=== PATIENT | male | born 1960 | race Caucasian/White ===

== ENCOUNTER 2024-01-30 00:01 | Emergency (ER) | payer OTHER, SELFPAY ==
[2024-01-30 00:10] VITALS: BP 140/72
[2024-01-30 00:24] VITALS: BP 136/65
[2024-01-30 00:53] LABS: % Basophils 0.5 % (0-2); % Immature Granulocytes 0.6 % (0-0.5); % Lymphocytes 4.9 % (20.5-51.1); % Monocytes 8.3 % (1.7-9.3); % Neutrophils 85.7 % (42.2-75.2); Absolute Basophils 0.1 10^3/uL (0-0.2); Absolute Immature Granulocytes 0.1 10^3/uL (0-0.05); Absolute Lymphocytes 0.5 10^3/uL (1.2-3.4); Absolute Monocytes 0.8 10^3/uL (0.1-0.6); Absolute Neutrophils 8.7 10^3/uL (1.4-6.5); Hematocrit 37.6 % (39.0-52.0); Hemoglobin 13.2 g/dL (13.0-18.0); Mean Corp Hgb Conc. 35.1 g/dL (33.0-37.0); Mean Corpuscular Hgb 31.4 pg (27.0-31.0); Mean Corpuscular Volume 89.3 fL (80.0-94.0); Mean Platelet Volume 10.7 fL (7.4-10.4); Nucleated Red Blood Cells % 0 % (-); Platelet Count 171 10^3/uL (130-400); Red Blood Cell Count 4.21 10^6/uL (4.70-6.10); Red Cell Dist. Width 12.2 % (11.5-14.5); White Blood Cell Count 10.1 10^3/uL (4.8-10.8)
[2024-01-30 00:56] VITALS: BMI 28.4
--- NOTE | 2024-01-30 00:58 | ED.GENMED ---
History of Present Illness
<HARRIET Gentile (Lenka) - Last Filed: 01/30/24 01:27>
General
Chief Complaint: Chest Pain
Source: patient and spouse
Exam Limitations: none
Time Seen by Provider: 01/30/24 00:22
Nursing documentation reviewed up to this point in time: agreed with except (patient denies chest pain, denies arm tingling, states it is intermittent sharp shooting sensation)
History of Present Illness
History of Present Illness:
Pt is a 63yo male with PMHx PVCs who presents to the ED for L arm pain and general malaise x 1 day. 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
external rotation as well as abduction. He describes it as a 'pinched nerve or pulled muscle sensation', stating it is sharp and shooting, originates at his shoulder, and radiates down his posterior arm to his elbow. He took a muscle relaxer and
motrin before bed last night and at 0430 today. He awoke this morning with general malaise, remained in bed all day, and in the afternoon developed a 1 hour episode of diaphoresis, chills, MOSES, and nausea. He denies chest pain, dyspnea, emesis,
abdominal pain, numbness or tingling in his fingers or down his arm.
Recent travel to and from the [facility] 2 days ago.
No prior hx of L arm pain.
No FHx of cardiac conditions.
He is R arm dominant.
Past History
<HARRIET Gentile (Lenka) - Last Filed: 01/30/24 01:27>
Past History
ED Past Medical History: None and Other (PVCs)
ED Past Surgical History: Orthopedic (Lt ankle and knee surgery, Rt knee replacement)
Social History
Tobacco: Non-smoker
Personal:
Living: with family
Employment: Employed
Family History
Family History: Other (no known cardiac FHx)
Phy Exam
<HARRIET Gentile (Lenka) - Last Filed: 01/30/24 01:27>
General Physical Exam
General Presentation: well appearing and no apparent distress
General age: appears stated age
General Skin: warm and dry
General Habitus: normal
General Mental: alert
General Hydration: appears well hydrated
Cardiovascular Exam
Cardiovascular Exam: no edema, systolic murmur and tachycardia
Pulmonary Exam
Pulmonary Exam: lungs clear, no respiratory distress, no rales, no crackles, no rhonchi, no stridor, no wheezing and no cough
Gastrointestinal Exam
Gastrointestinal Exam: non tender and soft
Neurological Exam
Neurological Exam: alert and oriented x3
Musculoskeletal Exam
Musculoskeletal Exam: neuro vasc intact and other (ROM limited d/t pain, Positive bermudez test)
Skin Exam
Skin Exam: normal color, warm/dry and no rash
Psychiatric Exam
Psychiatric Exam: normal mood/affect
Scores
<ST Gentile (Lenka)[place] - Last Filed: 01/30/24 01:27>
Heart Score for Chest Pain Patients
STEMI patient?: No
History: Slightly or Non-Suspicious
ECG: Normal
Age: >/= 65 years
Risk Factors: No Risk Factors
Troponin: </= Normal Limit
Heart Score for Chest Pain Patients: 2
Heart Score Risk: 2.5% MACE over next 6 weeks
<Ana Evans DO - Last Filed: 01/30/24 05:07>
Heart Score for Chest Pain Patients
Heart Score for Chest Pain Patients: 2
Heart Score Risk: 2.5% MACE over next 6 weeks
Course
<ST Gentile (Lenka)[place] - Last Filed: 01/30/24 01:27>
Orders/Labs/Results
Orders:
Orders
01/30/24 00:02
Electrocardiogram (*1) Urgent
Reason for Study: Chest Pain
EKG- Treatment ONCE
01/30/24 00:31
CMP [Comprehensive Metabolic Panel] Urgent
Complete Blood Count/With Diff Urgent
Troponin I Urgent
01/30/24 01:25
0.9% Sodium Chloride 1000 ml [Nss] 1,000 ml IV BOLUS
Acetaminophen [Tylenol] 1,000 mg PO NOW STA
01/30/24 01:40
CR Chest - 2 Views Urgent
Comment:
Reason For Exam: acute fever
01/30/24 01:43
COVID-19 Antigen Urgent
Source: Nasal Swab
01/30/24 02:28
0.9% Sodium Chloride 1000 ml [Nss] 1,000 ml IV BOLUS
01/30/24 02:35
Ibuprofen [Motrin] 800 mg .ROUTE .STK-MED ONE
01/30/24 02:36
Ibuprofen [Motrin] 800 mg PO NOW STA
01/30/24 02:41
Lactic Acid Urgent
Blood Culture Urgent
MONICA Source: Blood/Venous
Specimen Description:
01/30/24 03:36
Urinalysis Reflex To Culture Urgent
Date Specimen was Collected: 01/30/24
Time Specimen was Collected: 03:32
Urine Microscopic Reflex Cult Urgent
Urine Culture Urgent
MONICA Source: U
Specimen Description:
Date Specimen was Collected: 01/30/24
Time Specimen was Collected: 03:32
01/30/24 04:50
Add On- LAB Urgent
Tests Added?: Lyme progressive
01/30/24 04:59
Doxycycline [Vibramycin] 100 mg PO NOW STA
Abnormal Lab Results
01/30/24 01/30/24
00:31 03:36
RBC 4.21 L 10^6/uL
(4.70-6.10)
Hct 37.6 L %
(39.0-52.0)
MCH 31.4 H pg
(27.0-31.0)
MPV 10.7 H fL
(7.4-10.4)
Abs Immat Gran (auto) 0.1 H 10^3/uL
(0-0.05)
Absolute Neuts (auto) 8.7 H 10^3/uL
(1.4-6.5)
Absolute Lymphs (auto) 0.5 L 10^3/uL
(1.2-3.4)
Absolute Monos (auto) 0.8 H 10^3/uL
(0.1-0.6)
Immature Gran % 0.6 H %
(0-0.5)
Neutrophils % 85.7 H %
(42.2-75.2)
Lymphocytes % 4.9 L %
(20.5-51.1)
Carbon Dioxide 21 L mmol/L
(22-30)
BUN 22 H mg/dl
(9-20)
Glucose 155 H mg/dl
(70-99)
AST 117 H U/L
(17-59)
ALT 98 H U/L
(0-50)
Total Protein 6.1 L g/dl
(6.3-8.2)
Urine Ketones 2+ A
(Negative)
Ur Occult Blood Reflex 3+ A
(Negative)
Urine Urobilinogen 2+ A
(Neg - 1+)
Urine RBC 7-10 A /HPF
(0-2)
Urine Bacteria (Reflex) Moderate A
(Negative)
01/30/24 00:31
01/30/24 00:31
Vital Signs
Initial and Last Documented VS:
Initial Vital Signs
Temp Pulse Resp BP Pulse Ox
97.4 F 108 20 140/72 98
01/30/24 00:10 01/30/24 00:10 01/30/24 00:10 01/30/24 00:10 01/30/24 00:10
Last Documented Vital Signs
Temp Pulse Resp BP Pulse Ox
100.2 F 117 25 148/74 96
01/30/24 03:27 01/30/24 03:00 01/30/24 03:00 01/30/24 02:32 01/30/24 03:00
<Ana Evans DO - Last Filed: 01/30/24 05:07>
Orders/Labs/Results
Orders:
Orders
01/30/24 00:02
Electrocardiogram (*1) Urgent
Reason for Study: Chest Pain
EKG- Treatment ONCE
01/30/24 00:31
CMP [Comprehensive Metabolic Panel] Urgent
Complete Blood Count/With Diff Urgent
Troponin I Urgent
01/30/24 01:25
0.9% Sodium Chloride 1000 ml [Nss] 1,000 ml IV BOLUS
Acetaminophen [Tylenol] 1,000 mg PO NOW STA
01/30/24 01:40
CR Chest - 2 Views Urgent
Comment:
Reason For Exam: acute fever
01/30/24 01:43
COVID-19 Antigen Urgent
Source: Nasal Swab
01/30/24 02:28
0.9% Sodium Chloride 1000 ml [Nss] 1,000 ml IV BOLUS
01/30/24 02:35
Ibuprofen [Motrin] 800 mg .ROUTE .STK-MED ONE
01/30/24 02:36
Ibuprofen [Motrin] 800 mg PO NOW STA
01/30/24 02:41
Lactic Acid Urgent
Blood Culture Urgent
MONICA Source: Blood/Venous
Specimen Description:
01/30/24 03:36
Urinalysis Reflex To Culture Urgent
Date Specimen was Collected: 01/30/24
Time Specimen was Collected: 03:32
Urine Microscopic Reflex Cult Urgent
Urine Culture Urgent
MONICA Source: U
Specimen Description:
Date Specimen was Collected: 01/30/24
Time Specimen was Collected: 03:32
01/30/24 04:50
Add On- LAB Urgent
Tests Added?: Lyme progressive
01/30/24 04:59
Doxycycline [Vibramycin] 100 mg PO NOW STA
Abnormal Lab Results
01/30/24 01/30/24
00:31 03:36
RBC 4.21 L 10^6/uL
(4.70-6.10)
Hct 37.6 L %
(39.0-52.0)
MCH 31.4 H pg
(27.0-31.0)
MPV 10.7 H fL
(7.4-10.4)
Abs Immat Gran (auto) 0.1 H 10^3/uL
(0-0.05)
Absolute Neuts (auto) 8.7 H 10^3/uL
(1.4-6.5)
Absolute Lymphs (auto) 0.5 L 10^3/uL
(1.2-3.4)
Absolute Monos (auto) 0.8 H 10^3/uL
(0.1-0.6)
Immature Gran % 0.6 H %
(0-0.5)
Neutrophils % 85.7 H %
(42.2-75.2)
Lymphocytes % 4.9 L %
(20.5-51.1)
Carbon Dioxide 21 L mmol/L
(22-30)
BUN 22 H mg/dl
(9-20)
Glucose 155 H mg/dl
(70-99)
AST 117 H U/L
(17-59)
ALT 98 H U/L
(0-50)
Total Protein 6.1 L g/dl
(6.3-8.2)
Urine Ketones 2+ A
(Negative)
Ur Occult Blood Reflex 3+ A
(Negative)
Urine Urobilinogen 2+ A
(Neg - 1+)
Urine RBC 7-10 A /HPF
(0-2)
Urine Bacteria (Reflex) Moderate A
(Negative)
01/30/24 00:31
01/30/24 00:31
Vital Signs
Initial and Last Documented VS:
Initial Vital Signs
Temp Pulse Resp BP Pulse Ox
97.4 F 108 20 140/72 98
01/30/24 00:10 01/30/24 00:10 01/30/24 00:10 01/30/24 00:10 01/30/24 00:10
Last Documented Vital Signs
Temp Pulse Resp BP Pulse Ox
100.2 F 117 25 148/74 96
01/30/24 03:27 01/30/24 03:00 01/30/24 03:00 01/30/24 02:32 01/30/24 03:00
<HARRIET Gentile (Lenka) - Last Filed: 01/30/24 01:27>
MDM/Problems Addressed
Differential Diagnosis Includes:
Pt is a 63 yo male with PMHx of PVCs who presents to the ED for left shoulder to left elbow pain x 1 day. Pt was working in the [employer] yesterday when the pain began. He self-treated with motrin and muscle relaxers last night and early this AM
without relief. Today he developed general malaise, and a 1 hour episode of nausea, chills, and MOSES. The MOSES still persists.
Initial troponins: negative
Vitals: tachycardic (105 bpm), afebrile in triage, febrile 101.3F upon exam.
EKG: sinus tachycardia, one PVC
DDx: shoulder impingement, biceps tendoniitis, FL
Given the onset of symptoms x 1 day during muscular exertion and the reproducibility of pain with special shoulder tests such as Bermudez Alvin, a shoulder impingement is most likely. With absence of chest pain and negative initial troponins, an FL
is less likely.
Pt with likely concomitant URI as well. Plan to administer IVF, manage fever with antiinflammatories, obtain a UA, and a COVID swab.
<HARRIET Gentile (Lenka) - Last Filed: 01/30/24 01:27>
*Critical Care Note
Total Time (30-74mins, 75-104mins- exclusive of procedures): Not Applicable
<Ana Evans DO - Last Filed: 01/30/24 05:07>
*Radiology
Radiology exam reviewed: preliminary read by ED provider (Chest x-ray is unremarkable.)
*Pulse Oximetry
Patient hypoxic: no
*EKG
Interpreted by ED Provider?: Yes
Comparison EKG: no changes (Unchanged from previous March 2007 save her heart rate has increased from 88 to now 106. Unifocal PVCs similarly present in 2006.)
Rate: tachycardiac
Rhythm: sinus and PVC's
[place]: normal axis
Interval: normal interval
QRS Pattern: normal QRS
Ischemia: no ischemia
*Executive [employer]ent Ac[employer] Consultant Interpretation
Rate: tachycardiac
Rhythm: sinus
ED Attending Note
<HARRIET Gentile (Lenka) - Last Filed: 01/30/24 01:27>
-
Portions of this chart may have been created with voice recognition software.� Occasional wrong word or��sound alike� substitutions may have occurred due to the inherent limitations of voice recognition software.
<Ana Evans DO - Last Filed: 01/30/24 05:07>
ED Attending Note
Patient seen and examined by attending physician: Yes
I performed the substantive portion of visit, reviewed & personally made and approve the management plan that is documented in note by myself or SHILOH.: Yes
ED Attending Note:
This is a 63-year-old, [id number] gentleman who has no significant past medical history, takes no medications on a daily basis.
Yesterday while working in his garage he admits to 'tweaking his left shoulder' with abrupt onset of mild pain to his left shoulder. Pain worsened throughout the night, temporized with ibuprofen which she took yesterday evening and then again at
4:30 in the morning along with a muscle relaxer. He awoke this morning with mild nausea that dissipated but throughout the day today he has had a mild frontal headache, generalized fatigue with onset of chills tonight around 6 PM and generalized
myalgias. He took Tylenol at noon, a dose of ibuprofen 800 mg at 4 PM and then again at 8 PM. After taking Tylenol at 8 PM chills resolved but he then developed diaphoresis and has had continued intermittent left shoulder pain that is worse with
range of motion of his shoulder and intermittently radiates down to his left elbow. He denies weakness or numbness, denies chest pain nor palpitations, no cough no shortness of breath, no dizziness or lightheadedness. He denies abdominal pain, no
back pain or flank pain, no dysuria nor urgency nor hematuria. No diarrhea or constipation.
No close contacts with similar symptoms. He denies rash. No leg pain or swelling.
He thought that he may have been running a fever tonight but checked his temperature it was 98.9.
He does not smoke.
Daily alcohol consumption, a few drinks daily, wine versus hard liquor.
GENERAL: Alert , in no apparent distress. Very mild nasal, stuffy voice is noted but no cough, no respiratory distress. Oral temperature 101.3 �F. Mild resting sinus tachycardia is noted. Hemodynamically stable, systolic blood pressure 136-140.
EYE: pupils equal and reactive. anicteric
NECK: Supple, nontender, no meningismus, no significant adenopathy. Full range of motion without difficulty nor pain.
ENT: posterior pharynx is clear, oral mucosa is moist. TM clear b/l, nares have minimally boggy pale blue turbinates without mucopus.
CARDIAC: Regular rhythm, mildly tachycardic. no murmur.
LUNGS: Clear breath sounds bilaterally, no acute respiratory distress, no wheezes/rales/rhonchi
ABDOMEN: Soft, nondistended, without focal tenderness, no r/g, no cvat. normoactive BS.
NEUROLOGICAL: Alert and oriented x3, no focal neuro deficits. Gait is wolfe and steady.
SKIN: Hot to touch and dry, normal color, skin intact. No rash.
MUSCULOSKELETAL: No C/C/E. peripheral pulses are full and equal b/l. Mild tenderness to palpation about the left shoulder with increased pain with abduction and internal rotation of the shoulder. No soft tissue swelling. No crepitus. No
tenderness about the elbow nor pain with elbow range of motion.
PSYCH: Normal and appropriate interaction.
Patient presents with left shoulder pain that began yesterday while working in his garage.
Left shoulder pain clearly appears musculoskeletal in nature, reproducible with palpation and with range of motion of shoulder.
He presents tonight with onset of chills, diaphoresis, myalgias, headache and is noted to be febrile 101.3 �F.
No evidence of focal bacterial infectious process on initial exam.
Concern for acute viral syndrome, COVID-19, occult pneumonia, UTI.
ACS is unlikely.
EKG shows mild sinus tachycardia with unifocal PVC otherwise unremarkable. Similar to previous EKG March 2007 save her heart rate has increased from 88 to now 106.
Labs thus far reveal normal white blood cell count, normal H&H mild left shift, chemistries show minimally elevated BUN of 22, normal creatinine. Random glucose mildly elevated 155. Mildly elevated AST and ALT, normal troponin.
Will check COVID-19 antigen. Will check urinalysis with reflex to culture.
Will check chest x-ray.
Will initiate IV fluids and give a dose of Tylenol for fever.
01/30/2024 0357 AM
No significant improvement in fever after Tylenol but fever now dissipating after an oral dose of ibuprofen.
Overall patient feeling improved.
COVID-19 antigen is negative. Chest x-ray is unremarkable.
Lactic acid is normal.
Awaiting urinalysis results.
01/30/2024 0500 AM
Patient continues to feel improved. Fever dissipating.
Urinalysis shows moderate bacteria, 7-10 RBCs, 3-5 WBCs. Not exactly consistent with UTI however with moderate bacteria, significant febrile response there is some concern for UTI thus we will initiate a course of doxycycline. Urine culture is
pending.
Blood culture is pending.
No rash noted on exam but patient does [place] thus concern for potential Lyme's disease. Lyme titer has been added to blood in the lab.
Discussed importance of remaining well-hydrated on a daily basis.
Continue ibuprofen every 6 hours as needed for fever, aches.
Prompt follow-up with PCP for recheck.
Return precautions discussed.
Discharge Plan
Departure
Patient Disposition: Home (Routine Discharge)
Date of Disposition: 01/30/24
Time of Disposition: 05:02
Patient with high blood pressure during this ER visit?: No
Condition: Good
Discharge Problem:
Acute febrile illness, Bacteriuria, Acute left shoulder strain
Instructions: Fever, Adult (DC), Shoulder Sprain ED
Prescriptions:
New
doxycycline monohydrate 100 mg capsule
100 mg PO BID Qty: 14 0RF
Referrals:
Brandan Balderrama MD [Family Provider] - Call in 1-3 days for appt
Interventions
Interventions:
*Risk Screen - Suicide Last Done: 01/30/24 00:10
*General Assessment Last Done: 01/30/24 02:09
*Neglect/Abuse Screening Last Done: 01/30/24 00:10
*ED COVID-19 Vaccine History Last Done: 01/30/24 02:09
ED- Cardiac Assessment Last Done: 01/30/24 02:09
Discharge Date and Time
Print Language: STATELESS
[2024-01-30 01:08] LABS: ALT (SGPT) 98 U/L (0-50); AST (SGOT) 117 U/L (17-59); Albumin 3.9 g/dl (3.5-5.0); Alkaline Phosphatase 73 U/L (38-126); Blood Urea Nitrogen 22 mg/dl (9-20); Calcium 8.7 mg/dl (8.4-10.2); Carbon Dioxide 21 mmol/L (22-30); Chloride 106 mmol/L (98-107); Estimated Creatinine Clearance 81 ml/min; Glucose 155 mg/dl (70-99); Potassium 3.9 mmol/L (3.5-5.1); Sodium 136 mmol/L (135-145); Total Protein 6.1 g/dl (6.3-8.2); eGFR > 60.00
[2024-01-30 01:18] LABS: Troponin I < 0.012 ng/ml
[2024-01-30] MEDS: NSS 1000 IV ×2 (01:39→02:41)
[2024-01-30] MEDS: TYLENOL 1000 MG PO (01:39)
[2024-01-30 01:44] VITALS: BP 150/73
[2024-01-30 02:00] VITALS: BP 158/74
[2024-01-30 02:15] LABS: COVID-19 Antigen Negative (Negative)
[2024-01-30 02:32] VITALS: BP 148/74
[2024-01-30] MEDS: MOTRIN 800 MG PO (02:41)
[2024-01-30 03:46] LABS: Urine Albumin Trace (Neg - Trace); Urine Bilirubin Negative (Negative); Urine Character Clear (Clear); Urine Color Yellow; Urine Glucose Negative (Negative); Urine Ketone 2+ (Negative); Urine Leukocyte Negative (Negative); Urine Nitrite Negative (Negative); Urine Occult Blood 3+ (Negative); Urine Urobilinogen 2+ (Neg - 1+)
[2024-01-30 04:33] LABS: Urine Mucus Few
[2024-01-30 04:34] LABS: Urine Amorphous Seen; Urine Bacteria Moderate (Negative)
[2024-01-30 04:35] LABS: Urine Urothelial Cell 0-2 /LPF (FEW)
[2024-01-30] MEDS: VIBRAMYCIN 100 MG PO (05:09)
[2024-02-01 15:22] LABS: Lyme Antibody Screen, EIA Negative (Negative)
== END 2024-01-30 05:17 | disposition home or self-care (01) ==
LOC: EMR 00:01
PROVIDERS: Emergency Medicine; EMERGENCY PHYSICIAN Emergency Medicine; FAMILY PHYSICIAN Internal Medicine
DX: R50.9 Fever, unspecified (principal); R82.71 Bacteriuria; S46.912A Strain of unspecified muscle, fascia and tendon at shoulder and upper arm level, left arm, initial encounter; X50.1XXA Overexertion from prolonged static or awkward postures, initial encounter
CPT/HCPCS: 88305; 93308; 70355; 71045; 71046; 71250; 75574; 76700; 76705; 80048; 80053; 80076; 81003; 81015; 82330; 82565; 82805; 82947; 82962; 83036; 83605; 83690; 83735; 84132; 84302; 84484; 84520; 85014; 85018; 85025; 85027; 85049; 85610; 85652; 85730; 86140; 86618; 86803; 86850; 86900; 86901; 86920; 87015; 87040; 87045; 87046; 87070; 87075; 87086; 87102; 87147; 87176; 87186; 87205; 87207; 87324; 87427; 87449; 87811; 93005; 93306; 93312; 93320; 93321; 93325; 93880; 94002; 94640; 96360; 96361; 96374; 99285; J2916; P9045; P9047; P9059; Q9967

== ENCOUNTER 2024-01-30 21:21 | Inpatient (IN) | payer OTHER, SELFPAY ==
[2024-01-30] VITALS (7 sets, daily range): BP systolic 110–153; BP diastolic 49–84; BMI 30.5; BMI 28.7
--- NOTE | 2024-01-30 16:57 | ED.GENMED ---
History of Present Illness
General
Chief Complaint: Abnormal Lab Value
Time Seen by Provider: 01/30/24 16:57
History of Present Illness
History of Present Illness:
HPI: The patient comes back to the ED today after being called of abnormal blood cultures (gram-positive cocci in clusters). He was placed on doxycycline as morning for the possibly of a urinary tract infection. He does report some ongoing vague
discomfort between the left shoulder and left elbow. He did have some chills earlier.
EXAM:
GENERAL: Well appearing in no distress, temperature 100.4 �F
HEENT: Moist oral mucosa
CARDIOVASCULAR: No murmurs, normal heart rate, regular rhythm, No chest wall tenderness
PULMONARY: No respiratory distress, breath sounds are clear and equal
ABDOMEN: Soft with no peritoneal signs, no tenderness
NEUROLOGIC: Excellent strength all extremities, no coordination deficits
PSYCHIATRIC: Appropriate mental status, normal insight and judgement
EXTREMITIES: Some decreased active range of motion at the left shoulder and left elbow however there is no overlying erythema or warmth or suggestion of septic joint
SKIN: No rash, no lesions
TIME OF INITIAL ENCOUNTER: 5 PM
NUMBER AND COMPLEXITY OF PROBLEMS ADDRESSED AT THE ENCOUNTER
� Chronic conditions affecting care: Has had COVID in the past
� Acute Exacerbation and/or Progression of Chronic Illness: This is an acute problem
� Differential Diagnosis includes: Bacteremia, sepsis, septic joint less likely given the lack of exam findings
AMOUNT AND/OR COMPLEXITY OF DATA TO BE REVIEWED AND ANALYZED
� I performed an independent evaluation of and my interpretation is:
EKG:
CT:
X-rays:
Laboratory Studies: Lactic is 2.6, white count normal, CRP is 200, transaminases are elevated
Other: Upper abdominal ultrasound unremarkable
� Review of other/old records: I reviewed records. The patient was seen here this morning for generalized malaise and left upper extremity discomfort and diagnosed with urinary tract infection. Earlier this morning, his
urinalysis showed 3-5 white cells per high-powered field with negative nitrite and negative leukocyte esterase. Blood culture this morning showed gram-positive cocci in clusters.
� Clinical information was obtained by an independent historian: None needed
� Prescriptions/Medications Considered but not given:
� Further testing considered but not performed:
RISK OF COMPLICATIONS AND/OR MORBIDITY OR MORTALITY OF PATIENT MANAGEMENT
� Social determinants of health affecting care: Lives at home
� Discussion with other providers: Hospitalist for admission
� Escalation of care including admission/observation vs risk of discharge considered: I reviewed the blood culture report from earlier this morning which indicates gram-positive cocci in clusters. He is febrile here and
borderline tachycardic. I ordered vancomycin and fluids. Although he reports pain in the left upper extremity and has a CRP that is markedly elevated, there is no significant concerning physical exam findings to the left upper extremity.
Past History
Past History
ED Past Medical History: None and Other (PVCs)
ED Past Surgical History: Orthopedic (Lt ankle and knee surgery, Rt knee replacement)
Social History
Tobacco: Non-smoker
Personal:
Living: with family
Employment: Employed
Family History
Family History: Other (no known cardiac FHx)
Phy Exam
Physical Exam
Physical Exam:
See HPI
Course
Orders/Labs/Results
Orders:
Orders
01/30/24 17:05
0.9% Sodium Chloride 1000 ml [Nss] 1,000 ml IV BOLUS
Acetaminophen [Tylenol] 1,000 mg PO NOW STA
01/30/24 17:21
Complete Blood Count/With Diff Urgent
Lactic Acid Urgent
Blood Culture Urgent
MONICA Source: Blood/Venous
Specimen Description:
01/30/24 17:29
Vancomycin [Vancocin] 2,000 mg 0.9% Sodium Chloride 500 ml [Nss] 500 ml IV NOW
01/30/24 18:00
VANCOMYCIN Pharmacy to Dose [VANCOCIN Pharmacy to Dose] 1 each Pharmacy To Prepare [Call Pharmacy To Prepare] 0 ml IV PER PROTOCOL
01/30/24 18:25
0.9% Sodium Chloride 1000 ml [Nss] 1,000 ml IV BOLUS
01/30/24 18:36
CRP [C-Reactive Protein] Urgent
Comprehensive Metabolic Panel Urgent
Lipase Urgent
01/30/24 19:12
US Abdomen Complete/Upper Urgent
Comment:
Reason For Exam: bacteremia; rising LFTs
01/30/24 19:48
Admit/Transfer Patient As Directed
Co-Sign Provider:
Level of Care: Inpatient admission
Assign to:: Medical/Surgical
Physician / Group: elyse
Diagnosis: gram positive bacteremia
Reason for Hospitalization: gram positive bacteremia
Expected length of stay greater than two midnights?: Yes
ELOS- Estimated Length of Stay in days: 2
I certify the patient meets the requirements for IP care: Yes
Code Status As Directed
Resuscitation Status: Full Code
PRN Pain Medication Management As Directed
May give lesser potent ordered pain med per pt: Yes
preference::
Protocol:: Medication orders for pain may be administered in a
manner that supports deferring to patient preference
when the pt is:
- Requesting an ordered lesser potent pain medication.
Least to most potent pain medications are defined
as: acetaminophen < NSAID < tramadol < opioids
(morphine, oxycodone, hydromorphone).
- Requesting a lesser dose of the same medication IF
ORDERED.
- Requesting a less intrusive route of administration
if both routes are prescribed by the provider (PO <
IV).
01/30/24 19:50
Blood Culture Urgent
MONICA Source: Blood/Venous
Specimen Description:
01/30/24 19:58
C difficile Antigen & Toxins Urgent
MONICA Source: Feces/Stool
Specimen Description:
Stool Culture Urgent
MONICA Source: Feces/Stool
Specimen Description:
Abnormal Lab Results
01/30/24 01/30/24
17:21 18:36
RBC 4.10 L 10^6/uL
(4.70-6.10)
Hgb 12.8 L g/dL
(13.0-18.0)
Hct 35.8 L %
(39.0-52.0)
MCH 31.2 H pg
(27.0-31.0)
Plt Count 121 L D 10^3/uL
(130-400)
MPV 11.3 H fL
(7.4-10.4)
Absolute Neuts (auto) 7.7 H 10^3/uL
(1.4-6.5)
Absolute Lymphs (auto) 0.7 L 10^3/uL
(1.2-3.4)
Neutrophils % 86.7 H %
(42.2-75.2)
Lymphocytes % 7.6 L %
(20.5-51.1)
Sodium 134 L mmol/L
(135-145)
Glucose 109 H mg/dl
(70-99)
Lactic Acid 2.6 H mmol/L
(0.7-2.0)
Calcium 8.0 L mg/dl
(8.4-10.2)
AST 228 H U/L
(17-59)
ALT 268 H U/L
(0-50)
C-Reactive Protein 199.50 H mg/L
(0.0-10.00)
Total Protein 5.1 L g/dl
(6.3-8.2)
Albumin 3.0 L g/dl
(3.5-5.0)
01/30/24 17:21
01/30/24 18:36
Vital Signs
Initial and Last Documented VS:
Initial Vital Signs
Temp Pulse Resp BP Pulse Ox
100.4 F H 105 16 141/68 98
01/30/24 16:15 01/30/24 16:15 01/30/24 16:15 01/30/24 16:15 01/30/24 16:15
Last Documented Vital Signs
Temp Pulse Resp BP Pulse Ox
99.4 F 109 19 110/55 93
01/30/24 19:26 01/30/24 19:15 01/30/24 19:15 01/30/24 19:00 01/30/24 19:15
*Critical Care Note
Total Time (30-74mins, 75-104mins- exclusive of procedures): Not Applicable
ED Attending Note
-
Portions of this chart may have been created with voice recognition software.� Occasional wrong word or��sound alike� substitutions may have occurred due to the inherent limitations of voice recognition software.
Discharge Plan
Departure
Patient Disposition: Admit
Date of Disposition: 01/30/24
Time of Disposition: 19:35
Presentation/result/management discussed w/ accepting MD/DO: Hospitalist
Discharge Problem:
Bacteremia
Prescriptions:
No Action
doxycycline monohydrate 100 mg capsule
100 mg PO BID Qty: 14 0RF
Patient Comments:
01/30/24: to take 1 capsule twice a day for 7 days
ibuprofen 800 mg Tablet
800 mg PO Q8HPRN PRN (Reason: mild pain)
Patient Comments:
01/30/24: Patient states he takes 800mg prescribed strength, but no pharmacy records indicate so.
Theragen Tablet
1 tab PO DAILY
acetaminophen [Tylenol Extra Strength] 500 mg Tablet
1,000 mg PO Q6HPRN PRN (Reason: mild pain)
Referrals:
Brandan Balderrama MD [Family Provider] -
Interventions
Interventions:
*Risk Screen - Suicide Last Done: 01/30/24 17:07
*General Assessment Last Done: 01/30/24 17:07
*Neglect/Abuse Screening Last Done: 01/30/24 17:07
ED- Fall Risk Assessment Last Done: 01/30/24 17:07
*ED COVID-19 Vaccine History Last Done: 01/30/24 17:07
Discharge Date and Time
Print Language: IRANIAN
--- NOTE | 2024-01-30 17:03 | EDRN ---
Dr. Zhao in room w/ pt. IV VAT RN also in room w/ pt.
--- NOTE | 2024-01-30 17:28 | EDRN ---
Pharmacy called to dose and send vancomycin at this time.
[2024-01-30] MEDS: NSS 1000 IV ×3 (17:34→22:35)
[2024-01-30] MEDS: TYLENOL 1000 MG PO (17:35)
[2024-01-30 17:38] LABS: Hematocrit 35.8 % (39.0-52.0); Hemoglobin 12.8 g/dL (13.0-18.0); Mean Corp Hgb Conc. 35.8 g/dL (33.0-37.0); Mean Corpuscular Hgb 31.2 pg (27.0-31.0); Mean Corpuscular Volume 87.3 fL (80.0-94.0); Mean Platelet Volume 11.3 fL (7.4-10.4); Platelet Count 121 10^3/uL (130-400); Red Cell Dist. Width 12.3 % (11.5-14.5); White Blood Cell Count 8.8 10^3/uL (4.8-10.8)
[2024-01-30] MEDS: VANCOCIN 540 MG IV (17:46)
[2024-01-30 17:48] LABS: % Basophils 0.6 % (0-2); % Immature Granulocytes 0.4 % (0-0.5); % Lymphocytes 7.6 % (20.5-51.1); % Monocytes 4.7 % (1.7-9.3); % Neutrophils 86.7 % (42.2-75.2); Absolute Basophils 0.1 10^3/uL (0-0.2); Absolute Lymphocytes 0.7 10^3/uL (1.2-3.4); Absolute Monocytes 0.4 10^3/uL (0.1-0.6); Absolute Neutrophils 7.7 10^3/uL (1.4-6.5); Nucleated Red Blood Cells % 0 % (-)
[2024-01-30 18:05] LABS: Lactic Acid 2.6 mmol/L (0.7-2.0)
[2024-01-30 18:59] LABS: ALT (SGPT) 268 U/L (0-50); AST (SGOT) 228 U/L (17-59); Alkaline Phosphatase 115 U/L (38-126); Blood Urea Nitrogen 16 mg/dl (9-20); Carbon Dioxide 22 mmol/L (22-30); Chloride 107 mmol/L (98-107); Estimated Creatinine Clearance > 125 ml/min; Glucose 109 mg/dl (70-99); Lipase 63 U/L (23-300); Potassium 3.6 mmol/L (3.5-5.1); Sodium 134 mmol/L (135-145); Total Bilirubin 1.2 mg/dl (0.2-1.3); Total Protein 5.1 g/dl (6.3-8.2); eGFR > 60.00
--- NOTE | 2024-01-30 19:51 | HPS.HSE ---
Family Physician
-
Family Physician: Brandan Balderrama
Chief Complaint
-
bacteremia
History of Present Illness
63-year-old male past medical history of arthritis, bilateral knee replacements presenting for gram-positive cocci in clusters on blood cultures.
He came to the emergency room yesterday for left arm pain and generalized malaise for a day. The day prior he was working in the garage he noticed his left shoulder down to the elbow was painful with internal/external rotation as well as abduction.
He took muscle relaxer and Motrin and later developed diaphoresis, chills, headache and nausea. He denies any chest pain or shortness of breath. He had recently traveled from the [facility] 2 days prior. He was started on doxycycline for possible
UTI and discharged.
He has been having profuse watery diarrhea for the past 2 days. He has some generalized abdominal pains. He denies any nausea or vomiting. He denies any cough or urinary symptoms.
He was called back in due to 1 blood culture growing gram-positive cocci in clusters.
He had tooth extraction in May but denies any pain in the tooth or discharge. He has had bilateral knee replacements in the past but denies any pain or swelling. He denies any rashes but has had ticks on him recently because he lives in the
[facility]
He drinks 1-2 drinks of vodka per night. He denies smoking or any drugs.
Medical History
Past Medical History
Past Medical History: Reports Other ( arthritis, bilateral knee replacements)
Past Surgical History: Reports Orthopedic (bilateral knee replacements/ankle replacements )
Social History
Tobacco: Non-smoker
Alcohol: Daily
Drug: None
Family History
Family History: Not pertinent
Allergies / Home Medications
Allergies reflects when Allergies were last updated in [facility].
Home Medications with original date entered in [facility]
Allergy/Medication List:
Allergies
Allergy/AdvReac Type Severity Reaction Status Date / Time
No Known Allergies Allergy Verified 01/30/24 16:18
Home Medications
acetaminophen 500 mg tablet (Tylenol Extra Strength) 1,000 mg PO Q6HPRN PRN mild pain 01/30/24
doxycycline monohydrate 100 mg capsule 100 mg PO BID #14 caps 01/30/24
ibuprofen 800 mg tablet 800 mg PO Q8HPRN PRN mild pain 01/30/24
therapeutic multivitamin 1 tab PO DAILY 01/30/24
Review of Systems
-
History Source: Patient
A 12 point ROS was completed and negative except as noted: Yes
Constitutional: Reports No Symptoms
EENT: Reports No Symptoms
Respiratory: Reports No Symptoms
Cardiac: Reports No Symptoms
Abdomen/GI: Reports No Symptoms
: Reports No Symptoms
Musculoskeletal: Reports No Symptoms
Skin: Reports No Symptoms
Neurological: Reports No Symptoms
Endocrine: Reports No Symptoms
Hematologic/Lymphatic: Reports No Symptoms
Psych: Reports No Symptoms
Physical Exam
Vital Signs
Vital Signs
Temp Pulse Resp BP Pulse Ox
99.4 F 109 19 110/55 93
01/30/24 19:26 01/30/24 19:15 01/30/24 19:15 01/30/24 19:00 01/30/24 19:15
Physical Exam
General: Well Developed, Well Nourished and No Apparent Distress
HEENT: NormoCephalic, Moist mucous membranes and Atraumatic
Respiratory: Clear
Cardiac: S1/S2 and Regular Rhythm; No Murmur or Rub
GI: Soft, Non Tender, Non Distended and Normal Bowel Sounds; No Organomegaly
Rectal: Deferred by Provider
Musculoskeletal: No Clubbing, No Cyanosis and No Edema
Skin: No Rash
Neuro: Nonfocal/grossly intact
Laboratory Results
-
01/30/24 17:21
01/30/24 18:36
Laboratory Results
Lactic Acid 2.6 mmol/L (0.7-2.0) H 01/30/24 17:21
Total Bilirubin 1.2 mg/dl (0.2-1.3) 01/30/24 18:36
AST 228 U/L (17-59) H 01/30/24 18:36
ALT 268 U/L (0-50) H 01/30/24 18:36
Alkaline Phosphatase 115 U/L (38-126) 01/30/24 18:36
Lipase 63 U/L (23-300) 01/30/24 18:36
Data Reviewed
-
Lab Data: Labs Reviewed by me
Old Records: Reviewed
Impression/Plan
-
IMPRESSION:
PLAN:
# Sepsis (fever, tachycardia) secondary to Staphylococcus bacteremia, unclear source, possibilities include infection of knee replacements, bacteremia related to tooth extraction vs endocarditis
-IV fluids
-Check repeat blood cultures
-Urine culture pending
-COVID-negative
-Vancomycin
-ID consulted
# Left shoulder pain likely biceps tendinitis
-No evidence of joint infection
# Acute diarrhea
-Improving
-Check stool cultures, C. difficile if recurrent
# Transaminitis likely secondary to alcohol
-Abdominal ultrasound pending
# Mild thrombocytopenia secondary to infection
-Continue to monitor
Daily alcohol use
-Monitor for withdrawal
Full code
DVT prophylaxis�heparin
Regular diet
[2024-01-30] MEDS: TYLENOL 650 MG PO (22:36)
[2024-01-30] MEDS: HEPARIN 5000 UNITS SC (22:36)
--- NOTE | 2024-01-30 23:16 | PHA.VAN.IN ---
Assessment
- Assessment
Renal Function: Other (01/30/24 BASELINE SCR: 1.0)
Concomitant Antimicrobials: NONE
- Previous Dosing Experience
Previous Regimen: NONE
AUC Dosing Plan
- Dosing Variables
Dosing Weight (kg): 95.9
Dosing CrCl (ml/min): 100
Vd coefficient (L/kg): 0.7
- Empiric Dosing
Initial / Loading Dose: 2GM
Maintenance Regimen: 1500MG IV Q12H
Estimated AUC (mcg*h/mL): 545
Estimated Peak (mcg*h/mL): 34.4
Estimated Trough (mcg/ml): 13.7
Estimated Half Life (H): 7.9
Pharmacokinetics Vancomycin I
- -
Patient Age: 63
Patient Sex: Male
Vancomycin Day #: 1
Indication: Skin And Soft Tissue (SEPSIS)
Requesting Provider: MONICO
Height / Weight:
Height 6 ft
Actual Weight 95.935 kg
Pertinent Past Medical History: JOINT REPLACEMENTS/TOOTH EXTRACTION
- Vital Signs / Lab Results
Temp Pulse Resp BP Pulse Ox
99.9 F 113 18 153/84 97
01/30/24 22:30 01/30/24 22:30 01/30/24 22:30 01/30/24 22:30 01/30/24 22:30
Lab Results - Hematology
01/30/24
17:21
WBC 8.8
Lab Results - Chemistry
01/30/24 01/30/24
17:21 18:36
BUN Cancelled 16
Creatinine Cancelled 0.7
Estimated Creat Clear Cancelled > 125
Albumin Cancelled 3.0 L
01/30/24
17:21
Lactic Acid 2.6 H
[2024-01-31] MEDS: ROBITUSSIN 100 MG PO (01:47)
[2024-01-31 02:24] VITALS: BP 100/60
[2024-01-31 03:17] VITALS: BP 148/80
[2024-01-31 05:51] LABS: Hematocrit 34.7 % (39.0-52.0); Hemoglobin 12.4 g/dL (13.0-18.0); Mean Corp Hgb Conc. 35.7 g/dL (33.0-37.0); Mean Corpuscular Hgb 32.5 pg (27.0-31.0); Mean Corpuscular Volume 90.8 fL (80.0-94.0); Red Blood Cell Count 3.82 10^6/uL (4.70-6.10); Red Cell Dist. Width 12.1 % (11.5-14.5); White Blood Cell Count 8.5 10^3/uL (4.8-10.8)
[2024-01-31] MEDS: VANCOCIN 300 MG IV ×2 (05:59→17:10)
[2024-01-31] MEDS: VANCOCIN 300 ML IV ×2 (05:59→17:10)
[2024-01-31 06:07] LABS: ALT (SGPT) 247 U/L (0-50); AST (SGOT) 154 U/L (17-59); Albumin 2.9 g/dl (3.5-5.0); Alkaline Phosphatase 141 U/L (38-126); Blood Urea Nitrogen 12 mg/dl (9-20); Carbon Dioxide 22 mmol/L (22-30); Chloride 107 mmol/L (98-107); Estimated Creatinine Clearance 101 ml/min; Glucose 125 mg/dl (70-99); Potassium 3.8 mmol/L (3.5-5.1); Sodium 133 mmol/L (135-145); eGFR > 60.00
[2024-01-31] MEDS: TYLENOL 650 MG PO ×3 (06:11→20:15)
[2024-01-31 06:13] LABS: % Basophils 0.6 % (0-2); % Immature Granulocytes 0.4 % (0-0.5); % Lymphocytes 10.6 % (20.5-51.1); % Monocytes 9.3 % (1.7-9.3); % Neutrophils 79.1 % (42.2-75.2); Absolute Basophils 0.1 10^3/uL (0-0.2); Absolute Lymphocytes 0.9 10^3/uL (1.2-3.4); Absolute Monocytes 0.8 10^3/uL (0.1-0.6); Absolute Neutrophils 6.8 10^3/uL (1.4-6.5); Mean Platelet Volume 11.4 fL (7.4-10.4); Nucleated Red Blood Cells % 0 % (-); Platelet Count 87 10^3/uL (130-400)
[2024-01-31 07:45] VITALS: BP 151/74
--- NOTE | 2024-01-31 07:54 | PHA.VAN.FU ---
Vancomycin Assessment / Plan
- Assessment
Renal Function: Stable
WBC's are: WNL
In the past 24 hrs, patient has been: Febrile
- Dosing Plan
Continue: Vanc 1500mg Q12H
- Monitoring Plan
No level(s) ordered at this time: consider levels in next few days
- Follow Up
Pharmacy will continue to follow.
Vancomycin Follow UP
- -
Patient Age: 63
Patient Sex: Male
Vancomycin Day #: 2
Indication: Skin And Soft Tissue
Requesting Provider: Dr. Velarde
Pertinent Antimicrobial Allergies:
NKDA
Height / Weight:
Height 6 ft
Actual Weight 95.935 kg
Pertinent Past Medical History: BMI ~29
- Vital Signs / Lab Results
Temp Pulse Resp BP Pulse Ox
102.6 F H 87 18 148/80 95
01/31/24 06:00 01/31/24 03:17 01/31/24 03:17 01/31/24 03:17 01/31/24 03:17
Lab Results - Hematology
01/30/24 01/31/24
17:21 05:28
WBC 8.8 8.5
Lab Results - Chemistry
01/30/24 01/30/24 01/31/24
17:21 18:36 05:28
BUN Cancelled 16 12
Creatinine Cancelled 0.7 0.8
Estimated Creat Clear Cancelled > 125 101
Albumin Cancelled 3.0 L 2.9 L
01/30/24
17:21
Lactic Acid 2.6 H
[2024-01-31] MEDS: HEPARIN 5000 UNITS SC ×2 (08:16→21:12)
[2024-01-31] MEDS: NSS 1000 IV ×2 (08:16→20:19)
--- NOTE | 2024-01-31 10:39 | CON.ID ---
Consultation
-
Date/Time Consultation Requested: 01/30/2024 2203
Date/Time Consultation Performed: 01/31/2024 1022
Requesting Provider: Dr. Velarde
Performing Provider: Dr. Verdugo
Reason for Consultation: Bacteremia
Chief Complaint / Past History
History of Present Illness
Fidencio Diaz is a 63-year-old man being evaluated at the request of Dr. Velarde in regards to bacteremia. History is obtained from chart review, along with patient interview.
Patient reports that he returned from the [facility] on 01/28/2024. The next day, he reports working in his garage and he noted left shoulder discomfort along with left elbow discomfort. He reports that it 'felt like a pinched nerve'. He reportedly
took a muscle relaxer. The next day he woke with generalized malaise and stayed in bed all day. He reported that he had some fevers and chills, along with headache. Ultimately he came to the emergency room late that night. While there blood work
was obtained. His white count was noted to be normal, and it was felt that he may have a pulled muscle. Blood cultures were obtained, and the patient was discharged to home. Approximately 12 hours later, these blood cultures were found to be
positive for gram-positive cocci, which has now been identified as Staph aureus. The patient was called back to the hospital and was started on empiric antibiotic therapy.
At this time he reports he is feeling somewhat better, although he did have fevers overnight. He reports some cough. He reports that his left shoulder is feeling somewhat improved.
Past History
Additional Past Medical History:
Hx PVC's
Additional Past Surgical History:
Left ankle surgery
Left knee surgery
Right knee replacement
Allergy History:
No Known Allergies Allergy (Verified 01/30/24 16:18)
Medications Reviewed: Yes
Current Antibiotics:
Vancomycin
Social History
Tobacco: Non-Smoker
Alcohol: Occasional
Drug: None
Personal:
Living: With Family
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
Family History
Family History: Not Pertinent
Review of Systems
Vital Signs
Temp Pulse Resp BP Pulse Ox
98.8 F 94 16 151/74 94
01/31/24 07:45 01/31/24 07:45 01/31/24 07:45 01/31/24 07:45 01/31/24 07:45
Physical Exam
Physical Exam
Constitutional: No Acute Distress, Well Developed, Comfortable and Non-toxic
Head: Normocephalic
Eyes: Pupils Equal, Pupils Round, No Conjunctival Hemorrhage and Sclera Anicteric
Oral: No Thrush and No Ulcers
Cardiovascular: Regular Rate and S1/S2; Negative S3/S4
Pulmonary: Clear; Negative Wheezes, Rales or Rhonchi
Gastrointestinal: Soft, Non Tender, Non Distended, Normal Bowel Sounds, No Rebound and No Guarding
Genito-Urinary: Negative Nolasco or CVA Tenderness
Extremities: Negative Edema, Cyanosis, Erythema, Splinter Hemorrhage, Venous Insufficiency or Janeway Lesions
Musculoskeletal: Negative Joint Swelling, Joint Effusion or Spinal Tenderness
Skin: Warm and Dry; Negative Rash or Jaundice
Wound: None
Neurological: Awake, Alert and Oriented; Negative Meningeal Signs
Psychological: Calm
.
Lab / Diagnostic Study Results
01/31/24 05:28
01/31/24 05:28
Abs Immat Gran (auto) 0.0 10^3/uL (0-0.05) 01/31/24 05:28
Absolute Neuts (auto) 6.8 10^3/uL (1.4-6.5) H 01/31/24 05:28
Absolute Lymphs (auto) 0.9 10^3/uL (1.2-3.4) L 01/31/24 05:28
Absolute Monos (auto) 0.8 10^3/uL (0.1-0.6) H 01/31/24 05:28
Absolute Basos (auto) 0.1 10^3/uL (0-0.2) 01/31/24 05:28
Immature Gran % 0.4 % (0-0.5) 01/31/24 05:28
Neutrophils % 79.1 % (42.2-75.2) H 01/31/24 05:28
Lymphocytes % 10.6 % (20.5-51.1) L 01/31/24 05:28
Monocytes % 9.3 % (1.7-9.3) 01/31/24 05:28
Eosinophils % 0.0 % (0-6) 01/31/24 05:28
Basophils % 0.6 % (0-2) 01/31/24 05:28
Lactic Acid 2.6 mmol/L (0.7-2.0) H 01/30/24 17:21
C-Reactive Protein 199.50 mg/L (0.0-10.00) H 01/30/24 18:36
Microbiology Results
Micro:
01/31/24 08:26 C. difficile GDH Antigen & Toxins - Final
Feces/Stool Negative for toxigenic C.difficile
01/31/24 08:26 Salmonella/Shigella Culture - Pending
Feces/Stool Campylobacter Culture - Pending
Shiga Toxin Test - Pending
01/30/24 22:45 Blood Culture - Pending
Blood/Venous
01/30/24 17:21 Blood Culture - Pending
Blood/Venous
Blood Culture Preliminary 01/30/24-0241
Presumptive Staphylococcus aureus
Gram Stain-blood Final 01/31/24-832
Gram stain of aerobic and anaerobic blood culture bottles
reveal Gram Positive Cocci in clusters.
Imaging:
01/30/2024 CXR (2 view): Heart size is normal. Pulmonary vasculature is top normal. Increased interstitial markings in the chanda bilaterally. No focal consolidation or pleural effusion.
Assessment / Plan
Staph aureus bacteremia
Fevers
Elevated CRP
Left shoulder discomfort
Anemia
Thrombocytopenia
Transaminitis
Recommendations:
Continue with vancomycin for the present. Further antibiotic recommendations as additional data is reviewed.
Repeat blood cultures have been obtained.
Given transaminitis and ongoing fever, check blood parasite smear. (Patient reports travel to the [facility])
ECHO is pending.
Check ESR.
--- NOTE | 2024-01-31 11:26 | PTCARENOTE ---
Dr. Jack Kilgore notified via [employer] text 1126 about final positive blood culture. Paperwork placed in chart.
--- NOTE | 2024-01-31 11:28 | PTCARENOTE ---
pt ok to come off enhanced precautions per infection prevention
[2024-01-31 12:20] LABS: Hepatitis C Antibody Negative (Negative)
--- NOTE | 2024-01-31 13:14 | PTCARENOTE ---
pt temp 103.2. Doctor Jame made aware. Tylenol given.
--- NOTE | 2024-01-31 13:14 | W.PN.HOSP.TC ---
Today's Communication/Plan
-
Continue with IV vancomycin
Follow-up cultures and sensitivities
Plan for MAURICE tomorrow
Assessment / Plan
Assessment / Plan
#Staphylococcal septicemia -- MSSA versus MRSA
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
#Valvular heart disease -- MR, /AR
-Presented with fevers, chills over last 2 days, temperature 103 �F in the ED; initial concern for pneumonia
-Associated left shoulder pain from around that time as well, no tenderness or signs of infections
-No tenderness to either knee, knees appear with well-healed surgical scar, no erythema or signs of effusion
-On exam does have a blowing systolic murmur suspicious for MR, high suspicion for endocarditis though source is still unknown
-Transthoracic echocardiogram today showed Likely mitral valve vegetation, potential vegetation on the aortic valve
-Has been receiving IV vancomycin since admission; repeat blood culture x 2 sent today
Plan
-Continue with IV vancomycin, follow-up culture results and sensitivities
-Plan for MAURICE tomorrow with cardiology for better visualization of valves
-Monitor hemodynamics, maintenance IV fluids
-May need to involve cardiothoracic surgery for valve replacements
#Transaminitis -- hepatocellular pattern; DDx include alcohol related versus parasitic disease
-Patient does drink consistent alcohol, downtrending LFTs since here, ultrasound with mild hepatosplenomegaly
-Did mention to the ID physician that traveled to [facility], pending peripheral smear to rule out parasitic disease
-Suspect that this may be predominantly alcoholic related, possibly early portal hypertension
-Not currently on hepatotoxic agents
Plan
-Trend LFTs daily
-Follow-up peripheral smear
-Avoid unnecessary hepatotoxins
#Thrombocytopenia -- Likely reactive from systemic infection/endocarditis
-Platelet count on arrival was 170, has down trended to 87 this morning
-No obvious signs of thrombosis or bleeding; low suspicion for sequestration
-Initial smear without signs of MAHA, bilirubin normal; timing not consistent with HIT
-Other cell lines appear adequate, low suspicion for bone marrow/productive etiology
Plan
-Trend daily CBC
-Follow-up peripheral smear
-Consider supportive transfusions if worsening
#Left shoulder pain -- suspect biceps tendinitis
-No pain or tenderness to palpation, no signs of erythema or edema
-Very low suspicion for source of infection though will continue to monitor, consider imaging
#Daily alcohol use
-Monitor for withdrawal
-See above
#Acute diarrhea
-Resolved, no indication for stool studies
Full code
DVT prophylaxis�heparin
Regular diet
Anticipated Discharge: > 48 hours
Subjective/Interval History
-
Date of Service: January 31, 2024
Seen and examined at bedside. No acute events, continues to have fevers. States his fever broke just prior to my interview. He denies any joint pains or tenderness, joints inquired about include knees, cervical and thoracolumbar spine. He denies
any known skin lesions or rashes. Denies urinary issues. Denies blurry vision.
He does mention left shoulder pain that began near the time that his fevers and chills started. Pain has not worsened, he has not noticed any worsening swelling/redness/fluctuance to the shoulder.
Objective Data
-
Labs:
Laboratory Results
01/31/24
05:28
WBC 8.5
Hgb 12.4 L
Hct 34.7 L
Plt Count 87 L D
Sodium 133 L
Potassium 3.8
Chloride 107
Carbon Dioxide 22
BUN 12
Creatinine 0.8
Glucose 125 H
Calcium 8.0 L
Total Bilirubin 1.0
AST 154 H
ALT 247 H
Alkaline Phosphatase 141 H
Vital Signs:
Vital Signs
Temp Pulse Resp BP Pulse Ox
98.8 F 94 16 151/74 94
01/31/24 07:45 01/31/24 07:45 01/31/24 07:45 01/31/24 07:45 01/31/24 07:45
I&O
01/30/24 01/31/24 02/01/24
06:59 06:59 06:59
Intake Total 2059
Balance 2059
Review of Systems
-
History Source: Patient
Constitutional: Reports Fever, Sleep Disturbance and Chills
Respiratory: Reports No Symptoms
Cardiac: Reports No Symptoms
Abdomen/GI: Reports No Symptoms
Genitourinary: Reports No Symptoms
Musculoskeletal: Reports Joint Pain (Left shoulder)
Skin: Reports No Symptoms
Neuro: Reports No Symptoms
Hematologic / Lymphatic: Reports No Symptoms
Physical Exam
-
General: Well Nourished, No Apparent Distress, Comfortable and Other (Toxic appearance)
HEENT: Normocephalic, Atraumatic, Moist Mucous Membranes and Anicteric; Negative Neck Masses or Nodules
Respiratory: Clear to Auscultation and Non Labored Respirations; Negative Wheezes, Rales or Rhonchi
Cardiac: Regular Rhythm, S1/S2 and Murmur (3/6 blowing COBY at apex, radiates to axilla); Negative Rub or Gallop
GI: Soft, Nontender, Nondistended and Normal Bowel Sounds
Musculoskeletal: No Clubbing, No Cyanosis, No Edema and Other (No tenderness to palpation along C/T/L-spine, no tenderness to left shoulder)
Skin: Warm, Dry and Other (No Janeway lesions or Osler nodes, no splinter hemorrhage); Negative Rash or Jaundice
Neuro: AO x 3, Nonfocal/Grossly Intact and Central Nerve's Intact
Hematologic / Lymphatic: No Lymphadenopathy
Data Reviewed
-
CT Scan: Report Reviewed by me
Medical Tests (Nuc Med, Echo etc): Report Reviewed by me
Labs: Labs Reviewed by me
Sepsis
Vital Signs
HD stable, febrile at 102.6 �F
Physical Exam
Physical Exam:
RRR, no cyanosis or mottling, capillary refill <2 seconds
Capillary Refill
Upper Extremity:
Jeffery Time: Less than 3 sec
Pulse Evaluation
Right Radial:
Pulse Evaluation: Present
--- NOTE | 2024-01-31 13:36 | CON.CAR ---
Addendum entered and electronically signed by Kolton Serna MD 01/31/24 17:17:
I saw and examined the patient.
The URBAN ANTHROPOLOGIST's note was reviewed and I agree with the note.
Comment: 63-year-old male with past medical history of bilateral total knee replacements presented for fever, chills and fatigue. Echo was ordered in response to staph bacteremia. There is concern for possible mitral valve vegetation.
Additionally aortic valve was thickened with mild and regurgitation. He has no problem swallowing. Platelets have been dropping but no signs of active bleeding. He is alert and oriented x 3, lungs sound clear to auscultation he has a 2 out of 6
crescendo decrescendo murmur in the right upper sternal border. No swelling in the legs, EKG from 01/30/2024 shows a sinus tachycardia with a PVC. RSR prime is seen. Will make n.p.o. after midnight he is agreeable to MAURICE which will help further
evaluate possible endocarditis of the mitral valve. Additionally aortic valve can be better evaluated. Ongoing care per ID and medicine. Platelets are dropping but no signs of bleeding, will check CBC before MAURICE in the morning. Will follow.
Original Note:
Consultation
Consultation Request
Date/Time Consultation Requested: 01/31/24 1201
Date/Time Consultation Performed: 01/31/24 1345
Requesting Provider: Dr. Kilgore
Performing Provider: Yina BAHENA for Dr. Serna
Reason for Consultation: concern for endocarditis
Medical History
-
Chief Complaint: bacteremia
History of Present Illness:
63 y/o male with no significant PMH who is here for evaluation after he developed left arm pain on Monday after working in the garage. Then, Monday he wasn't feeling well overall and had fever, chills, fatigue, and nausea. He came to the ER and was
told he had a UTI and was started on ABX. However, he was called to come back due to positive blood cultures. He has developed a cough and SOB in the past day or so. He has had fevers up to 103.2. Hx includes knee replacements, ankle surgery, and
most recent a tooth infection with extraction in April. He denies any CP and left arm pain resolved. He is in no distress at the time of my assessment and is present with his . We are consulted due to echodensity on mitral valve concerning
for vegetation, endocarditis.
Past Medical History
Past Surgical History: Orthopedic
Social History
Tobacco: Non-Smoker
Alcohol: Daily (1-2 vodka drinks per day)
Drug: Other (denies any IV drug use)
Personal:
Living: With Family
Family History
Family History: Reviewed & Not Pertinent
Allergies / Home Medications
Allergy/AdvReac Type Severity Reaction Status Date / Time
No Known Allergies Allergy Verified 01/30/24 16:18
�Medication �Instructions �Recorded �Confirmed �Type
acetaminophen 500 mg tablet 1,000 mg PO Q6HPRN PRN mild pain 01/30/24 01/30/24 History
(Tylenol Extra Strength)
ibuprofen 800 mg tablet 800 mg PO Q8HPRN PRN mild pain 01/30/24 History
therapeutic multivitamin 1 tab PO DAILY Supplement 01/30/24 01/30/24 History
doxycycline monohydrate 100 mg 100 mg PO BID Infection 01/31/24 01/30/24 History
capsule
Review of Systems
-
History Source: Patient
All other systems: Negative unless noted
Constitutional: Fever, Fatigue and Chills
Abdomen/GI: Nausea
Musculoskeletal: Other (left arm pain)
Neurological: Headache
Physical Exam
Vital Signs
Temp Pulse Resp BP Pulse Ox
103.2 F H 94 16 151/74 94
01/31/24 13:12 01/31/24 07:45 01/31/24 07:45 01/31/24 07:45 01/31/24 07:45
Lab Results
01/31/24 05:28
01/31/24 05:28
Physical Exam
General: Well Developed, Well Nourished and No Apparent Distress
HEENT: Normocephalic and Anicteric
Respiratory: Other (coarse lung sounds to bases)
Cardiac: Regular Rhythm and Murmur (III/ systolic)
Musculoskeletal: No Edema
Skin: Warm and Dry
Neuro: AO x 3
Psych: Calm
Impression / Plan
-
Bacteremia:
-gram positive cocci in clusters, final results pending, presumptive staph aureus
-on IV vancomycin
-ID following and testing pending (final blood cultures, parasites)
-Echo 01/31/24: Normal biventricular size and systolic function without regional wall motion abnormality. Suspicious density on the mitral valve leaflet(?s) worrisome for vegetation, Thickened aortic valve leaflets with mild aortic stenosis and
regurgitation. Cannot fully rule out any vegetation. Will arrange MAURICE procedure for tomorrow with suspicion for endocarditis, which is high-risk diagnosis.
Thrombocytopenia:
-repeat in AM
Elevated liver tests:
-management per primary
-parasite testing pending (patient spends time in [place])
Data Reviewed
-
EKG: Tracing Personally Visualized and interpreted (ST with PVC 106 BPM)
Radiology: Report Reviewed by me (CXR: There are increased interstitial markings centrally. )
Medical Tests (Nuc Med, Echo etc): Report Reviewed by me (Echo 01/31/24: Normal biventricular size and systolic function without regional wall motion abnormality. Suspicious density on the mitral valve leaflet(?s) worrisome for vegetation, Thickened
aortic valve leaflets with mild aortic stenosis and regurgitation. Cannot fully rule out any vegetation.)
Labs: Labs Reviewed by me
--- NOTE | 2024-01-31 13:37 | CM ---
Reviewed the chart notes and spoke with the patient and his spouse and son at the bedside. The patient resides with his spouse in a two story home with two steps to enter. The patient reports no DME at this time. Patient has had [facility] in the
past and been to to a facility where he had bilateral knee replacements, [facility] in [place]. The patient confirmed his pharmacy of choice is the [facility]. CM continues to be available to patient/family and is monitoring
medical plan for needs at discharge.
Plan: Discharge plans will depend on the patient's progress.
--- NOTE | 2024-01-31 14:21 | PTCARENOTE ---
Patients temp 99.4 after tylenol
[2024-01-31 15:17] LABS: Erythrocyte Sed Rate 12 mm/hour (0-20)
[2024-01-31 15:44] VITALS: BP 145/79
[2024-01-31] MEDS: ROBITUSSIN AC 10 ML PO ×2 (18:28→23:08)
[2024-01-31] MEDS: SUDAFED 30 MG PO (21:12)
[2024-01-31 23:15] VITALS: BP 136/72
[2024-02-01] MEDS: TYLENOL 650 MG PO ×4 (03:57→22:11)
[2024-02-01] MEDS: ROBITUSSIN AC 10 ML PO ×2 (03:57→20:41)
[2024-02-01] MEDS: VANCOCIN 300 MG IV (06:00)
[2024-02-01] MEDS: VANCOCIN 300 ML IV (06:00)
[2024-02-01] MEDS: NSS 1000 IV (06:04)
--- NOTE | 2024-02-01 06:33 | PTCARENOTE ---
Pt with temp 102.1 Tylenol given with re check temp 99.6. Pt NPO for MAURICE.
[2024-02-01 06:37] LABS: Hematocrit 33.5 % (39.0-52.0); Mean Corp Hgb Conc. 35.8 g/dL (33.0-37.0); Mean Corpuscular Hgb 32.3 pg (27.0-31.0); Mean Corpuscular Volume 90.3 fL (80.0-94.0); Mean Platelet Volume 11.5 fL (7.4-10.4); Platelet Count 105 10^3/uL (130-400); Red Blood Cell Count 3.71 10^6/uL (4.70-6.10)
[2024-02-01 06:55] LABS: % Basophils 0.3 % (0-2); % Immature Granulocytes 0.3 % (0-0.5); % Monocytes 15.7 % (1.7-9.3); % Neutrophils 73.7 % (42.2-75.2); Absolute Lymphocytes 1.1 10^3/uL (1.2-3.4); Absolute Monocytes 1.7 10^3/uL (0.1-0.6); Absolute Neutrophils 8.1 10^3/uL (1.4-6.5); Nucleated Red Blood Cells % 0 % (-)
[2024-02-01 07:07] LABS: Blood Urea Nitrogen 10 mg/dl (9-20); Calcium 8.1 mg/dl (8.4-10.2); Carbon Dioxide 23 mmol/L (22-30); Chloride 106 mmol/L (98-107); Estimated Creatinine Clearance 115 ml/min; Glucose 127 mg/dl (70-99); Magnesium 1.7 mg/dl (1.6-2.3); Potassium 3.3 mmol/L (3.5-5.1); Sodium 135 mmol/L (135-145); eGFR > 60.00
[2024-02-01] MEDS: HEPARIN 5000 UNITS SC ×2 (07:32→19:58)
--- NOTE | 2024-02-01 07:38 | PTCARENOTE ---
Gave report to hari in [employer]. will come for patient with wheel chair
--- NOTE | 2024-02-01 11:43 | CONSULT.CT ---
Addendum entered and electronically signed by JOSEF Healy 02/01/24 17:02:
Edit: patient does not have extensive stenting history but LHC continues to be recommended.
Addendum entered and electronically signed by Vikram Dow MD 02/01/24 16:53:
I saw and examined the patient.
The INSTALLATION AND SERVICE TECHNICIAN's note was reviewed and I agree with the note.
Comment:
I met with Mr. Diaz at the bedside and also virtually with Eduarda on facetime. I reviewed his pathology. He has pulmonary edema on his CT, likely some acute on chronic component of his MR. AV has some moderate AI from my review a well. MR jet is
severe and eccentric. Would give him some time to clear cultures, needs LHC given the extensive stenting history. He would benefit from diuresis with reassessment for response. Will plan to optimize him as best we can for tentative OR date of 02/08
with me. If he decompensates then we will move forward sooner. 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 Plan for TONI Clip as well due to high risk for afib developing in the perioperative period. Needs LHC.
Vikram Dow MD, MS
Cardiac Surgeon
Original Note:
Documented by User: JOSEF Healy 02/01/24 13:45
Consultation
-
Date/Time Consultation Requested: 02/01/24 1141
Date/Time Consultation Performed: 02/01/24 1143
Requesting Provider: Daphne SALAZAR
Performing Provider: Nicholas Gallardo MD
Reason for Consultation: MVR
Patient History
Physicians
Family Physician: Brandan Balderrama
Inpatient Iron Carrier: Nivia Serna
History of Present Illness
63-year-old male with past medical history of arthritis and bilateral knee replacement 2 years ago presented to [facility] emergency room on 01/29 after having gram-positive positive cocci on blood cultures. The day prior patient was in the
emergency room with left arm pain, cough, and generalized malaise. He noticed that he was working in the garage and had pain in his shoulder down to the elbow after rotation. He took a muscle relaxer and Motrin and later developed diaphoresis,
chills, headache and nausea. He was started on doxycycline for a possible UTI and was discharged. Prior to that he was having profuse watery diarrhea for 2 days with some generalized abdominal pain. Today patient received a transesophageal
echocardiogram which showed mitral valve vegetation with possible severe MR and moderate aortic insufficiency. CT surgery was consulted for surgical evaluation.
Blood cultures are positive for MSSA.
Of note he had a tooth extraction in May but denies any pain in the gums or discharge.
Past Medical History
Past Medical History: Other
Arthritis
Past Surgical History
Past Surgical History: Other
Bilateral knee replacements
Dental History
Tooth extraction in May
Social History
Alcohol: Daily (1-2 glasses of vodka)
Drug: None
Tobacco: Non-Smoker
Personal:
Living: With Spouse
Employment: Employed
Allergies
Allergy/AdvReac Type Severity Reaction Status Date / Time
No Known Allergies Allergy Verified 01/30/24 16:18
Home Medications
�Medication �Instructions �Recorded �Confirmed �Type
acetaminophen 500 mg tablet 1,000 mg PO Q6HPRN PRN mild pain 01/30/24 01/30/24 History
(Tylenol Extra Strength)
ibuprofen 800 mg tablet 800 mg PO Q8HPRN PRN mild pain 01/30/24 History
therapeutic multivitamin 1 tab PO DAILY Supplement 01/30/24 01/30/24 History
doxycycline monohydrate 100 mg 100 mg PO BID Infection 01/31/24 01/30/24 History
capsule
Review of Systems
-
History Source: Patient
General: Reports Fever, Fatigue and Chills
HEENT: Reports No Symptoms
Respiratory: Reports SOB, CAIN and Cough
Abdomen/GI: Reports Other (distention)
: Reports No Symptoms
Musculoskeletal: Reports Joint Pain (b/l knees)
Skin: Reports No Symptoms
Neurological: Reports No Symptoms
Vascular: Reports No Symptoms
Physical Exam
Vital Signs
Temp 100.4 F H 01/31/24 23:15
Temp route: Oral 01/31/24 23:15
Pulse 101 01/31/24 23:15
Resp Rate 16 01/31/24 23:15
Blood pressure 136/72 01/31/24 23:15
Blood pressure extremity used: Right upper arm 01/31/24 23:15
Position: Lying 01/31/24 23:15
MAP (cuff-Sammie Monitor) 95 01/30/24 21:37
SaO2 96 01/31/24 23:15
Oxygen Mode of Delivery Room air 02/01/24 07:36
Can the patient verbally communicate their pain? Yes 02/01/24 07:36
Pain scale ratin 02/01/24 04:57
Actual Weight 95.935 kg 01/30/24 22:30
Body Mass Index (BMI) 28.7 01/30/24 22:30
Labs
02/01/24 05:58
02/01/24 05:58
Exam
General: Well Developed, Well Nourished and No Apparent Distress
HEENT: Normocephalic
Respiratory: Rhonchi and Other (cough)
Cardiac: S1/S2
GI: Non Tender and Distended
Rectal: Deferred by Provider
Skin: Warm and Dry
Neuro: AO x 3 and No Motor Deficits
Extremities: Pulses (+2)
Lymph: No Lymphadenopathy
Psych: Calm
Assessment / Plan
-
63-year-old male with past medical history listed above presented with positive blood cultures. MAURICE today revealed mitral valve vegetation and severe MR. CT surgery consulted for surgical evaluation.
#Mitral valve endocarditis
#Severe MR
#Moderate AI
-Patient's case will be discussed with attending physician. Further details regarding surgical timing intervention will be determined after attending physicians full evaluation
-Routine preoperative cardiothoracic surgery orders will be initiated.
-STS risk stratification score will be calculated after preoperative testing is complete
-Continue antibiotics per primary team and infectious disease.
- agree with diureses.
- Strict I&O
- Monitor resp status closely
- follow blood cultures

Documented by User: Vikram Dow MD 02/01/24 14:02
Consultation
-
Performing Provider: Nicholas BAHENA for Paloma SALAZAR
--- NOTE | 2024-02-01 12:27 | W.PN.CD ---
Addendum entered and electronically signed by Fransisco Higuera MD 02/01/24 14:06:
I saw and examined the patient.
The LEAD TELLER's note was reviewed and I agree with the note.
Comment:
Concern for possible MV and aortic involvement
CT surgery consulted
IV lasix for hypoxia and crackles on exam
Original Note:
Today's Communication / Plan
-
IV Lasix x 1 now (after potassium replacement)
CT surgery consultation
Transfer to IVU
Impression / Plan
-
Bacteremia (staph aureus), endocarditis:
-ID is following and patient on IV ABX
-Echo 01/31/24: Normal biventricular size and systolic function without regional wall motion abnormality. Suspicious density on the mitral valve leaflet(?s) worrisome for vegetation, Thickened aortic valve leaflets with mild aortic stenosis and
regurgitation. Cannot fully rule out any vegetation.
-official MAURICE read from today is pending, but per verbal report patient with mitral valve vegetation and possible severe MR and no clear vegetation on aortic valve, but moderate aortic insufficiency. This is high risk diagnosis and CT surgery has
been consulted. Will transfer to IVU. I updated Dr. Kilgore.
SOB/cough:
-Rales to b/l bases. On O2 by NC. This is likely secondary to valve disease as above and getting IVF this admit.
-will give IV Lasix x 1 now and monitor response- IV lasix requires intensive monitoring
-hypokalemia is noted and I asked nursing to give replacement first
-check daily weights, I/O's, BMP in AM
Thrombocytopenia:
-follow
Elevated liver tests:
-management per primary
Physical Exam
Vital Signs/Labs
Vital Signs
Temp Pulse Resp BP Pulse Ox
100.4 F H 101 16 136/72 96
01/31/24 23:15 01/31/24 23:15 01/31/24 23:15 01/31/24 23:15 01/31/24 23:15
01/31/24 02/01/24 02/02/24
06:59 06:59 06:59
Actual Weight 95.935 kg
02/01/24 05:58
02/01/24 05:58
Magnesium 1.7 mg/dl (1.6-2.3) 02/01/24 05:58
Physical Exam
Constitutional: No acute distress
EENT: Anicteric
Cardiovascular: Rhythm & rate is regular and Systolic murmur present
Respiratory: Crackles Present (to b/l bases) and Other (on O2 by NC)
Neuro/Psych: AO x 3
Data Reviewed
-
Date of Service: February 01, 2024
Echo: Other (MAURICE and TTE as noted )
Labs: Labs Reviewed by me
[2024-02-01 12:56] VITALS: BP 168/91
[2024-02-01] MEDS: KCL 40 MEQ PO ×2 (13:10→22:10)
--- NOTE | 2024-02-01 13:29 | CM ---
Reviewed the chart notes. Patient had MAURICE today and is transferred to IVU. CM continues to be available to patient/family and is monitoring medical plan for needs at discharge.
Plan: Discharge plans will depend on the patient's progress.
--- NOTE | 2024-02-01 13:35 | PTCARENOTE ---
Assumed care of pt upon tsf from CCL post MAURICE. Pt arrives awake and alert. Ox3. VSS, CM shows NSR with occ PVC's. pox 96% on RA. Tylenol and Robitussin with codeine given as per AUG for MOSES and cough. KCl 40 meq's given as per AUG.
--- NOTE | 2024-02-01 14:14 | W.PN.HOSP.TC ---
Today's Communication/Plan
-
Transition to IV cefazolin as cultures positive for MSSA
IV fluid soft, give IV Lasix, continue on day-to-day basis
Plan for valve replacement and CT surgery eval
Assessment / Plan
Assessment / Plan
#MSSA bacteremia
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
#Valvular heart disease -- severe MR, /AR
#Pulmonary edema --multifactorial with IV fluids, hypertension, severe MR
-Presented with fevers, chills over last 2 days, temperature 103 �F in the ED; initial concern for pneumonia
-On exam does have a blowing systolic murmur suspicious for MR, high suspicion for endocarditis though source is still unknown
-TTE showed Likely mitral valve vegetation, potential vegetation on the aortic valve; MAURICE today confirmed findings
-Has been receiving IV vancomycin since admission; repeat blood culture x 2 sent remain negative
-Final blood cultures returned positive for MSSA; given 1 dose of Lasix today for pulmonary edema
Plan
-Transition from vancomycin to IV cefazolin for MSSA
-Monitor volume status, IV Lasix 40 mg PRN on daily basis
-Planning for mitral and aortic valve replacements with CT surgery
-Continue to follow-up repeat blood cultures
-Monitor hemodynamics and volume status
#Transaminitis -- hepatocellular pattern; DDx include alcohol related versus congestive with severe MR
-Patient does drink consistent alcohol, downtrending LFTs since here, ultrasound with mild hepatosplenomegaly
-Suspect that this may be predominantly alcoholic related, possibly early portal hypertension
-Not currently on hepatotoxic agents, peripheral smear negative for parasitic disease
-Potentially this was related to hepatic congestion from severe MR
-Repeat LFTs in the morning
#Thrombocytopenia -- Likely reactive from systemic infection/endocarditis
-No obvious signs of thrombosis or bleeding; low suspicion for sequestration
-Initial smear without signs of MAHA, bilirubin normal; timing not consistent with HIT
-Other cell lines appear adequate, low suspicion for bone marrow/productive etiology
-Platelet count has increased since starting antibiotics
#Left shoulder pain -- suspect biceps tendinitis
-No pain or tenderness to palpation, no signs of erythema or edema
-Very low suspicion for source of infection though will continue to monitor, consider imaging
#Daily alcohol use
-Monitor for withdrawal
-See above
#Acute diarrhea
-Resolved, no indication for stool studies
Full code
DVT prophylaxis�heparin
Regular diet
Anticipated Discharge: > 48 hours
Subjective/Interval History
-
Date of Service: February 01, 2024
Seen and examined at the bedside with his after transfer to IVU. Was at MAURICE earlier this morning, developed shortness of breath and pulmonary edema in the context of IVF and his severe mitral regurgitation. Was started on IV Lasix. At time
of my evaluation he states he was feeling better, still complains of significant cough but no fevers or chills recently.
Objective Data
-
Labs:
Laboratory Results
02/01/24
05:58
WBC 11.0 H
Hgb 12.0 L
Hct 33.5 L
Plt Count 105 L D
Sodium 135
Potassium 3.3 L
Chloride 106
Carbon Dioxide 23
BUN 10
Creatinine 0.7
Glucose 127 H
Calcium 8.1 L
Vital Signs:
Vital Signs
Temp Pulse Resp BP Pulse Ox
98.9 F 93 18 168/91 95
02/01/24 12:58 02/01/24 13:15 02/01/24 12:58 02/01/24 12:56 02/01/24 13:28
I&O
01/31/24 02/01/24 02/02/24
06:59 06:59 06:59
Intake Total 2059 5340 / 5340
Balance 2059 5340 / 5340
Review of Systems
-
History Source: Patient and Family
All other systems: Reviewed and negative
Physical Exam
-
General: Well Nourished, No Apparent Distress and Comfortable
HEENT: Normocephalic, Atraumatic, Moist Mucous Membranes and Anicteric
Respiratory: Rales (Bilateral bases) and Non Labored Respirations; Negative Wheezes, Rhonchi or Accessory Resp Muscle Use
Cardiac: Regular Rhythm, S1/S2, Murmur (Systolic blowing murmur across precordium, palpable thrill) and JVD (Trace); Negative Rub or Gallop
GI: Soft, Nontender, Nondistended and Normal Bowel Sounds
Musculoskeletal: No Clubbing, No Cyanosis and No Edema
Skin: Warm, Dry and Other (Hyperemic); Negative Rash
Neuro: AO x 3, Nonfocal/Grossly Intact and Central Nerve's Intact
Hematologic / Lymphatic: No Lymphadenopathy
Data Reviewed
-
Ultrasound: Report Reviewed by me, Discussed with Patient and Discussed with Family
Labs: Labs Reviewed by me and Discussed with Patient
--- NOTE | 2024-02-01 16:00 | W.PN.ID1 ---
Date of Service
Date of Service: February 01, 2024
Today's Communication
Continue abx.
Assessment / Plan
Staph aureus bacteremia
Suspected AV/MV endocarditis
Fevers
Elevated CRP
Left shoulder discomfort
Anemia
Thrombocytopenia
Transaminitis
Recommendations:
Cultures with MSSA.
Patient has been narrowed to cefazolin 2 g IV every 8 hours.
Follow serial blood cultures for clearance.
CT surgery has been consulted; await further input.
Chief Complaint
-: Bacteremia and Other (MSSA Endocarditis of AV/MV)
Subjective / Review of Systems
Patient seen and examined. Still reports cough, along with some ongoing fevers
Vital Signs / Physical Exam
Vital Signs
Vital Signs
Temp Pulse Resp BP Pulse Ox
98.9 F 93 18 168/91 95
02/01/24 12:58 02/01/24 13:15 02/01/24 12:58 02/01/24 12:56 02/01/24 13:28
Physical Exam
Constitutional: No Acute Distress, Comfortable and Non-toxic
Eyes: No Conjunctival Hemorrhage and Sclera Anicteric
Cardiovascular: S1/S2 and Murmur; Negative S3/S4
Pulmonary: Clear, Wheezes, Rhonchi (Few scattered), Coarse and Non Labored
Gastrointestinal: Soft, Non Tender and Non Distended
Extremities: Negative Cyanosis, Erythema, Splinter Hemorrhage or Janeway Lesions
Skin: Warm and Dry; Negative Rash or Jaundice
Neurological: Awake and Alert
Psychological: Calm
Objective Data
Lab Data
Lab Results
02/01/24 05:58
02/01/24 05:58
ESR 12 mm/hour (0-20) 01/31/24 13:02
Estimated Creat Clear 115 ml/min 02/01/24 05:58
Lactic Acid 2.6 mmol/L (0.7-2.0) H 01/30/24 17:21
Total Bilirubin 1.0 mg/dl (0.2-1.3) 01/31/24 05:28
AST 154 U/L (17-59) H 01/31/24 05:28
ALT 247 U/L (0-50) H 01/31/24 05:28
Alkaline Phosphatase 141 U/L (38-126) H 01/31/24 05:28
C-Reactive Protein 199.50 mg/L (0.0-10.00) H 01/30/24 18:36
Most recent labs reviewed.
Micro Results:
02/01/24 13:38 Blood Culture - Pending
Blood/Venous
01/31/24 08:26 Salmonella/Shigella Culture - Preliminary
Feces/Stool Culture in Progress
Campylobacter Culture - Preliminary
Culture in Progress
Shiga Toxin Test - Final
No E. coli Shiga Toxin 1 or 2 detected.
01/30/24 17:21 Blood Culture - Preliminary
Blood/Venous S aureus-Methicillin Sensitive
Gram Stain - Final
01/30/24 22:45 Blood Culture - Preliminary
Blood/Venous S aureus-Methicillin Sensitive
Gram Stain - Preliminary
01/31/24 13:02 Blood Parasites Smear - Final
Blood/Venous
01/31/24 08:26 C. difficile GDH Antigen & Toxins - Final
Feces/Stool Negative for toxigenic C.difficile
Blood Culture Final 01/30/24-0241
S aureus-Methicillin Sensitive
Organism 1 S aureus-Methicillin Sensitive
1. S aureus-Methicillin Sensitive
M.I.C. RX
--------- ---
Amoxicillin/Potas. Clavulanate <=4/2 S
Ampicillin <=2 R
Clindamycin <=0.5 S
Gentamicin <=4 S
Erythromycin <=0.5 S
Levofloxacin <=1 S
Oxacillin <=0.25 S
Tetracycline <=4 S
Trimethoprim/Sulfamethoxazole <=0.5/9.5 S
Vancomycin 1 S
Imaging:
01/31/2024 ECHO (TTE): Normal biventricular size and systolic function. Suspicious density on the mitral valve leaflets worrisome for vegetation. MAURICE recommended. Thickened aortic valve leaflets with mild aortic stenosis and regurgitation. Cannot
fully rule out vegetation due to valvulopathy. Please see full dictation for additional detail.
01/30/2024 CXR (2 view): Heart size is normal. Pulmonary vasculature is top normal. Increased interstitial markings in the chanda bilaterally. No focal consolidation or pleural effusion.
[2024-02-01 16:57] VITALS: BP 140/74
[2024-02-01] MEDS: LASIX 60 MG IV (17:02)
[2024-02-01] MEDS: ANCEF 10 IV (17:02)
[2024-02-01] MEDS: NSS IV (17:06)
--- NOTE | 2024-02-01 17:21 | W.PN.UPDATE ---
Update Note
Progress Note Update
Procedure Type:�CABG + MVR
PERIOPERATIVE OUTCOME ESTIMATE %
Operative Mortality 3.72%
Morbidity & Mortality 22.5%
Stroke 2.42%
Renal Failure 4.64%
Reoperation 7.32%
Prolonged Ventilation 13.9%
Deep Sternal Wound Infection 0.213%
Long Hospital Stay (>14 days) 16.7%
Short Hospital Stay (<6 days)* 14.9%
Clinical Summary
Planned Surgery: CABG + MVR, Urgent, First cardiovascular surgery
Demographics: 63 year old, White, male, 96kg, 183cm, BMI: 28.7 kg/m�
Lab Values: Creatinine: 0.7 mg/dL, Hematocrit: 33.5%, WBC Count: 11 10�/�L, Platelet Count: 382669 cells/�L
Substance Abuse: Never smoker, Alcohol use: >=8 drinks/week
Risk Factors / Comorbidities: Active Endocarditis, Hypertension
Coronary Artery Disease: No coronary symptoms
Valve Disease: Aortic Stenosis, Moderate AR, Severe MR
[2024-02-01 19:25] VITALS: BP 148/69
[2024-02-01 22:17] VITALS: BP 159/85
[2024-02-01 23:00] VITALS: BP 159/85
[2024-02-02] VITALS (11 sets, daily range): BP systolic 110–177; BP diastolic 73–96; BMI 29.1
[2024-02-02] MEDS: ANCEF 10 IV ×3 (00:04→17:04)
[2024-02-02] MEDS: ROBITUSSIN AC 10 ML PO ×4 (03:19→19:19)
--- NOTE | 2024-02-02 04:12 | PTCARENOTE ---
Rec'd pt at change of shift on TELE in NSR-Sinus Tach with occasional PVC's. Pt complained of headache and PRN Tylenol given per order. Pt also request cough syrup for frequent dry cough and given per order. Pt reports occasional 'difficulty
breathing' due to fluid on lungs and frequent coughing, pt sating on room air at 96%. Lungs w/ crackles in the bases. Pt agreed to report any further pain or difficulty breathing to RN. Pt with call mora in reach and pt laying in bed. Plan of care
ongoing.
[2024-02-02 04:13] LABS: Hematocrit 33.8 % (39.0-52.0); Mean Corp Hgb Conc. 35.5 g/dL (33.0-37.0); Mean Corpuscular Hgb 31.8 pg (27.0-31.0); Mean Corpuscular Volume 89.7 fL (80.0-94.0); Mean Platelet Volume 10.9 fL (7.4-10.4); Platelet Count 120 10^3/uL (130-400); Red Blood Cell Count 3.77 10^6/uL (4.70-6.10); Red Cell Dist. Width 11.9 % (11.5-14.5); White Blood Cell Count 11.1 10^3/uL (4.8-10.8)
[2024-02-02 04:19] LABS: INR 1.17
[2024-02-02 04:20] LABS: APTT 42.7 Sec (23.4-35.0)
[2024-02-02 04:31] LABS: ALT (SGPT) 113 U/L (0-50); AST (SGOT) 32 U/L (17-59); Albumin 3.3 g/dl (3.5-5.0); Alkaline Phosphatase 145 U/L (38-126); Blood Urea Nitrogen 11 mg/dl (9-20); Calcium 8.6 mg/dl (8.4-10.2); Carbon Dioxide 25 mmol/L (22-30); Chloride 104 mmol/L (98-107); Direct Bilirubin 0.2 mg/dl (0.0-0.4); Estimated Creatinine Clearance > 125 ml/min; Glucose 123 mg/dl (70-99); Magnesium 1.9 mg/dl (1.6-2.3); Potassium 3.7 mmol/L (3.5-5.1); Sodium 135 mmol/L (135-145); Total Bilirubin 1.1 mg/dl (0.2-1.3); Total Protein 5.6 g/dl (6.3-8.2); eGFR > 60.00
[2024-02-02] MEDS: LASIX 40 MG IV ×3 (06:05→21:31)
[2024-02-02] MEDS: TYLENOL 650 MG PO ×4 (06:53→22:47)
[2024-02-02] MEDS: KCL 40 MEQ PO ×2 (09:01→19:19)
[2024-02-02] MEDS: HEPARIN 5000 UNITS SC ×2 (09:02→19:18)
--- NOTE | 2024-02-02 09:39 | W.PN.CD ---
Today's Communication / Plan
-
ongoing diuresis
discussion with CT surgery/interventional about the best coronary evaluation
Impression / Plan
-
Bacteremia (staph aureus), endocarditis:
-ID is following and patient on IV ABX
-Echo 01/31/24: Normal biventricular size and systolic function without regional wall motion abnormality. Suspicious density on the mitral valve leaflet(?s) worrisome for vegetation, Thickened aortic valve leaflets with mild aortic stenosis and
regurgitation. Cannot fully rule out any vegetation.
-FELIPA with involvement of both mitral and aortic valves--Ct Surgery following, requesting cath, but there is a veg at the RCC on aortic side will need to review appropriatenes team, may be too risk to engage the RCA with this finding
Severe Mitral regurgitation:
- P3 segment of the posterior mitral leaflet appears to be flail. Echodensity measuring 10 mm in length is attached to the P2/P3
scallops and is suspicious for vegetation.
Acute heart failure due to valvular disease in the setting of IE
-put out nicely to lasix so far, continue Lasix TID, may need to back off if bp softens
-continue with intensive evaluaiton of his labs and vss
-check daily weights, I/O's, BMP in AM
Thrombocytopenia:
-improved ot 120
Elevated liver tests:
-management per primary
-improving with diuresis may be due to congestion
Subjective:
He is still sob but improved.
Physical Exam
Vital Signs/Labs
Vital Signs
Temp Pulse Resp BP Pulse Ox
99.2 F 98 18 163/78 94
02/02/24 03:00 02/02/24 06:05 02/02/24 07:14 02/02/24 06:05 02/02/24 07:14
02/01/24 02/02/24 02/03/24
06:59 06:59 06:59
Actual Weight 97.3 kg
02/02/24 03:28
02/02/24 03:28
PT 15.0 Sec (11.4-14.6) H 02/02/24 03:28
INR 1.17 02/02/24 03:28
APTT 42.7 Sec (23.4-35.0) H 02/02/24 03:28
Magnesium 1.9 mg/dl (1.6-2.3) 02/02/24 03:28
Physical Exam
Constitutional: No acute distress
Cardiovascular: Rhythm & rate is regular, Pedal edema is absent, JVD pressure is normal, Systolic murmur absent and Diastolic murmur absent
Respiratory: Respiratory effort normal and Wheeze Present (inspiratory wheeze diffusely)
Data Reviewed
-
Date of Service: February 02, 2024
Echo: Tracing Personally Visualized and interpreted (felipa there is a veg at the aortic side of rcc c/f engagement site of rca)
[2024-02-02 09:45] LABS: Glycohemoglobin (HgbA1c) 5.6 % (4.0-5.6)
--- NOTE | 2024-02-02 09:48 | W.PN.HOSP.TC ---
Addendum entered and electronically signed by Jack Kilgore DO 02/02/24 14:19:
CDI clarifications:
-Acute pulmonary edema from mitral regurgitation
-No hypocalcemia, corrected calcium normal on admission. Has since normalized
-Hyponatremia, POA, now resolved
-MSSA bacteremia/sepsis is present since admission, not severe as remained hemodynamically stable
Original Note:
Today's Communication/Plan
-
IV Lasix based off volume status
Continue with IV cefazolin
Plan for LHC, valve replacement with CABG
Assessment / Plan
Assessment / Plan
#MSSA bacteremia
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
#Valvular heart disease -- severe MR, /AR
#Pulmonary edema --multifactorial with IV fluids, hypertension, severe MR
-Presented with fevers, chills over last 2 days, temperature 103 �F in the ED; initial concern for pneumonia
-On exam does have a blowing systolic murmur suspicious for MR, high suspicion for endocarditis though source is still unknown
-TTE showed Likely mitral valve vegetation, potential vegetation on the aortic valve; MAURICE today confirmed findings; MSSA positive cultures
-Was transition from IV vancomycin to IV cefazolin following culture results; repeat culture results pending
-Given 1 dose of Lasix today for pulmonary edema, may need more later in the day
Plan
-Continue with IV cefazolin every 8 hours for MSSA
-Monitor HD and volume status, IV Lasix 40 mg PRN
-Plan for preprocedural left heart cath with angiography
-Valve replacements with CT surgery planned 02/08
-Continue to follow-up repeat blood cultures
-Order ultrasound to rule out abscess on his back
#Transaminitis -- hepatocellular pattern; DDx include alcohol related versus congestive with severe MR
-Patient does drink consistent alcohol, downtrending LFTs since here, ultrasound with mild hepatosplenomegaly
-Suspect that this may be predominantly alcoholic related, possibly early portal hypertension
-Not currently on hepatotoxic agents, peripheral smear negative for parasitic disease
-Stable, suspect chronic process from alcohol versus NAFLD
#Thrombocytopenia -- Likely reactive from systemic infection/endocarditis
-No obvious signs of thrombosis or bleeding; low suspicion for sequestration
-Initial smear without signs of MAHA, bilirubin normal; timing not consistent with HIT
-Other cell lines appear adequate, low suspicion for bone marrow/productive etiology
-Improving
#Left shoulder pain -- suspect biceps tendinitis
-No pain or tenderness to palpation, no signs of erythema or edema
-Low suspicion for source of infection
#Daily alcohol use
-Monitor for withdrawal
-See above
Full code
DVT prophylaxis�heparin
Regular diet
Anticipated Discharge: > 48 hours
Subjective/Interval History
-
Date of Service: February 02, 2024
Seen and examined at the bedside. No acute events. He was up and walking throughout the room, sat down to be interviewed.
He did not sleep well, developed orthopnea and cough with minimal decline of his beds head rest. Denies chest pain, fevers or chills, nausea, vomiting, diarrhea, paresthesias, abnormal bleeding or bruising.
Objective Data
-
Labs:
Laboratory Results
02/02/24
03:28
WBC 11.1 H
Hgb 12.0 L
Hct 33.8 L
Plt Count 120 L
PT 15.0 H
INR 1.17
APTT 42.7 H
Sodium 135
Potassium 3.7
Chloride 104
Carbon Dioxide 25
BUN 11
Creatinine 0.6 L
Glucose 123 H
Calcium 8.6
Total Bilirubin 1.1
AST 32
ALT 113 H
Alkaline Phosphatase 145 H
Vital Signs:
Vital Signs
Temp Pulse Resp BP Pulse Ox
99.2 F 98 18 163/78 94
02/02/24 03:00 02/02/24 06:05 02/02/24 07:14 02/02/24 06:05 02/02/24 07:14
I&O
02/01/24 02/02/24 02/03/24
06:59 06:59 06:59
Intake Total 5340 / 5340 480 / 480
Output Total 875 / 875 1025 / 1025
Balance 5340 / 5340 -395 / -395 -1025 / -1025
Review of Systems
-
History Source: Patient
All other systems: Reviewed and negative
Physical Exam
-
General: No Apparent Distress and Comfortable; Negative Respiratory Distress
HEENT: Normocephalic, Atraumatic, Moist Mucous Membranes and Anicteric
Respiratory: Rales (bibasilar) and Non Labored Respirations; Negative Wheezes, Rhonchi or Accessory Resp Muscle Use
Cardiac: Regular Rhythm, S1/S2, Murmur (4/6 systolic blowing murmur across precordium, best at apex), Gallop (S3 positive) and Other (Occasional irregularity, PVCs); Negative Rub or JVD
GI: Soft, Nontender, Nondistended and Normal Bowel Sounds
Musculoskeletal: No Clubbing, No Cyanosis and No Edema
Skin: Warm, Dry and Other (Small erythematous area, medial left back without obvious fluctuance or nodularity); Negative Rash or Jaundice
Neuro: AO x 3, Nonfocal/Grossly Intact and Central Nerve's Intact
Data Reviewed
-
Labs: Labs Reviewed by me and Discussed with Patient
--- NOTE | 2024-02-02 12:30 | CM ---
Reviewed chart. Mr. Diaz was transferred to IVU. Met with Mr. Diaz to review discharge plans. He states prior to admission he resides with his spuse in a two story home with two steps to enter. He states he has a full flight of steps to get to
bedroom/full bathroom. He states he has a powder room on the first floor. He states prior to admission he was independent with ambulation and adls. He states he does not have any DME in the home. He states he has a prescription plan. Telephone call
to [facility] to make referral to start the insurance review for coverage of home IV ABX. Sent the referral to [facility]. Awaiting insurance clearance. He states his spouse works from home and will be available to assist in his care when he
goes home. Medical work-up in progress. The discharge plan is to return home with his spouse and [facility] for home infusion when medically stable.
--- NOTE | 2024-02-02 13:36 | PN.CDI ---
CDI
- -
CDI:
Physician Documentation Request
Admit Date: 01/30/24 21:21
Dear Doctor Jame,
Please review the following and provide your response in the progress notes.
Clinical Indicators:
H+P, 01/29
# Sepsis (fever, tachycardia) secondary to Staphylococcus bacteremia,
#...unclear source, possibilities include infection of knee replacements,
#...bacteremia related to tooth extraction vs endocarditis
PN, 02/01
#MSSA bacteremia
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
#Valvular heart disease -- severe MR, /AR
Initial VS: 100.4 105 16 141/68 98%
Laboratory Tests
01/30/24
17:21
Lactic Acid 2.6 H
Recognized standard criteria for this condition and other associated definitions:
Bacteremia
-Abnormal laboratory test does not indicate a clinically ill patient
Sepsis
-Systemic manifestations of infection, with 2 or more SIRS criteria which include:
-Fever > 100.4��F or hypothermia < 96.8��F
-Leukocytosis WBC > 12,000 or leukopenia, WBC < 4,000, or > 10% bands
-Tachycardia- > 90 beats/minute
-Tachypnea- RR > 20 breaths/minute or PaCO2 < 32mmHg
Source: Merck Manual 2013
-Documentation should include the known or suspected organism, and the underlying infection, such as UTI or pneumonia
Severe Sepsis
-Sepsis with associated acute organ dysfunction, such as renal or respiratory failure
-Documentation should indicate the association between the sepsis and the organ dysfunction
Based on the above information and the recognized standard SIRS criteria, please clarify if sepsis is still an accurate diagnosis, and reflective of the patient�s condition, to ensure quality of the medical record.
Please clarify in the Progress Notes:
Sepsis is/was present and is a clinical diagnosis based on (please include this additional support in the medical record)
After study sepsis has been ruled out
Localized Infection Only, Without Systemic Illness
- indicate the site/source, such as UTI, pneumonia etc.
Bacteremia
- Abnormal lab finding only, does not indicate systemic illness
Other(please specify)
Use of terms such as suspected, likely, concern for, or probable (associated with a specific diagnosis that is being evaluated, monitored, or treated as if it exists) are acceptable and can be coded in the inpatient setting, when documented at the
time of discharge.
Thank you,
Lilly Weller RN BSN CCDS
CDI Specialist
Please contact via tiger text
Please use your independent medical judgment in providing your response.
--- NOTE | 2024-02-02 13:36 | PTCARENOTE ---
pt is sr/st on the monitor, hr in the 90s-110s, vss. pt c/o MOSES, Tylenol given as ordered. pt ambulating through room and tolerating well. pt educated on plan of care and pt verbalized understanding. call mora within reach.
--- NOTE | 2024-02-02 13:52 | PN.CDI ---
CDI
- -
CDI:
Physician Documentation Request
Admit Date: 01/30/24 21:21
Dear Doctor Jame,
Please review the following and provide your response in the progress notes.
Clinical Indicators:
Laboratory Tests
01/30/24 01/31/24 02/01/24
18:36 05:28 05:58
Sodium 134 L 133 L 135
02/02/24
03:28
Sodium 135
Based on the above, please clarify in the progress notes, the appropriate diagnosis, if significant, that supports the above abnormalities and additional evaluation, monitoring and/or treatment rendered:
Hyponatremia, POA, now resolved
Abnormal lab value, clinically insignificant
Other(please specify)
Use of terms such as suspected, likely, concern for, or probable (associated with a specific diagnosis that is being evaluated, monitored, or treated as if it exists) are acceptable and can be coded in the inpatient setting, when documented at the
time of discharge.
Thank you,
Lilly Weller RN BSN CCDS
CDI Specialist
please contact via tiger text
Please use your independent medical judgment in providing your response.
--- NOTE | 2024-02-02 13:55 | PN.CDI ---
CDI
- -
CDI:
Physician Documentation Request
Admit Date: 01/30/24 21:21
Dear Doctor Jame,
Please review the following and provide your response in the progress notes.
Clinical Indicators:
Laboratory Tests
01/30/24 01/31/24 02/01/24
18:36 05:28 05:58
Calcium 8.0 L 8.0 L 8.1 L
02/02/24
03:28
Calcium 8.6
Based on the above, please clarify in the progress notes, the appropriate diagnosis, if significant, that supports the above abnormalities and additional evaluation, monitoring and/or treatment rendered:
Hypocalcemia
Abnormal lab value, clinically insignificant
Other(please specify)
Use of terms such as suspected, likely, concern for, or probable (associated with a specific diagnosis that is being evaluated, monitored, or treated as if it exists) are acceptable and can be coded in the inpatient setting, when documented at the
time of discharge.
Thank you,
Lilly Weller RN BSN CCDS
CDI Specialist
please contact via tiger text
Please use your independent medical judgment in providing your response.
--- NOTE | 2024-02-02 13:58 | PN.CDI ---
CDI
- -
CDI:
Physician Documentation Request
Admit Date: 01/30/24 21:21
Dear Doctor Jame,
Please review the following and provide your response in the progress notes.
Clinical Indicators:
Cardiology, PN, 02/01
#ongoing diuresis
#-Echo 01/31/24: Normal biventricular size and systolic function
#...without regional wall motion abnormality.
#...Suspicious density on the mitral valve leaflet(?s) worrisome for vegetation,
#...Thickened aortic valve leaflets with mild aortic stenosis and regurgitation.
#...Cannot fully rule out any vegetation.
#Acute heart failure due to valvular disease in the setting of IE
#-put out nicely to lasix so far, continue Lasix TID, may need to back off if bp softens
#-continue with intensive evaluaiton of his labs and vss
#-check daily weights, I/O's, BMP in AM
PN, 02/01
#IV Lasix based off volume status
#Pulmonary edema --multifactorial with IV fluids, hypertension, severe MR
#...-Presented with fevers, chills over last 2 days, temperature 103 �F in the ED;
#...initial concern for pneumonia
#-Given 1 dose of Lasix today for pulmonary edema, may need more later in the day
Please clarify the acuity and etiology of the pulmonary edema:
Acute non-cardiac pulmonary edema due to fluid overload
Acute non-cardiac pulmonary edema due to other cause (please specify)
Acute pulmonary edema due to heart failure (please specify type and acuity)
Type: systolic, diastolic, combined or other type
Acuity: acute (new onset), chronic or acute on chronic
Other(please specify)
Use of terms such as suspected, likely, concern for, or probable (associated with a specific diagnosis that is being evaluated, monitored, or treated as if it exists) are acceptable and can be coded in the inpatient setting, when documented at the
time of discharge.
Thank you,
Lilly Weller RN BSN CCDS
CDI Specialist
please contact via tiger text
Please use your independent medical judgment in providing your response.
--- NOTE | 2024-02-02 14:41 | W.PN.ID1 ---
Date of Service
Date of Service: February 02, 2024
Today's Communication
Continue cefazolin.
Assessment / Plan
Staph aureus (MSSA) bacteremia
AV/MV endocarditis
Fevers - resolved
Elevated CRP
Left shoulder discomfort
Anemia
Thrombocytopenia
Transaminitis
Recommendations:
Continue cefazolin 2 g IV every 8 hours.
Follow serial blood cultures for clearance 01/31 bcx neg to date.
For cardiac surgery next week.
Trend leukocytosis.
Chief Complaint
-: Bacteremia and Other (MSSA Endocarditis of AV/MV)
Subjective / Review of Systems
Feeling better. No diarrhea
Vital Signs / Physical Exam
Vital Signs
Vital Signs
Temp Pulse Resp BP Pulse Ox
98.4 F 87 18 140/82 97
02/02/24 12:00 02/02/24 14:20 02/02/24 12:00 02/02/24 14:20 02/02/24 12:00
Physical Exam
Constitutional: No Acute Distress and Comfortable
Pulmonary: Rales (bases)
Gastrointestinal: Soft, Non Tender and Non Distended
Extremities: Negative Edema
Musculoskeletal: Other (Left shoulder - no erythema/warmth/effusion)
Neurological: AO x 3
Objective Data
Lab Data
Lab Results
02/02/24 03:28
02/02/24 03:28
ESR 12 mm/hour (0-20) 01/31/24 13:02
PT 15.0 Sec (11.4-14.6) H 02/02/24 03:28
INR 1.17 02/02/24 03:28
APTT 42.7 Sec (23.4-35.0) H 02/02/24 03:28
Estimated Creat Clear > 125 ml/min 02/02/24 03:28
Lactic Acid 2.6 mmol/L (0.7-2.0) H 01/30/24 17:21
Total Bilirubin 1.1 mg/dl (0.2-1.3) 02/02/24 03:28
AST 32 U/L (17-59) 02/02/24 03:28
ALT 113 U/L (0-50) H 02/02/24 03:28
Alkaline Phosphatase 145 U/L (38-126) H 02/02/24 03:28
C-Reactive Protein 199.50 mg/L (0.0-10.00) H 01/30/24 18:36
Most recent labs reviewed.
Micro Results:
02/01/24 13:38 Blood Culture - Preliminary
Blood/Venous No Growth in 24 hours- Final report to follow
01/30/24 22:45 Blood Culture - Preliminary
Blood/Venous S aureus-Methicillin Sensitive
Gram Stain - Preliminary
01/30/24 17:21 Blood Culture - Final
Blood/Venous S aureus-Methicillin Sensitive
Gram Stain - Final
02/01/24 16:49 Blood Culture - Pending
Blood/Venous
01/31/24 08:26 Salmonella/Shigella Culture - Preliminary
Feces/Stool Culture in Progress
Campylobacter Culture - Preliminary
Culture in Progress
Shiga Toxin Test - Final
No E. coli Shiga Toxin 1 or 2 detected.
01/31/24 13:02 Blood Parasites Smear - Final
Blood/Venous
01/31/24 08:26 C. difficile GDH Antigen & Toxins - Final
Feces/Stool Negative for toxigenic C.difficile
Blood Culture Final 01/30/24-024
S aureus-Methicillin Sensitive
Organism 1 S aureus-Methicillin Sensitive
1. S aureus-Methicillin Sensitive
M.I.C. RX
--------- ---
Amoxicillin/Potas. Clavulanate <=4/2 S
Ampicillin <=2 R
Clindamycin <=0.5 S
Gentamicin <=4 S
Erythromycin <=0.5 S
Levofloxacin <=1 S
Oxacillin <=0.25 S
Tetracycline <=4 S
Trimethoprim/Sulfamethoxazole <=0.5/9.5 S
Vancomycin 1 S
Imaging:
01/31/2024 ECHO (TTE): Normal biventricular size and systolic function. Suspicious density on the mitral valve leaflets worrisome for vegetation. MAURICE recommended. Thickened aortic valve leaflets with mild aortic stenosis and regurgitation. Cannot
fully rule out vegetation due to valvulopathy. Please see full dictation for additional detail.
01/30/2024 CXR (2 view): Heart size is normal. Pulmonary vasculature is top normal. Increased interstitial markings in the chanda bilaterally. No focal consolidation or pleural effusion.
--- NOTE | 2024-02-02 14:49 | W.PN.UPDATE ---
Update Note
Progress Note Update
Evaluated patient in afternoon to determine if more lasix doses needed. Already transitioned to TID IV by cardiology. Improving clinically on IV diuretics.
He has some bigeminy on monitor, and with exam. HR mostly in 90s/min now, will monitor and consider low dose beta kyra if worsening.
C/O sleep disturbance. Will Start trazodone tonight, consider dose increase in AM if needed.
US today without signs of Abscess. at bedside and updated.
--- NOTE | 2024-02-02 20:26 | PTCARENOTE ---
Received patient for the night. Sinus rhythm with frequent PVCs on the monitor. Frequent, harsh, non-productive cough, patient given Robitussin. Educated on fluid restriction. Spouse at bedside.
[2024-02-02] MEDS: DESYREL 25 MG PO (22:45)
[2024-02-03] MEDS: ANCEF 10 IV ×4 (00:03→23:42)
[2024-02-03 05:17] VITALS: BP 157/78
[2024-02-03] MEDS: LASIX 40 MG IV ×2 (05:20→15:57)
--- NOTE | 2024-02-03 05:38 | PTCARENOTE ---
Patient awoken for portable CXR and am labs. Patient continues with nonproductive, frequent cough. Patient aware to call nursing when he gets up for am weight.
[2024-02-03 05:45] VITALS: BMI 27.7
[2024-02-03 06:01] LABS: % Basophils 0.5 % (0-2); % Immature Granulocytes 0.6 % (0-0.5); % Lymphocytes 16.4 % (20.5-51.1); % Monocytes 15.2 % (1.7-9.3); % Neutrophils 64.3 % (42.2-75.2); Absolute Basophils 0.1 10^3/uL (0-0.2); Absolute Eosinophils 0.3 10^3/uL (0-0.7); Absolute Immature Granulocytes 0.1 10^3/uL (0-0.05); Absolute Lymphocytes 1.8 10^3/uL (1.2-3.4); Absolute Monocytes 1.7 10^3/uL (0.1-0.6); Blood Urea Nitrogen 17 mg/dl (9-20); Calcium 8.7 mg/dl (8.4-10.2); Carbon Dioxide 27 mmol/L (22-30); Chloride 103 mmol/L (98-107); Estimated Creatinine Clearance 115 ml/min; Glucose 116 mg/dl (70-99); Hematocrit 32.3 % (39.0-52.0); Hemoglobin 11.2 g/dL (13.0-18.0); Mean Corp Hgb Conc. 34.7 g/dL (33.0-37.0); Mean Corpuscular Hgb 31.5 pg (27.0-31.0); Mean Platelet Volume 10.7 fL (7.4-10.4); Nucleated Red Blood Cells % 0 % (-); Platelet Count 155 10^3/uL (130-400); Potassium 3.6 mmol/L (3.5-5.1); Red Blood Cell Count 3.55 10^6/uL (4.70-6.10); Sodium 137 mmol/L (135-145); White Blood Cell Count 10.9 10^3/uL (4.8-10.8); eGFR > 60.00
[2024-02-03 07:36] VITALS: BP 154/81
[2024-02-03] MEDS: ROBITUSSIN AC 10 ML PO ×4 (08:15→21:32)
[2024-02-03] MEDS: TYLENOL 650 MG PO ×4 (08:15→21:31)
--- NOTE | 2024-02-03 08:19 | W.PN.CD ---
Today's Communication / Plan
-
start metoprolol tartrate 12.5mg bid
decrease lasix to BID
Impression / Plan
-
Bacteremia (staph aureus), endocarditis:
-ID is following and patient on IV ABX
-Echo 01/31/24: Normal biventricular size and systolic function without regional wall motion abnormality. Suspicious density on the mitral valve leaflet(?s) worrisome for vegetation, Thickened aortic valve leaflets with mild aortic stenosis and
regurgitation. Cannot fully rule out any vegetation.
-MUARICE with involvement of both mitral and aortic valves--d/w CT surgery, will need CTA prior to cath
-seems that cultures are now clearing
-plan is OR on Monday
Severe Mitral regurgitation:
- P3 segment of the posterior mitral leaflet appears to be flail. Echodensity measuring 10 mm in length is attached to the P2/P3
scallops and is suspicious for vegetation.
Acute heart failure due to valvular disease in the setting of IE
-put out nicely to lasix so far, negative 5L overnight.
-will back down Lasix to bid
-continue with intensive evaluaiton of his labs and vss
-check daily weights, I/O's, BMP in AM
PVC: frequent
-will start meprolol tartrated 12.5mg bid
HTN: mildly elevated, starting bb
Elevated liver tests:
-management per primary
-improving with diuresis may be due to congestion
Subjective:
He is still sob but improved. Less coughing and easier to lie flat.
Physical Exam
Vital Signs/Labs
Vital Signs
Temp Pulse Resp BP Pulse Ox
97 F 93 20 154/81 94
02/03/24 07:32 02/03/24 07:36 02/03/24 07:32 02/03/24 07:36 02/03/24 07:32
02/02/24 02/03/24 02/04/24
06:59 06:59 06:59
Actual Weight 97.3 kg 92.5 kg
02/03/24 05:22
02/03/24 05:22
PT 15.0 Sec (11.4-14.6) H 02/02/24 03:28
INR 1.17 02/02/24 03:28
APTT 42.7 Sec (23.4-35.0) H 02/02/24 03:28
Magnesium 1.9 mg/dl (1.6-2.3) 02/02/24 03:28
Physical Exam
Constitutional: No acute distress
Cardiovascular: Rhythm & rate is regular, Pedal edema is absent, JVD pressure is normal, Systolic murmur absent and Diastolic murmur absent
Respiratory: Respiratory effort normal, Lungs clear to auscul., Wheeze Absent and Rhonchi Absent
Neuro/Psych: AO x 3
Data Reviewed
-
Date of Service: February 03, 2024
Medical Decision Making: Review of Case with other Provider (discussed bb initiation with Dr Kilgore and IVU nurse Lilly)
EKG: Other (tele: sinus with improved hr but frequent PVC and at times triplets)
[2024-02-03] MEDS: KCL 40 MEQ PO ×3 (08:34→19:47)
[2024-02-03] MEDS: HEPARIN 5000 UNITS SC ×2 (08:35→19:46)
--- NOTE | 2024-02-03 09:24 | PTCARENOTE ---
Assumed care of pt from night RN. Pt received awake and alert, Ox3. VSs, CM shows NSR with occ PVC's, Pox 94% on RA. Crackles almost non existent to bases. Robitussin and Tylenol given as per AUG for cough and H/A pain. Pt ambulating
frequently. Awaiting CVOR on Monday.
--- NOTE | 2024-02-03 11:00 | W.PN.HOSP.TC ---
Today's Communication/Plan
-
Continue with IV cefazolin
Low-dose beta-kyra and IV diuretics per cards
Preoperative workup
Assessment / Plan
Assessment / Plan
#MSSA bacteremia
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
#Valvular heart disease -- severe MR, /AR
#Pulmonary edema --multifactorial with IV fluids, hypertension, severe MR
#Premature ventricular contractions
-Presented with fevers, chills over last 2 days, temperature 103 �F in the ED; initial concern for pneumonia
-On exam does have a blowing systolic murmur suspicious for MR, high suspicion for endocarditis though source is still unknown
-TTE showed Likely mitral valve vegetation, potential vegetation on the aortic valve; MAURICE today confirmed findings; MSSA positive cultures
-Was transition from IV vancomycin to IV cefazolin following culture results; repeat culture results with no growth
-Cardiology transitioned IV diuretics to twice daily, started low-dose beta-kyra
Plan
-Continue with IV cefazolin every 8 hours for MSSA
-Continue with low-dose beta-kyra for PVCs
-Monitor HD and volume status, IV Lasix 40 mg twice daily for now
-Plan for preprocedural left heart cath with angiography, CT thorax
-Valve replacements with CT surgery planned 02/08
#Transaminitis -- hepatocellular pattern; DDx include alcohol related versus congestive with severe MR
-Patient does drink consistent alcohol, downtrending LFTs since here, ultrasound with mild hepatosplenomegaly
-Stable, suspect chronic process from alcohol versus NAFLD
#Thrombocytopenia -- Likely reactive from systemic infection/endocarditis
-Resolved
#Left shoulder pain -- suspect biceps tendinitis
-No pain or tenderness to palpation, no signs of erythema or edema
-Low suspicion for source of infection
#Daily alcohol use
-Monitor for withdrawal
-Encouraged cessation/reduced intake after DC
-See above
Full code
DVT prophylaxis�heparin
Regular diet
Anticipated Discharge: > 48 hours
Subjective/Interval History
-
Date of Service: February 03, 2024
No acute events. States that he feels better today, was able to sleep for 5 to 6 hours overnight with out significant shortness of breath or cough. He does still have coughing at times, paroxysmal in nature when it does occur. Denies any fevers
or chills, chest pain, dyspnea this morning. Denies GI issues, urinary issues, abnormal bleeding or bruising.
Objective Data
-
Labs:
Laboratory Results
02/03/24
05:22
WBC 10.9 H
Hgb 11.2 L
Hct 32.3 L
Plt Count 155 D
Sodium 137
Potassium 3.6
Chloride 103
Carbon Dioxide 27
BUN 17
Creatinine 0.7
Glucose 116 H
Calcium 8.7
Vital Signs:
Vital Signs
Temp Pulse Resp BP Pulse Ox
97 F 93 20 154/81 94
02/03/24 07:32 02/03/24 07:36 02/03/24 07:32 02/03/24 07:36 02/03/24 09:16
I&O
02/02/24 02/03/24 02/04/24
06:59 06:59 06:59
Intake Total 480 / 480 900 / 900
Output Total 875 / 875 6625 / 6625
Balance -395 / -395 -5725 / -5725
Review of Systems
-
History Source: Patient
All other systems: Reviewed and negative
Physical Exam
-
General: No Apparent Distress, Comfortable, Conversant and Other (Walking around the room)
HEENT: Normocephalic, Atraumatic and Moist Mucous Membranes
Respiratory: Rales (Trace, bibasilar) and Non Labored Respirations; Negative Wheezes, Rhonchi or Accessory Resp Muscle Use
Cardiac: Regular Rhythm, S1/S2, Murmur and Other (PVCs); Negative Rub or Gallop
GI: Soft, Nontender, Nondistended and Normal Bowel Sounds
Musculoskeletal: No Clubbing, No Cyanosis and No Edema
Skin: Warm and Dry; Negative Rash or Jaundice
Neuro: AO x 3, Nonfocal/Grossly Intact and Central Nerve's Intact
Data Reviewed
-
Labs: Labs Reviewed by me and Discussed with Patient
[2024-02-03] MEDS: LOPRESSOR 12.5 MG PO ×2 (11:10→19:47)
[2024-02-03 11:14] VITALS: BP 122/74
--- NOTE | 2024-02-03 12:29 | W.PN.UPDATE ---
Update Note
Progress Note Update
patient seen this AM. Cultures from 01/31 remain clear. He reports improved breathing and cough, as well as, improve appetite. Conetinue diureses and low dose betablockers. Tentatively scheduled for MVr/AVR with Dr. Dow for Monday02/09/24
--- NOTE | 2024-02-03 13:24 | PTCARENOTE ---
Tylenol and Robitussin given as per AUG for H/A and cough.
[2024-02-03 15:55] VITALS: BP 136/76
[2024-02-03] MEDS: MIRALAX 17 GRAMS PO (17:51)
--- NOTE | 2024-02-03 17:54 | PTCARENOTE ---
Miralax given as per AUG for constipation.
[2024-02-03 19:31] VITALS: BP 142/74
--- NOTE | 2024-02-03 20:07 | PTCARENOTE ---
Received patient for the night with at bedside. SR with PVCs on the monitor.Lungs have improved from yesterdays assessment. Coughing remains consistent. Patient given Miralax on dayshift, no BM thus far. Patient remains on accurate I&Os.
[2024-02-03] MEDS: DESYREL 25 MG PO (21:30)
[2024-02-03 21:37] VITALS: BP 140/80
[2024-02-04 03:34] VITALS: BMI 27.4
[2024-02-04 03:43] VITALS: BP 158/76
[2024-02-04] MEDS: ROBITUSSIN AC 10 ML PO ×5 (03:48→20:46)
[2024-02-04] MEDS: TYLENOL 650 MG PO ×5 (03:48→20:46)
--- NOTE | 2024-02-04 03:55 | PTCARENOTE ---
Patient given Robitussin for frequent nonproductive cough. Patient given Tylenol for 3/10 abdominal muscle pain.
[2024-02-04 04:01] LABS: % Basophils 0.8 % (0-2); % Immature Granulocytes 1.3 % (0-0.5); % Lymphocytes 14.5 % (20.5-51.1); % Monocytes 13.9 % (1.7-9.3); % Neutrophils 65.5 % (42.2-75.2); Absolute Basophils 0.1 10^3/uL (0-0.2); Absolute Eosinophils 0.6 10^3/uL (0-0.7); Absolute Immature Granulocytes 0.2 10^3/uL (0-0.05); Absolute Lymphocytes 2.1 10^3/uL (1.2-3.4); Absolute Neutrophils 9.6 10^3/uL (1.4-6.5); Hematocrit 33.8 % (39.0-52.0); Hemoglobin 11.8 g/dL (13.0-18.0); Mean Corp Hgb Conc. 34.9 g/dL (33.0-37.0); Mean Corpuscular Hgb 31.2 pg (27.0-31.0); Mean Corpuscular Volume 89.4 fL (80.0-94.0); Mean Platelet Volume 10.3 fL (7.4-10.4); Nucleated Red Blood Cells % 0 % (-); Platelet Count 237 10^3/uL (130-400); Red Blood Cell Count 3.78 10^6/uL (4.70-6.10); Red Cell Dist. Width 12.3 % (11.5-14.5); White Blood Cell Count 14.7 10^3/uL (4.8-10.8)
[2024-02-04 04:18] LABS: Blood Urea Nitrogen 20 mg/dl (9-20); Calcium 9.2 mg/dl (8.4-10.2); Carbon Dioxide 28 mmol/L (22-30); Chloride 103 mmol/L (98-107); Estimated Creatinine Clearance 101 ml/min; Glucose 112 mg/dl (70-99); Potassium 4.4 mmol/L (3.5-5.1); Sodium 137 mmol/L (135-145); eGFR > 60.00
[2024-02-04] MEDS: LOPRESSOR 12.5 MG PO ×2 (08:18→19:16)
[2024-02-04 08:20] VITALS: BP 146/66
[2024-02-04] MEDS: LASIX 40 MG IV ×2 (08:20→16:44)
[2024-02-04] MEDS: ANCEF 10 IV ×2 (08:20→16:44)
[2024-02-04] MEDS: HEPARIN 5000 UNITS SC ×2 (08:21→19:17)
--- NOTE | 2024-02-04 09:12 | W.PN.CD ---
Today's Communication / Plan
-
conitue iv lasix bid with intensive monitoring of labs
Impression / Plan
-
Bacteremia (staph aureus), endocarditis:
-ID is following and patient on IV ABX
-Echo 01/31/24: Normal biventricular size and systolic function without regional wall motion abnormality. Suspicious density on the mitral valve leaflet(?s) worrisome for vegetation, Thickened aortic valve leaflets with mild aortic stenosis and
regurgitation. Cannot fully rule out any vegetation.
-MAURICE with involvement of both mitral and aortic valves--d/w CT surgery, will need CTA prior to cath
-seems that cultures are now clearing
-plan is OR on Monday
Severe Mitral regurgitation:
- P3 segment of the posterior mitral leaflet appears to be flail. Echodensity measuring 10 mm in length is attached to the P2/P3
scallops and is suspicious for vegetation.
Acute heart failure due to valvular disease in the setting of IE
-put out nicely to lasix so far, with clinical improvement
-Continue Lasix IV bid
-continue with intensive evaluation of his labs and vs
-check daily weights, I/O's, BMP in AM
PVC: frequent
-continue metoprolol tartrate 12.5mg bid
HTN: mildly elevated, starting bb
Elevated liver tests:
-management per primary
-improving with diuresis may be due to congestion
Subjective:
he is feeling better, less orthopnea and sob, still with nagging cough and difficult to take a deep breath
Physical Exam
Vital Signs/Labs
Vital Signs
Temp Pulse Resp BP Pulse Ox
98.4 F 96 22 146/66 93
02/04/24 03:43 02/04/24 08:20 02/04/24 03:43 02/04/24 08:20 02/04/24 03:43
08/10/24 08/11/24 08/12/24
06:59 06:59 06:59
Actual Weight 92.5 kg 91.6 kg
02/04/24 03:41
02/04/24 03:41
PT 15.0 Sec (11.4-14.6) H 02/02/24 03:28
INR 1.17 02/02/24 03:28
APTT 42.7 Sec (23.4-35.0) H 02/02/24 03:28
Magnesium 2.0 mg/dl (1.6-2.3) 02/04/24 03:41
Physical Exam
Constitutional: No acute distress
Cardiovascular: Rhythm & rate is regular, Pedal edema is absent, JVD pressure is normal and Systolic murmur absent
Respiratory: Respiratory effort normal, Lungs clear to auscul., Wheeze Absent, Crackles Absent and Other (coughing with deep breaths)
Neuro/Psych: AO x 3
Data Reviewed
-
Date of Service: February 04, 2024
Medical Decision Making: Review of Case with other Provider (Dr Jame ulloa)
--- NOTE | 2024-02-04 09:18 | W.PN.ID1 ---
Date of Service
Date of Service: February 04, 2024
Today's Communication
Continue cefazolin
Assessment / Plan
Staph aureus (MSSA) bacteremia
AV/MV endocarditis
Leukocytosis - probably reactive
Fevers - resolved
Acute CHF
Elevated CRP
Left shoulder discomfort - no signs of infection
Anemia
Thrombocytopenia - resolved
Transaminitis
Recommendations:
Continue cefazolin 2 g IV every 8 hours.
01/31 bcx x2 neg to date.
For cardiac surgery 02/09/24. Please send valves for culture.
Trend leukocytosis.
Chief Complaint
-: Bacteremia and Other (MSSA Endocarditis of AV/MV)
Subjective / Review of Systems
Had formed BM this am.
Cough stable.
No dysuria.
Vital Signs / Physical Exam
Vital Signs
Vital Signs
Temp Pulse Resp BP Pulse Ox
98.4 F 96 22 146/66 93
02/04/24 03:43 02/04/24 08:20 02/04/24 03:43 02/04/24 08:20 02/04/24 03:43
Physical Exam
Constitutional: No Acute Distress and Comfortable
Cardiovascular: Regular Rate and S1/S2
Pulmonary: Clear
Gastrointestinal: Soft, Non Tender, Non Distended and Normal Bowel Sounds
Musculoskeletal: Negative Joint Swelling (bilateral knees) or Joint Effusion (bilateral knees)
Neurological: AO x 3
Objective Data
Lab Data
Lab Results
02/04/24 03:41
02/04/24 03:41
ESR 12 mm/hour (0-20) 01/31/24 13:02
PT 15.0 Sec (11.4-14.6) H 02/02/24 03:28
INR 1.17 02/02/24 03:28
APTT 42.7 Sec (23.4-35.0) H 02/02/24 03:28
Estimated Creat Clear 101 ml/min 02/04/24 03:41
Lactic Acid 2.6 mmol/L (0.7-2.0) H 01/30/24 17:21
Total Bilirubin 1.1 mg/dl (0.2-1.3) 02/02/24 03:28
AST 32 U/L (17-59) 02/02/24 03:28
ALT 113 U/L (0-50) H 02/02/24 03:28
Alkaline Phosphatase 145 U/L (38-126) H 02/02/24 03:28
C-Reactive Protein 199.50 mg/L (0.0-10.00) H 01/30/24 18:36
Most recent labs reviewed.
Micro Results:
02/01/24 16:49 Blood Culture - Preliminary
Blood/Venous No Growth in 48 hours- Final report to follow
02/01/24 13:38 Blood Culture - Preliminary
Blood/Venous No Growth in 48 hours- Final report to follow
01/30/24 22:45 Blood Culture - Final
Blood/Venous S aureus-Methicillin Sensitive
Gram Stain - Final
01/31/24 08:26 Salmonella/Shigella Culture - Final
Feces/Stool No Salmonella, Shigella, Aeromonas or Plesiomonas species
isolated.
Campylobacter Culture - Final
No Campylobacter species isolated.
Shiga Toxin Test - Final
No E. coli Shiga Toxin 1 or 2 detected.
01/30/24 17:21 Blood Culture - Final
Blood/Venous S aureus-Methicillin Sensitive
Gram Stain - Final
01/31/24 13:02 Blood Parasites Smear - Final
Blood/Venous
01/31/24 08:26 C. difficile GDH Antigen & Toxins - Final
Feces/Stool Negative for toxigenic C.difficile
Blood Culture Final 01/30/24-0241
S aureus-Methicillin Sensitive
Organism 1 S aureus-Methicillin Sensitive
1. S aureus-Methicillin Sensitive
M.I.C. RX
--------- ---
Amoxicillin/Potas. Clavulanate <=4/2 S
Ampicillin <=2 R
Clindamycin <=0.5 S
Gentamicin <=4 S
Erythromycin <=0.5 S
Levofloxacin <=1 S
Oxacillin <=0.25 S
Tetracycline <=4 S
Trimethoprim/Sulfamethoxazole <=0.5/9.5 S
Vancomycin 1 S
Imaging:
01/31/2024 ECHO (TTE): Normal biventricular size and systolic function. Suspicious density on the mitral valve leaflets worrisome for vegetation. MAURICE recommended. Thickened aortic valve leaflets with mild aortic stenosis and regurgitation. Cannot
fully rule out vegetation due to valvulopathy. Please see full dictation for additional detail.
01/30/2024 CXR (2 view): Heart size is normal. Pulmonary vasculature is top normal. Increased interstitial markings in the chanda bilaterally. No focal consolidation or pleural effusion.
--- NOTE | 2024-02-04 10:10 | W.PN.HOSP.TC ---
Today's Communication/Plan
-
Continue IV cefazolin
Planning for CABG and MVR
Assessment / Plan
Assessment / Plan
#MSSA bacteremia
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
#Valvular heart disease -- severe MR, /AR
#Pulmonary edema --multifactorial with IV fluids, hypertension, severe MR
#Premature ventricular contractions -- improved on beta-kyra
-Presented with fevers, chills over last 2 days, temperature 103 �F in the ED; initial concern for pneumonia
-On exam does have a blowing systolic murmur suspicious for MR, high suspicion for endocarditis though source is still unknown
-TTE showed Likely mitral valve vegetation, potential vegetation on the aortic valve; MAURICE today confirmed findings; MSSA positive cultures
-Was transition from IV vancomycin to IV cefazolin following culture results; repeat culture results with no growth
-Cardiology transitioned IV diuretics to twice daily, started low-dose beta-kyra
Plan
-Continue with IV cefazolin every 8 hours for MSSA
-Continue with low-dose beta-kyra for PVCs
-Monitor HD and volume status, IV Lasix 40 mg twice daily for now
-Plan for preprocedural left heart cath with angiography, CT thorax
-Valve replacements with CT surgery planned 02/08
#Transaminitis -- hepatocellular pattern; DDx include alcohol related versus congestive with severe MR
-Patient does drink consistent alcohol, downtrending LFTs since here, ultrasound with mild hepatosplenomegaly
-Stable, suspect chronic process from alcohol versus NAFLD
#Thrombocytopenia -- Likely reactive from systemic infection/endocarditis
-Resolved
#Left shoulder pain -- suspect biceps tendinitis
-No pain or tenderness to palpation, no signs of erythema or edema
-Low suspicion for source of infection
#Daily alcohol use
-Monitor for withdrawal
-Encouraged cessation/reduced intake after DC
-See above
Full code
DVT prophylaxis�heparin
Regular diet
Anticipated Discharge: > 48 hours
Subjective/Interval History
-
Date of Service: February 04, 2024
No acute events. States that he slept well, shortness of breath is much improved. Still has paroxysmal coughing spells, most often at night when he is awoken. He denies any chest pain, fevers or chills, gastrointestinal or urological symptoms, no
abnormal bleeding or bruising, no paresthesias or weakness.
He request to bring in his dog today for a visit
Objective Data
-
Labs:
Laboratory Results
02/04/24
03:41
WBC 14.7 H
Hgb 11.8 L
Hct 33.8 L
Plt Count 237 D
Sodium 137
Potassium 4.4
Chloride 103
Carbon Dioxide 28
BUN 20
Creatinine 0.8
Glucose 112 H
Calcium 9.2
Vital Signs:
Vital Signs
Temp Pulse Resp BP Pulse Ox
98.8 F 92 18 146/66 95
02/04/24 07:51 02/04/24 09:00 02/04/24 07:51 02/04/24 08:20 02/04/24 08:20
I&O
02/03/24 02/04/24 02/05/24
06:59 06:59 06:59
Intake Total 900 / 900 1800 / 1800 480 / 480
Output Total 6625 / 6625 4150 / 4150 500 / 500
Balance -5725 / -5725 -2350 / -2350 -20 / -20
Review of Systems
-
History Source: Patient
All other systems: Reviewed and negative
Physical Exam
-
General: Well Nourished, No Apparent Distress and Comfortable
HEENT: Normocephalic, Atraumatic, Moist Mucous Membranes and Anicteric
Respiratory: Clear to Auscultation and Non Labored Respirations; Negative Wheezes, Rales or Accessory Resp Muscle Use
Cardiac: Regular Rhythm, S1/S2, Murmur and Other (PVCs, less frequent than previous); Negative Rub, JVD or Gallop
GI: Soft, Nontender, Nondistended and Normal Bowel Sounds
Musculoskeletal: No Clubbing, No Cyanosis and No Edema
Skin: Warm and Dry; Negative Rash or Jaundice
Neuro: AO x 3, Nonfocal/Grossly Intact and Central Nerve's Intact
Data Reviewed
-
Labs: Labs Reviewed by me and Discussed with Patient
[2024-02-04 12:21] VITALS: BP 124/66
[2024-02-04 16:45] VITALS: BP 129/70
--- NOTE | 2024-02-04 17:11 | PTCARENOTE ---
pt continues to be sr on the monitor, frequent PVCs, hr in the 90s, vss. pt continues to have harsh cough. pt c/o of MOSES Tylenol given, see mar. pt has been ambulating the halls throughout the day and tolerating well. pt educated on plan of care and
pt verbalized understanding. call mora within reach.
[2024-02-04 18:54] VITALS: BP 132/76
--- NOTE | 2024-02-04 20:01 | PTCARENOTE ---
Received patient for the night with at bedside. Sr with PVCs on the monitor. HR in the 90s. Patient has a frequent nonproductive cough, 96% on room air. Call mora within reach.
[2024-02-04] MEDS: DESYREL 25 MG PO (21:58)
[2024-02-04 22:44] VITALS: BP 140/57
[2024-02-05] MEDS: ANCEF 10 IV ×4 (00:06→23:00)
[2024-02-05] MEDS: TYLENOL 650 MG PO (02:24)
[2024-02-05] MEDS: ROBITUSSIN AC 10 ML PO ×2 (02:25→21:20)
[2024-02-05 02:28] VITALS: BP 130/74
[2024-02-05 02:44] LABS: % Basophils 0.6 % (0-2); % Eosinophils 4.2 % (0-6); % Lymphocytes 16.9 % (20.5-51.1); % Monocytes 11.4 % (1.7-9.3); % Neutrophils 64.9 % (42.2-75.2); Absolute Basophils 0.1 10^3/uL (0-0.2); Absolute Eosinophils 0.6 10^3/uL (0-0.7); Absolute Immature Granulocytes 0.3 10^3/uL (0-0.05); Absolute Lymphocytes 2.4 10^3/uL (1.2-3.4); Absolute Monocytes 1.6 10^3/uL (0.1-0.6); Absolute Neutrophils 9.2 10^3/uL (1.4-6.5); Hematocrit 34.1 % (39.0-52.0); Hemoglobin 11.8 g/dL (13.0-18.0); Mean Corp Hgb Conc. 34.6 g/dL (33.0-37.0); Mean Corpuscular Hgb 32.2 pg (27.0-31.0); Mean Corpuscular Volume 92.9 fL (80.0-94.0); Mean Platelet Volume 10.3 fL (7.4-10.4); Nucleated Red Blood Cells % 0 % (-); Platelet Count 288 10^3/uL (130-400); Red Blood Cell Count 3.67 10^6/uL (4.70-6.10); Red Cell Dist. Width 12.1 % (11.5-14.5); White Blood Cell Count 14.1 10^3/uL (4.8-10.8)
[2024-02-05 03:00] LABS: Blood Urea Nitrogen 20 mg/dl (9-20); Calcium 9.1 mg/dl (8.4-10.2); Carbon Dioxide 33 mmol/L (22-30); Chloride 100 mmol/L (98-107); Estimated Creatinine Clearance 101 ml/min; Glucose 137 mg/dl (70-99); Magnesium 2.1 mg/dl (1.6-2.3); Potassium 4.9 mmol/L (3.5-5.1); Sodium 136 mmol/L (135-145); eGFR > 60.00
[2024-02-05 07:47] VITALS: BMI 26.8
[2024-02-05 08:12] VITALS: BP 121/78
[2024-02-05] MEDS: HEPARIN 5000 UNITS SC ×2 (08:13→19:58)
[2024-02-05] MEDS: LASIX 40 MG IV ×2 (08:17→16:07)
[2024-02-05] MEDS: LOPRESSOR 25 MG PO ×2 (08:17→19:58)
--- NOTE | 2024-02-05 08:42 | W.PN.UPDATE ---
Update Note
Progress Note Update
Patient seen this morning with Dr. Dow. Tentative surgery date may be moved up to 02/06/2024. Blood cultures remain negative and he remains afebrile. Patient has been tolerating diuresis and low-dose beta-kyra. His CTA coronary study is
scheduled for today and he is currently n.p.o. for that test.
--- NOTE | 2024-02-05 08:52 | W.PN.CD ---
Today's Communication / Plan
-
additional bb now for CTA
continue lasix
Impression / Plan
-
Bacteremia (staph aureus), endocarditis:
-ID is following and patient on IV ABX
-Echo 01/31/24: Normal biventricular size and systolic function without regional wall motion abnormality. Suspicious density on the mitral valve leaflet(?s) worrisome for vegetation, Thickened aortic valve leaflets with mild aortic stenosis and
regurgitation. Cannot fully rule out any vegetation.
-MAURICE with involvement of both mitral and aortic valves--d/w CT surgery, will need CTA prior to cath
-will give additional beta kyra for procedure
-seems that cultures are now clearing
-plan is OR now tomorrow 02/06/24
Severe Mitral regurgitation:
- P3 segment of the posterior mitral leaflet appears to be flail. Echodensity measuring 10 mm in length is attached to the P2/P3
scallops and is suspicious for vegetation.
Acute heart failure due to valvular disease in the setting of IE
-put out nicely to lasix so far, with clinical improvement
-Continue Lasix IV bid
-continue with intensive evaluation of his labs and vs
-check daily weights, I/O's, BMP in AM
PVC: frequent
-increased metoprolol tartrate 25mg bid
HTN: mildly elevated, starting bb
Elevated liver tests:
-management per primary
-improving with diuresis may be due to congestion
Subjective:
he is feeling better, less orthopnea and sob, still with nagging cough. Tomorrow [birth year] his birthday so excited for surgery
Physical Exam
Vital Signs/Labs
Vital Signs
Temp Pulse Resp BP Pulse Ox
99.0 F 100 16 121/78 94
02/05/24 08:09 02/05/24 08:17 02/05/24 08:09 02/05/24 08:17 02/05/24 08:09
02/04/24 02/05/24 02/06/24
06:59 06:59 06:59
Actual Weight 91.6 kg 89.7 kg
02/05/24 02:24
02/05/24 02:24
PT 15.0 Sec (11.4-14.6) H 02/02/24 03:28
INR 1.17 02/02/24 03:28
APTT 42.7 Sec (23.4-35.0) H 02/02/24 03:28
Magnesium 2.1 mg/dl (1.6-2.3) 02/05/24 02:24
Physical Exam
Constitutional: No acute distress
Cardiovascular: Rhythm & rate is regular, Pedal edema is absent, JVD pressure is normal and Systolic murmur absent
Respiratory: Respiratory effort normal, Lungs clear to auscul., Wheeze Absent, Crackles Absent and Rhonchi Absent
Neuro/Psych: AO x 3
Data Reviewed
-
Date of Service: February 05, 2024
Medical Decision Making: Review of Case with other Provider (Dr Olivo trying to get CTA today and increase bb)
[2024-02-05] MEDS: LOPRESSOR 12.5 MG PO (09:11)
--- NOTE | 2024-02-05 09:47 | W.PN.ID1 ---
Date of Service
Date of Service: February 05, 2024
Today's Communication
For cardiac surgery 02/06/24. Please send valves for culture.
At least weekly cbc/cmp while on IV antibiotics
Continue cefazolin 2 g IV every 8 hours.
Assessment / Plan
Staph aureus (MSSA) bacteremia
AV/MV endocarditis
Leukocytosis - probably reactive
Fevers - resolved
Acute CHF
Elevated CRP
Left shoulder discomfort - no signs of infection
Bilateral knee replacements - also no signs of infection
Anemia
Thrombocytopenia - resolved
Transaminitis
Recommendations:
01/31 bcx x2 remain neg to date.
For cardiac surgery 02/06/24. Please send valves for culture.
At least weekly cbc/cmp while on IV antibiotics
Continue cefazolin 2 g IV every 8 hours.
Follow clinically
Chief Complaint
-: Bacteremia and Other (MSSA Endocarditis of AV/MV)
Subjective / Review of Systems
afebrile
plan for OR 02/05
in good spirits
Vital Signs / Physical Exam
Vital Signs
Vital Signs
Temp Pulse Resp BP Pulse Ox
99.0 F 100 16 121/78 94
02/05/24 08:09 02/05/24 08:17 02/05/24 08:09 02/05/24 08:17 02/05/24 08:09
Physical Exam
Constitutional: No Acute Distress
Cardiovascular: Regular Rate, S1/S2 and Murmur (RUSB and LLSB); Negative Rub
Pulmonary: Clear and Symmetric; Negative Wheezes or Rales
Gastrointestinal: Soft, Non Tender, Non Distended and Normal Bowel Sounds
Extremities: Other (L shoulder and bilateral knees: No erythema/warmth/swelling. Knees: no tenderness. L shoulder minimal tenderness); Negative Splinter Hemorrhage or Janeway Lesions (no osler nodes)
Skin: Warm and Dry; Negative Rash or Jaundice
Neurological: Awake
Psychological: Calm
Lines: PIV (no erythema, warmth, tenderness or drainage)
Objective Data
Lab Data
Lab Results
02/05/24 02:24
02/05/24 02:24
ESR 12 mm/hour (0-20) 01/31/24 13:02
PT 15.0 Sec (11.4-14.6) H 02/02/24 03:28
INR 1.17 02/02/24 03:28
APTT 42.7 Sec (23.4-35.0) H 02/02/24 03:28
Estimated Creat Clear 101 ml/min 02/05/24 02:24
Lactic Acid 2.6 mmol/L (0.7-2.0) H 01/30/24 17:21
Total Bilirubin 1.1 mg/dl (0.2-1.3) 02/02/24 03:28
AST 32 U/L (17-59) 02/02/24 03:28
ALT 113 U/L (0-50) H 02/02/24 03:28
Alkaline Phosphatase 145 U/L (38-126) H 02/02/24 03:28
C-Reactive Protein 199.50 mg/L (0.0-10.00) H 01/30/24 18:36
Most recent labs reviewed as above in addition
no L shift
LFTs last checked 02/01 and were downtrending at that time
Micro Results:
02/01/24 16:49 Blood Culture - Preliminary
Blood/Venous No Growth in 72 hours- Final report to follow
02/01/24 13:38 Blood Culture - Preliminary
Blood/Venous No Growth in 72 hours- Final report to follow
01/30/24 22:45 Blood Culture - Final
Blood/Venous S aureus-Methicillin Sensitive
Gram Stain - Final
01/31/24 08:26 Salmonella/Shigella Culture - Final
Feces/Stool No Salmonella, Shigella, Aeromonas or Plesiomonas species
isolated.
Campylobacter Culture - Final
No Campylobacter species isolated.
Shiga Toxin Test - Final
No E. coli Shiga Toxin 1 or 2 detected.
01/30/24 17:21 Blood Culture - Final
Blood/Venous S aureus-Methicillin Sensitive
Gram Stain - Final
01/31/24 13:02 Blood Parasites Smear - Final
Blood/Venous
01/31/24 08:26 C. difficile GDH Antigen & Toxins - Final
Feces/Stool Negative for toxigenic C.difficile
Blood Culture Final 01/30/24-024
S aureus-Methicillin Sensitive
Organism 1 S aureus-Methicillin Sensitive
1. S aureus-Methicillin Sensitive
M.I.C. RX
--------- ---
Amoxicillin/Potas. Clavulanate <=4/2 S
Ampicillin <=2 R
Clindamycin <=0.5 S
Gentamicin <=4 S
Erythromycin <=0.5 S
Levofloxacin <=1 S
Oxacillin <=0.25 S
Tetracycline <=4 S
Trimethoprim/Sulfamethoxazole <=0.5/9.5 S
Vancomycin 1 S
Imaging:
01/31/2024 ECHO (TTE): Normal biventricular size and systolic function. Suspicious density on the mitral valve leaflets worrisome for vegetation. MAURICE recommended. Thickened aortic valve leaflets with mild aortic stenosis and regurgitation. Cannot
fully rule out vegetation due to valvulopathy. Please see full dictation for additional detail.
01/30/2024 CXR (2 view): Heart size is normal. Pulmonary vasculature is top normal. Increased interstitial markings in the chanda bilaterally. No focal consolidation or pleural effusion.
--- NOTE | 2024-02-05 10:18 | PTCARENOTE ---
Assumed care of pt from night RN. Pt received awake and alert, Ox3. VSS, CM shows NSR with occ PVC, POX 94-95% on RA. He denies any pain or discomfort at this time. Pt remains NPO for CTA today. Additional Lopressor to slow rate given as per
AUG. CVOR may be moved up to tomorrow per Dr. Dow.
--- NOTE | 2024-02-05 10:45 | W.PN.HOSP.TC ---
Today's Communication/Plan
-
for surgery tomorrow
Assessment / Plan
Assessment / Plan
pt is a 63 year old male
MSSA bacteremia with Bacterial endocarditis -- Mitral + Aortic valve, TTE showed Likely mitral valve vegetation, potential vegetation on the aortic valve; MAURICE today confirmed findings; MSSA positive cultures--getting CTA today--for CT surgery
tomorrow--apprec cards/CT surgery--cont cefazolin--apprec ID---Cardiology transitioned IV diuretics to twice daily, started low-dose beta-kyra
Valvular heart disease -- severe MR, /AR--for surgery tomorrow
Acute Pulmonary edema --multifactorial with IV fluids, hypertension, severe MR--resolved
Premature ventricular contractions -- improved on beta-kyra
Transaminitis -- hepatocellular pattern; DDx include alcohol related versus congestive with severe MR--Patient does drink consistent alcohol, downtrending LFTs since here, ultrasound with mild hepatosplenomegaly--Stable, suspect chronic process
from alcohol versus NAFLD
Thrombocytopenia -- Likely reactive from systemic infection/endocarditis--Resolved
Left shoulder pain -- suspect biceps tendinitis--No pain or tenderness to palpation, no signs of erythema or edema--Low suspicion for source of infection
Daily alcohol use---Monitor for withdrawal--no signs--Encouraged cessation/reduced intake after DC
code status --Full code
DVT prophylaxis�heparin
Anticipated Discharge: > 48 hours
Subjective/Interval History
-
Date of Service: February 05, [address] surgery
Objective Data
-
Labs:
Laboratory Results
24
02:24
WBC 14.1 H
Hgb 11.8 L
Hct 34.1 L
Plt Count 288 D
Sodium 136
Potassium 4.9
Chloride 100
Carbon Dioxide 33 H
BUN 20
Creatinine 0.8
Glucose 137 H
Calcium 9.1
Vital Signs:
max temp for 24 hours
02/05/24
02:30
Temp 99 F
Vital Signs
Temp Pulse Resp BP Pulse Ox
99.0 F 100 16 121/78 94
02/05/24 08:09 02/05/24 08:17 02/05/24 08:09 02/05/24 08:17 02/05/24 10:13
I&O
02/04/24 02/05/24 02/06/24
06:59 06:59 06:59
Intake Total 1800 / 1800 480 / 480
Output Total 4150 / 4150 3300 / 3300 1300 / 1300
Balance -2350 / -2350 -2820 / -2820 -1300 / -1300
Review of Systems
-
All other systems: Reviewed and negative
Physical Exam
-
General: Well Developed, Well Nourished and No Apparent Distress
HEENT: Normocephalic and Atraumatic
Respiratory: Clear to Auscultation; Negative Wheezes or Rhonchi
Cardiac: Regular Rhythm, S1/S2 and Murmur
GI: Soft, Nontender, Nondistended and Normal Bowel Sounds
Musculoskeletal: No Clubbing, No Cyanosis and No Edema
Neuro: Awake and Alert
[2024-02-05 11:11] VITALS: BP 99/62
--- NOTE | 2024-02-05 15:08 | CM ---
Reviewed chart. Met with and Mrs. Diaz nd his mother to review discharge plans. Prior to admission he resides with his spouse in a two story home with two steps to enter. He has a full flight of steps to get to bedroom/full bathroom. He has a
powder room on the first floor. Prior to admission he was independent with ambulation and adls... He has a prescription plan and uses [facility]. Received telephone call from [employer] who states his cost of the medication is $47.00 a week. He
has a out of pocket cost of $6300.00. Once he mets his OOP cost he co-pay will be zero. He will need PICC line. His spouse works from home so she will be available to assist in his care when he goes home. Medical work-up in progress. The
discharge plan is to return home with his spouse and a home visit by the Cardiothoracic Transitional Care Nurse when medically stable.
We reviewed pre-op and post-op routines. We briefly reviewed the shower instructions. Gave him the Cardiothoracic Surgery Educational Booklet. We also reviewed restrictions including sternal precautions and driving restrictions. We also reviewed
a home visit by the Cardiothoracic Transitional Care Nurse. He is agreeable to a home visit. The plan is for CABG on Monday02/06/24.
[2024-02-05 15:15] VITALS: BP 132/48
[2024-02-05 19:04] VITALS: BP 135/72
--- NOTE | 2024-02-05 21:21 | PTCARENOTE ---
Received patient at change of shift. Patient visiting with . BP 135/72, HR 93, Normal Sinus Rhythm with PVCs. Oxygen 98% on room air. No pain. Occasional nonproductive cough. Discussed the plan for tonight/tomorrow's prep for surgery. NPO at
midnight. Patient verbalizes understanding. Call mora within reach.
--- NOTE | 2024-02-05 22:48 | PTCARENOTE ---
OR prep completed. Shower completed per patient, no issues. Questions answered.
[2024-02-05 22:56] VITALS: BP 133/62
[2024-02-05] MEDS: DESYREL 25 MG PO (22:58)
[2024-02-06 04:55] VITALS: BP 134/65
[2024-02-06 04:58] VITALS: BP 133/77
[2024-02-06 05:24] LABS: Hemoglobin 12.3 g/dL (13.0-18.0); Mean Corp Hgb Conc. 34.2 g/dL (33.0-37.0); Mean Corpuscular Hgb 31.9 pg (27.0-31.0); Mean Corpuscular Volume 93.3 fL (80.0-94.0); Platelet Count 368 10^3/uL (130-400); Red Blood Cell Count 3.86 10^6/uL (4.70-6.10); Red Cell Dist. Width 12.3 % (11.5-14.5); White Blood Cell Count 15.6 10^3/uL (4.8-10.8)
[2024-02-06 05:35] VITALS: BMI 26.5
[2024-02-06 05:45] LABS: Blood Urea Nitrogen 23 mg/dl (9-20); Calcium 9.3 mg/dl (8.4-10.2); Carbon Dioxide 28 mmol/L (22-30); Chloride 102 mmol/L (98-107); Estimated Creatinine Clearance 100 ml/min; Glucose 121 mg/dl (70-99); Magnesium 2.3 mg/dl (1.6-2.3); Potassium 4.5 mmol/L (3.5-5.1); Sodium 136 mmol/L (135-145); eGFR > 60.00
--- NOTE | 2024-02-06 06:00 | W.CVOR.SURPR ---
CVOR Surgeon Immed Pre Op
-
I have examined this patient prior to performance of the scheduled procedure.
The patient's condition is unchanged from the time of the dictated/written History and
Physical and the patient is able to undergo the scheduled procedure.
High risk AVR/MVrR + TONI Clip, should he require replacement, he has elected for biological valves. Will assess mitral for repairability.
Medically as optimized as he will be.
[2024-02-06 06:02] VITALS: BP 124/71
[2024-02-06] MEDS: LOPRESSOR 25 MG PO (06:02)
[2024-02-06] MEDS: PROTONIX 40 MG PO (06:02)
[2024-02-06] MEDS: MAGNESIUM OXIDE 500 MG PO (06:02)
[2024-02-06] MEDS: BACTROBAN 2% OINTMENT 1 APPLIC NASAL ×2 (06:03→21:46)
--- NOTE | 2024-02-06 06:18 | W.PN.UPDATE ---
Update Note
Progress Note Update
pt going for CT surgery today
service will change to CT surgery
will sign off
[2024-02-06 07:14] LABS: ACT+ - POC 85 Seconds (82-134)
[2024-02-06 07:22] LABS: Urine Albumin Negative (Neg - Trace); Urine Bilirubin Negative (Negative); Urine Character Clear (Clear); Urine Color Yellow; Urine Glucose Negative (Negative); Urine Ketone Negative (Negative); Urine Leukocyte Negative (Negative); Urine Nitrite Negative (Negative); Urine Occult Blood Negative (Negative); Urine Urobilinogen Negative (Neg - 1+)
[2024-02-06 08:17] LABS: ACT+ - POC 282 Seconds (82-134)
[2024-02-06 08:27] LABS: ACT+ - POC 422 Seconds (82-134)
--- NOTE | 2024-02-06 08:30 | CM ---
pt in OR today, cm to follow.
[2024-02-06 08:49] LABS: B.E. - POC 0.8 mmol/L; Glucose - POC 136 mg/dl (65-99); HCO3 - POC 26 mmol/L (21-29); Hematocrit - POC 32 % PCV (42-52); Hemodilution- POC No; Hemoglobin Calculated - POC 10.9; Ionized Calcium - POC 1.27 mmol/L (1.12-1.27); O2 Saturation %Calculated-POC 99.8 5 (92-96); PCO2 - POC 43 mmHg (35-45); PO2 - POC 221 mmHg (80-100); POC Comment PRE; Sodium - POC 137 mmol/L (135-145); pH - POC 7.39 (7.35-7.45)
[2024-02-06 08:50] LABS: ACT+ - POC 435 Seconds (82-134)
[2024-02-06 09:09] LABS: ACT+ - POC 433 Seconds (82-134)
[2024-02-06 09:24] LABS: B.E. - POC -0.7 mmol/L; Glucose - POC 147 mg/dl (65-99); HCO3 - POC 24 mmol/L (21-29); Hematocrit - POC 25 % PCV (42-52); Hemodilution- POC Yes; Hemoglobin Calculated - POC 8.4; Ionized Calcium - POC 1.01 mmol/L (1.12-1.27); O2 Saturation %Calculated-POC 99.9 5 (92-96); PCO2 - POC 38 mmHg (35-45); PO2 - POC 309 mmHg (80-100); POC Comment CPB; Potassium - POC 6.2 mmol/L (3.6-5.0); Sodium - POC 135 mmol/L (135-145); pH - POC 7.41 (7.35-7.45)
[2024-02-06 09:32] LABS: ACT+ - POC 426 Seconds (82-134)
[2024-02-06 09:52] LABS: ACT+ - POC 486 Seconds (82-134)
[2024-02-06 10:09] LABS: B.E. - POC 3.4 mmol/L; Glucose - POC 221 mg/dl (65-99); HCO3 - POC 28 mmol/L (21-29); Hematocrit - POC 27 % PCV (42-52); Hemodilution- POC Yes; Hemoglobin Calculated - POC 9.3; Ionized Calcium - POC 1.07 mmol/L (1.12-1.27); O2 Saturation %Calculated-POC 99.9 5 (92-96); PCO2 - POC 42 mmHg (35-45); PO2 - POC 277 mmHg (80-100); POC Comment CPB; Potassium - POC 5.5 mmol/L (3.6-5.0); Sodium - POC 136 mmol/L (135-145); pH - POC 7.43 (7.35-7.45)
[2024-02-06 10:16] LABS: ACT+ - POC 321 Seconds (82-134)
[2024-02-06 10:28] LABS: ACT+ - POC 326 Seconds (82-134)
[2024-02-06 10:29] LABS: B.E. - POC -0.9 mmol/L; Glucose - POC 259 mg/dl (65-99); HCO3 - POC 25 mmol/L (21-29); Hematocrit - POC 30 % PCV (42-52); Hemodilution- POC Yes; Hemoglobin Calculated - POC 10.1; Ionized Calcium - POC 1.04 mmol/L (1.12-1.27); O2 Saturation %Calculated-POC 99.8 5 (92-96); PCO2 - POC 46 mmHg (35-45); PO2 - POC 223 mmHg (80-100); POC Comment WARM; Potassium - POC 5.7 mmol/L (3.6-5.0); Sodium - POC 136 mmol/L (135-145); pH - POC 7.35 (7.35-7.45)
[2024-02-06 10:46] LABS: ACT+ - POC 400 Seconds (82-134)
[2024-02-06] MEDS: ANCEF 10 IV ×3 (11:00→17:53)
[2024-02-06 11:10] LABS: ACT+ - POC 104 Seconds (82-134)
--- NOTE | 2024-02-06 11:37 | W.PN.CT.SURG ---
CT Surgery Operative Note
-
CARDIAC SURGERY OPERATIVE REPORT
Preoperative Diagnosis: Mitral valve endocarditis with bacteremia, questionable aortic valve endocarditis, respiratory failure secondary to pulmonary edema
Postoperative Diagnosis: Fenestrations on the aortic valve with prolapsing leaflets, flail with multiple torn cords in the posterior leaflet of the mitral valve, respiratory failure secondary to acute mitral valve deficiency resulting pulmonary edema
Procedure(s) Performed:
1. Sternotomy with aortic and bicaval cannulation
2. Radical mitral valve repair [triangular resection of P2 and P3 with primary repair, [place]-Fernie cord placed to the posterior leaflet at P2 P3, 32 mm band annuloplasty, debridement of jet lesions along the free margin of the valve]
3. Aortic valve replacement [25 mm bioprosthesis]
4. Left atrial appendage exclusion [35 mm clip]
5. Transesophageal echocardiography
6. Placement of temporary atrial ventricular pacing wires
Date of Surgery: 02/06/2024
Comorbidities:
1. Bacteremia, MSSA with possible mitral valve endocarditis
2. Acute respiratory failure due to pulmonary edema secondary to acute mitral valve insufficiency with flail/torn chords on the posterior leaflet, type II pathology
3. Moderate aortic valve insufficiency secondary to prolapsing of the noncoronary cusp and multiple fenestrations along the free margin of the right coronary cusp
4. Anemia and thrombocytopenia
5. History of C. difficile
Attending Surgeon: Vikram Dow MD, MS
Assistants: Vikram Sandhu PA-C (present and necessary to employment assistant, retraction, suction, exposure, suture management, and wound closure under my direction)
Anesthesiology: Eloy Downey MD and Gary Escalante CRNA
Scrub and Circulating RNs: Carli Castillo, LIBRA, Yusuf Madrid RN
E Commerce Specialist: Demetrio Paez CCP
Anesthesia: GETA
EBL: per perfusion records
Products: 2 FFP (heparin resistent, inadequate ACT response likely AT3 deficient)
CPB Time: 134 minutes
Aortic Cross Clamp Time: 119 minutes
Indication(s) for Procedures: This is a 64-year-old male who developed acute respiratory failure secondary to pulmonary edema and also was found to have positive blood cultures revealing MSSA. Workup reveals severe mitral valve sufficiency,
moderate aortic valve insufficiency with possible vegetation on the posterior leaflet. He was given a period of antibiotic treatment to clear his cultures. Due to the severity of his mitral valve deficiency and acute respiratory failure, he was
offered inpatient surgical intervention which he accepted.
Aortic Valve Description: Trileaflet aortic valve, left and right coronary ostia more than normal anatomic positions, normal left coronary cusp, prolapse noncoronary cusp, mildly prolapsed right coronary cusp with multiple fenestrations from the
right none commissure leading into the free margin the leaflet, some calcification at the base of the noncoronary cusp along the annulus.
Mitral Valve Description: Moderately dilated annulus, there was jet lesions along the free margin of the anterior leaflet which were debrided, there were multiple torn cords along P2 into P3 with thickening of that portion of the leaflet.
Findings: Left ventricular ejection fraction preoperatively was normal at 65%, he had no regional wall motion abnormalities. Following surgery his EF was hyperdynamic at 70% with a cardiac index of over 6 without inotropic support. He ultimately
did level out to an EF of approximately 60 to 65% with a cardiac index of 3.3 with no new regional wall motion abnormalities. The mitral valve was inspected thoroughly and any obvious jet lesions were removed and sent off for culture. Part of the
posterior leaflet at P2 and P3 had multiple torn cords which were resected in a triangular fashion. The leaflet was then probably repaired with 5-0 Prolene in an interrupted fashion. The annulus was moderately dilated and a total of 11
nonpledgeted 2 Ethibond sutures were placed to anchor a 32 mm band annuloplasty using core knots. The aortic valve was inspected, he had prolapsing of the noncoronary cusp as well as fenestrations along the right none commissure heading into the
right coronary cusp at the free margin as well as some prolapse. I initially thought that I could repair this however because 2 of his 3 leaflets were affected I felt the repair would not be durable. This was replaced with a 25 mm bioprosthesis
using a total of 18 nonpledgeted 2 Ethibond sutures in an inverted fashion from LVOT through annulus through sewing cuff secured into place with core knots. His left atrial appendage was verified to be free of any thrombus or debris preoperatively
and was sized to a 35 mm clip which was deployed flush the base. Following surgery there is no residual flow or stump in his left atrial appendage. While he was still hyperdynamic the mean gradient across his new aortic valve bioprosthesis was 10
mmHg and 4 mmHg across the mitral valve. He did not require any products for coagulopathy or bleeding however did require FFP as his ACT level was not responding adequately to heparin dosing. He did not require inotropic support, did not require
pacing was in sinus rhythm. The mitral valve had no residual insufficiency, no systolic anterior motion of the leaflets even with his hyperdynamic state, and normal excursion of the leaflets. There was no paravalvular leak across the aortic valve
bioprosthesis. Of note a left heart cath was not able to be performed as there was question of vegetation along the right coronary ostium, this was likely a fenestration from the right coronary cusp in actuality.
Specimen(s): Mitral valve leaflet scallop, jet lesion, and aortic valve leaflets for permanent and cultures
Prosthesis:
1. 32 mm Brown physio flex annuloplasty band, serial #[id number]
2. 25 mm Brown Inspiris Resilia aortic valve bioprosthesis, serial #[id number]
3. 35 mm clip, serial #[id number]
4. Single CV 4 [place]-Fernie to the posterior leaflet
Description of Procedure: The patient was taken to the operating room. Their identity and procedure to be performed were verified and they were positioned supine on the operating table. Induction via general anesthesia with endotracheal intubation
was performed and central venous access and arterial monitoring were inserted. A preoperative transesophageal echocardiogram was performed to assess cardiac function and valvular function. The patient was then prepped and draped from chin to feet in
a sterile fashion. A preoperative time-out was performed with all members of the team present. A midline chest incision was performed along with median sternotomy. The innominate vein was isolated. Full heparinization was given (a total of 85
units). We created a pericardial well. The aortic cannulation site was chosen where it was soft, pliable, and free of calcium. Cannulation was performed with an arterial cannula in the ascending aorta, angled metal tip cannular in the superior vena
cava and straight bendable cannula in the inferior vena cava. The arterial cannula line had an appropriate bounce and correlating pressures. Next, a root vent/antegrade cannula was inserted into the ascending aorta. The ACT was confirmed to be over
400 and retrograde autologous priming was performed before commencing cardiopulmonary bypass. Of note additional heparin was required and FFP during the case to maintain an adequate ACT. The pulmonary artery was away from the aorta to
facilitate a clamp site. Sondergaard�s groove was developed after creating the oblique sinus. A retrograde coronary sinus catheter was placed via the right atrium under manual and MAURICE guidance. The aortic cross-clamp was placed after decreasing
the flow on the bypass and mean arterial pressure. A total of 1.2L initial dose of antegrade and retrograde Del-Nido cardioplegia solution was given and planned for re-dosing every 75 minutes as necessary. There was rapid electro-mechanical arrest
of the heart at 400 cc of cardioplegia. The left ventricle was observed for distention on echocardiogram and manual palpation. Cold slush was placed into a lap on the RV and we systemically cooled to 34 degrees centigrade.
Carbon dioxide was used to flood the field. Next, the mitral valve was accessed via the left atrium followed by valve analysis. The mitral valve was repaired as described above. Dynamic inflation using saline demonstrated a competent mitral valve
with good coaptation margin. The surgical field was then irrigated with antibiotic solution. The drop sucker off the clear line was placed across the mitral valve into the left ventricle to serve as the LV vent. The left atrium was then closed
with 3-0 Prolene in a running fashion but not tied down as the LV vent was still in place. The heart was then medialized left atrial appendage was ligated with a 35 mm clip flush to the base. I then turned my attention back towards the aortic
valve. We manually identified the location of the right coronary take off. An aortotomy was made approximately 2cm above the sinotubular junction. The location of both left and right coronary vessels were visualized in the root.The leaflets were
excised and sent for pathological assessment. The annulus was debrided of any calcium being mindful of the annulus and membranous septum. The root and left ventricular outflow tract were thoroughly irrigated with antibiotic solution. A total of 18
non-pledgeted 2-0 ethibond inverted annular sutures were placed [id number] circumferentially. These were brought through the sewing cuff of the prosthetic valve which was then parachuted into place. The left and right coronary ostia were
visualized and were unobstructed by the valve with retrograde flow emanating from the ostia when cardioplegia was given. A Cor-Knot device was used to secure the annular sutures. The valve was inspected and was well seated. The aortotomy was
approximated with 4-0 prolene in two layers. I then removed the LV vent and tied off the left atriotomy suture line.
De-airing maneuvers were performed and temporary atrial and ventricular pacing wires were placed at the SVC/RA junction and base of the right ventricle, respectively. The patient was placed in a Trendelenburg position and flows on bypass were
lowered. The aortic cross clamp was removed and flows were slowly brought back up. The left atrial suture line was hemostatic. Transesophageal echocardiography revealed no evidence of systolic anterior motion and ventricular function was normal.
The AV prosthesis was well seated without PVL or AI. Once de-airing was satisfactory the left ventricular and root vents were removed. After verifying acceptable parameters, we initiated weaning from cardiopulmonary bypass. Once we were off
cardiopulmonary bypass, the venous cannulas was clamped and removed sequentially. A test dose of protamine was administered and the patient was monitored for any adverse reaction before resuming protamine. Once half of the protamine dose was
delivered, pump suckers were turned off and the systolic blood pressure was lowered for aortic decannulation. The aortic cannula was removed and purse strings were tied down. All cannulation sites were oversewn with a 4-0 prolene. The left atrial
suture line was inspected and hemostasis was confirmed. Mediastinal hemostasis was obtained. Two #24 Javier drains were placed within the pericardium with a single #19 Javier drain to the right hemithorax. The sternum was approximated with 4 #7 single
and 3 #8 double stainless steel wires. Fascia was approximated with #1 vicryl suture. The subcutaneous, dermis and epidermis were closed in layers in a running fashion. The skin wound was cleansed and dressed.
All instrument, sponge, and needle counts were confirmed to be correct x 2 at the end of the operation. The patient was transferred to the cardiac intensive care unit in critical but stable condition.
I, Dr. Vikram Dow, was present, scrubbed for, and performed all critical elements of this procedure.
Vikram Dow MD, MS
Cardiothoracic Surgeon
[facility]
This dictation was created using the GERS dictation system. Please excuse any grammatical, typographical, or 'sound alike' errors
[2024-02-06 11:41] LABS: B.E. - POC -2.3 mmol/L; Glucose - POC 224 mg/dl (65-99); HCO3 - POC 24 mmol/L (21-29); Hematocrit - POC 28 % PCV (42-52); Hemodilution- POC Yes; Hemoglobin Calculated - POC 9.6; Ionized Calcium - POC 1.31 mmol/L (1.12-1.27); O2 Saturation %Calculated-POC 99.2 5 (92-96); PCO2 - POC 44 mmHg (35-45); PO2 - POC 153 mmHg (80-100); POC Comment POST; Potassium - POC 4.3 mmol/L (3.6-5.0); Sodium - POC 138 mmol/L (135-145); pH - POC 7.34 (7.35-7.45)
--- NOTE | 2024-02-06 11:57 | W.PN.UPDATE ---
Update Note
Progress Note Update
63-year-old male with past medical history of arthritis and bilateral knee replacement 2 years ago presented to [facility] emergency room on 01/29 with pulmonary edema,and gram-positive positive cocci on blood cultures. Patient was evaluated by ID
and started on Ancef. A TTE was completed on 01/30 and reported a suspicious density on the mitral valve leaflet, worrisome for vegetation. A MAURICE was then completed on 01/31 and reported an EF of 55-60%. Severe mitral regurgitation. P3 segment of the
posterior mitral leaflet appears flail. Echodensity measuring 10 mm in length is attached to the P2/P3 scallops and is suspicious for vegetation. Thickened trileaflet aortic valve. There appears to be a small echodensity at the base of the left and
right coronary cusps. Moderate eccentric aortic regurgitation. Follow-up blood cultures were negative on 02/03 and patient proceeded to the OR on 02/08.
IV fluids: 1000
Crystalloid:�
U.O.:� 500
UF:� 3000
Blood:� 2FFP for Heparin resistance
Wires:� 2 atrial and 1 bipolar v-wire to TPM
Gtts: Levophed @ 6, Precedex @ 0.5
�
NEURO: sedated on Precedex, pupils +2mm B/L
RESP: #8OT 24> 500/60%/14/5. Lungs clear B/L. 2 mediastinal (0 cc on arrival) and L pleural (0cc on arrival) chest tubes to -20cm suction. Sanguineous drainage
CV: RRR +S1, S2, no S3, no�rub, no murmur. Dermabond to median sternotomy. RIJ w/Felda locked @ 48cm. PA XX; CVP XX; C.O XX/CI XX
ABD: round, soft, no BS
EXT: no edema, +2/4 DP pulses B/L, no femoral bruit, left radial A-line intact
: Nolasco with clear yellow urine
�
A/P: POD #0 s/p radical mitral valve repair [triangular resection of P2 and P3 with primary repair, [place]-Fernie cord placed to the posterior leaflet at P2 P3, #32 mm band annuloplasty, debridement of jet lesions along the free margin of the valve],
Aortic valve replacement [#25 mm bioprosthesis], Left atrial appendage exclusion [#35 mm clip]
MAURICE: report pending
- wean and extubate
- continue ASA for Bio AVR/mitral repair
- will need instruction regarding antibiotic prophylaxis for dental and invasive procedures
- will need pre-discharge TTE
# MSSA endocarditis
- continue Cefazolin 2G IV a4p-duh date TBD
- will need PICC placed
- will need weekly CBC/CMP with report to Infectious Disease office
�
# acute surgical blood loss anemia-expected
- Hb 9.6
- trend CBC
�
# Heparin resistance
- received 2UFFP intra-op
--- NOTE | 2024-02-06 12:00 | PTCARENOTE ---
Received patient from [facility] sedated and placed on vent by [facility]. Out with usual lines, CTx3. On levo insulin and precedex. SIMV 12/650/+5 60%. SaO2 98%. weaned as able. Labs drawn and sent. ekg and cxr done bedside. updated per Dr Dow. Normal
Sinus Rhythm with PACs. Hr 80s. AV wires present. sensitivities checked with thresholds. set to VVI 50/3/0.8. CTs placed to -20 wall suction. no air leaks/crepitus, Draining red. Nolasco draining adequate clear yellow urine. bowel sounds hypoactive.
Pulses palpable. Will continue to monitor.
[2024-02-06 12:04] LABS: Glucose - Point of Care 209 mg/dl (70-99)
[2024-02-06 12:13] LABS: B.E. -0.4 mmol/L; HCO3 25.4 mmol/L (21-28); Ionized Calcium 1.26 mMOL/L (1.15-1.33); O2 Saturation % 99.2 % (94-98); PCO2 46 mmHg (35-48); PO2 104 mmHg (83-108); Potassium 4.3 mMOL/L (3.5-5.1); Sodium 135 mMOL/L (136-145); pH 7.35 (7.35-7.45)
[2024-02-06 12:16] LABS: Hematocrit 28.5 % (39.0-52.0); Hemoglobin 9.6 g/dL (13.0-18.0); Platelet Count 370 10^3/uL (130-400)
[2024-02-06 12:19] LABS: INR 1.35; PT 16.5 Sec (11.4-14.6)
[2024-02-06 12:20] LABS: APTT 30.5 Sec (23.4-35.0); O2 Therapy vent
[2024-02-06] MEDS: DILAUDID 0.5 MG IV ×3 (12:27→18:54)
[2024-02-06 12:28] LABS: Blood Urea Nitrogen 24 mg/dl (9-20); Estimated Creatinine Clearance 100 ml/min; Glucose 193 mg/dl (70-99); Magnesium 2.9 mg/dl (1.6-2.3)
[2024-02-06] MEDS: NSS 500 IV (12:28)
--- NOTE | 2024-02-06 13:10 | CON.INTV ---
Consultation
Consultation Request
Date/Time Consultation Requested: 02/06/24
Date/Time Consultation Performed: 02/06/24
Performing Provider: Yadi
Reason for Consultation: CVICU
Medical History
-
History of Present Illness:
Patient is a 64-year-old male with previous history of osteoarthritis status post bilateral knee replacement presenting on 01/30/2024 for gram-positive cocci in clusters on blood cultures. He had undergone outpatient workup for left arm pain,
generalized malaise, diaphoresis, chills, headache and nausea. He was started on doxycycline for possible UTI, was called back for abnormal blood culture results. Echo obtained showing normal BiV function but there is suspicious density in the
mitral valve worrisome for vegetation. Underwent MAURICE 02/01/24 demonstrating severe mitral with flail posterior mitral leaflet and echodensity measuring 10 mm in length.
Was evaluated by CT surgery and underwent AVR/MVR 02/06/2024, postoperatively transferred to CVICU for further management.
Past Medical History
Past Medical History: Other (see list below)
Social History
Tobacco: Non-smoker
Alcohol: Occasional
Drug: None
Family History
Family History: Reviewed & Not Pertinent
Allergies / Home Medications
Allergies
Allergy/AdvReac Type Severity Reaction Status Date / Time
No Known Allergies Allergy Verified 01/30/24 16:18
Home Medications
�Medication �Instructions �Recorded �Confirmed �Last Taken �Type
acetaminophen 500 mg tablet 1,000 mg PO Q6HPRN PRN mild pain 01/30/24 01/30/24 Unknown History
(Tylenol Extra Strength)
ibuprofen 800 mg tablet 800 mg PO Q8HPRN PRN mild pain 01/30/24 01/30/24 12:00 History
therapeutic multivitamin 1 tab PO DAILY Supplement 01/30/24 01/30/24 Unknown History
doxycycline monohydrate 100 mg 100 mg PO BID Infection 01/31/24 01/30/24 Unknown History
capsule
Review of Systems
-
Unable to Obtain full review of systems at this time due to: Patient Intubation
History Source: Patient
All other systems: Negative unless noted
Vitals / Labs / Diagnostic Testing
Vital Signs
Temp Pulse Resp BP Pulse Ox
99.0 F 90 18 124/71 97
02/06/24 12:00 02/06/24 06:02 02/06/24 04:57 02/06/24 06:02 02/06/24 12:00
Lab Data
02/06/24 11:55
Laboratory Results
02/06/24
11:55
PT 16.5 H
INR 1.35
APTT 30.5
pH 7.35
pCO2 46
pO2 104
HCO3 25.4
O2 Delivery Level vent
Microbiology
02/06/24 09:58 Heart Fungal Culture - Preliminary
Culture in progress.
Positive cultures are reported as soon as detected.
Final report to follow in four to five weeks.
02/06/24 09:09 Valve Fungal Culture - Preliminary
Culture in progress.
Positive cultures are reported as soon as detected.
Final report to follow in four to five weeks.
02/01/24 16:49 Blood/Venous Blood Culture - Preliminary
No Growth in 4 days- Final report to follow
02/01/24 13:38 Blood/Venous Blood Culture - Preliminary
No Growth in 4 days- Final report to follow
01/30/24 22:45 Blood/Venous Blood Culture - Final
S aureus-Methicillin Sensitive
01/30/24 22:45 Blood/Venous Gram Stain - Final
Diagnostic Testing:
Physical Exam
-
HEENT: Normocephalic, Anicteric and Moist Mucous Membranes
Cardiovascular: S1/S2 and Regular Rhythm
Respiratory: Clear and Non-Labored Respirations
GI: Soft, Non Distended and Non Tender
Neurology: Awake, Alert and Other (intubated, but able to nod head)
Skin: Warm, Dry and Good Color
General: Comfortable and Other (NAD)
Assessment
-
Patient is a 64-year-old male with previous history of osteoarthritis status post bilateral knee replacement presenting on 01/30/2024 for gram-positive cocci in clusters on blood cultures. He had undergone outpatient workup for left arm pain,
generalized malaise, diaphoresis, chills, headache and nausea. He was started on doxycycline for possible UTI, was called back for abnormal blood culture results. Echo obtained showing normal BiV function but there is suspicious density in the
mitral valve worrisome for vegetation. Underwent MAURICE 02/01/24 demonstrating severe mitral with flail posterior mitral leaflet and echodensity measuring 10 mm in length.
Was evaluated by CT surgery and underwent AVR/MVR 02/06/2024, postoperatively transferred to CVICU for further management.
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
MSSA bacteremia
Severe MR
Moderate AR s/p AVR
Perioperative mechanical ventilation
Leukocytosis
Mild perioperative anemia, acute on chronic
Hyperglycemia without history of diabetes
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
OA s/p B/l knee replacement
Plan
S/p AVR/MVR POD #0
Titrate off pressors per protocol
ECHO reviewed with low/normal function
PA catheter readings reviewed
Management of chest tubes per primary service
Intubated/sedated, initiate SAT when able
Pain control
RASS goal of 0 to -1
Intubated for procedure, SBT trial when patient able to spontaneously breath
Current vent settings: PS Wean
ABG(s) reviewed
CXR with no obvious opacities/infiltrates, low lung volumes, ETT in good position, lines/tubes in place
Extubate per protocol
Maintain supplement oxygen as needed
No prior history of pulmonary disease
Can add nebulizers if needed
Aspiration precautions
Encouraged incentive spirometry, OOB/ambulation/early mobility
Advance diet as tolerated following extubation
GI prophylaxis if indicated for mechanical ventilation >48 hours
Monitor critical I/O's
Nolasco/chest tube output
On abx for endocarditis, likely to be prolonged course
PICC line eventually for total of 6 weeks
ID following
Hb/platelets postoperatively stable
Trend CBC for now
Can transfuse if indicated for Hb <7, plt <50 in surgical patients
DVT prophylaxis including SCDs
Insulin protocol initiated and ongoing
Transition to SQ/off as indicated per team
We will follow
Diagnostic Data
Chest X-Ray: 02/06/24- Tracheal tube is seen with tip in the trachea above the parish, right-sided central pulmonary artery catheter with tip in the proximal right pulmonary artery, chest tubes/mediastinal drains.
Lungs: Low lung volumes. There is no pneumothorax or pleural effusion. Central pulmonary markings are borderline prominent.
CT Scan: CHEST 02/01/24- Increased pulmonary vascularity and marked central bilateral groundglass opacities, pattern of which would be most suggestive of acute pulmonary edema with accompanying small bilateral pleural effusions.
Echo: 01/31/24- Normal biventricular size and systolic function without regional wall motion abnormality. Suspicious density on the mitral valve leaflet(?s) worrisome for vegetation, MAURICE recommended if no contraindication.
Thickened aortic valve leaflets with mild aortic stenosis and regurgitation. Cannot fully rule out any vegetation due to valvulopathy. No prior study available for comparison.
MAURICE 01/31- Normal left ventricular size, wall thickness and systolic function. The ejection fraction is estimated at 55-60%. Severe mitral regurgitation. P3 segment of the posterior mitral leaflet appears to be flail. Echodensity measuring 10 mm in
length is attached to the P2/P3 scallops and is suspicious for vegetation. Thickened trileaflet aortic valve. There appears to be a small echodensity at the base of the left and right coronary cusps. Moderate eccentric aortic regurgitation.
Aortic sclerosis without stenosis.
PFT's:
Reports and relevant images were personally reviewed.
-----
Critical Care time 51 mins -- The patient is admitted for acute critical illness for the treatment of vital organ failure and/or prevention of further life-threatening conditions. Total care includes time spent in review of history, physical exam,
medications, hemodynamic/ventilator parameters, laboratory data, imaging and discussion with house staff, pharmacy, respiratory therapy, clinical laboratory aide, and nursing.
[2024-02-06 13:17] LABS: Glucose - Point of Care 178 mg/dl (70-99)
[2024-02-06] MEDS: DILAUDID 0.25 MG IV ×2 (13:18→16:47)
[2024-02-06] MEDS: HEPARIN SC (13:22)
[2024-02-06] MEDS: ANCEF IV (13:22)
[2024-02-06] MEDS: LASIX IV (13:22)
[2024-02-06] MEDS: LOPRESSOR PO (13:22)
[2024-02-06 13:32] VITALS: BP_SYST 112
[2024-02-06 14:24] LABS: Glucose - Point of Care 120 mg/dl (70-99)
[2024-02-06] MEDS: TYLENOL PO (14:59)
[2024-02-06 15:05] LABS: Glucose - Point of Care 112 mg/dl (70-99)
[2024-02-06 15:15] LABS: Hematocrit 28.3 % (39.0-52.0); Hemoglobin 9.9 g/dL (13.0-18.0); Platelet Count 363 10^3/uL (130-400)
[2024-02-06 15:22] LABS: B.E. 0.9 mmol/L; HCO3 25.2 mmol/L (21-28); O2 Saturation % 99.8 % (94-98); PCO2 38 mmHg (35-48); PO2 97 mmHg (83-108); Potassium 4.6 mMOL/L (3.5-5.1); pH 7.43 (7.35-7.45)
--- NOTE | 2024-02-06 15:56 | RESPNOTE ---
patient extubated at 1435. 98% on 6L.
--- NOTE | 2024-02-06 16:00 | PTCARENOTE ---
ext to 6l nc with oral health therapist at bedside. tolerated.
[2024-02-06 16:38] LABS: Glucose - Point of Care 106 mg/dl (70-99)
[2024-02-06] MEDS: PACERONE 200 MG PO ×2 (17:20→21:44)
[2024-02-06] MEDS: NEURONTIN 100 MG PO ×2 (17:21→21:44)
[2024-02-06] MEDS: LOW STRENGTH ASPIRIN 81 MG PO (17:25)
[2024-02-06] MEDS: ROXICODONE 5 MG PO (17:52)
[2024-02-06 18:36] LABS: Glucose - Point of Care 119 mg/dl (70-99)
[2024-02-06 20:11] LABS: Glucose - Point of Care 92 mg/dl (70-99)
[2024-02-06] MEDS: TORADOL 15 MG IV (20:30)
--- NOTE | 2024-02-06 20:32 | PTCARENOTE ---
assumed care of patient @ 1900. received pt laying in bed, AOx3. Afebrile. c/o 04/04 pain, medicated with .5 Dilaudid. Pt states pain medicine not working, conversation with CTPA Stephy Velasco, will order and give toradol prn. NSR on tele, BPs
110s/50s, PAP 30s/10s, CVP ~12. AV wires to box, VVI 50, 3, 0.8. + pulses, no edema noted. Lungs clear, diminished on 3L satting mid 90s. taking shallow breaths. Incentive spirometry encouraged. 3 chest tubes 2 meds and R pleural to wall suction
with serosang drng, no air leak, tidaling or crepitus noted. Belly soft, hypoactive, tolerating sips and chips well no nausea. Nolasco present draining adequate clear yellow urine. 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 R IJ cordis with swan at 44, R radial a
line all central lines zeroed, flushed. PIV patent. Recieved with levo at 1 and insulin per protocol. at bedside, call mora within reach.
[2024-02-06] MEDS: TYLENOL 1000 MG PO (21:43)
[2024-02-06] MEDS: FLEXERIL 5 MG PO (21:44)
[2024-02-06] MEDS: DESYREL 25 MG PO (21:44)
[2024-02-06] MEDS: SENOKOT-S PO (21:45)
[2024-02-06 21:51] LABS: Glucose - Point of Care 99 mg/dl (70-99)
[2024-02-07] VITALS (17 sets, daily range): BP systolic 99–127; BP diastolic 59–80; PULSE 82; O2SAT 93–95; BMI 27.0
[2024-02-07 00:06] LABS: Glucose - Point of Care 102 mg/dl (70-99)
[2024-02-07] MEDS: ROXICODONE 5 MG PO ×5 (00:15→22:08)
--- NOTE | 2024-02-07 00:33 | PTCARENOTE ---
pt reassessed, urine is now slightly cloudy with pink tinge. Stephy TENA notified, states likely d/t propfol from OR. medicated with 5 of erika, no other change in assessment .
[2024-02-07] MEDS: ANCEF 10 IV ×3 (02:07→17:19)
[2024-02-07 02:10] LABS: Glucose - Point of Care 138 mg/dl (70-99)
--- NOTE | 2024-02-07 04:00 | PTCARENOTE ---
labs drawn and sent, EKG NSR. No change in assessment .
[2024-02-07 04:09] LABS: Glucose - Point of Care 96 mg/dl (70-99)
[2024-02-07 04:11] LABS: Hematocrit 27.7 % (39.0-52.0); Hemoglobin 9.6 g/dL (13.0-18.0); Mean Corp Hgb Conc. 34.7 g/dL (33.0-37.0); Mean Corpuscular Hgb 32.3 pg (27.0-31.0); Mean Corpuscular Volume 93.3 fL (80.0-94.0); Platelet Count 293 10^3/uL (130-400); Red Blood Cell Count 2.97 10^6/uL (4.70-6.10); Red Cell Dist. Width 12.3 % (11.5-14.5); White Blood Cell Count 24.2 10^3/uL (4.8-10.8)
[2024-02-07 04:34] LABS: Blood Urea Nitrogen 28 mg/dl (9-20); Calcium 8.3 mg/dl (8.4-10.2); Carbon Dioxide 25 mmol/L (22-30); Chloride 105 mmol/L (98-107); Estimated Creatinine Clearance > 125 ml/min; Glucose 97 mg/dl (70-99); Magnesium 2.5 mg/dl (1.6-2.3); Potassium 4.3 mmol/L (3.5-5.1); Sodium 135 mmol/L (135-145); eGFR > 60.00
--- NOTE | 2024-02-07 05:30 | W.PN.CT ---
Today's Communication / Plan
-
-pod #1
-no issues overnight
-CI 3.01. Drips: insulin only
-CTs output: 2 meds 130/275, R pleur 60/105 in 12/24 hrs
-deline
-d/c Nolasco
-d/c insulin
-continue iv Ancef for MSSA bacteremia/endocarditis. Appreciate ID input
-follow intraop cultures
-stopped Trazodone (can increase Qt)
-current meds (ASA, Amio, Lopressor, Protonix, iv Ancef, iv iron)
-encourage IS, OOB
-appreciate everyone's input
Assessment / Plan
-
- s/p Radical mitral valve repair; Aortic valve replacement [25 mm Brown Inspiris Resilia bioprosthesis]; Left atrial appendage exclusion [35 mm clip] on 02/06/[address] Dow, pod #1
- Intraop MAURICE: LVEF preop was normal at 65%, he had no regional wall motion abnormalities. Following surgery his EF was hyperdynamic at 70% with a cardiac index of over 6 without inotropic support. He ultimately did level out to an EF of
approximately 60 to 65% with a cardiac index of 3.3 with no new regional wall motion abnormalities. While he was still hyperdynamic, the mean gradient across his new aortic valve bioprosthesis was 10 mmHg and 4 mmHg across the mitral valve. The
mitral valve had no residual insufficiency, no systolic anterior motion of the leaflets even with his hyperdynamic state, and normal excursion of the leaflets. There was no paravalvular leak across the aortic valve bioprosthesis. No residual flow
or stump in his left atrial appendage following the clip placement.
- Bacteremia, MSSA with possible mitral valve endocarditis
- Acute respiratory failure due to pulmonary edema secondary to acute mitral valve insufficiency with flail/torn chords on the posterior leaflet, type II pathology
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
- Anemia and thrombocytopenia preop
- History of C. difficile
- Osteoarthritis, s/p b/l TKA
- 1st degree AV block
- Acute on chronic blood loss anemia - stable
- Acute postop coagulopathy - s/p 2 FFPs
- Acute postop thrombocytopenia
- Suspected acute postop pericarditis/+rub - on Toradol
- Acute postop hypovolemia with subsequent hypervolemia
Discussed patient care with: Nursing and Care Team
Subjective
Procedure
- s/p Radical mitral valve repair; Aortic valve replacement [25 mm Brown Inspiris Resilia bioprosthesis]; Left atrial appendage exclusion [35 mm clip] on 02/06/[address] Dow
-
Date of Service: February 07, 2024
Objective Data
-
PT 16.5 Sec (11.4-14.6) H 02/06/24 11:55
INR 1.35 02/06/24 11:55
APTT 30.5 Sec (23.4-35.0) 02/06/24 11:55
Vital Signs
Vital Signs
Temp Pulse Resp BP Pulse Ox
98.9 F 81 14 101/58 95
02/06/24 22:00 02/06/24 20:00 02/06/24 22:00 02/06/24 17:20 02/06/24 22:00
CT Intake/Output/Weight
02/06/24 02/06/24 02/07/24
06:59 18:59 06:59
Intake Total 1079.2 / 1203.0 123.8 / 1203.0
Output Total 750 / 2950 785 / 985 200 / 985
Balance -750 / -2950 294.2 / 218.0 -76.2 / 218.0
SaO2: 95
Physical Exam
-
General: Awake and AOx3
Cardiovascular: Regular rate & rhythm, No Murmurs and Rub
Respiratory: Decreased Breath Sounds
Sternum: Stable
Incision: Clean, Dry and Intact
Extremities: No Edema (2+ DPs b/l)
Data Reviewed
-
Lab Results: Results Reviewed
Medications: Active Meds Reviewed
Chest X-Ray: Report Reviewed and Image Reviewed
ECG: Report Reviewed and Image Reviewed
[2024-02-07] MEDS: TYLENOL 1000 MG PO ×3 (05:40→22:09)
[2024-02-07] MEDS: TORADOL 15 MG IV ×3 (05:41→19:18)
[2024-02-07 05:48] LABS: Glucose - Point of Care 117 mg/dl (70-99)
--- NOTE | 2024-02-07 06:07 | PTCARENOTE ---
Shaheed, Hayden patel, jerry removed per orders. pt bathed, stood to scale and to chair with steady gait. toradol given for pain. resting in chair with call mora within reach .
--- NOTE | 2024-02-07 07:15 | W.PN.INTV ---
Today's Communication / Plan
Recommendations
Doing well post extubation, on room air
Off pressors/insulin gtt
Ongoing IV abx per ID, likely to need PICC
PT/OT, OOB/IS
Transfer to tele per team, we will sign off upon transfer
Assessment
-
Patient is a 64-year-old male with previous history of osteoarthritis status post bilateral knee replacement presenting on 01/30/2024 for gram-positive cocci in clusters on blood cultures. He had undergone outpatient workup for left arm pain,
generalized malaise, diaphoresis, chills, headache and nausea. He was started on doxycycline for possible UTI, was called back for abnormal blood culture results. Echo obtained showing normal BiV function but there is suspicious density in the
mitral valve worrisome for vegetation. Underwent MAURICE 02/01/24 demonstrating severe mitral with flail posterior mitral leaflet and echodensity measuring 10 mm in length.
Was evaluated by CT surgery and underwent AVR/MVR 02/06/2024, postoperatively transferred to CVICU for further management.
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
MSSA bacteremia
Severe MR
Moderate AR s/p AVR
Perioperative mechanical ventilation
Leukocytosis
Mild perioperative anemia, acute on chronic
Hyperglycemia without history of diabetes
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
OA s/p B/l knee replacement
Plan
S/p AVR/MVR POD #1
Off pressors
ECHO reviewed with low/normal function
Management of chest tubes per primary service
Pain control
RASS goal of 0 to -1
Intubated for procedure, extubated and doing well
ABG(s) reviewed
CXR with stable postop changes
Maintain supplement oxygen as needed
No prior history of pulmonary disease
Can add nebulizers if needed
Aspiration precautions
Encouraged incentive spirometry, OOB/ambulation/early mobility
Advance diet as tolerated following extubation
GI prophylaxis if indicated for mechanical ventilation >48 hours
Monitor critical I/O's
Nolasco/chest tube output
On abx for endocarditis, likely to be prolonged course
PICC line eventually for total of 6 weeks
ID following
Hb/platelets postoperatively stable
Trend CBC for now
Can transfuse if indicated for Hb <7, plt <50 in surgical patients
DVT prophylaxis including SCDs
Insulin protocol initiated and transitioned to off
Diagnostic Data
Chest X-Ray: 02/06/24- Tracheal tube is seen with tip in the trachea above the [place], right-sided central pulmonary artery catheter with tip in the proximal right pulmonary artery, chest tubes/mediastinal drains.
Lungs: Low lung volumes. There is no pneumothorax or pleural effusion. Central pulmonary markings are borderline prominent.
CT Scan: CHEST 02/01/24- Increased pulmonary vascularity and marked central bilateral groundglass opacities, pattern of which would be most suggestive of acute pulmonary edema with accompanying small bilateral pleural effusions.
Echo: 01/31/24- Normal biventricular size and systolic function without regional wall motion abnormality. Suspicious density on the mitral valve leaflet(?s) worrisome for vegetation, MAURICE recommended if no contraindication.
Thickened aortic valve leaflets with mild aortic stenosis and regurgitation. Cannot fully rule out any vegetation due to valvulopathy. No prior study available for comparison.
MAURICE 01/31- Normal left ventricular size, wall thickness and systolic function. The ejection fraction is estimated at 55-60%. Severe mitral regurgitation. P3 segment of the posterior mitral leaflet appears to be flail. Echodensity measuring 10 mm in
length is attached to the P2/P3 scallops and is suspicious for vegetation. Thickened trileaflet aortic valve. There appears to be a small echodensity at the base of the left and right coronary cusps. Moderate eccentric aortic regurgitation.
Aortic sclerosis without stenosis.
PFT's:
Reports and relevant images were personally reviewed.
-----
Critical Care time 31 mins -- The patient is admitted for acute critical illness for the treatment of vital organ failure and/or prevention of further life-threatening conditions. Total care includes time spent in review of history, physical exam,
medications, hemodynamic/ventilator parameters, laboratory data, imaging and discussion with house staff, pharmacy, respiratory therapy, city council member, and nursing.
Subjective Dataa
Subjective Data
Date of Service:
Date of Service: February 07, 2024
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
Subjective:
Doing well post extubation
Stable on RA
Objective Data
Data Reviewed
Vital Signs / I&O / Oxygen:
Vital Signs
Temp Pulse Resp BP Pulse Ox
99.4 F 86 18 113/60 96
02/07/24 05:00 02/07/24 06:00 02/07/24 06:00 02/07/24 06:00 02/07/24 06:00
Intake and Output
02/06/24 02/07/24 02/08/24
06:59 06:59 06:59
Intake Total 1415.3 / 1415.3
Output Total 2950 / 2950 1435 / 1435
Balance -2950 / -2950 -19.7 / -19.7
SaO2 [P-SIMV] 97
SaO2 96
Nasal Cannula flow liters per 2
minute
Physical Exam
General: Comfortable and Other (NAD)
HEENT: Normocephalic, Anicteric and Moist Mucous Membranes
Cardiovascular: S1-S2, Regular Rhythm and Other (incision noted CDI)
Respiratory: Clear and Non-Labored Respirations
GI: Soft, Non Distended and Non Tender
Neurology: Awake, Alert, Oriented, AO x 3 and No Motor Deficits
Skin: Warm, Dry and Good Color
Labs/Micro/Reports
Lab Data
02/07/24 04:03
02/07/24 04:03
Laboratory Results
02/06/24 02/06/24
11:55 15:00
PT 16.5 H
INR 1.35
APTT 30.5
pH 7.35 7.43
pCO2 46 38
pO2 104 97
HCO3 25.4 25.2
O2 Delivery Level vent
Microbiology
02/01/24 16:49 Blood/Venous Blood Culture - Final
No Growth - Final Report
02/06/24 09:58 Heart Gram Stain - Preliminary
02/06/24 09:09 Heart Gram Stain - Preliminary
02/01/24 13:38 Blood/Venous Blood Culture - Final
No Growth - Final Report
02/06/24 09:58 Heart Fungal Culture - Preliminary
Culture in progress.
Positive cultures are reported as soon as detected.
Final report to follow in four to five weeks.
02/06/24 09:09 Valve Fungal Culture - Preliminary
Culture in progress.
Positive cultures are reported as soon as detected.
Final report to follow in four to five weeks.
--- NOTE | 2024-02-07 07:48 | W.PN.ANS.POP ---
Anesthesia Post Operative
- Anesthesia Post Op Note
Vital Signs Stable-See Nursing Note: Yes
Airway Patent: Yes
Adequate Pain Control: Yes
Change in Mental Status: No
Current Postoperative Nausea & Vomiting: No
Anesthesia Complications: No
General Anesthetic Recall: No
Unplanned Admission: No
Post Op Hydration Adequate: Yes
--- NOTE | 2024-02-07 08:00 | PTCARENOTE ---
pt received from previous RN, oriented, OOB in chair. SR on the monitor, HR 80s. A&V wires in place, VVI 50/3. SBP 90-100s. palpable pulses. pt on 2LNC, 97% POX. lungs diminished, shallow breathing. IS encouraged. CTx3, no air leak or crepitus
noted. pt abdomen s/n, denies n/v. clears tolerated. DTV post Nolasco removal. sternal incision CARLOS ENRIQUE, approximated. chest tube dressing c/d/i. RIJ cordis maintained. PIV. insulin gtt running per protocol. see worklist for VS, I&O, and assessment.
[2024-02-07] MEDS: LOW STRENGTH ASPIRIN 81 MG PO (08:24)
[2024-02-07] MEDS: PROTONIX 40 MG PO (08:24)
[2024-02-07] MEDS: PACERONE 200 MG PO ×3 (08:24→22:10)
[2024-02-07] MEDS: NEURONTIN 100 MG PO ×3 (08:24→22:09)
[2024-02-07] MEDS: LOPRESSOR 12.5 MG PO ×2 (08:24→19:19)
[2024-02-07] MEDS: LIDOCAINE 4% PATCH 1 PATCH TOPICAL (08:25)
[2024-02-07] MEDS: BACTROBAN 2% OINTMENT 1 APPLIC NASAL ×2 (08:25→19:22)
[2024-02-07] MEDS: SENOKOT-S 1 TABLET PO ×2 (08:25→19:19)
[2024-02-07 08:28] LABS: Glucose - Point of Care 131 mg/dl (70-99)
[2024-02-07] MEDS: NSS IV (09:56)
[2024-02-07 10:14] LABS: Glucose - Point of Care 116 mg/dl (70-99)
[2024-02-07] MEDS: FLEXERIL 5 MG PO ×2 (10:14→20:34)
--- NOTE | 2024-02-07 10:50 | PTCARENOTE ---
pt placed back to bed, R pleural CT dc'd as ordered, Med CTs remain to suction as ordered, dressing c/d/i. A&V wires insulated as ordered. OOB to chair for lunch. pt ambulated in hallway w/ CR.
[2024-02-07] MEDS: LASIX 40 MG IV (11:26)
[2024-02-07 12:11] LABS: Glucose - Point of Care 144 mg/dl (70-99)
--- NOTE | 2024-02-07 12:30 | PTCARENOTE ---
pt VSS, no changes in assessment. +productive cough. IS encouraged, chest PT performed. insulin gtt dc'd as ordered.
[2024-02-07] MEDS: FERRLECIT 110 MG IV (13:00)
--- NOTE | 2024-02-07 14:22 | W.PN.CD ---
Today's Communication / Plan
-
CONTINUE ABX PER ID
Continue metorpolol
monitor on tele
Impression / Plan
-
Bacteremia (staph aureus), endocarditiS
Post op AVR and MV repIR 02/06/24
1) Radical mitral valve repair [triangular resection of P2 and P3 with primary repair, [place] cord placed to the posterior leaflet at P2 P3, 32 mm band annuloplasty, debridement of jet lesions along the free margin of the valve]
2. Aortic valve replacement [25 mm bioprosthesis]
3. Left atrial appendage exclusion [35 mm clip]
-ID is following and patient on IV AB
Severe Mitral regurgitation:
- patient now post mitral valve repair.
Acute heart failure due to valvular disease in the setting of IE
Respiratory status stable continue to monitor in recovery.
PVC: frequent . Patient with ventricular ectopy and groups of triplets on 02/07/2024. Continue to monitor postop
-Metoprolol
HTN: mildly elevated, starting bb
Subjective:
Postop pain controlled. Remains in sinus rhythm.
Physical Exam
Vital Signs/Labs
Vital Signs
Temp Pulse Resp BP Pulse Ox
98.4 F 84 18 127/60 96
02/07/24 12:00 02/07/24 14:00 02/07/24 12:00 02/07/24 12:00 02/07/24 11:00
02/06/24 02/07/24 02/08/24
06:59 06:59 06:59
Actual Weight 88.6 kg 90.3 kg
02/07/24 04:03
02/07/24 04:03
PT 16.5 Sec (11.4-14.6) H 02/06/24 11:55
INR 1.35 02/06/24 11:55
APTT 30.5 Sec (23.4-35.0) 02/06/24 11:55
Magnesium 2.5 mg/dl (1.6-2.3) H 02/07/24 04:03
Physical Exam
Constitutional: No acute distress
EENT: Anicteric
Cardiovascular: Rhythm & rate is regular
Respiratory: Wheeze Absent and Rhonchi Absent
GI: Soft and Non tender
Neuro/Psych: Alert
Data Reviewed
-
Date of Service: February 07, 2024
Medical Decision Making: Reviewed Test Results
EKG: Report Reviewed by me
Medical Tests (PFT, Pathology etc): Report Reviewed by me
Labs: Labs Reviewed by me
--- NOTE | 2024-02-07 14:45 | VATNOTE ---
Spoke with ID and CVICU TENTERING MACHINE FEEDER regarding order for PICC line, due to pt still having a cordis, PICC line start date changed to Monday02/09/24 per IVETTE SALAZAR. Confirmed order changed.
--- NOTE | 2024-02-07 16:12 | PTCARENOTE ---
pt VSS, no changes in assessment. resting between care, OOB to chair for dinner w/ minimal assist. at bedside. voids in urinal.
--- NOTE | 2024-02-07 20:00 | PTCARENOTE ---
Assumed care of patient at 1900. Patient found OOB in chair at time of assessment with family at bedside. Patient is AOX4, follows commands appropriately, moves all extremities. Lung sounds are diminished at the bases, Lisbeth@ is 96% on RA, patient has
occasional productive cough, patient is pulling 1500 on IS. The patient has CTx2: 2xmeds draining serosanguineous to one atrium. Heart sounds have a regular rate and rhythm, there is a rub present on auscultation, patient has A+V wires which are
insulated, patient is SR on the monitor. Patient has normal palpable pulses and no edema is noted. There are active BS present throughout all four quadrants of soft nontender abdomen. Patient is voiding dark roseanne in urinal. Patient has sternal
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 There is an ABD dressing that is CDI over CT wounds. Patient has R IJ cordis receiving KVO and R AC PIV. VSS. Patient c/o moderate pain administered toradol. Patient is stable.
--- NOTE | 2024-02-07 20:04 | W.PN.ID1 ---
Date of Service
Date of Service: February 07, 2024
Today's Communication
Continue cefazolin 2 g IV every 8 hours plan 6 weeks of IV antibiotics
Can place PICC after cordis removed
Assessment / Plan
Staph aureus (MSSA) bacteremia
AV/MV endocarditis
Leukocytosis - probably reactive
Fevers - resolved
Acute CHF
Elevated CRP
Left shoulder discomfort - no signs of infection
Bilateral knee replacements - also no signs of infection
Anemia
Thrombocytopenia - resolved
Transaminitis
Recommendations:
01/31 bcx x2 remain neg to date.
OR 02/05 MV repaired and AVR
valve culture in progress no growth to date
At least weekly cbc/cmp while on IV antibiotics
Continue cefazolin 2 g IV every 8 hours plan 6 weeks of IV antibiotics
Can place PICC after cordis removed
Follow clinically
Chief Complaint
-: Bacteremia and Other (MSSA Endocarditis of AV/MV)
Subjective / Review of Systems
up and walking in the akers with pt
in good spirits
no complaints
Vital Signs / Physical Exam
Vital Signs
Vital Signs
Temp Pulse Resp BP Pulse Ox
99 F 88 20 119/68 94
02/07/24 19:00 02/07/24 19:24 02/07/24 19:00 02/07/24 19:24 02/07/24 19:00
Physical Exam
Constitutional: No Acute Distress
Cardiovascular: Regular Rate and S1/S2; Negative Murmur or Rub
Pulmonary: Clear and Symmetric; Negative Wheezes or Rales
Gastrointestinal: Soft, Non Tender, Non Distended and Normal Bowel Sounds
Skin: Warm and Dry; Negative Rash or Jaundice
Wound: Other (surgical site clean dry, no erythema, warmth tenderness or drainage)
Lines: Other (cordis in place)
Objective Data
Lab Data
Lab Results
02/07/24 04:03
02/07/24 04:03
ESR 12 mm/hour (0-20) 01/31/24 13:02
PT 16.5 Sec (11.4-14.6) H 02/06/24 11:55
INR 1.35 02/06/24 11:55
APTT 30.5 Sec (23.4-35.0) 02/06/24 11:55
Estimated Creat Clear > 125 ml/min 02/07/24 04:03
Lactic Acid 2.6 mmol/L (0.7-2.0) H 01/30/24 17:21
Total Bilirubin 1.1 mg/dl (0.2-1.3) 02/02/24 03:28
AST 32 U/L (17-59) 02/02/24 03:28
ALT 113 U/L (0-50) H 02/02/24 03:28
Alkaline Phosphatase 145 U/L (38-126) H 02/02/24 03:28
C-Reactive Protein 199.50 mg/L (0.0-10.00) H 01/30/24 18:36
Most recent labs reviewed.
Micro Results:
02/06/24 09:58 Anaerobic Culture - Preliminary
Heart Culture pending. Anaerobic cultures are examined after 3
days incubation. Additional information to follow.
02/06/24 09:58 Tissue Culture - Preliminary
Heart No Growth After 18-24 Hours
Gram Stain - Preliminary
02/06/24 09:09 Anaerobic Culture - Preliminary
Heart Culture pending. Anaerobic cultures are examined after 3
days incubation. Additional information to follow.
02/06/24 09:09 Tissue Culture - Preliminary
Heart No Growth After 18-24 Hours
Gram Stain - Preliminary
02/01/24 16:49 Blood Culture - Final
Blood/Venous No Growth - Final Report
02/01/24 13:38 Blood Culture - Final
Blood/Venous No Growth - Final Report
02/06/24 09:58 Fungal Culture - Preliminary
Heart Culture in progress.
Positive cultures are reported as soon as detected.
Final report to follow in four to five weeks.
02/06/24 09:09 Fungal Culture - Preliminary
Valve Culture in progress.
Positive cultures are reported as soon as detected.
Final report to follow in four to five weeks.
01/30/24 22:45 Blood Culture - Final
Blood/Venous S aureus-Methicillin Sensitive
Gram Stain - Final
01/31/24 08:26 Salmonella/Shigella Culture - Final
Feces/Stool No Salmonella, Shigella, Aeromonas or Plesiomonas species
isolated.
Campylobacter Culture - Final
No Campylobacter species isolated.
Shiga Toxin Test - Final
No E. coli Shiga Toxin 1 or 2 detected.
01/30/24 17:21 Blood Culture - Final
Blood/Venous S aureus-Methicillin Sensitive
Gram Stain - Final
01/31/24 13:02 Blood Parasites Smear - Final
Blood/Venous
01/31/24 08:26 C. difficile GDH Antigen & Toxins - Final
Feces/Stool Negative for toxigenic C.difficile
Care Review
Plan reviewed with: Other Provider ([facility] - PICC monday)
[2024-02-08] VITALS (18 sets, daily range): BP systolic 95–137; BP diastolic 60–82; PULSE 77; O2SAT 92; BMI 27.5
--- NOTE | 2024-02-08 | PTCARENOTE ---
Patient reassessed. VSS. Patient with continued moderate levels of pain with associated muscle spasms. Given flexeril and erika 5 to achieve adequate pain relief. Assisted patient with hygiene care. Patient remains SR on the monitor.
[2024-02-08] MEDS: TORADOL 15 MG IV ×4 (02:28→21:47)
[2024-02-08] MEDS: ANCEF 10 IV ×3 (02:29→21:48)
[2024-02-08] MEDS: ROXICODONE 5 MG PO ×4 (02:59→19:17)
[2024-02-08 03:20] LABS: Hematocrit 21.7 % (39.0-52.0); Hemoglobin 7.6 g/dL (13.0-18.0); Mean Corpuscular Hgb 31.9 pg (27.0-31.0); Mean Corpuscular Volume 91.2 fL (80.0-94.0); Mean Platelet Volume 10.2 fL (7.4-10.4); Platelet Count 317 10^3/uL (130-400); Red Blood Cell Count 2.38 10^6/uL (4.70-6.10); Red Cell Dist. Width 12.7 % (11.5-14.5); White Blood Cell Count 27.1 10^3/uL (4.8-10.8)
[2024-02-08 03:24] LABS: Blood Urea Nitrogen 25 mg/dl (9-20); Calcium 8.5 mg/dl (8.4-10.2); Carbon Dioxide 25 mmol/L (22-30); Chloride 99 mmol/L (98-107); Estimated Creatinine Clearance 100 ml/min; Glucose 133 mg/dl (70-99); Magnesium 2.2 mg/dl (1.6-2.3); Potassium 4.2 mmol/L (3.5-5.1); Sodium 130 mmol/L (135-145); eGFR > 60.00
--- NOTE | 2024-02-08 04:00 | PTCARENOTE ---
Patient reassessed. VSS. Although adequate pain management achieved for a time patient awoke at approx 0300 with renewed moderate pain in sternum. Given toradolx1 adequate pain relief not achieved upon reassessment. Given Nimo 5 x1. When reassessed
patient's pain they were sleeping. Remains SR on the monitor. AM labs obtained.
--- NOTE | 2024-02-08 04:04 | W.PN.CT ---
Today's Communication / Plan
-
-pod #2
-no issues overnight
-CTs output: 2 meds 110/270 in 12/24 hrs
-H/h 7.6/21.7 today (9.6 on 02/06)- ? 1 pRBC followed by iv Lasix
-trend wbc -27.1 today (24.4 on 02/06, 15.6 preop 02/05). Tmax 99
-follow intraop cultures-pending
-on iv Ancef for 6 weeks for MSSA bacteremia/endocarditis. Appreciate ID input
-plans to place picc once Cordis is dcd
-Echo today
-current meds (ASA, Amio, Lopressor, Protonix, iv Ancef, iv iron)
-encourage IS (1500 so far), OOB
-appreciate everyone's input
Assessment / Plan
-
- s/p Radical mitral valve repair; Aortic valve replacement [25 mm Brown Inspiris Resilia bioprosthesis]; Left atrial appendage exclusion [35 mm clip] on 02/06/[address] Dow, pod #2
- Intraop MAURICE: LVEF preop was normal at 65%, he had no regional wall motion abnormalities. Following surgery his EF was hyperdynamic at 70% with a cardiac index of over 6 without inotropic support. He ultimately did level out to an EF of
approximately 60 to 65% with a cardiac index of 3.3 with no new regional wall motion abnormalities. While he was still hyperdynamic, the mean gradient across his new aortic valve bioprosthesis was 10 mmHg and 4 mmHg across the mitral valve. The
mitral valve had no residual insufficiency, no systolic anterior motion of the leaflets even with his hyperdynamic state, and normal excursion of the leaflets. There was no paravalvular leak across the aortic valve bioprosthesis. No residual flow
or stump in his left atrial appendage following the clip placement.
- Bacteremia, MSSA with possible mitral valve endocarditis
- Acute respiratory failure due to pulmonary edema secondary to acute mitral valve insufficiency with flail/torn chords on the posterior leaflet, type II pathology
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
- Anemia and thrombocytopenia preop
- History of C. difficile
- Osteoarthritis, s/p b/l TKA
- 1st degree AV block
- Acute on chronic blood loss anemia - stable
- Acute postop coagulopathy - s/p 2 FFPs
- Acute postop thrombocytopenia
- Suspected acute postop pericarditis/+rub - on Toradol
- Acute postop hypovolemia with subsequent hypervolemia
Discussed patient care with: Nursing and Care Team
Subjective
Procedure
- s/p Radical mitral valve repair; Aortic valve replacement [25 mm Brown Inspiris Resilia bioprosthesis]; Left atrial appendage exclusion [35 mm clip] on 02/06/[address] Dow
-
Date of Service: February 08, 2024
Objective Data
-
PT 16.5 Sec (11.4-14.6) H 02/06/24 11:55
INR 1.35 02/06/24 11:55
APTT 30.5 Sec (23.4-35.0) 02/06/24 11:55
Vital Signs
Vital Signs
Temp Pulse Resp BP Pulse Ox
99 F 88 20 119/68 94
02/07/24 19:00 02/07/24 19:24 02/07/24 19:00 02/07/24 19:24 02/07/24 20:00
CT Intake/Output/Weight
02/07/24 02/07/24 02/08/24
06:59 18:59 06:59
Intake Total 336.1 / 1427.6 222.4 / 242.4 20 / 242.4
Output Total 650 / 1475 1020 / 1085 65 / 1085
Balance -313.9 / -47.4 -797.6 / -842.6 -45 / -842.6
SaO2: 94
Physical Exam
-
General: Awake and AOx3
Cardiovascular: Regular rate & rhythm, No Murmurs and Rub
Respiratory: Rales (at bases, no wheeze) and Decreased Breath Sounds
Sternum: Stable
Incision: Clean, Dry and Intact
Extremities: No Edema (DP 2+ b/l)
Abdomen: soft, nontender, nondistended, + bowel sounds, no nausea or vomiting, + flatus
Data Reviewed
-
Lab Results: Results Reviewed
Medications: Active Meds Reviewed
Chest X-Ray: Report Reviewed and Image Reviewed
ECG: Report Reviewed and Image Reviewed
[2024-02-08] MEDS: TYLENOL 1000 MG PO ×3 (06:29→21:47)
--- NOTE | 2024-02-08 07:59 | W.PN.UPDATE ---
Update Note
Progress Note Update
NO pacing requirement over night. Two atrial and 1 bipolar ventricular epicardial pacing sites cleansed with CHG, sutures removed and 2 trail and 1 ventricular wire removed without difficulty. Bed rest x 1 hour and vital signs q 15mi x 4
[2024-02-08] MEDS: LOPRESSOR 12.5 MG PO ×2 (08:03→20:19)
[2024-02-08] MEDS: LASIX 40 MG IV (08:03)
[2024-02-08] MEDS: PROTONIX 40 MG PO (08:04)
[2024-02-08] MEDS: MAGNESIUM OXIDE 500 MG PO ×2 (08:04→20:20)
[2024-02-08] MEDS: PACERONE 200 MG PO ×3 (08:04→21:47)
[2024-02-08] MEDS: SENOKOT-S 1 TABLET PO ×2 (08:05→20:19)
[2024-02-08] MEDS: LOW STRENGTH ASPIRIN 81 MG PO (08:05)
[2024-02-08] MEDS: NEURONTIN 100 MG PO ×3 (08:05→21:48)
[2024-02-08] MEDS: LIDOCAINE 4% PATCH 1 PATCH TOPICAL (08:06)
[2024-02-08] MEDS: BACTROBAN 2% OINTMENT 1 APPLIC NASAL ×2 (08:06→20:20)
--- NOTE | 2024-02-08 08:34 | PTCARENOTE ---
Received patient from rn night RN at 0700; AAOx3, responds to spontaneous stimulation and follows commands; AV wires in place and insulated at time of shift change - removed by ANGELIA Neri at 0800; NSR on monitor and VSS; Friction rub present;
Lungs diminished and crackles at bases; Occasional, productive cough w/ clear sputum; IS 1500 ml; CTx2 to -20 cm wall suction draining serous drainage - no air leak, tidaling, or crepitus noted; Round abdomen, normoactive BS; +2 radial and DP
pulses; Pt voiding roseanne, concentrated urine; Sternal incision glued and approximated - CDI; RIJ cordis in place with KVO infusing; PIVx1; IV Lasix 40 mg ordered and given; See nursing documentation for further details
--- NOTE | 2024-02-08 09:52 | W.PN.CD ---
Today's Communication / Plan
-
-Echo today
-PICC line today
Impression / Plan
-
Bacteremia (staph aureus), endocarditis
Post op AVR and MV repair- 02/06/24
1) Radical mitral valve repair [triangular resection of P2 and P3 with primary repair, [place]ernie cord placed to the posterior leaflet at P2 P3, 32 mm band annuloplasty, debridement of jet lesions along the free margin of the valve]
2. Aortic valve replacement [25 mm bioprosthesis]
3. Left atrial appendage exclusion [35 mm clip]
-ID is following and patient on IV AB
-PICC line for IV Ancef - plan for 6 weeks
Severe Mitral regurgitation:
- patient now post mitral valve repair.
Acute heart failure due to valvular disease in the setting of IE
Respiratory status stable continue to monitor in recovery.
PVC: frequent . Patient with ventricular ectopy and groups of triplets on 02/07/2024. Continue to monitor postop
-Metoprolol
HTN: mildly elevated, starting bb
Subjective:
Postop pain controlled. Remains in sinus rhythm.
Physical Exam
Vital Signs/Labs
Vital Signs
Temp Pulse Resp BP Pulse Ox
97.7 F 84 16 116/82 94
02/08/24 07:27 02/08/24 09:00 02/08/24 08:00 02/08/24 09:00 02/08/24 09:00
02/07/24 02/08/24 02/09/24
06:59 06:59 06:59
Actual Weight 90.3 kg 92 kg
02/08/24 02:51
02/08/24 02:51
PT 16.5 Sec (11.4-14.6) H 02/06/24 11:55
INR 1.35 02/06/24 11:55
APTT 30.5 Sec (23.4-35.0) 02/06/24 11:55
Magnesium 2.2 mg/dl (1.6-2.3) 02/08/24 02:51
Physical Exam
Constitutional: No acute distress and Comfortable
EENT: Anicteric and Moist mucous membranes
Cardiovascular: Rhythm & rate is regular, Pedal edema is absent, JVD pressure is normal and Systolic murmur absent
Respiratory: Respiratory effort normal, Lungs clear to auscul., Wheeze Absent and Crackles Present
GI: Soft, Distention absent, Non tender and Normal bowel sounds
Neuro/Psych: Alert, Oriented and AO x 3
Data Reviewed
-
Date of Service: February 08, 2024
Medical Decision Making: Reviewed Test Results, Independent Historian Assessment and Test Interpretation
EKG: Tracing Personally Visualized and interpreted
Echo: Report Reviewed by me
Labs: Labs Reviewed by me
Old Records: Reviewed
--- NOTE | 2024-02-08 10:15 | PTCARENOTE ---
Mediastinal chest tubes x2 d/c per orders. Pt tolerated. Right IJ cordis d/c per orders. Pt tolerated.
[2024-02-08] MEDS: NSS IV (11:29)
[2024-02-08] MEDS: FLEXERIL 5 MG PO ×2 (12:31→21:47)
--- NOTE | 2024-02-08 12:35 | PTCARENOTE ---
pt VSS, no changes in assessment. VAT at bedside to place PICC. CXR completed. Flexeril given for pain.
[2024-02-08] MEDS: FERRLECIT 110 MG IV (14:17)
[2024-02-08 15:18] LABS: Hematocrit 28.2 % (39.0-52.0); Hemoglobin 9.7 g/dL (13.0-18.0); Mean Corp Hgb Conc. 34.4 g/dL (33.0-37.0); Mean Corpuscular Hgb 31.6 pg (27.0-31.0); Mean Corpuscular Volume 91.9 fL (80.0-94.0); Mean Platelet Volume 10.4 fL (7.4-10.4); Platelet Count 331 10^3/uL (130-400); Red Blood Cell Count 3.07 10^6/uL (4.70-6.10); Red Cell Dist. Width 12.3 % (11.5-14.5)
--- NOTE | 2024-02-08 15:23 | CM ---
spoke to pt in room, option care confirmed for in hospital teaching tomorrow at 1030. he needs to get his 2pm dose here in the hospital, then can be dc'ed to home. his home iv antibx will be delivered to his home before his 10pm dose tomorrow. pt
understands and is agreeable to this plan.
--- NOTE | 2024-02-08 16:30 | PTCARENOTE ---
pt VSS, pt c/o 'difficulty breathing', lung sounds clear, diminished w/ crackles at the bases. 96-98% POX on RA. IS encouraged. dry, occasional productive cough. WARP DYEING VAT TENDER aware. Mucinex ordered. chest PT performed. pain meds given as ordered w/ decrease
in pain. pt ambulating in hallway independently w/ .
--- NOTE | 2024-02-08 19:56 | W.PN.ID1 ---
Date of Service
Date of Service: February 08, 2024
Today's Communication
6 weeks of cefazolin
valve culture in progress
Assessment / Plan
Staph aureus (MSSA) bacteremia
AV/MV endocarditis
Leukocytosis - probably reactive
Fevers - resolved
Acute CHF
Elevated CRP
Left shoulder discomfort - no signs of infection
Bilateral knee replacements - also no signs of infection
Anemia
Thrombocytopenia - resolved
Transaminitis
Recommendations:
01/31 bcx x2 finalized neg
OR 02/05 MV repaired and AVR
valve culture in progress no growth to date
At least weekly cbc/cmp while on IV antibiotics
Continue cefazolin 2 g IV every 8 hours plan 6 weeks of IV antibiotics - script given to case management
PICC in place
Follow clinically
Chief Complaint
-: Bacteremia and Other (MSSA Endocarditis of AV/MV)
Subjective / Review of Systems
afebrile
have some minimal folliculitis on the chest around the surgical site where the hair was clipped
Vital Signs / Physical Exam
Vital Signs
Vital Signs
Temp Pulse Resp BP Pulse Ox
98.6 F 89 18 123/70 95
02/08/24 16:15 02/08/24 19:00 02/08/24 16:15 02/08/24 16:08 02/08/24 16:15
Physical Exam
Constitutional: No Acute Distress
Cardiovascular: Regular Rate and S1/S2; Negative Murmur or Rub
Pulmonary: Clear and Symmetric; Negative Wheezes or Rales
Gastrointestinal: Soft, Non Tender, Non Distended and Normal Bowel Sounds
Skin: Warm and Dry; Negative Rash or Jaundice
Wound: Other ( some minimal folliculitis on the chest around the surgical site where the hair was clipped )
Lines: PICC
Objective Data
Lab Data
Lab Results
02/08/24 14:21
02/08/24 02:51
ESR 12 mm/hour (0-20) 01/31/24 13:02
PT 16.5 Sec (11.4-14.6) H 02/06/24 11:55
INR 1.35 02/06/24 11:55
APTT 30.5 Sec (23.4-35.0) 02/06/24 11:55
Estimated Creat Clear 100 ml/min 02/08/24 02:51
Lactic Acid 2.6 mmol/L (0.7-2.0) H 01/30/24 17:21
Total Bilirubin 1.1 mg/dl (0.2-1.3) 02/02/24 03:28
AST 32 U/L (17-59) 02/02/24 03:28
ALT 113 U/L (0-50) H 02/02/24 03:28
Alkaline Phosphatase 145 U/L (38-126) H 02/02/24 03:28
C-Reactive Protein 199.50 mg/L (0.0-10.00) H 01/30/24 18:36
Most recent labs reviewed.
Micro Results:
02/06/24 09:09 Anaerobic Culture - Preliminary
Heart Culture pending. Anaerobic cultures are examined after 3
days incubation. Additional information to follow.
02/06/24 09:09 Tissue Culture - Preliminary
Heart No Growth After 48 Hours
Gram Stain - Preliminary
02/06/24 09:58 Anaerobic Culture - Preliminary
Heart Culture pending. Anaerobic cultures are examined after 3
days incubation. Additional information to follow.
02/06/24 09:58 Tissue Culture - Preliminary
Heart No Growth After 48 Hours
Gram Stain - Preliminary
02/01/24 16:49 Blood Culture - Final
Blood/Venous No Growth - Final Report
02/01/24 13:38 Blood Culture - Final
Blood/Venous No Growth - Final Report
02/06/24 09:58 Fungal Culture - Preliminary
Heart Culture in progress.
Positive cultures are reported as soon as detected.
Final report to follow in four to five weeks.
02/06/24 09:09 Fungal Culture - Preliminary
Valve Culture in progress.
Positive cultures are reported as soon as detected.
Final report to follow in four to five weeks.
01/30/24 22:45 Blood Culture - Final
Blood/Venous S aureus-Methicillin Sensitive
Gram Stain - Final
01/31/24 08:26 Salmonella/Shigella Culture - Final
Feces/Stool No Salmonella, Shigella, Aeromonas or Plesiomonas species
isolated.
Campylobacter Culture - Final
No Campylobacter species isolated.
Shiga Toxin Test - Final
No E. coli Shiga Toxin 1 or 2 detected.
01/30/24 17:21 Blood Culture - Final
Blood/Venous S aureus-Methicillin Sensitive
Gram Stain - Final
01/31/24 13:02 Blood Parasites Smear - Final
Blood/Venous
01/31/24 08:26 C. difficile GDH Antigen & Toxins - Final
Feces/Stool Negative for toxigenic C.difficile
Care Review
Plan reviewed with: Other Provider (PA/ELEMENTARY TEACHER - script)
--- NOTE | 2024-02-08 20:00 | PTCARENOTE ---
Received pt from daysmsft; pt resting comfortably in chair, at bedside; pt is AAOx4, complains of 8 pain, see MAR; NSR on monitor, VSS; heart sounds audible, radial and DP pulses palpable, no edema noted; lung sounds diminished and b/l bases
and posterior lower lobe crackles, spo2 95% on RA, productive cough; +BS x4 quadrants, abdomen soft non tender, passing gas; pt voiding dark yellow urine; surgical sites maintained; right upper extremity PICC line maintained; possible discharge
tomorrow, 02/08; call mora within reach, will continue to monitor.
[2024-02-08] MEDS: MUCINEX 1200 MG PO (20:20)
[2024-02-09] VITALS (18 sets, daily range): BP systolic 101–120; BP diastolic 58–79; PULSE 84; O2SAT 95–97; BMI 27.6
--- NOTE | 2024-02-09 | PTCARENOTE ---
Pt assessment unchanged; VSS, NSR on monitor; call mora within reach; will continue to monitor.
[2024-02-09] MEDS: ROXICODONE 5 MG PO ×3 (02:13→20:18)
[2024-02-09] MEDS: TORADOL 15 MG IV ×3 (03:46→16:38)
--- NOTE | 2024-02-09 04:00 | PTCARENOTE ---
Pt assessment unchanged; on going pain management, see MAR; VSS, NSR on monitor; call mora within reach; will continue to monitor.
[2024-02-09 04:05] LABS: Hemoglobin 8.7 g/dL (13.0-18.0); Mean Corp Hgb Conc. 34.8 g/dL (33.0-37.0); Mean Corpuscular Hgb 31.4 pg (27.0-31.0); Mean Corpuscular Volume 90.3 fL (80.0-94.0); Mean Platelet Volume 9.9 fL (7.4-10.4); Platelet Count 282 10^3/uL (130-400); Red Blood Cell Count 2.77 10^6/uL (4.70-6.10); Red Cell Dist. Width 12.2 % (11.5-14.5); White Blood Cell Count 25.3 10^3/uL (4.8-10.8)
[2024-02-09 04:36] LABS: Blood Urea Nitrogen 23 mg/dl (9-20); Calcium 8.3 mg/dl (8.4-10.2); Carbon Dioxide 27 mmol/L (22-30); Chloride 96 mmol/L (98-107); Estimated Creatinine Clearance 114 ml/min; Glucose 129 mg/dl (70-99); Magnesium 2.1 mg/dl (1.6-2.3); Potassium 4.3 mmol/L (3.5-5.1); Sodium 128 mmol/L (135-145); eGFR > 60.00
--- NOTE | 2024-02-09 05:54 | W.PN.CT ---
Today's Communication / Plan
-
-pod #3
-no issues overnight
-follow intraop cultures-pending
-on iv Ancef for 6 weeks for MSSA bacteremia/endocarditis. RUE picc placed. Appreciate ID input
-diuresed 1150 on 02/07 with 40 iv Lasix. Wt is up 7 lbs from preop- continue iv Lasix
-current meds (ASA, Amio, Lopressor, Protonix, iv Ancef, iv iron)
-encourage IS, OOB, ambulate
-appreciate everyone's input
Assessment / Plan
-
- s/p Radical mitral valve repair; Aortic valve replacement [25 mm Brown Inspiris Resilia bioprosthesis]; Left atrial appendage exclusion [35 mm clip] on 02/06/[address] Dow, pod #3
- Intraop MAURICE: LVEF preop was normal at 65%, he had no regional wall motion abnormalities. Following surgery his EF was hyperdynamic at 70% with a cardiac index of over 6 without inotropic support. He ultimately did level out to an EF of
approximately 60 to 65% with a cardiac index of 3.3 with no new regional wall motion abnormalities. While he was still hyperdynamic, the mean gradient across his new aortic valve bioprosthesis was 10 mmHg and 4 mmHg across the mitral valve. The
mitral valve had no residual insufficiency, no systolic anterior motion of the leaflets even with his hyperdynamic state, and normal excursion of the leaflets. There was no paravalvular leak across the aortic valve bioprosthesis. No residual flow
or stump in his left atrial appendage following the clip placement.
- Bacteremia, MSSA with possible mitral valve endocarditis
- Acute respiratory failure due to pulmonary edema secondary to acute mitral valve insufficiency with flail/torn chords on the posterior leaflet, type II pathology
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
- Anemia and thrombocytopenia preop
- History of C. difficile
- Osteoarthritis, s/p b/l TKA
- 1st degree AV block
- Acute on chronic blood loss anemia - stable
- Acute postop coagulopathy - s/p 2 FFPs
- Acute postop thrombocytopenia
- Suspected acute postop pericarditis/+rub - on Toradol
- Acute postop hypovolemia with subsequent hypervolemia
- Acute postop hyponatremia
Discussed patient care with: Nursing and Care Team
Subjective
Procedure
- s/p Radical mitral valve repair; Aortic valve replacement [25 mm Brown Inspiris Resilia bioprosthesis]; Left atrial appendage exclusion [35 mm clip] on 02/06/[address] Dow
-
Date of Service: February 09, 2024
Objective Data
-
Lab Results
02/09/24 03:48
02/09/24 03:48
PT 16.5 Sec (11.4-14.6) H 02/06/24 11:55
INR 1.35 02/06/24 11:55
APTT 30.5 Sec (23.4-35.0) 02/06/24 11:55
Vital Signs
Vital Signs
Temp Pulse Resp BP Pulse Ox
98.1 F 79 20 105/60 90
02/09/24 03:56 02/09/24 00:01 02/09/24 03:56 02/09/24 03:56 02/09/24 03:56
CT Intake/Output/Weight
02/08/24 02/08/24 02/09/24
06:59 18:59 06:59
Intake Total 20 / 242.4 980 / 980
Output Total 900 / 1920 1200 / 1700 500 / 1700
Balance -880 / -1677.6 -220 / -720 -500 / -720
SaO2: 90
Physical Exam
-
General: Awake and AOx3
Cardiovascular: Regular rate & rhythm, No Murmurs and Rub
Respiratory: Rales (at bases, no wheeze) and Decreased Breath Sounds
Sternum: Stable
Incision: Clean, Dry and Intact
Abdomen: soft, nontender, nondistended, + bowel sounds, no nausea or vomiting, + flatus
Extremities: No Edema (DP 2+ b/l)
Data Reviewed
-
Lab Results: Results Reviewed
Medications: Active Meds Reviewed
Chest X-Ray: Report Reviewed and Image Reviewed
ECG: Report Reviewed
[2024-02-09] MEDS: TYLENOL 1000 MG PO ×3 (06:34→22:12)
[2024-02-09] MEDS: ANCEF 10 IV ×3 (06:35→22:11)
[2024-02-09] MEDS: LASIX 80 MG IV ×2 (07:59→14:06)
[2024-02-09] MEDS: LIDOCAINE 4% PATCH 1 PATCH TOPICAL (08:00)
[2024-02-09] MEDS: PACERONE 200 MG PO ×3 (08:00→22:12)
[2024-02-09] MEDS: MUCINEX 1200 MG PO ×2 (08:00→20:18)
[2024-02-09] MEDS: LOPRESSOR 12.5 MG PO (08:00)
[2024-02-09] MEDS: MAGNESIUM OXIDE 500 MG PO ×2 (08:00→20:18)
[2024-02-09] MEDS: LOW STRENGTH ASPIRIN 81 MG PO (08:00)
[2024-02-09] MEDS: PROTONIX 40 MG PO (08:00)
[2024-02-09] MEDS: SENOKOT-S 1 TABLET PO (08:00)
[2024-02-09] MEDS: BACTROBAN 2% OINTMENT 1 APPLIC NASAL ×2 (08:01→20:16)
[2024-02-09] MEDS: NEURONTIN 100 MG PO ×3 (08:01→22:12)
[2024-02-09] MEDS: CALCIUM CHLORIDE 10% SYRINGE 60 MG IV (08:26)
--- NOTE | 2024-02-09 08:30 | PTCARENOTE ---
Patient received from shift mechanic RN OOB to chair. Pain management overnight for exacerbation when coughing. Patient in NSR, HR 80's, BP 100-110's/60's, palpable pulses, trace hand, RA, satting mid to low 90's, patient c/o coughing, difficulty
taking in deep breaths, and sternal pain at the incision site. Pain meds given as ordered. Chest PT, acapella, and IS encouraged as well as splinting/sternal precautions when coughing to help with his pain. Patient states he had a BM overnight,
voiding without difficulty and independent in the room. PICC flushed, (+) blood return, dressing changed by IVT RN. L radial dressing removed, site ecchymotic but intact, no signs of hematoma. Cordis dressing removed as well, site CDI. Call mora
within reach. See worklist for VS, I&O and assessment details.
[2024-02-09] MEDS: KCL 20 MEQ PO ×2 (09:27→20:16)
--- NOTE | 2024-02-09 09:28 | W.PN.CD ---
Today's Communication / Plan
-
Aggressive IV diuresis
Close monitoring of lytes and BP
Discharge planning for tomorrow
Impression / Plan
-
Bacteremia (staph aureus), endocarditis
Post op AVR and MV repair- 02/06/24
1) Radical mitral valve repair [triangular resection of P2 and P3 with primary repair, [place] cord placed to the posterior leaflet at P2 P3, 32 mm band annuloplasty, debridement of jet lesions along the free margin of the valve]
2. Aortic valve replacement [25 mm bioprosthesis]
3. Left atrial appendage exclusion [35 mm clip]
-ID is following and patient on IV AB
-PICC line for IV Ancef - plan for 6 weeks
Severe Mitral regurgitation:
- patient now post mitral valve repair.
Acute heart failure due to valvular disease in the setting of IE
-Weight is up and stable since surgery, he has orthopnea dyspnea with conversation. On exam he has rales and an elevated JVP
-Sodium dropping likely a sign of hypervolemia
-Would recommend aggressive diuresis with IV Lasix twice daily today, repeat labs in the evening and consider a third dose of IV Lasix this evening.
PVC: frequent . Patient with ventricular ectopy and groups of triplets on 02/07/2024. Continue to monitor postop
-Metoprolol
HTN: mildly elevated, starting bb
Subjective:
Postop pain controlled. Could not lie flat in the bed last night feels short of breath with conversation.
Physical Exam
Vital Signs/Labs
Vital Signs
Temp Pulse Resp BP Pulse Ox
98.3 F 87 18 118/63 94
02/09/24 08:00 02/09/24 08:00 02/09/24 08:00 02/09/24 08:00 02/09/24 08:00
02/08/24 02/09/24 02/10/24
06:59 06:59 06:59
Actual Weight 92 kg 92.1 kg
02/09/24 03:48
02/09/24 03:48
PT 16.5 Sec (11.4-14.6) H 02/06/24 11:55
INR 1.35 02/06/24 11:55
APTT 30.5 Sec (23.4-35.0) 02/06/24 11:55
Magnesium 2.1 mg/dl (1.6-2.3) 02/09/24 03:48
Physical Exam
Constitutional: No acute distress
Cardiovascular: Rhythm & rate is regular, Pedal edema is absent, Systolic murmur absent, Diastolic murmur absent and JVD present (14 cm of H2O)
Respiratory: Respiratory effort normal, Wheeze Absent, Rhonchi Absent and Crackles Present (Bibasilar crackles)
Neuro/Psych: AO x 3
Data Reviewed
-
Date of Service: February 09, 2024
Medical Decision Making: Review of Case with other Provider (CT surgery BALING MACHINE TENDER's, aggressive diuresis planned for today patient willing to stay, critical care nursing Luz discussed plan for diuresis)
EKG: Other (Sinus PVCs)
--- NOTE | 2024-02-09 10:09 | W.PN.ID1 ---
Date of Service
Date of Service: February 09, 2024
Today's Communication
Continue cefazolin 2 g IV every 8 hours plan 6 weeks of IV antibiotics - script given to case management
PICC in place
Acute hyponatremia management per primary (CT surgery), not stable for dc until resolving
Assessment / Plan
Staph aureus (MSSA) bacteremia
AV/MV endocarditis
Leukocytosis - probably reactive
Fevers - resolved
Acute CHF
Elevated CRP
Left shoulder discomfort - no signs of infection
Bilateral knee replacements - also no signs of infection
Anemia
Thrombocytopenia - resolved
Transaminitis
Recommendations:
01/31 bcx x2 finalized neg
OR 02/05 MV repaired and AVR
valve culture in progress no growth to date
At least weekly cbc/cmp while on IV antibiotics
Continue cefazolin 2 g IV every 8 hours plan 6 weeks of IV antibiotics - script given to case management
PICC in place
Acute hyponatremia management per primary (CT surgery), not stable for dc until resolving
Chief Complaint
-: Bacteremia and Other (MSSA Endocarditis of AV/MV)
Subjective / Review of Systems
afebrile
complains of shortness of breath
Vital Signs / Physical Exam
Vital Signs
Vital Signs
Temp Pulse Resp BP Pulse Ox
98.3 F 87 18 117/62 95
02/09/24 08:00 02/09/24 09:58 02/09/24 08:00 02/09/24 09:58 02/09/24 09:58
Physical Exam
Constitutional: No Acute Distress
Cardiovascular: Regular Rate and S1/S2; Negative Murmur or Rub
Pulmonary: Clear and Symmetric; Negative Wheezes or Rales
Gastrointestinal: Soft, Non Tender, Non Distended and Normal Bowel Sounds
Extremities: Negative Edema
Skin: Warm and Dry; Negative Rash or Jaundice
Neurological: Awake
Objective Data
Lab Data
Lab Results
02/09/24 03:48
ESR 12 mm/hour (0-20) 01/31/24 13:02
PT 16.5 Sec (11.4-14.6) H 02/06/24 11:55
INR 1.35 02/06/24 11:55
APTT 30.5 Sec (23.4-35.0) 02/06/24 11:55
Estimated Creat Clear 114 ml/min 02/09/24 03:48
Lactic Acid 2.6 mmol/L (0.7-2.0) H 01/30/24 17:21
Total Bilirubin 1.1 mg/dl (0.2-1.3) 02/02/24 03:28
AST 32 U/L (17-59) 02/02/24 03:28
ALT 113 U/L (0-50) H 02/02/24 03:28
Alkaline Phosphatase 145 U/L (38-126) H 02/02/24 03:28
C-Reactive Protein 199.50 mg/L (0.0-10.00) H 01/30/24 18:36
Most recent labs reviewed.
Micro Results:
02/06/24 09:58 Tissue Culture - Preliminary
Heart No Growth After 72 Hours
Gram Stain - Preliminary
02/06/24 09:09 Tissue Culture - Preliminary
Heart No Growth After 72 Hours
Gram Stain - Preliminary
02/06/24 09:09 Anaerobic Culture - Preliminary
Heart Culture pending. Anaerobic cultures are examined after 3
days incubation. Additional information to follow.
02/06/24 09:58 Anaerobic Culture - Preliminary
Heart Culture pending. Anaerobic cultures are examined after 3
days incubation. Additional information to follow.
02/01/24 16:49 Blood Culture - Final
Blood/Venous No Growth - Final Report
02/01/24 13:38 Blood Culture - Final
Blood/Venous No Growth - Final Report
02/06/24 09:58 Fungal Culture - Preliminary
Heart Culture in progress.
Positive cultures are reported as soon as detected.
Final report to follow in four to five weeks.
02/06/24 09:09 Fungal Culture - Preliminary
Valve Culture in progress.
Positive cultures are reported as soon as detected.
Final report to follow in four to five weeks.
01/30/24 22:45 Blood Culture - Final
Blood/Venous S aureus-Methicillin Sensitive
Gram Stain - Final
01/31/24 08:26 Salmonella/Shigella Culture - Final
Feces/Stool No Salmonella, Shigella, Aeromonas or Plesiomonas species
isolated.
Campylobacter Culture - Final
No Campylobacter species isolated.
Shiga Toxin Test - Final
No E. coli Shiga Toxin 1 or 2 detected.
01/30/24 17:21 Blood Culture - Final
Blood/Venous S aureus-Methicillin Sensitive
Gram Stain - Final
01/31/24 13:02 Blood Parasites Smear - Final
Blood/Venous
01/31/24 08:26 C. difficile GDH Antigen & Toxins - Final
Feces/Stool Negative for toxigenic C.difficile
Care Review
Plan reviewed with: Other Provider (SHILOH CT surgery - hyponatremia)
--- NOTE | 2024-02-09 12:00 | PTCARENOTE ---
Patient resting in bed with blinds drawn, patient's reported that she'll be back later in the day. No changes in assessment, patient's pain controlled at this time, resting in bed between care, VSS.
[2024-02-09] MEDS: FERRLECIT 110 MG IV (14:05)
[2024-02-09] MEDS: FLEXERIL 5 MG PO (14:07)
--- NOTE | 2024-02-09 14:22 | PTCARENOTE ---
Patient seen and examined. C/o continued pain with coughing, tight voice, no SOB reported, satting WNL on RA. Lasix, Ferrlecit, Cefazolin, Tylenol, and Flexeril given (see MAR) and educated the patient on multimodal pain management, patient
indicated understanding. Ambulated to the bathroom with assistance navigating the IV pole. Instructed the patient to call for assistance when done in the bathroom. Patient verbalized understanding. Awaiting lunch tray after patient ordered following
his nap. Assessment of needs ongoing.
[2024-02-09 14:34] LABS: Blood Urea Nitrogen 23 mg/dl (9-20); Calcium 8.5 mg/dl (8.4-10.2); Carbon Dioxide 27 mmol/L (22-30); Chloride 95 mmol/L (98-107); Estimated Creatinine Clearance 100 ml/min; Glucose 106 mg/dl (70-99); Potassium 4.4 mmol/L (3.5-5.1); Sodium 130 mmol/L (135-145); eGFR > 60.00
--- NOTE | 2024-02-09 16:30 | PTCARENOTE ---
Patient OOB to chair watching television, at bedside. Some acute pain with coughing, multimodal pain management strategy reinforced, patient in agreement. Scheduled Toradol given and other options for pain medication explained to the patient.
Patient in agreement. VSS, patient reported 'hot flashes,' ANALYTIC PROGRAMMER made aware, patient's temperature 98.6 orally. Pending fingerstick glucose check. Patient's nose flushed but otherwise no change in appearance or evaluation. Assessment of needs ongoing.
--- NOTE | 2024-02-09 16:44 | CM ---
plan is for dc to home tomorrow, option care set up for IV antibx and PICC line dressings/blood draws. pt will get f/u up visit from [facility] transitional care nurse after dc
[2024-02-09 17:51] LABS: Glucose - Point of Care 174 mg/dl (70-99)
[2024-02-09] MEDS: LASIX 60 MG IV (18:29)
[2024-02-09] MEDS: FLEXBUMIN 50 IV (18:31)
[2024-02-09] MEDS: LOPRESSOR 2.5 MG IV (20:17)
[2024-02-09] MEDS: LOPRESSOR PO (20:18)
[2024-02-09] MEDS: CORDARONE 103 MG IV (20:32)
--- NOTE | 2024-02-09 21:00 | PTCARENOTE ---
Patient A+A+Ox3. No neurological deficits noted. Patient OOB in chair watching television. Patient's at bedside. monitor and storage bin tender alarmed - Heart rate 90's then to 130's - Sinus Tachycardia. Patient with no c/o chest pain, pressure,
palpitations or discomfort. Physician's malt specifications control assistant for CT Surgery, Tremaine Garsia PA-C, made aware. IV Lopressor 2.5 mg administered. PO Lopressor held. Roxicodone 5mg PO for pain management. Amiodarone Bolus ordered and administered without
difficulty. Right S.L. PICC - Intact and patent. O2 at 2L via NC. SaO2 91%. Mild CAIN. No s/s of respiratory distress. Sinus Rhythm. Heart rate 90's. Blood pressure 116/77 (88). Normoactive bowel sounds. No c/o nausea. No vomiting. No BM.
Voiding without difficulty. Patient with no c/o back or flank pain. Assessment as documented.
[2024-02-09] MEDS: DILAUDID 0.25 MG IV (22:18)
[2024-02-09] MEDS: XOPENEX 1.25 MG INHALANT SOLUTION INH (22:39)
--- NOTE | 2024-02-09 23:00 | PTCARENOTE ---
Patient ambulated to bathroom with minimal assistance. Patient brushed teeth and washed face. Voided. Patient to bed. Patient with c/o 8/10 sternal pain - IV Dilaudid 0.25 mg administered without difficulty with positive relief provided. O2 at
2L via NC. SaO2 91%. c/o SOB. PA ordered Xopenex 1.25mg Inhalant TX - Respiratory therapist administered breathing TX. Heart rate 90's. Sinus Rhythm with First Degree AV Block. Patient with no c/o chest pain, pressure or discomfort. Blood
pressure 111/60 (77). Assessment as documented.
--- NOTE | 2024-02-10 00:30 | PTCARENOTE ---
Patient sleeping without difficulty. No further changes from previous assessment.
--- NOTE | 2024-02-10 01:00 | PTCARENOTE ---
Patient sleeping without difficulty. No further changes from previous assessment.
[2024-02-10] MEDS: ROXICODONE 5 MG PO ×2 (02:36→10:15)
--- NOTE | 2024-02-10 04:23 | W.PN.CT ---
Today's Communication / Plan
-
-No major issues overnight. Hemodynamically and neurologically intact
-Has PICC line and on IV Ancef per ID, to continue x 6 wks
-Noted to have brief (~ 1hr) SVT in 130's last night, responded to IV 2.5 mg IV Lopressor and Amiodarone bolus x 1. Increased Lopressor to 25 mg po BID, also on Amiodarone
-Receiving diuresis with Lasix, wt was up 8 lbs from preop yesterday, down to 5 lbs today. 24hr U/O 4630 mL
-Hyponatremic @ 130, monitor. Cont. diuresis
-Cont. current meds (ASA, Amio, Lopressor, Protonix, iv Ancef, Lasix)
-F/U 2-view cxr
-Postop Echo on 02/07 showed an intact Mitral valve (PG/MG 11/5 mmHg) with no MR and a well seated bioprosthetic AV (PG/MG 23/11 mmHg) with no AI. EF 55-60%
-Encourage IS, OOB, ambulate
-Likely home today
Assessment / Plan
-
- s/p Radical mitral valve repair; Aortic valve replacement [25 mm Brown Inspiris Resilia bioprosthesis]; Left atrial appendage exclusion [35 mm clip] on 02/06/[address] Dow, pod #4
- Intraop MAURICE: LVEF preop was normal at 65%, he had no regional wall motion abnormalities. Following surgery his EF was hyperdynamic at 70% with a cardiac index of over 6 without inotropic support. He ultimately did level out to an EF of
approximately 60 to 65% with a cardiac index of 3.3 with no new regional wall motion abnormalities. While he was still hyperdynamic, the mean gradient across his new aortic valve bioprosthesis was 10 mmHg and 4 mmHg across the mitral valve. The
mitral valve had no residual insufficiency, no systolic anterior motion of the leaflets even with his hyperdynamic state, and normal excursion of the leaflets. There was no paravalvular leak across the aortic valve bioprosthesis. No residual flow
or stump in his left atrial appendage following the clip placement.
- Bacteremia, MSSA with possible mitral valve endocarditis
- Acute respiratory failure due to pulmonary edema secondary to acute mitral valve insufficiency with flail/torn chords on the posterior leaflet, type II pathology
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
- Anemia and thrombocytopenia preop
- History of C. difficile
- Osteoarthritis, s/p b/l TKA
- 1st degree AV block
- Acute on chronic blood loss anemia - stable
- Acute postop coagulopathy - s/p 2 FFPs
- Acute postop thrombocytopenia
- Suspected acute postop pericarditis/+rub - on Toradol
- Acute postop hypovolemia with subsequent hypervolemia
- Acute postop hyponatremia
- Acute postop SVT in 130's x ~ 1hr
Discussed patient care with: Cardiology, Nursing, Respiratory Therapy, Pharmacy and Care Team
Subjective
Procedure
- s/p Radical mitral valve repair; Aortic valve replacement [25 mm Brown Inspiris Resilia bioprosthesis]; Left atrial appendage exclusion [35 mm clip] on 02/06/[address] Dow
-
Date of Service: February 10, 2024
Pt c/o mild incisional pain, otherwise feels well
Objective Data
-
PT 16.5 Sec (11.4-14.6) H 02/06/24 11:55
INR 1.35 02/06/24 11:55
APTT 30.5 Sec (23.4-35.0) 02/06/24 11:55
Vital Signs
Vital Signs
Temp Pulse Resp BP Pulse Ox
98.4 F 87 15 111/60 95
02/09/24 21:50 02/10/24 02:00 02/09/24 22:42 02/09/24 22:12 02/10/24 02:00
CT Intake/Output/Weight
02/09/24 02/09/24 02/10/24
06:59 18:59 06:59
Intake Total 660 / 1330 670 / 1330
Output Total 700 / 1900 2380 / 4180 1800 / 4180
Balance -700 / -920 -1720 / -2850 -1130 / -2850
SaO2: 95 (RA)
Physical Exam
-
General: Awake, Oriented and AOx3
Cardiovascular: Regular rate & rhythm, No Murmurs, No Rub and No Gallop
Respiratory: Decreased Breath Sounds (at bases, otherwise clear)
Sternum: Stable
Incision: Clean, Dry, Intact and Dressing Intact
Extremities: Other (+ b/l LE trace edema)
Data Reviewed
-
Lab Results: Results Reviewed
Medications: Active Meds Reviewed
Chest X-Ray: Report Reviewed and Image Reviewed
ECG: Report Reviewed and Image Reviewed
[2024-02-10 05:20] VITALS: BP 113/74
[2024-02-10 05:44] VITALS: BMI 27.2
[2024-02-10] MEDS: TYLENOL 1000 MG PO (05:44)
[2024-02-10] MEDS: ANCEF 10 IV (05:45)
[2024-02-10 05:50] LABS: Hematocrit 24.2 % (39.0-52.0); Hemoglobin 8.3 g/dL (13.0-18.0); Mean Corp Hgb Conc. 34.3 g/dL (33.0-37.0); Mean Corpuscular Hgb 31.1 pg (27.0-31.0); Mean Corpuscular Volume 90.6 fL (80.0-94.0); Platelet Count 301 10^3/uL (130-400); Red Blood Cell Count 2.67 10^6/uL (4.70-6.10); Red Cell Dist. Width 12.2 % (11.5-14.5)
--- NOTE | 2024-02-10 06:00 | PTCARENOTE ---
Patient A+A+Ox3. No neurological deficits noted. AM lab work collected and sent. Patient ambulated to bathroom to void. Standing scale weight 91.0 kg. OOB to chair. Assessment/Interventions as documented.
[2024-02-10 06:14] LABS: Blood Urea Nitrogen 20 mg/dl (9-20); Calcium 8.4 mg/dl (8.4-10.2); Carbon Dioxide 29 mmol/L (22-30); Chloride 96 mmol/L (98-107); Estimated Creatinine Clearance 114 ml/min; Glucose 120 mg/dl (70-99); Magnesium 2.1 mg/dl (1.6-2.3); Potassium 4.3 mmol/L (3.5-5.1); Sodium 130 mmol/L (135-145); eGFR > 60.00
[2024-02-10 07:59] VITALS: BP 114/71
--- NOTE | 2024-02-10 08:59 | W.DCSUMMARY ---
Discharge Summary
Discharge Data
Date of Admission: 01/30/24
Date of Discharge: 02/10/24
Total time spent discharging patient (in min): 45
-
Pending Results: Yes
Additional Pending Results:
Patient will have a complete blood count as well as comprehensive metabolic panel on at least a weekly basis per infectious disease
He will have a complete blood count with differential on Monday to follow-up his anemia
Hospital Course
The patient was admitted on January 31 with positive blood cultures for methicillin susceptible Staphylococcus aureus. He was started on appropriate antibiotic therapy. As part of his workup an echocardiogram was performed which showed mitral valve
endocarditis as well as moderate aortic insufficiency. Given these findings he was recommended for cardiac surgery for valve replacement/repair. After medical optimization as well as clear blood cultures he ultimately underwent this procedure on
February [address] Vikram Dow. Please refer to his separately dictated operative report for complete details however, briefly, he underwent mitral valve repair with a 32 mm physio flex ring as well as aortic valve replacement with a 25 mm Brown
Inspiris valve. He also underwent left atrial appendage exclusion. He was transferred to the open-heart unit on low-dose Levophed as well as Precedex and insulin infusions. He was extubated per usual postop protocol at 1634. He was weaned from
vasoactive infusions without difficulties.
Postoperative day #1: Right pleural chest tube was removed, insulin infusion was weaned off, PICC line was ordered for long-term antibiotic therapy. He was gently diuresed. He was out of bed and began working with therapy.
Postoperative day #2: Epicardial pacing wires were removed. He was again gently diuresed with intravenous Lasix. Antibiotics were coordinated with infectious diseases. Remaining chest tubes and central line were removed.
Postoperative day #3: He was more aggressively diuresed today with 3 doses of IV Lasix. He was also given 25% albumin to facilitate volume removal. He continues to work well with therapy. Plan is for discharge to home tomorrow.
Postoperative day #4: Patient has met criteria for discharge. Given his anemia we will plan on repeating complete blood count on Sonya. Antibiotics were previously coordinated by infectious diseases and the patient tells me that his antibiotics
delivered to his home and he has been properly educated on how to administer them. Should he have any questions about this he should forward those inquiries to the infectious disease team. From a cardiac surgery perspective he continues to recover
well. Wounds are clean dry and intact. We will continue his outpatient diuresis with 40 mg of oral Lasix daily with appropriate potassium replacement. He may need further diuresis however will defer this to cardiology on an outpatient basis. I
discussed his discharge instructions with him in detail including his sternal precautions and answered his questions to his satisfaction.
Discharge Plan
-
Patient Disposition: Home (Routine Discharge)
Discharge Diagnosis/Procedures: - Status post radical mitral valve repair; Aortic valve replacement [25 mm Brown Inspiris Resilia bioprosthesis]; Left atrial appendage exclusion [35 mm clip] on 02/06/[address] Dow
-Intraoperative transesophageal echocardiogram: Left ventricular ejection fraction preop was normal at 65%, he had no regional wall motion abnormalities. Following surgery his ejection fraction was hyperdynamic at 70% with a cardiac index of over 6
without inotropic support. He ultimately did level out to an EF of approximately 60 to 65% with a cardiac index of 3.3 with no new regional wall motion abnormalities. While he was still hyperdynamic, the mean gradient across his new aortic valve
bioprosthesis was 10 mmHg and 4 mmHg across the mitral valve. The mitral valve had no residual insufficiency, no systolic anterior motion of the leaflets even with his hyperdynamic state, and normal excursion of the leaflets. There was no
paravalvular leak across the aortic valve bioprosthesis. No residual flow or stump in his left atrial appendage following the clip placement.
- Bacteremia, methicillin susceptible Staphylococcus aureus with possible mitral valve endocarditis
- Acute respiratory failure due to pulmonary edema secondary to acute mitral valve insufficiency with flail/torn chords on the posterior leaflet, type II pathology
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
- Anemia and thrombocytopenia preop
- History of C. difficile
- Osteoarthritis, status post bilateral total knee arthroplasty
- 1st degree atrioventricular block
- Acute on chronic blood loss anemia - stable
- Acute postoperative coagulopathy -status post 2 units of fresh frozen plasma
- Acute postoperative thrombocytopenia
- Suspected acute postoperative pericarditis/+rub - on Toradol
- Acute postoperative hypovolemia with subsequent hypervolemia
- Acute postoperative hyponatremia
- Acute postoperative supraventricular tachycardia in 130's for ~ 1 hour
Condition: Fair
Diet: No restrictions
Activity: No strenuous activity
Driving Restrictions: Not until seen by your Dr
Bathing Restrictions: OK to Shower
Blood Work: weekly complete blood count with differentiation, comprehensive metabolic panel to infectious diseases
Will need complete blood count with differentiation on Monday, February 12 with results called to Dr. Dow and infectious diseases
Other Services: Cardiac Rehab
Specialty Instructions: Weigh Daily- Call MD for wt gain/loss 3 lbs overnight/5 lbs in 1 week
Activity Restrictions/Additional Instructions:
ACTIVITY:
-No strenuous activity: no heavy lifting, pushing, pulling anything over 15 pounds for one month
-continue to use stairs as tolerated
DRIVING RESTRICTIONS:
-No driving for one month or until approved by your surgeon
WOUND CARE:
-Shower daily. Use soap & water.
-No lotions, creams or powders on incision area.
DIET:
-continue a low fat/low cholesterol diet.
-IF you are diabetic, continue carb controlled diet.
CARDIAC REHAB:
-Please make appointment to start in 5-6 weeks with your local hospital program. (See Cardiac Rehabilitation Discharge Booklet).
SPECIALTY INSTRUCTIONS:
-Weigh yourself daily. Call your physician for any weight gain/loss of 3 lbs overnight or 5 lbs in one week.
-REPORT any clicking noise or uneven appearance of your sternum to your surgeon immediately.
-If you smoke, you are instructed to quit. The [place] smoking hotline phone number is [phone]
Referrals:
CT Transitional Care Nurse [Outside] (The Cardiothoracic Transitional Care Nurse will call you to set up a visit in 1-2 days.)
[facility]. Cardiac Rehab [Outside] - 03/13/24 1:00 pm
(Cardiac Rehab Orientation appointment is on 03/13/24 at 1:00 pm
The Cardiac Rehab gym is located on the first floor of the [facility].)
[facility] [Outside] (PICC line and IV Antibiotics)
Yana Cifuentes CRNP [Specified Professional Personl] - 03/20/24 9:20 am
Brandan Balderrama MD [Family Provider] -
Vikram Dow MD [Active] - 03/06/24 1:00 pm
Prescriptions:
New
potassium chloride 20 mEq Tablet,Er Particles/Crystals
20 meq PO DAILY 7 Days Qty: 7 0RF
oxycodone 5 mg Tablet
5 mg PO Q4HPRN PRN (Reason: moderate pain) Qty: 30 0RF
metoprolol tartrate 25 mg Tablet
25 mg PO BID Qty: 60 2RF
furosemide [Lasix] 40 mg tablet
40 mg PO DAILY Qty: 7 0RF
aspirin 81 mg Tablet,Chewable
81 mg PO DAILY Qty: 0 0RF
cefazolin 10 gram Recon Soln
2 g IV Q8H Qty: 10 0RF
Continued
Theragen Tablet
1 tab PO DAILY
acetaminophen [Tylenol Extra Strength] 500 mg Tablet
1,000 mg PO Q6HPRN PRN (Reason: mild pain)
Discontinued
ibuprofen 800 mg Tablet
800 mg PO Q8HPRN PRN (Reason: mild pain)
Patient Comments:
01/30/24: Patient states he takes 800mg prescribed strength, but no pharmacy records indicate so.
doxycycline monohydrate 100 mg capsule
100 mg PO BID
Patient Comments:
01/30/24: to take 1 capsule twice a day for 7 days
Discharge Orders:
Discharge Patient (As Directed); Ordered 02/10/24
Ordered By: Tae Levy
Care Plan Goals
Care Plan Goals:
Problem: Readiness for enhanced knowledge related to diagnosis and treatment plan
Goal: Understand your diagnosis and treatment plan needs, including medications if applicable.
Instructions: Know your diagnosis, underlying causes and treatment plan options, including medications if applicable. Consult with your health care team to learn about your diagnosis and treatment plan, including medications if applicable.
Discharge Date and Time
Print Language: NEPALI
--- NOTE | 2024-02-10 09:26 | PTCARENOTE ---
assumed care of pt from previous shift RN, sinus rhythm on tele w 1st degree HB, VSS, lungs diminished bilaterally, coughing and deep breathing encouraged. +bs, tolerating PO intake, voids spontaneously. Sternal incision w surgical glue intact, PICC
line flushes easily. Pt worked w cardiac rehab. 2 view CXR completed. Plan of care reviewed w the pt and questions encouraged.
[2024-02-10] MEDS: PROTONIX 40 MG PO (09:56)
[2024-02-10] MEDS: PACERONE 200 MG PO (09:56)
[2024-02-10] MEDS: LASIX 40 MG IV (09:56)
[2024-02-10] MEDS: MUCINEX 1200 MG PO (09:56)
[2024-02-10] MEDS: LOW STRENGTH ASPIRIN 81 MG PO (09:56)
[2024-02-10] MEDS: LOPRESSOR 25 MG PO (09:56)
[2024-02-10] MEDS: KCL 20 MEQ PO (09:56)
[2024-02-10] MEDS: MAGNESIUM OXIDE 500 MG PO (09:56)
[2024-02-10] MEDS: NEURONTIN 100 MG PO (09:56)
[2024-02-10] MEDS: BACTROBAN 2% OINTMENT 1 APPLIC NASAL (09:57)
[2024-02-10] MEDS: TYLENOL 650 MG PO (10:15)
[2024-02-10] MEDS: FLEXERIL 5 MG PO (10:15)
[2024-02-10] MEDS: LIDOCAINE 4% PATCH TOPICAL (10:21)
[2024-02-10 10:49] VITALS: PULSE 85
[2024-02-10 11:08] VITALS: BP 104/73
--- NOTE | 2024-02-10 12:23 | PTCARENOTE ---
tele monitor removed, PICC wrapped, pt tolerated shower
--- NOTE | 2024-02-10 12:24 | W.PN.CD ---
Today's Communication / Plan
-
Agree with short course of lasix
ambulate as much as able
felicianoley d/c today
Impression / Plan
-
Bacteremia (staph aureus), endocarditis
Post op AVR and MV repair- 02/06/24
1) Radical mitral valve repair [triangular resection of P2 and P3 with primary repair, [place] cord placed to the posterior leaflet at P2 P3, 32 mm band annuloplasty, debridement of jet lesions along the free margin of the valve]
2. Aortic valve replacement [25 mm bioprosthesis]
3. Left atrial appendage exclusion [35 mm clip]
-ID is following and patient on IV AB
-PICC line for IV Ancef - plan for 6 weeks
Severe Mitral regurgitation:
- patient now post mitral valve repair.
Acute heart failure due to valvular disease in the setting of IE
-Weight is decreased agree with short term lasix
-Sodium improving
-Would recommend aggressive diuresis with IV Lasix twice daily today, repeat labs in the evening and consider a third dose of IV Lasix this evening.
PVC: frequent . Patient with ventricular ectopy and groups of triplets on 02/07/2024. Continue to monitor postop
-Metoprolol
HTN: mildly elevated, starting bb
Subjective:
feeling improved, ongoing pain with breathing, ambulate as mucuh as able
Physical Exam
Vital Signs/Labs
Vital Signs
Temp Pulse Resp BP Pulse Ox
98.2 F 89 16 114/71 94
02/10/24 08:00 02/10/24 08:00 02/10/24 08:00 02/10/24 07:59 02/10/24 10:29
02/09/24 02/10/24 02/11/24
06:59 06:59 06:59
Actual Weight 203 lb 0.732 oz 200 lb 9.93 oz
02/10/24 05:31
08/17/24 05:31
PT 16.5 Sec (11.4-14.6) H 02/06/24 11:55
INR 1.35 02/06/24 11:55
APTT 30.5 Sec (23.4-35.0) 02/06/24 11:55
Magnesium 2.1 mg/dl (1.6-2.3) 02/10/24 05:31
Physical Exam
Constitutional: No acute distress
EENT: Anicteric
Cardiovascular: Rhythm & rate is regular
Respiratory: Respiratory effort normal and Lungs clear to auscul.
GI: Soft
Neuro/Psych: AO x 3
Data Reviewed
-
Date of Service: February 10, 2024
EKG: Tracing Personally Visualized and interpreted (sr)
Echo: Report Reviewed by me
Labs: Labs Reviewed by me
--- NOTE | 2024-02-10 13:08 | PTCARENOTE ---
discharge instructions, medication list and follow up appointments reviewed w the pt and his . Questions encouraged.
== END 2024-02-10 13:07 | disposition home or self-care (01) | DRG 853 ==
LOC: CVICU 21:21
PROVIDERS: Anesthesiology; Clinical Nurse Specialist Acute Care; Internal Medicine; Nurse Practitioner; Student in an Organized Health Care Education/Training Program; ADMITTING PHYSICIAN Hospitalist; ATTENDING PHYSICIAN Thoracic Surgery (Cardiothoracic Vascular Surgery); CONSULT PHYSICIAN Internal Medicine; CONSULT PHYSICIAN Internal Medicine Cardiovascular Disease; EMERGENCY PHYSICIAN Emergency Medicine; FAMILY PHYSICIAN Internal Medicine; OTHER PHYSICIAN Internal Medicine Infectious Disease
PROC: 02L70CK Occlusion of Left Atrial Appendage with Extraluminal Device, Open Approach (ICD-10-PCS; 2024-02-06)
PROC: 02HV33Z Insertion of Infusion Device into Superior Vena Cava, Percutaneous Approach (ICD-10-PCS; 2024-02-06)
PROC: 30233K1 Transfusion of Nonautologous Frozen Plasma into Peripheral Vein, Percutaneous Approach (ICD-10-PCS; 2024-02-06)
PROC: 5A1221Z Performance of Cardiac Output, Continuous (ICD-10-PCS; 2024-02-06)
PROC: 02BG0ZZ Excision of Mitral Valve, Open Approach (ICD-10-PCS; 2024-02-06)
PROC: 02UG0JZ Supplement Mitral Valve with Synthetic Substitute, Open Approach (ICD-10-PCS; 2024-02-06)
PROC: B24BZZ4 Ultrasonography of Heart with Aorta, Transesophageal (ICD-10-PCS; 2024-02-06)
PROC: 02RF08Z Replacement of Aortic Valve with Zooplastic Tissue, Open Approach (ICD-10-PCS; 2024-02-06)
DX: A41.01 Sepsis due to Methicillin susceptible Staphylococcus aureus (principal); I33.0 Acute and subacute infective endocarditis; J96.00 Acute respiratory failure, unspecified whether with hypoxia or hypercapnia; I51.1 Rupture of chordae tendineae, not elsewhere classified; J81.1 Chronic pulmonary edema; D62 Acute posthemorrhagic anemia; D68.8 Other specified coagulation defects; I30.9 Acute pericarditis, unspecified; E87.1 Hypo-osmolality and hyponatremia; I47.10 Supraventricular tachycardia, unspecified; I34.0 Nonrheumatic mitral (valve) insufficiency; I35.1 Nonrheumatic aortic (valve) insufficiency; D69.59 Other secondary thrombocytopenia; I44.0 Atrioventricular block, first degree; E86.1 Hypovolemia; E87.70 Fluid overload, unspecified; Z79.899 Other long term (current) drug therapy; Z96.653 Presence of artificial knee joint, bilateral
CPT/HCPCS: 88305; 88311; 93308; 70355; 71045; 71046; 71250; 75574; 76700; 76705; 80048; 80053; 80076; 81003; 82330; 82565; 82805; 82947; 82962; 83036; 83605; 83690; 83735; 84132; 84302; 84520; 85014; 85018; 85025; 85027; 85049; 85610; 85652; 85730; 86140; 86803; 86850; 86900; 86901; 86920; 87015; 87040; 87045; 87046; 87070; 87075; 87102; 87176; 87205; 87207; 87324; 87427; 87449; 93005; 93306; 93312; 93320; 93321; 93325; 93880; 94002; 94640; 96361; 96374; 99285; J2916; P9045; P9047; P9059; Q9967

== ENCOUNTER 2024-02-13 03:26 | Observation (INO) | payer OTHER, SELFPAY ==
[2024-02-13] VITALS (15 sets, daily range): BP systolic 90–140; BP diastolic 53–78; BMI 28.1; BMI 27.8
[2024-02-13 01:29] LABS: % Basophils 0.5 % (0-2); % Eosinophils 2.4 % (0-6); % Immature Granulocytes 0.9 % (0-0.5); % Lymphocytes 8.4 % (20.5-51.1); % Monocytes 15.2 % (1.7-9.3); % Neutrophils 72.6 % (42.2-75.2); Absolute Basophils 0.1 10^3/uL (0-0.2); Absolute Eosinophils 0.4 10^3/uL (0-0.7); Absolute Immature Granulocytes 0.2 10^3/uL (0-0.05); Absolute Lymphocytes 1.4 10^3/uL (1.2-3.4); Absolute Monocytes 2.6 10^3/uL (0.1-0.6); Absolute Neutrophils 12.4 10^3/uL (1.4-6.5); Hematocrit 24.9 % (39.0-52.0); Hemoglobin 8.6 g/dL (13.0-18.0); Mean Corp Hgb Conc. 34.5 g/dL (33.0-37.0); Mean Corpuscular Volume 89.9 fL (80.0-94.0); Mean Platelet Volume 9.5 fL (7.4-10.4); Nucleated Red Blood Cells % 0 % (-); Platelet Count 415 10^3/uL (130-400); Red Blood Cell Count 2.77 10^6/uL (4.70-6.10); Red Cell Dist. Width 12.1 % (11.5-14.5); White Blood Cell Count 17.1 10^3/uL (4.8-10.8)
--- NOTE | 2024-02-13 01:47 | ED.GENMED ---
History of Present Illness
General
Chief Complaint: Breathing Problem
Source: patient, spouse, previous radiology exam and previous hospital records (Recent hospitalization January 29 to February 09)
Exam Limitations: none
Time Seen by Provider: 02/13/24 00:49
Nursing documentation reviewed up to this point in time: agreed with
History of Present Illness
History of Present Illness:
This is a 64-year-old gentleman who has no significant past medical history who was initially evaluated in this ED January 29 with complaints of 24-hour history of left shoulder pain, subjective fever, fatigue and myalgias. Found to be acutely
febrile with oral temperature 101.3 �F.
No definitive source for fever however urinalysis showed moderate bacteria, few WBCs and he was started on doxycycline for potential UTI.
Later that day blood cultures returned positive for gram-positive cocci and he was notified to return to the ED, hospitalized for bacteremia. Blood cultures were positive for methicillin susceptible Staph aureus. Urine culture returned negative.
Echocardiogram showed mitral valve endocarditis as well as moderate aortic insufficiency.
On February 05 he underwent mitral valve repair and aortic valve replacement. Postoperatively required IV diuresis and was discharged to home 3 days ago with PICC line in place to continue IV cefazolin every 8 hours.
He has had a persistent cough postoperatively, moderate generalized chest pain most noted with coughing. Cough is worse with lying supine and he has been sleeping upright in a recliner.
Tonight however he had significant coughing fit and with sitting up, leaning forward he proceeded to pass out. He is quite pale, diaphoretic and his eyes rolled back briefly not fall nor injure himself.
He continues with cough moderate acute shortness of breath since episode of coughing tonight.
He denies fever nor chills. No abdominal nor back pain.
No leg pain or swelling.
Past History
Past History
ED Past Medical History: Other (PVCs,, Acute methicillin-sensitive bacteremia with endocarditis, acute pulmonary edema related to valvular insufficiency requiring aortic valve replacement, mitral valve repair January 2024.)
ED Past Surgical History: Cardiac (January 2024, aortic valve replacement, mitral valve repair) and Orthopedic (Lt ankle and knee surgery, Rt knee replacement)
Social History
Tobacco: Non-smoker
Personal:
Living: with family
Employment: Employed
Family History
Family History: Other (no known cardiac FHx)
Phy Exam
Physical Exam
Physical Exam:
GENERAL: 64-year-old gentleman appears his stated age, awake and alert, appears in moderate distress, moderate respiratory distress, intermittent brief hacking cough, moderate diaphoresis and moderate pallor initially. All of which promptly
improved with Semi-Sevilla's positioning and placing on nasal cannula oxygen.
EYE: pupils equal and reactive. anicteric
NECK: Supple, nontender, no meningismus, no significant adenopathy. Mild JVD.
ENT: posterior pharynx is clear, oral mucosa is moist. TM clear b/l, nares patent.
CARDIAC: Regular rate and rhythm. no murmur. Midline sternotomy incision dry and intact. Several scabbed superficial ulcerations anterior bilateral lower chest wall/bilateral upper abdominal wall appears tape sensitivity in nature. No surrounding
erythema.
LUNGS: Mild to moderate acute respiratory distress with markedly decreased breath sounds at the base with fine rales right base., Clear lung trujillo anteriorly as well as left lung field.
ABDOMEN: Soft, nondistended, without focal tenderness, no r/g, no cvat. normoactive BS.
NEUROLOGICAL: Alert and oriented x3, no focal neuro deficits.
SKIN: Cool and mildly diaphoretic, moderately pale in color, scabbed dry superficial ulcerations anterior chest wall and upper abdominal wall as above.
MUSCULOSKELETAL: No C/C/E. peripheral pulses are full and equal b/l. No palpable tenderness.
PSYCH: Normal and appropriate interaction.
Scores
Heart Failure Risk
Heart Failure Risk Score: Not Applicable
Course
Orders/Labs/Results
Orders:
Orders
02/13/24 00:52
Electrocardiogram (*1) Urgent
Reason for Study: Chest Pain
EKG- Treatment ONCE
02/13/24 01:07
Complete Blood Count/With Diff Urgent
02/13/24 01:08
Comprehensive Metabolic Panel Urgent
NT-proBNP Urgent
02/13/24 01:12
Portable Chest Xray [CR Chest Portable - 1 View] Urgent
Comment:
Reason For Exam: picc placement
Reason Study Needs to be Portable: Unable to Transport
02/13/24 01:32
Type+Screen Urgent
02/13/24 02:22
CT Chest Pe Study Urgent
Comment:
Reason For Exam: acute SOB, cough syncope
HYDROmorphone [Dilaudid] 0.5 mg IV NOW STA
02/13/24 02:27
Admit Patient As Directed
Co-Sign Provider:
Level of Care: Observation services
Assign to:: IVU
Physician / Group: Dow/CT Surgery
Diagnosis: significant R pleural effusion S/P Radical mitral valve repair/AVR/ELAA
Reason for Hospitalization: Right Thoracentesis
Expected length of stay greater than two midnights?: No
ELOS- Estimated Length of Stay in days: 1
I certify the patient meets the requirements for IP care: Yes
PRN Pain Medication Management As Directed
May give lesser potent ordered pain med per pt: Yes
preference::
Protocol:: Medication orders for pain may be administered in a
manner that supports deferring to patient preference
when the pt is:
- Requesting an ordered lesser potent pain medication.
Least to most potent pain medications are defined
as: acetaminophen < NSAID < tramadol < opioids
(morphine, oxycodone, hydromorphone).
- Requesting a lesser dose of the same medication IF
ORDERED.
- Requesting a less intrusive route of administration
if both routes are prescribed by the provider (PO <
IV).
02/13/24 02:34
VTE Contraindication Routine
VTE Mechanical Device Contraindication: Surgical Contraindication
Pharmocologic Contraindication: Medical Contraindication
02/13/24 02:37
Vital Signs As Directed
Frequency: Per unit guidelines
02/13/24 02:44
Oxycodone [Roxicodone] 5 mg PO Q4HPRN PRN
02/13/24 02:46
Acetaminophen [Tylenol] 1,000 mg PO Q6HPRN PRN
02/13/24 03:00
Flush (0.9% Sodium Chloride) [Flush (Nss)] See Dose Instructions IV PER PROTOCOL
02/13/24 04:00
CeFAZolin 2 GRAM [Ancef] 2 grams in 10 ml IV Q8H
02/13/24 08:00
Aspirin Low Dose EC [Aspir Low (Enteric Coated)] 81 mg PO DAILY
Furosemide [Lasix] 40 mg PO DAILY
Metoprolol [Lopressor] 25 mg PO BID
Multivitamin [Theragran] 1 tablet PO DAILY
Potassium Chloride [KCl] 20 meq PO DAILY
Abnormal Lab Results
02/13/24 02/13/24
01:07 01:08
WBC 17.1 H 10^3/uL
(4.8-10.8)
RBC 2.77 L 10^6/uL
(4.70-6.10)
Hgb 8.6 L g/dL
(13.0-18.0)
Hct 24.9 L %
(39.0-52.0)
Plt Count 415 H D 10^3/uL
(130-400)
Abs Immat Gran (auto) 0.2 H 10^3/uL
(0-0.05)
Absolute Neuts (auto) 12.4 H 10^3/uL
(1.4-6.5)
Absolute Monos (auto) 2.6 H 10^3/uL
(0.1-0.6)
Immature Gran % 0.9 H %
(0-0.5)
Lymphocytes % 8.4 L %
(20.5-51.1)
Monocytes % 15.2 H %
(1.7-9.3)
Sodium 130 L mmol/L
(135-145)
Chloride 96 L mmol/L
(98-107)
Glucose 125 H mg/dl
(70-99)
Calcium 8.3 L mg/dl
(8.4-10.2)
Alkaline Phosphatase 198 H U/L
(38-126)
Total Protein 5.1 L g/dl
(6.3-8.2)
Albumin 2.8 L g/dl
(3.5-5.0)
02/13/24 01:07
02/13/24 01:08
Vital Signs
Initial and Last Documented VS:
Initial Vital Signs
Temp Pulse Resp BP Pulse Ox
98.8 F 98 28 140/76 94
02/13/24 00:48 02/13/24 00:48 02/13/24 00:48 02/13/24 00:48 02/13/24 00:48
Last Documented Vital Signs
Temp Pulse Resp BP Pulse Ox
98.8 F 92 20 116/53 97
02/13/24 00:48 02/13/24 05:00 02/13/24 03:00 02/13/24 04:00 02/13/24 05:45
MDM/Problems Addressed
Differential Diagnosis Includes:
Concern for recurrent CHF, recurrent pleural effusion, pneumonia, PE, pleurisy, symptomatic anemia, arrhythmia. Other consideration is recurrent bacteremia.
Patient is much more comfortable with nasal cannula oxygen in place. Pulse ox currently 95% on 2 L nasal cannula.
Right upper arm PICC line site is clean and dry.
Will check labs, EKG, portable chest x-ray.
Will plan for CT of the chest/PE study.
Chronic conditions affecting care: Other (Valvular disease, recent cardiac valvular surgery. Recent bacteremia)
*Radiology
Radiology exam reviewed: preliminary read by ED provider (Chest x-ray shows large right pleural effusion, new compared to previous film January 2016/January 2017.)
*Pulse Oximetry
Patient hypoxic: yes
*EKG
Interpreted by ED Provider?: Yes
Interpretation: normal
Comparison EKG: no changes
Rate: normal
Rhythm: sinus
[place]: normal axis
Interval: normal interval
QRS Pattern: normal QRS
Ischemia: no ischemia
*[facility] Interpretation
Rate: normal
Interpretation: normal
Rhythm: sinus
*Critical Care Note
Total Time (30-74mins, 75-104mins- exclusive of procedures): Not Applicable
Update Note
Update Note:
02/13/2024 0219 AM
Patient remains comfortable lying Semi-Sevilla's with oxygen in place.
Chest x-ray shows large right-sided pleural effusion which has significantly progressed from previous film.
Highly suspect this is cause for his acute shortness of breath but must consider underlying pneumonia, other consideration is accompanying PE thus will check CT.
Labs show moderate elevated white blood cell count but improved from previous.
Moderate anemia but slightly improved from previous as well.
I have spoken with CT surgery PA. Patient will be admitted to Dr. Dow service to CVICU.
ED Attending Note
-
Portions of this chart may have been created with voice recognition software.� Occasional wrong word or��sound alike� substitutions may have occurred due to the inherent limitations of voice recognition software.
Discharge Plan
Departure
Patient Disposition: Admit
Date of Disposition: 02/13/24
Time of Disposition: 02:20
Admit to: CVICU
Admit to doctor: Paloma
Presentation/result/management discussed w/ accepting MD/DO: CT surgery
Condition: Serious
Discharge Problem:
Large, symptomatic R pleural effusion, Bacterial endocarditis, Acute respiratory failure
Interventions
Interventions:
*General Assessment Last Done: 02/13/24 03:26
*Neglect/Abuse Screening Last Done: 02/13/24 00:48
ED- Fall Risk Assessment Last Done: 02/13/24 02:22
*Nursing Disposition Last Done: 02/13/24 03:26
ED- Cardiac Assessment Last Done: 02/13/24 02:22
ED- Pulmonary Assessment Last Done: 02/13/24 02:22
Discharge Date and Time
Discharge Date/Time: 02/13/24 03:28
[2024-02-13 01:51] LABS: ALT (SGPT) 34 U/L (0-50); AST (SGOT) 40 U/L (17-59); Albumin 2.8 g/dl (3.5-5.0); Alkaline Phosphatase 198 U/L (38-126); Blood Urea Nitrogen 15 mg/dl (9-20); Calcium 8.3 mg/dl (8.4-10.2); Carbon Dioxide 25 mmol/L (22-30); Chloride 96 mmol/L (98-107); Estimated Creatinine Clearance 114 ml/min; Glucose 125 mg/dl (70-99); Potassium 4.7 mmol/L (3.5-5.1); Sodium 130 mmol/L (135-145); Total Bilirubin 0.4 mg/dl (0.2-1.3); Total Protein 5.1 g/dl (6.3-8.2); eGFR > 60.00
[2024-02-13 01:59] LABS: NT-proBNP 1020 pg/ml
--- NOTE | 2024-02-13 02:29 | EDRN ---
Patient ambulated to the restroom and back in bed, was able to ambulate without any difficulty.
[2024-02-13] MEDS: DILAUDID 0.5 MG IV (02:30)
--- NOTE | 2024-02-13 03:20 | PTCARENOTE ---
pt admitted into CVICU room 2266 at 0320. A&Ox4, resting in bed at time of assessment. SR w/ 1st degree AVB on tele-monitor. POX 95% on 2 L NC. abd s/n, hypoactive BS. pt voiding clear, yellow urine in urinal. see worklist for complete nursing
assessment, interventions, VS, and I&Os.
--- NOTE | 2024-02-13 03:24 | EDRN ---
Took patient to CT and then up to CVICU
--- NOTE | 2024-02-13 04:55 | HPS.HSE ---
Family Physician
-
Family Physician: Brandan Balderrama
Chief Complaint
-
C/o cough with associated SOB
History of Present Illness
Pleasant 64 y/o gentleman known to our service after undergoing heart port MV Repair/AVR/ELAA on 02/06/[address] Dow. Pt did well postop and was discharged home on Lasix for acute postop hypervolemia and IV Ancef via PICC line for suspected MSSA
endocarditis of aortic and mitral valve on 02/09/24. Pt present to -ED @ midnight of 02/13/24 with c/o near syncopal episode precipitated by a coughing fit while sitting up from his recliner chair. Pt's states she caught him from hitting the
floor, denies any trauma to head. Also denies fever, chills, nausea or vomiting, but admits to mild SOB. Imaging obtained in the ED revealed significant right pleural effusion. Pt is being admitted for right thoracentesis. Of note, pt's surgical
incisions are C/D/I and healing nicely without signs of infection.
Medical History
Past Medical History
Past Medical History: Reports Other
Additional Past Medical History:
-Bacteremia, MSSA with possible mitral valve endocarditis
- Severe MR
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
- Acute respiratory failure due to pulmonary edema secondary to acute mitral valve insufficiency with flail/torn chords on the posterior leaflet, type II pathology
- Anemia and thrombocytopenia preop- History of C. difficile
- Osteoarthritis, s/p b/l TKA
- 1st degree AV block
- Acute postop blood loss anemia on chronic anemia - stable
- Acute postop coagulopathy - s/p 2 FFPs
- Acute postop and preop thrombocytopenia
- Suspected acute postop pericarditis/+rub - on Toradol
- Acute postop hypovolemia with subsequent hypervolemia
- Acute postop hyponatremia
- Acute postop SVT in 130's x ~ 1hr
Past Surgical History: Reports Orthopedic (radical MV Repair, AVR (25 mm Brown Inspiris Resilia bioprosthesis), ELAA, b/l TKA)
Social History
Unable to obtain full social history at this time due to: Acuity (alert oriented x 3, in no acute distress)
Tobacco: Non-smoker
Drug: None
Personal:
Living: With Family
Employment: Employed
Family History
Family History: Not pertinent
Allergies / Home Medications
Allergies reflects when Allergies were last updated in [employer].
Home Medications with original date entered in [employer]
Allergy/Medication List:
NKDA
Review of Systems
-
Unable to obtain full review of systems at this time due to: Other
History Source: Patient
A 12 point ROS was completed and negative except as noted: Yes
Respiratory: Reports Cough and Trouble Breathing
Physical Exam
Vital Signs
Vital Signs
Temp Pulse Resp BP Pulse Ox
98.8 F 93 20 116/53 96
02/13/24 00:48 02/13/24 04:45 02/13/24 03:00 02/13/24 04:00 02/13/24 04:45
Physical Exam
General: Well Developed
HEENT: NormoCephalic, Atraumatic and PERRLA
Respiratory: Decreased Breath Sounds (at right base)
Cardiac: S1/S2, Regular Rhythm and Other (no murmur or rub)
Breast: Deferred by me
GI: Soft, Non Tender, Non Distended and Normal Bowel Sounds
Rectal: Deferred by Provider
Genito-urinary: Deferred by me
Neuro: Awake, Alert, Oriented, AO x 3 and No Motor Deficits
Psych: Anxious
Laboratory Results
-
02/13/24 01:07
02/13/24 01:08
Laboratory Results
Total Bilirubin 0.4 mg/dl (0.2-1.3) 02/13/24 01:08
AST 40 U/L (17-59) 02/13/24 01:08
ALT 34 U/L (0-50) 02/13/24 01:08
Alkaline Phosphatase 198 U/L (38-126) H 02/13/24 01:08
Data Reviewed
-
Diagnostic Radiology: Image Personally Visualized and interpreted, Report Reviewed by me and Discussed with Family
CT Scan: Image Personally Visualized and interpreted, Report Reviewed by me, Discussed with Physician and Discussed with Family
Lab Data: Labs Reviewed by me
Impression/Plan
-
IMPRESSION:
64 y/o M S/P recent radical MV Repair, AVR, ELAA who presented to ED with C/O coughing fit with associated SOB and near syncope, found to have significant right pleural effusion
PLAN:
-Right Thoracentesis today
-D/C home today
[2024-02-13] MEDS: ANCEF 10 IV ×3 (07:04→22:27)
[2024-02-13] MEDS: ROXICODONE 5 MG PO ×3 (07:10→19:34)
[2024-02-13] MEDS: LASIX 80 MG IV (07:42)
[2024-02-13] MEDS: ROBITUSSIN 100 MG PO ×2 (07:46→11:16)
[2024-02-13] MEDS: FEOSOL 325 MG PO (07:47)
[2024-02-13] MEDS: ASPIR LOW (ENTERIC COATED) 81 MG PO (07:47)
[2024-02-13] MEDS: KCL 20 MEQ PO (07:47)
[2024-02-13] MEDS: THERAGRAN 1 TABLET PO (07:47)
[2024-02-13] MEDS: LOPRESSOR 25 MG PO ×2 (07:48→19:34)
[2024-02-13] MEDS: VITAMIN C 250 MG PO (07:54)
--- NOTE | 2024-02-13 10:35 | PTCARENOTE ---
Pt received this am from CVICU. Pt on 2LNC for sob. Sat 95%. PT returned from right thoracentesis at 10:30. Room air sat 94%. Bandaid intact to right middle back. No c/o offered.
--- NOTE | 2024-02-13 12:52 | CM ---
Reviewed chart. Met with Mr. Diaz to review discharge plans. He states he is feeling okay. He states prior to admission he resides with his spouse in a two story home with two steps to enter. He states he has seven steps to get to bedroom/full
bedroom. He has a powder room on the first floor. He states prior to admission he was independent with ambulation and adls. He does not have any DME in the home. He is current with [facility] for IV ABX. Telephone call to [facility] to update her. He has a prescription plan. His spouse works from home and will be available to assist in his care if needed. The discharge plan is to return home with spouse with resumption of [facility] when
medically stable.
[2024-02-13 14:52] LABS: Blood Urea Nitrogen 12 mg/dl (9-20); Calcium 8.4 mg/dl (8.4-10.2); Carbon Dioxide 29 mmol/L (22-30); Chloride 96 mmol/L (98-107); Estimated Creatinine Clearance 114 ml/min; Glucose 103 mg/dl (70-99); Potassium 4.7 mmol/L (3.5-5.1); Sodium 130 mmol/L (135-145); eGFR > 60.00
[2024-02-13] MEDS: ROBITUSSIN AC 10 ML PO ×2 (15:19→19:34)
[2024-02-13] MEDS: TYLENOL 1000 MG PO ×2 (15:25→22:38)
[2024-02-13] MEDS: LASIX 40 MG IV (15:26)
[2024-02-13 15:41] LABS: Hepatitis C Antibody Negative (Negative)
--- NOTE | 2024-02-13 18:00 | PTCARENOTE ---
Pt OOB ad piter in the room. Voiding large amounts of clear yellow urine. Pain managed by Roxicodone and Tylenol. Continues with dry cough, relief with Robitussin.
--- NOTE | 2024-02-13 22:30 | PTCARENOTE ---
Pt. received at change of shift. VSS. sinus tachy on tele. Pt. with complaints of sternal pain associated with surgical site, Nimo and Tylenol administered per order, see MAR. Bandaid from thoracentesis to right upper back dry/intact. Plan of care
discussed and pt. verbalizes understanding. Ambulating independently in room without difficulty. Can make needs known. Call mora within reach.
[2024-02-13] MEDS: CORDARONE 103 MG IV (23:53)
[2024-02-14] VITALS (11 sets, daily range): BP systolic 92–129; BP diastolic 68–106; BMI 26.7
--- NOTE | 2024-02-14 02:45 | PTCARENOTE ---
Pt. went into Afib RVR with HR as high as 144, BP 103/78. Pt. asymptomatic. EKG obtained which confirmed Afib and SUDHEER Garsia notified. Amiodarone bolus X2 ordered and administered. Pt. remained in Afib with HR in 120s-130s. BP increased
to 128/106 and 2.5mg IV metoprolol ordered and administered. Pt. remains in Afib with HR of 100-120.
[2024-02-14 03:07] LABS: Hematocrit 26.3 % (39.0-52.0); Mean Corp Hgb Conc. 34.2 g/dL (33.0-37.0); Mean Corpuscular Hgb 32.4 pg (27.0-31.0); Mean Corpuscular Volume 94.6 fL (80.0-94.0); Mean Platelet Volume 9.6 fL (7.4-10.4); Platelet Count 426 10^3/uL (130-400); Red Blood Cell Count 2.78 10^6/uL (4.70-6.10); White Blood Cell Count 14.6 10^3/uL (4.8-10.8)
--- NOTE | 2024-02-14 03:08 | DOWNTIME ---
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 Downtime documentation of patient's care, including medication administrations, has been reconciled in the electronic record per guidelines. Refer to the
patient's paper chart under the miscellaneous tab to see printed paper medication records and downtime forms.
[2024-02-14 03:23] LABS: Blood Urea Nitrogen 14 mg/dl (9-20); Calcium 8.4 mg/dl (8.4-10.2); Carbon Dioxide 31 mmol/L (22-30); Chloride 98 mmol/L (98-107); Estimated Creatinine Clearance 100 ml/min; Glucose 132 mg/dl (70-99); Magnesium 2.1 mg/dl (1.6-2.3); Potassium 4.4 mmol/L (3.5-5.1); Sodium 132 mmol/L (135-145); eGFR > 60.00
[2024-02-14] MEDS: CORDARONE 518 MG IV (04:38)
[2024-02-14] MEDS: ROBITUSSIN AC 10 ML PO ×4 (05:09→20:19)
[2024-02-14] MEDS: ROXICODONE 5 MG PO (05:09)
--- NOTE | 2024-02-14 06:21 | W.PN.CT ---
Today's Communication / Plan
-
Plan:
-Pt underwent right thoracentesis yesterday 02/13/24 (1050 mL of dark serosanguineous fluid)
-Unfortunately went into rapid a-fib (130's) last night @ 2330, did not respond to IV Lopressor and Amiodarone bolus x 2. Started on Amiodarone gtt
-Will discuss DOAC/NOAC before d/c home
Assessment / Plan
-
Assessment:
64 y/o M S/P recent radical MV Repair, AVR, ELAA on 02/06/24 and was d/c'd home 02/10/24, who presented to -ED ~ midnight of 02/13/24 with C/O coughing fit with associated SOB and near syncope, found to have significant right pleural effusion
-Moderate Right Pleural Effusion s/P right thoracentesis with evacuation of 1050 mL of serosanguineous pleural fluid
- s/p Radical mitral valve repair; Aortic valve replacement [25 mm Brown Inspiris Resilia bioprosthesis]; Left atrial appendage exclusion [35 mm clip] on 02/06/[address] Dwo, pod #[id number]
- Bacteremia, MSSA with possible mitral valve endocarditis
- Severe MR
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
- Acute respiratory failure due to pulmonary edema secondary to acute mitral valve insufficiency with flail/torn chords on the posterior leaflet, type II pathology
- Anemia and thrombocytopenia preop- History of C. difficile
- Osteoarthritis, s/p b/l TKA
- 1st degree AV block
- Anxiety disorder
- Acute postop blood loss anemia on chronic anemia - stable
- Acute postop coagulopathy - s/p 2 FFPs
- Acute postop and preop thrombocytopenia
- Suspected acute postop pericarditis/+rub - on Toradol
- Acute postop hypovolemia with subsequent hypervolemia
- Acute postop hyponatremia
- Acute postop SVT in 130's x ~ 1hr
-New a-fib on 02/13/24
Discussed patient care with: Cardiology, Nursing, Respiratory Therapy, Pharmacy and Care Team
Subjective
-
Date of Service: February 14, 2024
Pt c/o cough
Objective Data
-
Lab Results
02/14/24 02:37
02/14/24 02:37
Vital Signs
Vital Signs
Temp Pulse Resp BP Pulse Ox
98.2 F 128 18 106/84 97
02/14/24 02:59 02/14/24 05:00 02/14/24 02:59 02/14/24 04:39 02/14/24 02:59
CT Intake/Output/Weight
02/13/24 02/13/24 02/14/24
06:59 18:59 06:59
Intake Total 200 / 200
Output Total 300 / 300 2100 / 2925 825 / 2925
Balance -300 / -300 -2100 / -2725 -625 / -2725
SaO2: 97 (2L)
Physical Exam
-
General: Awake, Oriented and AOx3
Cardiovascular: Regular rate & rhythm, No Murmurs, No Rub and No Gallop
Respiratory: Decreased Breath Sounds (@ right base)
Sternum: Stable
Incision: Clean, Dry, Intact and Dressing Intact
Extremities: Other (+trace edema)
Data Reviewed
-
Lab Results: Results Reviewed
Medications: Active Meds Reviewed
Chest X-Ray: Report Reviewed and Image Reviewed
ECG: Report Reviewed and Image Reviewed
[2024-02-14] MEDS: ASPIR LOW (ENTERIC COATED) 81 MG PO (08:22)
[2024-02-14] MEDS: FEOSOL 325 MG PO (08:22)
[2024-02-14] MEDS: LOPRESSOR 25 MG PO ×2 (08:23→20:19)
[2024-02-14] MEDS: THERAGRAN 1 TABLET PO (08:23)
[2024-02-14] MEDS: VITAMIN C 250 MG PO (08:24)
[2024-02-14] MEDS: ANCEF 10 IV ×3 (08:25→22:32)
[2024-02-14] MEDS: KCL 20 MEQ PO ×2 (08:33→22:31)
[2024-02-14] MEDS: LASIX 80 MG IV (08:43)
--- NOTE | 2024-02-14 11:39 | CM ---
Reviewed chart. And Mrs. Diaz to review discharge plans. He states he is not feeling well. 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 Cardiology Consult pending. Prior to admission he resides with his spouse in a one story home
without any steps to enter. Prior to admission he was independent with ambulation and adls. He does not have any DME in the home. He is current with [facility]. The discharge plan is to return home with his spouse and resumption
of [facility] when medically stable.
--- NOTE | 2024-02-14 14:09 | PTCARENOTE ---
Pt received in afib this am, rate in the 120's. Pt converted to SR, rate in the 80's to 90's at 0815. Iv amio infusing as ordered. Continues with dry cough, getting relief with the robitussin with codeine. Room air sat 100%.
--- NOTE | 2024-02-14 14:11 | CON.CAR ---
Addendum entered and electronically signed by Sourav Gustafson MD 02/14/24 17:24:
64 yo male with recent hospitalization for endocarditis, then bio-AVR and MV repair 02/06/24, now re-admitted with SOB, right pleural effusion, and new A fib with RVR. He is s/p thoracentesis, and SOB is better. Exam with RRR, no murmurs, no edema.
Tele: paroxysmal A fib.
New A fib, paroxysmal. He will complete 24 hrs IV amiodarone, then transition to PO load, and will continue for 2-3 months post op. CHADS2-VASC = 2. Eliquis 5mg bid for OAC.
Right pleural effusion. s/p thora for 1050 ml. 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 Started on colchicine for 3 month course.
Original Note:
Consultation
Consultation Request
Date/Time Consultation Requested: 02/14/24 1350
Date/Time Consultation Performed: 02/14/24 1413
Requesting Provider: Radha Peterson
Performing Provider: Yina BAHENA for Dr. Gustafson
Reason for Consultation: AFIB
Medical History
-
Chief Complaint: SOB
History of Present Illness:
64 y/o male who was recently hospitalized for endocarditis and is s/p radical mitral valve repair and aortic valve replacement (02/06/24), hypertension, PVC's who was discharged 02/10/24 and returns with coughing with brief episode of LOC in that
setting. Briefly, he had a coughing fit while laying, then sat up quickly and his said he briefly lost consciousness. He was seen to have right pleural effusion that was tapped for 1050 ml. He went into AFIB with RVR and was started on IV
amiodarone. He is now back in SR and is in no distress. Cough/SOB resolved. He received IV lasix, with good response.
Past Medical History
Past Medical History: Arrhythmias, HTN, Valvular Disease and Other (endocarditis)
Social History
Personal:
Living: With Family
Family History
Family History: Reviewed & Not Pertinent
Allergies / Home Medications
Allergy/AdvReac Type Severity Reaction Status Date / Time
No Known Allergies Allergy Verified 01/30/24 16:18
�Medication �Instructions �Recorded �Confirmed �Type
acetaminophen 500 mg tablet 1,000 mg PO Q6HPRN PRN mild pain 01/30/24 02/13/24 History
(Tylenol Extra Strength)
therapeutic multivitamin 1 tab PO DAILY Supplement 01/30/24 02/13/24 History
aspirin 81 mg chewable tablet 81 mg PO DAILY Blood clot 02/07/24 02/13/24 Rx
prevention/tx #0 tabs
cefazolin 10 gram solution for 2 g IV Q8H #10 ea 02/10/24 02/13/24 Rx
injection
furosemide 40 mg tablet (Lasix) 40 mg PO DAILY #7 tabs 02/10/24 02/13/24 Rx
metoprolol tartrate 25 mg tablet 25 mg PO BID #60 tabs 02/10/24 02/13/24 Rx
oxycodone 5 mg tablet 5 mg PO Q4HPRN PRN moderate pain 02/10/24 02/13/24 Rx
#30 tabs
potassium chloride 20 mEq 20 meq PO DAILY 7 days #7 tabs 02/10/24 02/13/24 Rx
tablet,extended release(part/cryst)
cyclobenzaprine 5 mg tablet 5 mg PO TID PRN muscle spasm #30 02/12/24 02/13/24 Rx
tabs
gabapentin 100 mg capsule 100 mg PO TID post-op pain #30 caps 02/12/24 02/13/24 Rx
Review of Systems
-
History Source: Patient
All other systems: Negative unless noted
Respiratory: Cough (with LOC) and Trouble Breathing
Physical Exam
Vital Signs
Temp Pulse Resp BP Pulse Ox
98.3 F 86 18 115/68 98
02/14/24 11:28 02/14/24 14:00 02/14/24 11:28 02/14/24 11:32 02/14/24 11:28
Lab Results
02/14/24 02:37
02/14/24 02:37
Xyz-D-Tpllwocrods Pept 1020 pg/ml 02/13/24 01:08
Physical Exam
General: Well Developed, Well Nourished and No Apparent Distress
HEENT: Normocephalic and Anicteric
Respiratory: Clear and Non Labored Respirations
Cardiac: Regular Rhythm and Peripheral Edema (mild BLE edema)
Skin: Warm and Dry
Neuro: AO x 3
Psych: Calm
Impression / Plan
-
Endocarditis:
-on IV abx- to continue as planned
-s/p AVR and MV repair 02/06/24
Pleural effusion:
-likely why patient had coughing, which led to vagal event- SOB/cough resolved
-improved s/p thoracentesis
-was sent home on daily Lasix course last admit
-s/p IV lasix here
AFIB with RVR:
-paroxysmal
-now back in SR
-continue IV amiodarone for 24 hours, then transition to PO. IV amiodarone requires intensive monitoring.
-[id number] score is 2 for HTN (diagnosed on recent admit) and age- start Eliquis 5 mg PO BID when okay from surgery perspective
-TONI clip done during recent surgery
Data Reviewed
-
EKG: Tracing Personally Visualized and interpreted (AFIB with RVR 116 BPM)
Radiology: Report Reviewed by me
CT Scan: Report Reviewed by me (chest CT 02/13/24: No evidence of pulmonary embolism or thoracic aortic dissection. Moderate right pleural effusion, with loculation of the right pleural fluid. Right basilar subsegmental atelectasis. Small left
pleural effusion, with associated left basilar subsegmental atelectasis.)
Medical Tests (Nuc Med, Echo etc): Report Reviewed by me
Labs: Labs Reviewed by me
[2024-02-14] MEDS: COLCHICINE 0.3 MG PO (15:10)
[2024-02-14] MEDS: LASIX 40 MG IV (15:11)
[2024-02-14] MEDS: FLUSH (NSS) 1 FLUSH IV (15:12)
--- NOTE | 2024-02-14 15:49 | CM ---
priced [facility] with pts [facility]- his copay is $47/mo. and it is in stock.
[2024-02-14] MEDS: SENOKOT-S 1 TABLET PO (20:19)
[2024-02-14] MEDS: ELIQUIS 5 MG PO (20:19)
[2024-02-14] MEDS: PACERONE 400 MG PO (20:19)
[2024-02-14] MEDS: TYLENOL 1000 MG PO (22:31)
[2024-02-15] VITALS (9 sets, daily range): BP systolic 86–117; BP diastolic 65–83; BMI 26.5
--- NOTE | 2024-02-15 01:34 | PTCARENOTE ---
Pt. in NSR with first degree on tele. VSS. At 1999 PO Amiodarone administered and gtt discontinued per orders. Plan of care discussed and pt. verbalizes understanding. Can make needs known. Call mora within reach.
[2024-02-15] MEDS: ROBITUSSIN AC 10 ML PO ×4 (04:58→20:11)
[2024-02-15 05:16] LABS: Hematocrit 26.8 % (39.0-52.0); Mean Corp Hgb Conc. 33.6 g/dL (33.0-37.0); Mean Corpuscular Hgb 31.6 pg (27.0-31.0); Mean Platelet Volume 9.2 fL (7.4-10.4); Platelet Count 448 10^3/uL (130-400); Red Blood Cell Count 2.85 10^6/uL (4.70-6.10); Red Cell Dist. Width 12.1 % (11.5-14.5); White Blood Cell Count 13.7 10^3/uL (4.8-10.8)
[2024-02-15 05:40] LABS: Blood Urea Nitrogen 13 mg/dl (9-20); Calcium 8.4 mg/dl (8.4-10.2); Carbon Dioxide 30 mmol/L (22-30); Chloride 99 mmol/L (98-107); Estimated Creatinine Clearance 114 ml/min; Glucose 108 mg/dl (70-99); Magnesium 2.1 mg/dl (1.6-2.3); Potassium 4.6 mmol/L (3.5-5.1); Sodium 133 mmol/L (135-145); eGFR > 60.00
--- NOTE | 2024-02-15 05:55 | W.PN.CT ---
Today's Communication / Plan
-
-no significant issues overnight
-admits to having PND, unable to lay flat d/t increased cough, noted increased abdom. girth
-diuresed well with iv Lasix 80am and 40 pm on 02/13 (UO 800/2325 in 12/24 hrs)- continue
-Na improved with diuresis - 133 today (132 on 02/13 and 130 on 02/12)
-Cr stable 0.7
-wt today 195 lbs (204 on 02/12 and 195 preop on 02/05)- follow
-s/p R thoracentesis on 02/12, some residual effusion
-Eliquis started 02/13 for a-fib, transitioning from Amio drip to po Amio 400 bid. Currently, in nsr
-encourage IS, OOB
Assessment / Plan
-
Assessment:
64 y/o M S/P recent radical MV Repair, AVR, ELAA on 02/06/24 and was d/c'd home 02/10/24, who presented to -ED ~ midnight of 02/13/24 with C/O coughing fit with associated SOB and near syncope, found to have significant right pleural effusion
-Moderate Right Pleural Effusion- s/P right thoracentesis with evacuation of 1050 mL of dark serosanguineous pleural fluid on 02/13/24.
- s/p Radical mitral valve repair; Aortic valve replacement [25 mm Brown Inspiris Resilia bioprosthesis]; Left atrial appendage exclusion [35 mm clip] on 02/06/[address] Dow, pod #9
- Bacteremia, MSSA with possible mitral valve endocarditis
- Severe MR
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
- Acute respiratory failure due to pulmonary edema secondary to acute mitral valve insufficiency with flail/torn chords on the posterior leaflet, type II pathology
- Anemia and thrombocytopenia preop- History of C. difficile
- Osteoarthritis, s/p b/l TKA
- 1st degree AV block
- Anxiety disorder
- Acute postop blood loss anemia on chronic anemia - stable
- Acute postop coagulopathy - s/p 2 FFPs
- Acute postop and preop thrombocytopenia
- Suspected acute postop pericarditis/+rub - on Toradol
- Acute postop hypovolemia with subsequent hypervolemia
- Acute postop hyponatremia
- Acute postop SVT in 130's x ~ 1hr
-New a-fib on 02/13/24- tx with Amio bolus and drip on 02/13, currently in nsr 80s
Discussed patient care with: Nursing and Care Team
Subjective
-
Date of Service: February 15, 2024
Objective Data
-
Lab Results
02/15/24 04:52
02/15/24 04:52
Vital Signs
Vital Signs
Temp Pulse Resp BP Pulse Ox
98.3 F 86 18 116/75 95
02/15/24 04:44 02/15/24 04:46 02/15/24 04:44 02/15/24 04:46 02/15/24 04:44
CT Intake/Output/Weight
02/14/24 02/14/24 02/15/24
06:59 18:59 06:59
Intake Total 200 / 200
Output Total 825 / 2925 1525 / 2325 800 / 2325
Balance -625 / -2725 -1525 / -2325 -800 / -2325
SaO2: 95
Physical Exam
-
General: Awake and AOx3
--- NOTE | 2024-02-15 08:00 | PTCARENOTE ---
Resumed care of patient from previous RN. Walking rounds done. OOB in chair at time of assessment. VSS. SR HR 90s. 98% RA. occasional dry non prod cough. R side diminished. previous thoracentesis site with bandaid dry/intact. BRP. Ambulating
independently in room without difficulty. For IV lasix and additional thoracentesis today. will continue to monitor.
[2024-02-15] MEDS: ANCEF 10 IV ×3 (09:01→22:58)
[2024-02-15] MEDS: ASPIR LOW (ENTERIC COATED) 81 MG PO (09:02)
[2024-02-15] MEDS: LASIX 80 MG IV (09:02)
[2024-02-15] MEDS: KCL 20 MEQ PO (09:02)
[2024-02-15] MEDS: VITAMIN C 250 MG PO (09:02)
[2024-02-15] MEDS: FEOSOL 325 MG PO (09:03)
[2024-02-15] MEDS: COLCHICINE 0.3 MG PO (09:03)
[2024-02-15] MEDS: LOPRESSOR 25 MG PO ×3 (09:03→19:50)
[2024-02-15] MEDS: THERAGRAN 1 TABLET PO (09:04)
[2024-02-15] MEDS: ELIQUIS 5 MG PO ×2 (09:05→19:49)
[2024-02-15] MEDS: PACERONE 400 MG PO ×2 (09:05→19:49)
[2024-02-15] MEDS: SENOKOT-S 1 TABLET PO ×2 (09:05→19:49)
--- NOTE | 2024-02-15 09:10 | W.PN.CD ---
Today's Communication / Plan
-
cont colchicine
IR eval
continue amiodarone, metoprolol, eliquis
Impression / Plan
-
h/o Endocarditis:
-on IV abx- to continue as planned
-s/p AVR and MV repair 02/06/24
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
- s/p thoracentesis 02/12 for 1050cc
- for re-look today with IR for residual fluid
- 3 month course of colchicine
AFIB with RVR: new
-paroxysmal
-now back in SR after IV amiodarone
-continue PO amiodarone load, and maintenance; continue metoprolol tartrate 25 mg bid
-likely continue for 3 months post op
-[id number] score is 2 for HTN (diagnosed on recent admit) and age- started Eliquis 5 mg PO BID
-TONI clip done during recent surgery
Physical Exam
Vital Signs/Labs
Vital Signs
Temp Pulse Resp BP Pulse Ox
98.1 F 94 18 113/72 96
02/15/24 07:03 02/15/24 08:00 02/15/24 07:03 02/15/24 07:05 02/15/24 08:00
02/14/24 02/15/24 02/16/24
06:59 06:59 06:59
Actual Weight 89.2 kg 88.5 kg
02/15/24 04:52
02/15/24 04:52
Magnesium 2.1 mg/dl (1.6-2.3) 02/15/24 04:52
02/13/24
01:08
Pbo-T-Mllusufmfdq Pept 1020
Physical Exam
Constitutional: No acute distress and Comfortable
EENT: Moist mucous membranes
Cardiovascular: Rhythm & rate is regular, Pedal edema is absent, JVD pressure is normal and Systolic murmur absent
Respiratory: Respiratory effort normal, Lungs clear to auscul. and Other (decreased breath sounds right base)
GI: Soft and Distention absent
Neuro/Psych: AO x 3
Data Reviewed
-
Date of Service: February 15, 2024
EKG: Other (Tele: SR 80-90s)
Labs: Labs Reviewed by me
[2024-02-15] MEDS: ROXICODONE 2.5 MG PO ×2 (14:54→23:09)
--- NOTE | 2024-02-15 15:10 | PTCARENOTE ---
sent via stretcher to IR for thoracentesis. drained 1250 serosang fluid. See MAR for medication dosing for pain post thora.
[2024-02-15] MEDS: TYLENOL 1000 MG PO (20:11)
--- NOTE | 2024-02-15 21:19 | PTCARENOTE ---
Received patient for the night in the chair with his in the room. Afib on the monitor, HR 100-120s. Patient reports 9/10 pain in R back at the thoracentesis site, Tylenol administered as per AUG documentation. Thoracentesis site CDI. Patient
has frequent cough, Robitussin administered as per AUG documentation. Call mora within reach
[2024-02-15] MEDS: TESSALON PERLES 200 MG PO (23:00)
[2024-02-16] VITALS (15 sets, daily range): BP systolic 85–120; BP diastolic 52–77; BMI 26.2
[2024-02-16] MEDS: ANCEF 10 IV ×3 (06:33→23:11)
--- NOTE | 2024-02-16 06:43 | W.PN.CT ---
Addendum entered and electronically signed by Niko Freeman MD 02/16/24 13:53:
I saw and examined the patient.
The PA's note was reviewed and I agree with the note.
Comment:
Status post drainage of right pleural effusion on 02/13/2024 and repeat thoracentesis on 02/15/2024
Encourage out of bed, IS, ambulation
Daily chest x-rays -chest x-ray this a.m. with continued blunting of his right costophrenic angle (slightly worsened from x-ray from 02/15/2024)
Original Note:
Today's Communication / Plan
-
-no issues overnight
-s/p repeat R thoracentesis on 02/14 with evacuation of 1250 mL of serosanguineous pleural fluid.
-CXR with residual R pleur effusion
-continue Eliquis, Amio
-tessalon perles for cough
-encourage IS, ambulate
Assessment / Plan
-
Assessment:
64 y/o M S/P recent radical MV Repair, AVR, ELAA on 02/06/24 and was d/c'd home 02/10/24, who presented to -ED ~ midnight of 02/13/24 with C/O coughing fit with associated SOB and near syncope, found to have significant right pleural effusion
-Moderate Right Pleural Effusion- s/P right thoracentesis with evacuation of 1050 mL of dark serosanguineous pleural fluid on 02/13/24 and 1250 mL of serosanguineous pleural fluid on 02/15/24.
- s/p Radical mitral valve repair; Aortic valve replacement [25 mm Brown Inspiris Resilia bioprosthesis]; Left atrial appendage exclusion [35 mm clip] on 02/06/[address] Dow, pod #10
- Bacteremia, MSSA with possible mitral valve endocarditis
- Severe MR
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
- Acute respiratory failure due to pulmonary edema secondary to acute mitral valve insufficiency with flail/torn chords on the posterior leaflet, type II pathology
- Anemia and thrombocytopenia preop- History of C. difficile
- Osteoarthritis, s/p b/l TKA
- 1st degree AV block
- Anxiety disorder
- Acute postop blood loss anemia on chronic anemia - stable
- Acute postop coagulopathy - s/p 2 FFPs
- Acute postop and preop thrombocytopenia
- Suspected acute postop pericarditis/+rub - on Toradol
- Acute postop hypovolemia with subsequent hypervolemia
- Acute postop hyponatremia
- Acute postop SVT in 130's x ~ 1hr
-New a-fib on 02/13/24- tx with Amio bolus and drip on 02/13, currently in nsr 80s
Discussed patient care with: Nursing and Care Team
Subjective
-
Date of Service: February 16, 2024
Objective Data
-
Lab Results
02/15/24 04:52
02/15/24 04:52
Vital Signs
Vital Signs
Temp Pulse Resp BP Pulse Ox
98.3 F 100 16 91/68 97
02/16/24 06:31 02/15/24 23:03 02/16/24 06:31 02/15/24 23:03 02/16/24 06:31
CT Intake/Output/Weight
02/15/24 02/15/24 02/16/24
06:59 18:59 06:59
Intake Total 240 / 240
Output Total 800 / 2325 1400 / 1675 275 / 1675
Balance -800 / -2325 -1160 / -1435 -275 / -1435
SaO2: 97
Physical Exam
-
General: Awake and AOx3
Cardiovascular: Irregular rate & rhythm, No Murmurs and No Rub
Respiratory: Decreased Breath Sounds (at bases, R>L)
Sternum: Stable
Incision: Clean and Intact
Extremities: No Edema
Data Reviewed
-
Lab Results: Results Reviewed
Medications: Active Meds Reviewed
Chest X-Ray: Report Reviewed and Image Reviewed
ECG: Report Reviewed and Image Reviewed
[2024-02-16] MEDS: FEOSOL 325 MG PO (08:08)
[2024-02-16] MEDS: TESSALON PERLES 200 MG PO ×3 (08:08→21:40)
[2024-02-16] MEDS: PACERONE 400 MG PO ×2 (08:08→19:27)
[2024-02-16] MEDS: ASPIR LOW (ENTERIC COATED) 81 MG PO (08:09)
[2024-02-16] MEDS: COLCHICINE 0.3 MG PO (08:09)
[2024-02-16] MEDS: THERAGRAN 1 TABLET PO (08:12)
[2024-02-16] MEDS: LOPRESSOR 25 MG PO ×2 (08:12→19:27)
[2024-02-16] MEDS: KCL 20 MEQ PO (08:12)
[2024-02-16] MEDS: LASIX 80 MG IV (08:15)
[2024-02-16] MEDS: VITAMIN C 250 MG PO (08:15)
[2024-02-16] MEDS: SENOKOT-S 1 TABLET PO ×2 (08:15→19:27)
[2024-02-16] MEDS: ELIQUIS 5 MG PO ×2 (08:16→19:27)
--- NOTE | 2024-02-16 08:40 | W.DCSUMMARY ---
Discharge Summary
Discharge Data
Date of Admission: 02/13/24
Date of Discharge: 02/18/24
-
Pending Results: No
Hospital Course
Primary care physician: Brandan Balderrama
Outpatient orthotics prosthetics technician: Kolton Serna
Inpatient consultants: [facility] Cardiology
Procedures:
1. Thoracentesis
Primary Diagnosis:
1. Violetta's/post pericardiotomy syndrome
Secondary Diagnoses:
1. recurrent pleural effusion (s/p thoracenteses x 2 this admission)
2. erum atrial fibrillation
3. MSSA [place] valve endocarditis
4. S/p radical mitral valve repair; Aortic valve replacement [#25 mm Brown Inspiris Resilia bioprosthesis]; Left atrial appendage exclusion [#35 mm clip] on 02/06/[address] Dow
5. Acute postop blood loss anemia on chronic anemia - stable
HPI: 64 y/o male known to our service from recent heart port MV Repair/AVR/ELAA on 02/06/[address] Dow. Pt did well postop and was discharged home on Lasix for acute postop hypervolemia and IV Ancef via RUE PICC line for MSSA endocarditis of aortic
and mitral valve on 02/09/24. Pt present to -ED @ midnight of 02/13/24 with c/o near syncopal episode precipitated by a coughing fit while sitting up from his recliner chair.
Hospital course: Patient underwent right thoracentesis for 1000 cc of serosanguineous fluid. Patient was diuresed with Lasix 80 mg IV daily and started on colchicine 0.3 mg daily for Violetta syndrome. On , patient developed atrial fibrillation
with rapid ventricular response. Amnio bolus and infusion were initiated. Anticoagulation with Eliquis was initiated. Cardiology was consulted and amiodarone was converted to 400 mg twice daily orally and this dose will decrease to 200 mg daily
beginning 02/29/24. On 02/14, Lasix 40 mg IV was given with 1400 cc of urine output resulting. Patient underwent repeat right thoracentesis for 1250 cc serosanguineous fluid. On 02/15, morning chest x-ray reported a right pleural effusion with
elevated right hemidiaphragm. The case was discussed with Dr. Dow and a Medrol Dosepak was initiated for Violetta's/postpericardiotomy syndrome. Patient remained in AF with variable rate and Eliquis, plus IV Amio bolus/infusion was given with
conversion to SR. Patien t will continue Amiodarone 400mg BID (last dose evening 02/27) then 200mg daily starting 02/28. CXR continued to improve and remained unchanged (with known elevated right hemidiaphragm) per Dr. Dow's review on 02/17. Patient is
deemed stable for discharge today. Patient will continue on outpatient antibiotics as prescribed by ID (prior visit) for MSSA endocarditis with weekly CBC/CMP reported to ID.
Home medication changes:
New meds:
Eliquis
Colchicine
Iron
Medrol Dosepak
Amiodarone 400mg BID (last dose evening of 02/27), then begin Amiodarone 200mg daily
Tessalon Perles
Stop:
Aspirin as now on Eliquis
Discharge Plan
-
Patient Disposition: Home (Routine Discharge)
Discharge Diagnosis/Procedures: right pleural effusion/right thoracentesis
Condition: Good
Diet: No restrictions
Activity: No strenuous activity
Driving Restrictions: Not until seen by your Dr
Bathing Restrictions: OK to Shower
Blood Work: continue CMP/CBC weekly while on Cefazolin w/results to ID
Others Tests: CXR in 1 week (script provided)
Other Services: Cardiac Rehab
Specialty Instructions: Weigh Daily- Call MD for wt gain/loss 3 lbs overnight/5 lbs in 1 week
Referrals:
[facility] [Other] (Fax number is [phone].)
CT Transitional Care Nurse [Outside] - in one to two days
(
The Cardiothoracic Transitional Care Nurse will call you to set up a visit in 1-2 days.)
Yana Cifuentes CRNP [Specified Professional Personl] - 03/20/24 9:20 am
Brandan Balderrama MD [Family Provider] - in four to six weeks
(Please make an appointment in four to six weeks.
)
Vikram Dow MD [Active] - 03/06/24 1:00 pm
Additional Discharge Medication Instructions: already received 3 days of prednisone>continue Medrol dosepak starting with day #4 on 02/18
Prescriptions:
New
ferrous sulfate [FeroSul] 325 mg (65 mg iron) Tablet
325 mg PO DAILY Qty: 30 0RF
colchicine 0.6 mg Tablet
0.3 mg PO DAILY Qty: 30 0RF
Eliquis 5 mg Tablet
5 mg PO BID Qty: 60 1RF
methylprednisolone [Medrol (Edy)] 4 mg tablets,dose pack
See Rx Instructions .ROUTE .COMPLEX Qty: 1 0RF
Rx Instructions:
for 6 days
amiodarone 200 mg Tablet
400 mg PO BID Qty: 30 0RF
Rx Instructions:
last dose of 400mg BID will be on 02/28/24
amiodarone 200 mg Tablet
200 mg PO DAILY Qty: 30 0RF
Rx Instructions:
start 200mg daily on 02/29/24
benzonatate 200 mg capsule
200 mg PO TID PRN (Reason: Cough) Qty: 60 0RF
Continued
therapeutic multivitamin Tablet
1 tab PO DAILY
acetaminophen [Tylenol Extra Strength] 500 mg Tablet
1,000 mg PO Q6HPRN PRN (Reason: mild pain)
cyclobenzaprine 5 mg tablet
5 mg PO TID PRN (Reason: muscle spasm) Qty: 30 0RF
gabapentin 100 mg capsule
100 mg PO TID Qty: 30 0RF
cefazolin 10 gram Recon Soln
2 g IV Q8H Qty: 10 0RF
metoprolol tartrate 25 mg Tablet
25 mg PO BID Qty: 60 2RF
furosemide [Lasix] 40 mg tablet
40 mg PO DAILY Qty: 7 0RF
oxycodone 5 mg Tablet
5 mg PO Q4HPRN PRN (Reason: severe pain) Qty: 30 0RF
Discontinued
aspirin 81 mg Tablet,Chewable
81 mg PO DAILY Qty: 0 0RF
potassium chloride 20 mEq Tablet,Er Particles/Crystals
20 meq PO DAILY 7 Days Qty: 7 0RF
Discharge Orders:
Discharge Patient (As Directed); Ordered 02/18/24
Ordered By: Halle Magaña
Care Plan Goals
Care Plan Goals:
Problem: Readiness for enhanced knowledge related to diagnosis and treatment plan
Goal: Understand your diagnosis and treatment plan needs, including medications if applicable.
Instructions: Know your diagnosis, underlying causes and treatment plan options, including medications if applicable. Consult with your health care team to learn about your diagnosis and treatment plan, including medications if applicable.
Discharge Date and Time
Print Language: MOLDOVAN
[2024-02-16] MEDS: MEDROL 24 MG PO (09:28)
--- NOTE | 2024-02-16 09:41 | W.PN.CD ---
Today's Communication / Plan
-
re-load with IV amiodarone, and continue PO amiodarone
Impression / Plan
-
h/o Endocarditis:
-on IV abx- to continue as planned
-s/p AVR and MV repair 02/06/24
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
- s/p thoracentesis 02/12 for 1050cc, then again 02/14 for 1250cc
- 3 month course of colchicine
- steroid taper added by CT surgery
AFIB with RVR: new
-paroxysmal: back in A fib (had been in sinus after IV amiodarone previously)
-re-load with IV amiodarone, and continue PO amiodarone
-continue metoprolol tartrate 25 mg bid
-[id number] score is 2 for HTN (diagnosed on recent admit) and age- started Eliquis 5 mg PO BID
-TONI clip done during recent surgery
Physical Exam
Vital Signs/Labs
Vital Signs
Temp Pulse Resp BP Pulse Ox
97.9 F 123 18 116/70 99
02/16/24 07:40 02/16/24 08:12 02/16/24 07:40 02/16/24 08:12 02/16/24 07:40
02/15/24 02/16/24 02/17/24
06:59 06:59 06:59
Actual Weight 88.5 kg 87.5 kg
02/15/24 04:52
Magnesium 2.1 mg/dl (1.6-2.3) 02/15/24 04:52
02/13/24
01:08
Mgi-W-Wdiyabktgaz Pept 1020
Physical Exam
Constitutional: No acute distress and Comfortable
EENT: Moist mucous membranes
Cardiovascular: Pedal edema is absent, JVD pressure is normal, Systolic murmur absent and Rhythm/rate is irregular
Respiratory: Respiratory effort normal, Lungs clear to auscul. and Other (decreased breath sounds right base)
GI: Soft and Distention absent
Neuro/Psych: AO x 3
Data Reviewed
-
Date of Service: February 16, 2024
EKG: Other (Tele: A fib 100-110s)
Labs: Labs Ordered by me
[2024-02-16] MEDS: CORDARONE 103 MG IV (10:39)
[2024-02-16 10:44] LABS: Blood Urea Nitrogen 14 mg/dl (9-20); Calcium 8.8 mg/dl (8.4-10.2); Carbon Dioxide 30 mmol/L (22-30); Chloride 97 mmol/L (98-107); Estimated Creatinine Clearance 100 ml/min; Glucose 127 mg/dl (70-99); Potassium 4.6 mmol/L (3.5-5.1); Sodium 136 mmol/L (135-145); eGFR > 60.00
[2024-02-16] MEDS: CORDARONE 518 MG IV (10:48)
[2024-02-16] MEDS: TYLENOL 1000 MG PO ×2 (11:06→21:40)
--- NOTE | 2024-02-16 11:24 | PTCARENOTE ---
Assumed care of pt from night RN. Pt received awake and alert, Ox3. CM shows AF 120's, POX 97% on RA. Amio bolus, followed by 1 mg/hr drip infusing till 1648, then to decrease to 0.5 mg/hr x18hr, infusing through right PICC. Tylenol given as per
MAR for 6/10 pain at left posterior chest. Chest and chest tube incisions CARLOS ENRIQUE, healing well. Pt ambulating around room without difficulty. Will continue to monitor closely.
--- NOTE | 2024-02-16 14:51 | CM ---
Reviewed chart and with N.P regarding discharge plans. Met with Mr. Diaz to review discharge plans. He maybe ready for discharge soon. Telephone call to [facility] Liaison Caridad to review with her. Sent updated clinical and script to [facility]. Will need to call [facility] on Monday if he is discharged. [facility] phone number is ([phone]). and fax number is ([phone]) Prior to admission he resides with is spouse in a two story home wit two
steps to enter. He has a full flight of steps to get to his bedroom/full bathroom. He has a powder room on the first floor. Prior to admission he was independent with ambulation and adls. He does not have any DME in the home. He is current with
[facility] for IV ABX's. He will be on the same dos and duration as prior to hospitalization. Medical work-up in progress. The discharge plan is to return home with his spouse and resumption of [facility]. The
Cardiothoracic Transitional Care Nurse will also see him at home.
--- NOTE | 2024-02-16 15:44 | PTCARENOTE ---
Pt converted to NSR, EKG done to confirm, Dr. Gustafson made aware.
--- NOTE | 2024-02-16 21:08 | PTCARENOTE ---
Received patient for the night in bed with at bedside. SR with 1rst degree heart block on the monitor. Amiodarone infusing into R PICC at 16.7 ml/hr. 95% on room air with an occasional cough. Call mora within reach.
--- NOTE | 2024-02-16 22:39 | PTCARENOTE ---
Patient complains of 7/10 pain in R lower back at thoracentesis site, PRN Tylenol administered as per AUG. Patient reports frequent cough, PRN Tessalon pearls administered as per AUG.
[2024-02-17 05:06] VITALS: BP 106/72
[2024-02-17 05:20] VITALS: BMI 26.2
[2024-02-17 05:51] LABS: Blood Urea Nitrogen 18 mg/dl (9-20); Calcium 8.7 mg/dl (8.4-10.2); Carbon Dioxide 27 mmol/L (22-30); Chloride 100 mmol/L (98-107); Estimated Creatinine Clearance 100 ml/min; Glucose 118 mg/dl (70-99); Potassium 4.3 mmol/L (3.5-5.1); Sodium 134 mmol/L (135-145); eGFR > 60.00
[2024-02-17] MEDS: TESSALON PERLES 200 MG PO ×4 (05:53→22:37)
--- NOTE | 2024-02-17 06:28 | W.PN.CT ---
Addendum entered and electronically signed by Niko Freeman MD 02/17/24 09:19:
I saw and examined the patient.
The PA's note was reviewed and I agree with the note.
Comment:
Patient status post right thoracentesis x 2, placed on colchicine and Medrol Dosepak
No major overnight issues. Chest x-ray with continued minor blunting of right costophrenic angle, but visually improved from yesterday's film
Remains hemodynamically stable on room air in sinus rhythm
Out of bed, I-S, ambulate
Continue current medications
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
Discharge planning for later today versus tomorrow
Original Note:
Today's Communication / Plan
-
Chest x-ray with continued blunting of the right costophrenic angle. It appears to be unchanged from yesterday.
Patient remains on room air and stable. Still with some pleuritic chest pain and difficulties with taking deep breaths.
Sinus rhythm.
Plan discharge home today with follow-up in 1 to 2 weeks with a PA and lateral chest x-ray.
Tessalon Perles for cough.
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
Continue amiodarone and Eliquis.
Cont Ancef via PICC for MSSA endocarditis treatment
Assessment / Plan
-
Assessment:
64 y/o M S/P recent radical MV Repair, AVR, ELAA on 02/06/24 and was d/c'd home 02/10/24, who presented to -ED ~ midnight of 02/13/24 with C/O coughing fit with associated SOB and near syncope, found to have significant right pleural effusion
-Moderate Right Pleural Effusion- s/P right thoracentesis with evacuation of 1050 mL of dark serosanguineous pleural fluid on 02/13/24 and 1250 mL of serosanguineous pleural fluid on 02/15/24.
- s/p Radical mitral valve repair; Aortic valve replacement [25 mm Brown Inspiris Resilia bioprosthesis]; Left atrial appendage exclusion [35 mm clip] on 02/06/[address] Dow, pod #10
- Bacteremia, MSSA with possible mitral valve endocarditis
- Severe MR
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
- Acute respiratory failure due to pulmonary edema secondary to acute mitral valve insufficiency with flail/torn chords on the posterior leaflet, type II pathology
- Anemia and thrombocytopenia preop- History of C. difficile
- Osteoarthritis, s/p b/l TKA
- 1st degree AV block
- Anxiety disorder
- Acute postop blood loss anemia on chronic anemia - stable
- Acute postop coagulopathy - s/p 2 FFPs
- Acute postop and preop thrombocytopenia
- Suspected acute postop pericarditis/+rub - on Toradol
- Acute postop hypovolemia with subsequent hypervolemia
- Acute postop hyponatremia
- Acute postop SVT in 130's x ~ 1hr
-New a-fib on 02/13/24- tx with Amio bolus and drip on 02/13, currently in nsr 80s
Subjective
-
Date of Service: February 17, 2024
Feels okay. Apprehensive about discharge as she has had now multiple thoracentesis. Feels his shortness of breath is improved.
Objective Data
-
Lab Results
02/15/24 04:52
02/17/24 05:14
Vital Signs
Vital Signs
Temp Pulse Resp BP Pulse Ox
98.1 F 78 18 106/72 97
02/17/24 05:07 02/17/24 05:06 02/17/24 05:07 02/17/24 05:06 02/17/24 05:07
CT Intake/Output/Weight
02/16/24 02/16/24 02/17/24
06:59 18:59 06:59
Intake Total 147.7 / 647.7 500 / 647.7
Output Total 1275 / 2675 1650 / 2600 950 / 2600
Balance -1275 / -2435 -1502.3 / -1952.3 -450 / -1951.3
SaO2: 97
Physical Exam
-
General: Awake and Oriented
Cardiovascular: Regular rate & rhythm
Respiratory: Clear, Equal and Other
Sternum: Stable
Incision: Clean, Dry and Intact
Data Reviewed
-
Lab Results: Results Reviewed
Medications: Active Meds Reviewed
Chest X-Ray: Report Reviewed and Image Reviewed
[2024-02-17] MEDS: ANCEF 10 IV ×3 (06:29→22:28)
[2024-02-17 07:07] VITALS: BP 110/64
[2024-02-17] MEDS: LOPRESSOR 25 MG PO ×2 (08:00→19:33)
[2024-02-17] MEDS: VITAMIN C 250 MG PO (08:00)
[2024-02-17] MEDS: PACERONE 400 MG PO ×2 (08:00→19:33)
[2024-02-17] MEDS: THERAGRAN 1 TABLET PO (08:01)
[2024-02-17] MEDS: ELIQUIS 5 MG PO ×2 (08:01→19:32)
[2024-02-17] MEDS: COLCHICINE 0.3 MG PO (08:01)
[2024-02-17] MEDS: FEOSOL 325 MG PO (08:01)
[2024-02-17] MEDS: KCL 20 MEQ PO (08:01)
[2024-02-17] MEDS: SENOKOT-S 1 TABLET PO (08:01)
[2024-02-17] MEDS: ASPIR LOW (ENTERIC COATED) 81 MG PO (08:01)
[2024-02-17] MEDS: LASIX 80 MG IV (08:03)
[2024-02-17] MEDS: MEDROL 20 MG PO (08:43)
--- NOTE | 2024-02-17 09:40 | W.PN.CD ---
Today's Communication / Plan
-
-On amiodarone for 100 mg twice a day.
-Can change to 200 mg twice a day after a week.
-Colchicine for 6 to 8 weeks.
-Steroid taper
-Continue metoprolol
-Pain control as needed
Impression / Plan
-
h/o Endocarditis:
-on IV abx- to continue as planned
-s/p AVR and MV repair 02/06/24
right pleural effusion:
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
- s/p thoracentesis 02/12 for 1050cc, then again 02/14 for 1250cc
- 3 month course of colchicine
- steroid taper added by CT surgery
AFIB with RVR:
-paroxysmal: A fib to sinus now (had gone to AF. Was in sinus after IV amiodarone previously)
-re-load with IV amiodarone, and continue PO amiodarone
-continue metoprolol tartrate 25 mg bid
-[id number] score is 2 for HTN (diagnosed on recent admit) and age- started Eliquis 5 mg PO BID
-TONI clip done during recent surgery
Physical Exam
Vital Signs/Labs
Vital Signs
Temp Pulse Resp BP Pulse Ox
98.1 F 85 18 110/64 95
02/17/24 07:04 02/17/24 08:00 02/17/24 07:04 02/17/24 07:07 02/17/24 07:04
02/16/24 02/17/24 02/18/24
06:59 06:59 06:59
Actual Weight 87.5 kg 87.5 kg
02/15/24 04:52
02/17/24 05:14
Magnesium 2.1 mg/dl (1.6-2.3) 02/15/24 04:52
08/20/24
01:08
Szg-[id number] Pept 1020
Physical Exam
Constitutional: No acute distress and Comfortable
EENT: Anicteric and Moist mucous membranes
Cardiovascular: Rhythm & rate is regular, Pedal edema is absent and JVD pressure is normal
Respiratory: Respiratory effort normal, Wheeze Absent and Crackles Absent
GI: Soft, Distention absent, Non tender and Normal bowel sounds
Neuro/Psych: Alert, Oriented and AO x 3
Other: Skin
Data Reviewed
-
Date of Service: February 17, 2024
Medical Decision Making: Reviewed Test Results and Independent Historian Assessment
EKG: Tracing Personally Visualized and interpreted
Echo: Report Reviewed by me
Labs: Labs Reviewed by me
Old Records: Reviewed
[2024-02-17 12:11] VITALS: BP 111/65
--- NOTE | 2024-02-17 15:13 | PTCARENOTE ---
Pt OOB in chair and ambulatory in room throughout shift. Monitor SR/1st degree AVB. 1100-Amio gtts dc'd. PRN tessalon perles given for dy cough.
[2024-02-17 18:08] VITALS: BP 116/63
[2024-02-17 18:44] VITALS: BP 119/63
[2024-02-17] MEDS: SENOKOT-S PO (19:33)
--- NOTE | 2024-02-17 20:53 | PTCARENOTE ---
Pt rec'd oob in recliner chair awake,alert no c/o pain at present. Pt reports having had 3 loose/soft bm's therefore Dulcolax held per pt request. sinus on telemetry. minimal cough. sternal and CT site clean dry and intact,rotary engraver scabbed.
[2024-02-17 22:11] VITALS: BP 105/67
[2024-02-17] MEDS: TYLENOL 1000 MG PO (22:38)
[2024-02-18 05:16] VITALS: BP 125/69
[2024-02-18 05:18] VITALS: BMI 26.1
--- NOTE | 2024-02-18 05:19 | PTCARENOTE ---
PCXR completed. Pt with no complaints this am.
[2024-02-18] MEDS: ANCEF 10 IV (06:34)
--- NOTE | 2024-02-18 06:35 | W.PN.CT ---
Addendum entered and electronically signed by Niko Freeman MD 02/18/24 09:26:
I saw and examined the patient.
The PA's note was reviewed and I agree with the note.
Comment:
D/C home today
Check outpatient CXR in 1 week
Original Note:
Today's Communication / Plan
-
Patient feels okay.
Chest x-ray with similar appearing right pleural effusion.
Anticipate discharge to home today with outpatient follow-up with chest x-ray.
Continue Ancef for endocarditis as prescribed by ID. PICC in place.
Ongoing treatment for postpericardiotomy syndrome.
Continue Eliquis and amiodarone for A-fib prophylaxis. Sinus rhythm.
Assessment / Plan
-
Assessment:
64 y/o M S/P recent radical MV Repair, AVR, ELAA on 02/06/24 and was d/c'd home 02/10/24, who presented to -ED ~ midnight of 02/13/24 with C/O coughing fit with associated SOB and near syncope, found to have significant right pleural effusion
-Moderate Right Pleural Effusion- s/P right thoracentesis with evacuation of 1050 mL of dark serosanguineous pleural fluid on 02/13/24 and 1250 mL of serosanguineous pleural fluid on 02/15/24.
- s/p Radical mitral valve repair; Aortic valve replacement [25 mm Brown Inspiris Resilia bioprosthesis]; Left atrial appendage exclusion [35 mm clip] on 02/06/[address] Dow, pod #10
- Bacteremia, MSSA with possible mitral valve endocarditis
- Severe MR
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
- Acute respiratory failure due to pulmonary edema secondary to acute mitral valve insufficiency with flail/torn chords on the posterior leaflet, type II pathology
- Anemia and thrombocytopenia preop- History of C. difficile
- Osteoarthritis, s/p b/l TKA
- 1st degree AV block
- Anxiety disorder
- Acute postop blood loss anemia on chronic anemia - stable
- Acute postop coagulopathy - s/p 2 FFPs
- Acute postop and preop thrombocytopenia
- Suspected acute postop pericarditis/+rub - on Toradol
- Acute postop hypovolemia with subsequent hypervolemia
- Acute postop hyponatremia
- Acute postop SVT in 130's x ~ 1hr
-New a-fib on 02/13/24- tx with Amio bolus and drip on 02/13, currently in nsr 80s
Subjective
-
Date of Service: February 18, 2024
Feels okay. Dyspnea slightly improved. Comfortable.
Objective Data
-
Lab Results
02/15/24 04:52
02/17/24 05:14
Vital Signs
Vital Signs
Temp Pulse Resp BP Pulse Ox
98.0 F 76 20 125/69 94
02/18/24 05:16 02/18/24 05:16 02/18/24 05:16 02/18/24 05:16 02/18/24 05:16
CT Intake/Output/Weight
02/17/24 02/17/24 02/18/24
06:59 18:59 06:59
Intake Total 500 / 647.7 480 / 480
Output Total 950 / 2600 1500 / 2500 1000 / 2500
Balance -450 / -1952.3 -1500 / -2020 -520 / -2019
SaO2: 94
Data Reviewed
-
Lab Results: Results Reviewed
Medications: Active Meds Reviewed
Chest X-Ray: Report Reviewed and Image Reviewed
[2024-02-18 07:36] VITALS: BP 114/68
[2024-02-18] MEDS: TESSALON PERLES 200 MG PO (07:48)
[2024-02-18] MEDS: PACERONE 400 MG PO (08:18)
[2024-02-18] MEDS: FEOSOL 325 MG PO (08:18)
[2024-02-18] MEDS: ELIQUIS 5 MG PO (08:18)
[2024-02-18] MEDS: ASPIR LOW (ENTERIC COATED) 81 MG PO (08:18)
[2024-02-18] MEDS: VITAMIN C 250 MG PO (08:18)
[2024-02-18] MEDS: LOPRESSOR 25 MG PO (08:19)
[2024-02-18] MEDS: THERAGRAN 1 TABLET PO (08:19)
[2024-02-18] MEDS: COLCHICINE 0.3 MG PO (08:19)
[2024-02-18] MEDS: SENOKOT-S PO (08:19)
[2024-02-18] MEDS: LASIX 80 MG IV (08:20)
[2024-02-18] MEDS: KCL 20 MEQ PO (08:20)
[2024-02-18] MEDS: FLUSH (NSS) 3 FLUSH IV (08:20)
[2024-02-18] MEDS: MEDROL 16 MG PO (08:25)
[2024-02-18 08:40] VITALS: BMI 26.1
--- NOTE | 2024-02-18 10:36 | PTCARENOTE ---
The patient was discharged home with right picc in place for home IV antibiotics.
== END 2024-02-18 10:37 | disposition home or self-care (01) ==
LOC: IVU 03:26
PROVIDERS: Clinical Nurse Specialist Acute Care; Physician Assistant Medical; ADMITTING PHYSICIAN Thoracic Surgery (Cardiothoracic Vascular Surgery); CONSULT PHYSICIAN Internal Medicine; EMERGENCY PHYSICIAN Emergency Medicine; FAMILY PHYSICIAN Internal Medicine
DX: J90 Pleural effusion, not elsewhere classified (principal); R06.02 Shortness of breath; R05.3 Chronic cough; R61 Generalized hyperhidrosis; R05.4 Cough syncope; D62 Acute posthemorrhagic anemia; I48.91 Unspecified atrial fibrillation; I10 Essential (primary) hypertension; J81.1 Chronic pulmonary edema; I51.7 Cardiomegaly; R55 Syncope and collapse; M19.90 Unspecified osteoarthritis, unspecified site; I44.0 Atrioventricular block, first degree; F41.9 Anxiety disorder, unspecified; Z95.2 Presence of prosthetic heart valve; Z86.79 Personal history of other diseases of the circulatory system; Z96.653 Presence of artificial knee joint, bilateral; Z79.01 Long term (current) use of anticoagulants
CPT/HCPCS: 32555; 71045; 71275; 80048; 80053; 83735; 83880; 85025; 85027; 86803; 86850; 86900; 86901; 93005; 96374; 99285; G0378; Q9967

== ENCOUNTER → 2024-02-23 09:14 | Outpatient (REF) | payer OTHER, SELFPAY | LOC: HWRAD 09:14 | PROVIDERS: ATTENDING PHYSICIAN Nurse Practitioner; FAMILY PHYSICIAN Internal Medicine | DX: J91.8 Pleural effusion in other conditions classified elsewhere (principal) | CPT/HCPCS: 71046 ==

== ENCOUNTER → 2024-03-04 16:07 | Outpatient (REF) | payer OTHER, SELFPAY | LOC: HWRAD 16:07 | PROVIDERS: ATTENDING PHYSICIAN Thoracic Surgery (Cardiothoracic Vascular Surgery); FAMILY PHYSICIAN Internal Medicine | DX: J90 Pleural effusion, not elsewhere classified (principal) | CPT/HCPCS: 71046 ==

== ENCOUNTER → 2024-03-06 15:12 | Outpatient (REF) | payer OTHER, SELFPAY | LOC: RCS 15:12 | PROVIDERS: ATTENDING PHYSICIAN Nurse Practitioner Acute Care; FAMILY PHYSICIAN Internal Medicine | DX: I31.39 Other pericardial effusion (noninflammatory) (principal); Z98.890 Other specified postprocedural states; Z95.2 Presence of prosthetic heart valve; R06.02 Shortness of breath | CPT/HCPCS: 93306 ==

== ENCOUNTER → 2024-03-08 10:03 | Outpatient (REF) | payer OTHER, SELFPAY ==
[2024-03-08 10:35] VITALS: BP 118/73; BP_SYST 97
[2024-03-08 11:35] VITALS: BP 107/78; BP_SYST 91
[2024-03-08 11:45] VITALS: BP 107/78
[2024-03-08 12:02] LABS: Body Fluid pH 7.44
[2024-03-08 12:06] LABS: Body Fluid Mononuclear 48.9 %; Body Fluid Polymorphonuclear 51.1 %; Body Fluid WBC 3034 /CUMM
[2024-03-08 12:14] LABS: Body Fluid Second Tech CF
[2024-03-08 12:18] LABS: Body Fluid Glucose 118 mg/dl; Body Fluid Protein 4.5 g/dl
[2024-03-08 13:20] LABS: Body Fluid LDH 1797 U/L
== END ==
LOC: RADI 10:03
PROVIDERS: ATTENDING PHYSICIAN Nurse Practitioner Adult Health; FAMILY PHYSICIAN Internal Medicine
DX: J90 Pleural effusion, not elsewhere classified (principal)
CPT/HCPCS: 88305; 32555; 71045; 82945; 83615; 83986; 84157; 87015; 87070; 87102; 87116; 87205; 87206; 88112; 89051

== ENCOUNTER → 2024-03-11 13:24 | Outpatient (REF) | payer OTHER, SELFPAY | LOC: HWRAD 13:24 | PROVIDERS: ATTENDING PHYSICIAN Nurse Practitioner Adult Health; FAMILY PHYSICIAN Internal Medicine | DX: R06.02 Shortness of breath (principal) | CPT/HCPCS: 71046 ==

== ENCOUNTER → 2024-03-19 15:01 | Outpatient (REF) | payer OTHER, SELFPAY | LOC: HWRAD 15:01 | PROVIDERS: ATTENDING PHYSICIAN Internal Medicine Cardiovascular Disease; FAMILY PHYSICIAN Internal Medicine | DX: R06.02 Shortness of breath (principal) | CPT/HCPCS: 71046 ==

== ENCOUNTER → 2024-03-21 07:45 | Outpatient (REF) | payer OTHER, SELFPAY | LOC: HWRAD 07:45 | PROVIDERS: ATTENDING PHYSICIAN Nurse Practitioner Gerontology; FAMILY PHYSICIAN Internal Medicine | DX: R14.0 Abdominal distension (gaseous) (principal) | CPT/HCPCS: 76705 ==

== ENCOUNTER 2024-04-25 10:46 | Outpatient (RCR) | payer OTHER, SELFPAY | END 2024-04-25 23:59 | disposition home or self-care (01) | LOC: CRHB 10:46 | PROVIDERS: ATTENDING PHYSICIAN Internal Medicine Cardiovascular Disease | DX: Z95.4 Presence of other heart-valve replacement (principal) | CPT/HCPCS: G0422; G0423 ==

== ENCOUNTER 2024-05-06 16:17 | Outpatient (RCR) | payer OTHER, SELFPAY | END 2024-05-06 23:59 | disposition home or self-care (01) | LOC: CRHB 16:17 | PROVIDERS: ATTENDING PHYSICIAN Internal Medicine Cardiovascular Disease; FAMILY PHYSICIAN Internal Medicine | DX: Z95.4 Presence of other heart-valve replacement (principal) | CPT/HCPCS: G0422 ==

== ENCOUNTER 2024-05-27 15:59 | Outpatient (RCR) | payer OTHER, SELFPAY | END 2024-05-27 23:59 | disposition home or self-care (01) | LOC: CRHB 15:59 | PROVIDERS: ATTENDING PHYSICIAN Internal Medicine Cardiovascular Disease; FAMILY PHYSICIAN Internal Medicine | DX: I31.9 Disease of pericardium, unspecified (principal); Z95.4 Presence of other heart-valve replacement | CPT/HCPCS: G0422 ==

== ENCOUNTER 2024-07-03 00:59 | Inpatient (IN) | payer BC, SELFPAY ==
[2024-07-02] VITALS (7 sets, daily range): BP systolic 93–134; BP diastolic 76–94; BMI 29.1
[2024-07-02 20:39] LABS: % Basophils 0.6 % (0-2); % Immature Granulocytes 0.4 % (0-0.5); % Lymphocytes 18.2 % (20.5-51.1); % Monocytes 14.1 % (1.7-9.3); % Neutrophils 65.7 % (42.2-75.2); Absolute Basophils 0.1 10^3/uL (0-0.2); Absolute Eosinophils 0.1 10^3/uL (0-0.7); Absolute Immature Granulocytes 0.1 10^3/uL (0-0.05); Absolute Lymphocytes 2.3 10^3/uL (1.2-3.4); Absolute Monocytes 1.8 10^3/uL (0.1-0.6); Absolute Neutrophils 8.3 10^3/uL (1.4-6.5); Hematocrit 44.8 % (39.0-52.0); Hemoglobin 14.7 g/dL (13.0-18.0); Mean Corp Hgb Conc. 32.8 g/dL (33.0-37.0); Mean Corpuscular Hgb 29.9 pg (27.0-31.0); Mean Corpuscular Volume 91.1 fL (80.0-94.0); Mean Platelet Volume 10.1 fL (7.4-10.4); Nucleated Red Blood Cells % 0 % (-); Platelet Count 282 10^3/uL (130-400); Red Blood Cell Count 4.92 10^6/uL (4.70-6.10); Red Cell Dist. Width 12.5 % (11.5-14.5); White Blood Cell Count 12.7 10^3/uL (4.8-10.8)
[2024-07-02 20:47] LABS: INR 1.18; PT 15.3 Sec (11.4-14.6)
[2024-07-02 21:00] LABS: ALT (SGPT) 34 U/L (0-50); AST (SGOT) 17 U/L (17-59); Albumin 4.4 g/dl (3.5-5.0); Alkaline Phosphatase 82 U/L (38-126); Blood Urea Nitrogen 27 mg/dl (9-20); Calcium 9.2 mg/dl (8.4-10.2); Carbon Dioxide 27 mmol/L (22-30); Glucose 107 mg/dl (70-99); Total Bilirubin 0.9 mg/dl (0.2-1.3); Total Protein 6.7 g/dl (6.3-8.2); eGFR > 60.00
[2024-07-02 21:01] LABS: NT-proBNP 1270 pg/ml; Troponin I < 0.012 ng/ml
[2024-07-02 21:10] LABS: Chloride 99 mmol/L (98-107); Potassium 4.2 mmol/L (3.5-5.1); Sodium 135 mmol/L (135-145)
--- NOTE | 2024-07-02 23:16 | ED.GENMED ---
History of Present Illness
General
Chief Complaint: Breathing Problem
Source: patient and family
Time Seen by Provider: 07/02/24 22:37
Nursing documentation reviewed up to this point in time: agreed with
History of Present Illness
History of Present Illness:
This a pleasant 64-year-old male presents to the emergency department for fluid overload and atrial fibrillation. Patient had open heart surgery about a year ago and sees Dr. Serna in follow-up. He is maintained on metoprolol and Eliquis.
After seeing Dr. Joaquin and he was just started on Lasix. Patient has been having shortness of breath. He has also noticed some edema in his lower extremities. Denies fever or chills. Reports no nausea or vomiting. Denies true chest pain.
Patient is status post radical mitral valve repair, aortic valve replacement by Dr. Dow in January 2024.
Past History
Past History
ED Past Medical History: Other (PVCs,, Acute methicillin-sensitive bacteremia with endocarditis, acute pulmonary edema related to valvular insufficiency requiring aortic valve replacement, mitral valve repair January 2024.)
ED Past Surgical History: Cardiac (January 2024, aortic valve replacement, mitral valve repair) and Orthopedic (Lt ankle and knee surgery, Rt knee replacement)
Social History
Tobacco: Non-smoker
Personal:
Living: with family
Employment: Employed
Family History
Family History: Other (no known cardiac FHx)
Review of Systems
Review of Systems
Allergies reviewed?: Yes
All Other Systems: ROS reviewed and negative except as documented in HPI and ROS
Musculoskeletal: Reports edema
Psychiatric: Reports anxiety
Phy Exam
General Physical Exam
General Presentation: well appearing and no apparent distress
General Skin: warm and dry
General Habitus: normal
General Mental: alert
General Hydration: appears well hydrated
ENT Exam
ENT Exam: EOMI, pharynx normal, neck supple and normocephalic
Eye Exam
Eye Exam: PERRL, cornea clear and conjunctiva normal
Cardiovascular Exam
Cardiovascular Exam: regular rate/rhythm, no edema, no murmur and normal peripheral pulses
Pulmonary Exam
Pulmonary Exam: lungs clear, no respiratory distress, no rales, no crackles, no rhonchi, no stridor, no wheezing and no cough
Gastrointestinal Exam
Gastrointestinal Exam: normal bowel sounds, non tender, soft, no organomegaly, no pulsatile mass and non distended
Neurological Exam
Neurological Exam: alert, oriented x3, no motor deficits and speech normal
Musculoskeletal Exam
Musculoskeletal Exam: edema (1+ bilateral lower extremities) and neuro vasc intact
Skin Exam
Skin Exam: normal color and warm/dry
Psychiatric Exam
Psychiatric Exam: normal mood/affect
Scores
Heart Failure Risk
Heart Failure Risk Score: Yes
History of Stroke or TIA: No
History of intubation for respiratory distress: No
Heart rate on ED arrival >/= 110: Yes
SaO2 <90% on arrival on room air: No
HR >/=110 during 3min walk test (or too ill to perform test): No
ECG has acute ischemic changes: No
Urea >/=12mmol/L (BUN 33.6mg/dL): No
Serum CO2>/=35mmol/L: No
Troponin I or T elevated to [place] Level (0.4mg/dL): No
NT-proBNP >/=5,000ng/L (5,000pg/ml): No
HF Risk Score: 0
Admission Status: LOW RISK 2.8% Consider discharge to home with f/u visit to PCP/Field Support Engineer
Course
Orders/Labs/Results
Orders:
Orders
07/02/24 20:22
EKG [Electrocardiogram (*1)] Urgent
Reason for Study: Atrial Fibrillation
07/02/24 20:23
EKG- Treatment ONCE
07/02/24 20:27
Comprehensive Metabolic Panel Urgent
Prothrombin Time Urgent
07/02/24 20:28
Complete Blood Count/With Diff Urgent
Pro-BNP [NT-proBNP] Urgent
Troponin I Urgent
07/02/24 22:45
Diltiazem 125 mg/125 ml Nss [Cardizem] 125 mg in 125 ml IV PER PROTOCOL
Initial dose in mg/hr, then titrate:: 5
Titrate to keep:: Heart rate 80-100 bpm
Titrate by mg/hr:: 5 mg/hr
Frequency of titrations (minutes):: 15
Maximum dose in mg/hr:: 15
07/02/24 23:13
Apixaban [Eliquis] 5 mg .ROUTE .STK-MED ONE
07/02/24 23:14
Apixaban [Eliquis] 5 mg PO NOW STA
07/02/24 23:15
Apixaban [Eliquis] 5 mg PO BID
07/02/24 23:17
Apixaban [Eliquis] 5 mg PO NOW STA
07/03/24 00:23
Admit/Transfer Patient As Directed
Co-Sign Provider:
Level of Care: Inpatient admission
Assign to:: IVU
Physician / Group: hospitalist
Diagnosis: afib rvr, chf
Reason for Hospitalization: afib rvr
Expected length of stay greater than two midnights?: Yes
ELOS- Estimated Length of Stay in days: 2
I certify the patient meets the requirements for IP care: Yes
PRN Pain Medication Management As Directed
May give lesser potent ordered pain med per pt: Yes
preference::
Protocol:: Medication orders for pain may be administered in a
manner that supports deferring to patient preference
when the pt is:
- Requesting an ordered lesser potent pain medication.
Least to most potent pain medications are defined
as: acetaminophen < NSAID < tramadol < opioids
(morphine, oxycodone, hydromorphone).
- Requesting a lesser dose of the same medication IF
ORDERED.
- Requesting a less intrusive route of administration
if both routes are prescribed by the provider (PO <
IV).
07/03/24 00:24
Code Status As Directed
Resuscitation Status: Full Code
07/03/24 00:38
Diltiazem 125 mg/125 ml Nss [Cardizem] 125 mg in 125 ml IV PER PROTOCOL
Currently infusing. Continue current dose and titrate:: Yes
Titrate to keep:: Heart rate 80-100 bpm
Titrate by mg/hr:: 5 mg/hr
Frequency of titrations (minutes):: 15
Maximum dose in mg/hr:: 15
Abnormal Lab Results
07/02/24 07/02/24
20:27 20:28
WBC 12.7 H 10^3/uL
(4.8-10.8)
MCHC 32.8 L g/dL
(33.0-37.0)
Abs Immat Gran (auto) 0.1 H 10^3/uL
(0-0.05)
Absolute Neuts (auto) 8.3 H 10^3/uL
(1.4-6.5)
Absolute Monos (auto) 1.8 H 10^3/uL
(0.1-0.6)
Lymphocytes % 18.2 L %
(20.5-51.1)
Monocytes % 14.1 H %
(1.7-9.3)
PT 15.3 H Sec
(11.4-14.6)
BUN 27 H mg/dl
(9-20)
Glucose 107 H mg/dl
(70-99)
07/02/24 20:28
07/02/24 20:27
Vital Signs
Initial and Last Documented VS:
Initial Vital Signs
Temp Pulse Resp BP Pulse Ox
98.0 F 80 18 134/94 99
07/02/24 20:18 07/02/24 20:18 07/02/24 20:18 07/02/24 20:18 07/02/24 20:18
Last Documented Vital Signs
Temp Pulse Resp BP Pulse Ox
98.0 F 117 13 94/76 97
07/02/24 20:18 07/03/24 01:00 07/03/24 01:00 07/03/24 01:00 07/03/24 00:00
*EKG
Interpreted by ED Provider?: Yes
EKG Intrepretation Date: 07/02/24
Rate: normal
Rhythm: a-fib
Interval: normal interval
QRS Pattern: normal QRS
Ischemia: no ischemia
*Critical Care Note
Total Time (30-74mins, 75-104mins- exclusive of procedures): Not Applicable
ED Attending Note
-
Portions of this chart may have been created with voice recognition software.� Occasional wrong word or��sound alike� substitutions may have occurred due to the inherent limitations of voice recognition software.
Discharge Plan
Departure
Patient Disposition: Admit
Date of Disposition: 07/02/24
Time of Disposition: 23:21
Admit to: Telemetry
Presentation/result/management discussed w/ accepting MD/DO: Hospitalist
Discharge Problem:
Congestive heart failure (CHF), A-fib
Interventions
Interventions:
*Risk Screen - Suicide Last Done: 07/02/24 20:21
*General Assessment Last Done: 07/02/24 20:21
*Neglect/Abuse Screening Last Done: 07/02/24 20:21
ED- Fall Risk Assessment Last Done: 07/02/24 22:36
*ED COVID-19 Vaccine History Last Done: 07/02/24 20:21
ED- Cardiac Assessment Last Done: 07/02/24 22:36
ED- Pulmonary Assessment Last Done: 07/02/24 22:36
[2024-07-02] MEDS: ELIQUIS 5 MG PO (23:23)
[2024-07-03] VITALS (23 sets, daily range): BP systolic 92–132; BP diastolic 50–93; BMI 27.9
--- NOTE | 2024-07-03 00:10 | HPS.HSE ---
Family Physician
-
Family Physician: Brandan Balderrama
Chief Complaint
-
Tachycardia.
History of Present Illness
This 64-year-old with past medical history of bioprosthetic aortic valve and recent mitral valve repair, proximal atrial fibrillation that was detected during surgery last year, CHF with preserved EF presenting to the emergency department from
cardiology clinic with multiple findings but mostly concerning for depressed EF and uncontrolled A-fib.
Patient reported that over the last 2 weeks he has gained about 15 pounds and noticed some ankle edema. He felt slightly dyspneic with exertion. He decided to check his pulse oximetry which showed normal oxygen saturation but tachycardia and
irregular. He stated that metoprolol was cut in half about 2 to 3 weeks ago. 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 They did EKG, x-ray and echocardiogram. The
echocardiogram showed depressed EF of around 30% and he was sent to the emergency department.
In the emergency department he had a blood pressure of 116/90, pulse of 126, oxygen saturation of 98. He was afebrile. White count was 12.7 but CBC was otherwise unremarkable. ECG showed A-fib at 134, troponin was 0.01 and a BNP was 1200.
Electrolytes showed no acute abnormalities with preserved BUN/creatinine of 27 and 1.0. Outpatient x-ray from the morning showed small right and trace left pleural effusion with adjacent bibasilar opacities, likely atelectasis.
Medical History
Past Medical History
Past Medical History: Reports Arrhythmia (Paroxysmal atrial fibrillation), CHF, GERD and Valvular Disease (Bioprosthetic aortic valve, mitral valve repair)
Past Surgical History: Reports Cardiac (Cardiac surgery with mitral valve repair)
Social History
Tobacco: Non-smoker
Alcohol: Occasional
Drug: None
Personal:
Living: With Family
Family History
Family History: Not pertinent
Allergies / Home Medications
Allergies reflects when Allergies were last updated in [facility].
Home Medications with original date entered in [facility]
Allergy/Medication List:
Allergies
Allergy/AdvReac Type Severity Reaction Status Date / Time
No Known Allergies Allergy Verified 07/02/24 20:19
Home Medications
apixaban 5 mg tablet (Eliquis) 5 mg PO BID Blood clot prevention/tx #60 tabs 02/16/24
furosemide 40 mg tablet (Lasix) 40 mg PO DAILY Weight gain #7 tabs 02/16/24
acetaminophen 500 mg tablet (Tylenol Extra Strength) 1,000 mg PO Q6HPRN PRN mild pain 07/02/24
metoprolol succinate 25 mg tablet,extended release 24 hr 12.5 mg PO HS 07/02/24
omeprazole 20 mg capsule,delayed release 20 mg PO DAILY 07/02/24
therapeutic multivitamin 1 tab PO DAILY 07/02/24
Review of Systems
-
History Source: Patient
Constitutional: Reports No Symptoms
EENT: Reports No Symptoms
Respiratory: Reports No Symptoms
Cardiac: Reports Other (tachycardia)
Abdomen/GI: Reports No Symptoms
: Reports No Symptoms
Musculoskeletal: Reports Edema
Skin: Reports No Symptoms
Neurological: Reports No Symptoms
Endocrine: Reports No Symptoms
Hematologic/Lymphatic: Reports No Symptoms
Psych: Reports No Symptoms
Physical Exam
Vital Signs
Vital Signs
Temp Pulse Resp BP Pulse Ox
98.0 F 120 18 116/93 97
07/02/24 20:18 07/03/24 00:00 07/03/24 00:00 07/03/24 00:00 07/03/24 00:00
Physical Exam
General: Well Developed, Well Nourished, No Apparent Distress and Comfortable
HEENT: NormoCephalic, Anicteric, Moist mucous membranes and Atraumatic
Respiratory: Clear
Cardiac: S1/S2, Irregular Rhythm and Tachycardia
Breast: Deferred by me
GI: Soft, Non Tender, Non Distended and Normal Bowel Sounds
Rectal: Deferred by Provider
Genito-urinary: Deferred by me
Musculoskeletal: No Clubbing, No Cyanosis and No Edema
Skin: Warm
Neuro: AO x 3 and No Motor Deficits
Hematologic/Lymphatic: No Lymphadenopathy
Psych: Calm
Laboratory Results
-
07/02/24 20:
07/02/24:
Laboratory Results
PT 15.3 Sec (11.4-14.6) H 07/02/24 20:
INR 1.18 07/02/24:
Total Bilirubin 0.9 mg/dl (0.2-1.3) 07/02/24:
AST 17 U/L (17-59) 07/02/24 20:
ALT 34 U/L (0-50) 07/02/24:
Alkaline Phosphatase 82 U/L (38-126) 07/02/24 20:
Troponin I < 0.012 ng/ml 07/02/24 20:
Data Reviewed
-
Diagnostic Radiology: Image Personally Visualized and interpreted and Report Reviewed by me
Ultrasound: Report Reviewed by me
Medical Tests (Nuc Med, Echo, EKG etc): Image Personally Visualized and interpreted
Lab Data: Labs Reviewed by me
Old Records: Reviewed
Impression/Plan
-
IMPRESSION:
Patient with history of bioprosthetic aortic valve, mitral valve repair, CHF with preserved EF, proximal atrial fibrillation who presents to the emergency department in apparent CHF exacerbation in the setting of uncontrolled atrial fibrillation. I
reviewed the outpatient records which showed an echo that has declined from about 50% to 30%. He is rather well-looking on exam without any crackles or ankle edema while sitting in bed. He x-ray shows small bilateral effusions similar to prior.
ECG shows uncontrolled atrial fibrillation at a rate of 134, troponin was negative, BNP was elevated.
PLAN:
Worsening heart failure -well-appearing patient will presents with evidence of worsening heart failure and uncontrolled atrial fibrillation. He is unaware of the atrial fibrillation and we have no idea the duration at this time. Possibly due to
decreasing dose of metoprolol recently. There is concern for uncontrolled atrial fibrillation resulting in further depressed EF. No obvious signs of ischemia on EKG or troponin. Cannot rule out an ischemic component. He is only mildly volume
overloaded and does not need very aggressive diuresis at this time.
- admit to ivu
- patient may benefit from rapid correction of afib with cardioversion
- though on eliquis, npo after midnight incase of possibe MAURICE
- currently on diltiazem gtt with rates in the 120s
- lasix 40mg iv bid for now
- continue his metoprolol which likely should be increased as bp tolerates
- cardiovascular panel in am
- cardiology consult
AFIB
- continue apixaban 5 bid
Code status - full code
[2024-07-03] MEDS: CARDIZEM 125 IV (00:47)
[2024-07-03] MEDS: TYLENOL 650 MG PO (01:41)
[2024-07-03 04:45] LABS: Blood Urea Nitrogen 23 mg/dl (9-20); Calcium 8.8 mg/dl (8.4-10.2); Carbon Dioxide 24 mmol/L (22-30); Chloride 104 mmol/L (98-107); Estimated Creatinine Clearance 100 ml/min; Glucose 101 mg/dl (70-99); Magnesium 2.1 mg/dl (1.6-2.3); Potassium 4.1 mmol/L (3.5-5.1); Sodium 138 mmol/L (135-145); eGFR > 60.00
[2024-07-03 05:22] LABS: TSH Reflex To Free T4 5.65 uIU/ml (0.47-4.68)
--- NOTE | 2024-07-03 05:40 | PTCARENOTE ---
Report received from LIBRA Dillon. Patient received from ED. A fib on the monitor, HR In the 100s. VSS. No complaints of chest pain or shortness of breath. Afebrile. 99% on room air. Cardizem running as per protocol, see documentation. Oriented pt to
room and discussed plan of care, pt verbalizes understanding. No complaints from pt at this time call mora within reach.
[2024-07-03 05:51] LABS: Free T4 1.32 ng/dl (0.78-2.19)
--- NOTE | 2024-07-03 08:00 | PTCARENOTE ---
Assumed care of pt from prev nsg shift; Pt AAOx3 w/no CP or SOB; Pt w/IV Cardizem drip infusing as ordered through patent IV line. Pt's VS stable w/HR 90's-110's & BP 105/76 this AM. Pt is Afib on telemetry monitoring. Pt is NPO at this time for
poss CV. Plan of care ongoing.
--- NOTE | 2024-07-03 08:54 | CON.CAR ---
Consultation
Consultation Request
Date/Time Consultation Requested: 07/03/2024
Date/Time Consultation Performed: 07/03/2024
Requesting Provider: Dr Kilgore
Performing Provider: Dr. Serna
Reason for Consultation: sob
Medical History
-
Chief Complaint: SOB
History of Present Illness:
64 y/o male known to me in the outpatient setting with a recent history of endocarditis s/p radical mitral valve repair and aortic valve replacement (02/06/24) c/b post op Violetta syndrom, PAF on Eliquis, hypertension, PVC's who began to notice
increasing dyspnea on exertion with eventual orthopnea at night, a weight gain from 195 pounds on his home scale to 211 pounds, lower extremity edema and fatigue. He finally discussed his symptoms with erosion control coordinator coverage Dr. Soliman on 07/01/24 and
underwent expedited testing including an ECG showing AF with RVR, CXR with small b/l pleural effusions, and Echo showing new reduction in EF from 50-55% to 30-35%.
He was admitted and started on IV diltiazem drip and given IV Lasix. He has began to put out and feeling slightly better but not improved completely yet.
Past Medical History
Past Medical History: Arrhythmias (PAF on Eliquis), HTN, Valvular Disease and Other (endocarditis, Violetta syndrom post operatively)
Social History
Tobacco: Non-Smoker
Alcohol: Occasional
Personal:
Living: With Family
Family History
Family History: Reviewed & Not Pertinent
Allergies / Home Medications
Allergy/AdvReac Type Severity Reaction Status Date / Time
No Known Allergies Allergy Verified 07/02/24 20:19
�Medication �Instructions �Recorded �Confirmed �Type
apixaban 5 mg tablet (Eliquis) 5 mg PO BID Blood clot 02/16/24 07/02/24 Rx
prevention/tx #60 tabs
furosemide 40 mg tablet (Lasix) 40 mg PO DAILY Weight gain #7 tabs 02/16/24 07/02/24 Rx
acetaminophen 500 mg tablet 1,000 mg PO Q6HPRN PRN mild pain 07/02/24 07/02/24 History
(Tylenol Extra Strength)
metoprolol succinate 25 mg 12.5 mg PO HS 07/02/24 07/02/24 History
tablet,extended release 24 hr
omeprazole 20 mg capsule,delayed 20 mg PO DAILY 07/02/24 07/02/24 History
release
therapeutic multivitamin 1 tab PO DAILY 07/02/24 07/02/24 History
Review of Systems
-
All other systems: Negative unless noted
Physical Exam
Vital Signs
Temp Pulse Resp BP Pulse Ox
97.8 F 89 20 105/76 94
07/03/24 07:01 07/03/24 08:00 07/03/24 07:01 07/03/24 07:03 07/03/24 07:03
Lab Results
07/02/24 20:28
07/03/24 04:05
Troponin I < 0.012 ng/ml 07/02/24 20:28
Rga-D-Iylvynishje Pept 1270 pg/ml 07/02/24 20:28
Physical Exam
General: Well Developed
HEENT: Normocephalic and Moist Mucous Membranes
Respiratory: Clear; Negative Wheezes, Crackles, Rhonchi or Non Labored Respirations
Cardiac: S1/S2, Irregular Rhythm, Murmur (Soft systolic murmur) and Rub; Negative Peripheral Edema
GI: Soft, Non Tender and Non Distended
Musculoskeletal: No Clubbing, No Cyanosis and No Edema
Neuro: AO x 3
Impression / Plan
-
64-year-old gentleman with a past medical history of endocarditis status post AVR and mitral valve repair in January 2024, Violetta syndrome, PAF presents with acute heart failure with newly reduced ejection fraction and persistent atrial fibrillation
HFrEF:
-newly declined EF to 30-35%, some regionality with worse function in the inferior wall
-diff dx: ischemic, Tachymyopathy, seems like an aggressive post op decline when MR was due to acute MR in the setting of endocarditis
-Dry wt is 200lbs at last office visit
-Discussed case with Dr. Mendes will arrange for right and left heart cath this morning.
-GDMT will be initiated
-Start Farxiga 10 mg tomorrow, Aldactone 12.5 mg tomorrow hopefully eventually Entresto.
-CHF team consult
-Case management to assist in pricing of drugs
PAF:
-RVR in the setting of newly declined ef
-would not use Diltiazem in a patient with newly depressed EF--stop
-Initial sinus ECG QTC is 422m/s. Discuss with EP, will start Tikosyn.
This will require intensive monitoring-of telemetry and renal function
-Will need to reassess QTC in sinus too to assess true candidacy.
-Plan for cardioversion on Monday if not already in sinus rhythm
-We will start heparin drip until postcatheterization
History of mitral valve repair: Stable gradients on recent echo
History of aortic valve repair: Normal function on recent echo
History of endocarditis
TTE 07/02/23:
CONCLUSIONS
-LV ejection fraction is 30-35%. Septal dyskinesis and inferior wall severe
hypokinesis/akinesis.
-Normal right ventricular size and function.
-Mitral valve repair with peak/mean gradients of 11/5 mmHg.
-Bioprosthetic aortic valve replacement with peak/mean gradients of 16/8 mmHg.
-Mild to moderate tricuspid regurgitation. Estimated pulmonary artery pressure
of 30-35 mmHg.
Compared to previous echo on 03/06/2024, LVEF has declined (previously 50-55%).
TTE 03/06/24:
Normal left ventricular systolic function.
Left ventricular ejection fraction is 50-55%.
Abnormal (paradoxical) septal motion consistent with postoperative status.
S/p mitral valve repair. No stenosis or regurgitation.
Well-seated, normally functioning bioprosthetic aortic valve.
Left pleural effusion present.
Compared to the prior on 02/08/2024, left pleural effusion now seen.
CXR: IMPRESSION:
There is a small right and trace left pleural effusion with adjacent bibasilar opacities, likely atelectasis. These have decreased in size when compared with prior.
CTA 02/05/24:
CALCIUM SCORE: 30.99 (LM 0, LAD 30.99, LCX 0, RCA 0)
CORONARY ANATOMY:
Left Main (LM): No significant obstructive coronary artery disease seen.
Left Anterior Descending Artery (LAD): Proximal LAD calcified stenosis, suspect less than 50%; however, given image quality and motion artifact, this may be under represented.
Left Circumflex Artery (LCX): No significant coronary artery disease.
Right Coronary Artery (RCA): No significant coronary artery disease.
Dominance: Right.
IMPRESSION:
Proximal LAD calcified stenosis, suspect less than 50%; however, given image quality and motion artifact, this may be under represented.
Data Reviewed
-
EKG: Tracing Personally Visualized and interpreted (EKG 07/02/2024 atrial fibrillation with rapid ventricular response at a rate of 134 with PVC, nonspecific ST-T wave changes, EKG from 07/02/2024 atrial fibrillation with rapid ventricular response with
nonspecific ST-T wave changes.), Discussed with Physician (Dr. Medeiros, new cardiomyopathy with regionality needs cardiac catheterization he will perform right and left heart cath, updated Dr. Kilgore, stopping diltiazem given new cardiomyopathy and
Tikosyn loading. Right and left heart cath today.), Discussed with Nurse (Please hold Eliquis this morning and start heparin drip, starting Tikosyn protocol) and Discussed with Patient (New diagnosis of cardiomyopathy, further workup and evaluation
that is warranted)
Total Time Spent with Patient (in minutes): 95
[2024-07-03] MEDS: FLUSH (NSS) 2 FLUSH IV ×2 (09:44→16:42)
[2024-07-03] MEDS: PROTONIX 40 MG PO (09:44)
[2024-07-03] MEDS: LASIX 40 MG IV ×2 (09:44→16:41)
[2024-07-03] MEDS: ELIQUIS PO (09:45)
--- NOTE | 2024-07-03 10:00 | PTCARENOTE ---
IV Cardizem drip stopped as ordered by Cardiology. Pt for Cardiac Cath today. Reiterated w/pt need to remain NPO for procedure. Pt verbalized his understanding.
[2024-07-03] MEDS: HEPARIN 4000 UNITS IV (10:51)
[2024-07-03] MEDS: TIKOSYN 500 MCG PO ×2 (10:51→21:57)
[2024-07-03] MEDS: HEPARIN 25000 UNITS/250 ML IV (10:52)
[2024-07-03] MEDS: FLUSH (NSS) 1 FLUSH IV (10:53)
--- NOTE | 2024-07-03 11:05 | PTCARENOTE ---
PTT level obtained & IV Heparin bolus & drip administered as ordered through patent IV line. Discussed plan of care w/pt & answered pt's questions re: cardiac cath. plan of care ongoing.
[2024-07-03 11:11] LABS: Hematocrit 45.6 % (39.0-52.0); Hemoglobin 14.9 g/dL (13.0-18.0); Mean Corp Hgb Conc. 32.7 g/dL (33.0-37.0); Mean Corpuscular Hgb 29.9 pg (27.0-31.0); Mean Corpuscular Volume 91.6 fL (80.0-94.0); Platelet Count 246 10^3/uL (130-400); Red Blood Cell Count 4.98 10^6/uL (4.70-6.10); Red Cell Dist. Width 12.4 % (11.5-14.5); White Blood Cell Count 9.9 10^3/uL (4.8-10.8)
[2024-07-03 11:13] LABS: APTT 40.8 Sec (23.4-35.0)
--- NOTE | 2024-07-03 11:43 | CM ---
Priced the following medications per MD order thru [facility], .
Estimated cost of medications are as follows:
Entresto- $168.80/mo
Jardiance- $154.43/mo
Farxiga- $154.43/mo
Pt. has Medicare RX plan and therefore would only qualify for free 30 d coupon.
TT to Cardiology MD to notify.
--- NOTE | 2024-07-03 11:45 | PTCARENOTE ---
Report given to Rachelle in Cardiac laboratory equipment cleaner; Heparin IV drip held & pt taken to laboratory equipment cleaner in his bed.
--- NOTE | 2024-07-03 13:25 | ITS.CL.CATH ---
[facility] - Catheterization
Cardiac Catheterization
Procedure Report:
CARDIAC CATHETERIZATION REPORT
Date of Procedure: 07/03/2024
Referring: Lilly Serna M.D.
Indication: History of aortic valve replacement, mitral valve repair (infectious endocarditis), new cardiomyopathy and atrial fibrillation.
PROCEDURE:
1. Right heart catheterization.
2. Coronary angiography.
3. Left heart catheterization.
4. Aortic valve interrogation.
5. Left ventriculography.
6. Mitral valve interrogation.
A total of 0 minutes of procedural/moderate sedation was utilized. An independent medical case manager was present to assist with and help manage the patient's level of consciousness and physiologic status.
ACCESS:
1. 6 [place] right radial artery using a modified Seldinger technique.
2. 5 [place] right antecubital vein using a modified Seldinger technique under ultrasound guidance. Ultrasound image obtained.
CATHETERS:
1. 5 [place] balloon wedge.
2. 5 [place] JR4.
3. 5 [place] JL 3.5.
4. 6 [place] Bull dual-lumen pigtail.
HEMODYNAMIC DATA
Weight (kg): 93.2
AO (s/d/x mmHg): 85/59/71
LV (s/x mmHg): 97/10
PCWP (a/v/x mmHg): 21/18/15
PA (s/d/x mmHg): 28/16/20
RV (s/x mmHg): 30/9
RA (a/v/x mmHg): 13/12/9
SVC SvO2 (%): 60.8
IVC SvO2 (%): Not obtained.
RA SvO2 (%): Not obtained.
RV SvO2 (%): Not obtained.
PA SvO2 (%): 62.8
SaO2 (%): 87.1
Hbg (g/dL): 13.9
PINKY
CO (L/min): 6.10
CI (L/min/m2): 2.83
Thermodilution
CO (L/min): Not obtained.
CI (L/min/m2): Not obtained.
TPG (mmHg): 5
PVR (Slater Units): 0.82
SVR (dynes*seconds*cm^-5): 813
AVO2 Diff (Volume %): 4.59
AV gradient (x, mmHg): 7.20
AV area (cm2): 2.63
MV gradient (x, mmHg): 5.01
MV area (cm2): 3.29
LEFT VENTRICULOGRAPHY: Dilated left ventricle with mild global hypokinesis and moderately depressed systolic function. LV ejection fraction estimated at 35%. There is no regional wall motion abnormality. Status post mitral valve repair with no
evidence of mitral valve regurgitation. Status post bioprosthetic SAVR with no evidence of aortic valve insufficiency. A left atrial appendage clip is in place.
AORTOGRAPHY: Not performed.
CORONARY ANGIOGRAPHY
Dominance: Right.
Left Main: Normal size, bifurcating vessel. There is no coronary artery disease.
LAD: Large size vessel giving rise to 2 diagonals before wrapping around the apex. There is no coronary artery disease.
Ramus: Congenitally absent.
Circumflex: Large size, nondominant vessel giving rise to 1 obtuse marginal before terminating as a large left posterolateral branch. There is no coronary artery disease.
RCA: Normal size, dominant vessel. There is no coronary artery disease.
INTERVENTIONS
None.
Closure Device: Vascular band for the right radial artery, manual pressure for the right antecubital vein.
Radiation dose (mGy): 381.60
DAP (cm2.Gy): 25.5244
Fluoroscopy time (minutes): 3.2
CONCLUSIONS:
1. Right dominant circulation with no coronary artery disease.
2. Status post bioprosthetic surgical aortic valve replacement with appropriate gradient (mean gradient = 7.2 mmHg, EVETTE = 2.63 cm�) and no evidence of insufficiency.
3. Status post mitral valve repair with appropriate gradient (mean gradient = 5.01 mmHg, MVA = 3.29 cm�) and no evidence of insufficiency.
4. Global hypokinesis with moderate reduction in systolic function. LV ejection fraction estimated at 35%.
5. Status post left atrial appendage occlusion.
6. Normal filling pressures (LVEDP = 10 mmHg, PCWP = 15 mmHg at 93.2 kg).
RECOMMENDATIONS:
1. Expectant management after cardiac catheterization via right radial/antecubital approach.
2. Limited weight bearing on the right wrist for one week.
3. Guideline directed medical therapy as hemodynamically tolerated.
4. The patient would likely benefit from alevism of sinus rhythm.
Copy to: Lilly Serna M.D., Brandan Balderrama M.D.
Jack Medeiros DO, FACC, FACP
--- NOTE | 2024-07-03 13:53 | W.PN.HOSP.TC ---
Today's Communication/Plan
-
Follow-up LHC/RHC
Tikosyn load per cardiology
Monitor QTc
IV Lasix BID
Assessment / Plan
Assessment / Plan
#Acute HFrEF
-Differentials include tachycardia induced cardiomyopathy versus ischemic disease
-History of HFpEF, TTE here showed LVEF 30% and possible new WMA
-Initially on diltiazem drip; discontinued as C/I with HFrEF; started on rhythm control for AF
-Started on to IV Lasix twice daily upon admission, adequate diuresis since
-Cardiology planning for C/RH to further assess
-Appears warm and wet phenotype
Plan
-Continue with IV Lasix twice daily, monitor I's/O's and weights, BMP
-Continue with beta-kyra for GDMT
-Consider ACEi v. SGLT2i
-Follow-up C/RHC
-Telemetry
#AF with RVR
-Home medications include metoprolol and Eliquis; metoprolol dose recently reduced
-Initially on diltiazem drip; has been discontinued and started on Tikosyn load by cardiology
-Remains tachycardic though heart rate seems improved since admission
-Planning possible DCCV; Eliquis held and currently on IV heparin drip
Plan
-Continue home beta-kyra and Tikosyn load
-Continue IV heparin drip for anticoagulant
-Consider DCCV versus PVI ablation
-Telemetry, trend QTc on ECG
#S/p bioprosthetic AVR
#S/p MVR
#H/O MSSA endocarditis
-Hospitalized in January for endocarditis, required both valves replaced
-On exam valves seem to be functioning adequately
#H/O daily EtOH
DVT prophylaxis: Heparin drip
Diet: N.p.o. pending cath
CODE STATUS: Full code
Disposition: Home
Anticipated Discharge: > 48 hours
Subjective/Interval History
-
Date of Service: July 03, 2024
Seen and examined at the bedside. No acute events since admission. AFVSS at time of my eval, heart rate near 100/min
Labs stable. Spoke with cardiology who is planning to perform LHC and RHC today
He denies any acute complaints. Denies palpitations, chest pain, lightheadedness, dyspnea
Objective Data
-
Labs:
Laboratory Results
07/03/24 07/03/24
04:05 10:41
WBC 9.9
Hgb 14.9
Hct 45.6
Plt Count 246
APTT 40.8 H
Sodium 138
Potassium 4.1
Chloride 104
Carbon Dioxide 24
BUN 23 H
Creatinine 0.8
Glucose 101 H
Calcium 8.8
Vital Signs:
Vital Signs
Temp Pulse Resp BP Pulse Ox
97.8 F 113 20 114/80 95
07/03/24 07:01 07/03/24 13:16 07/03/24 07:01 07/03/24 13:16 07/03/24 13:16
Review of Systems
-
History Source: Patient
All other systems: Reviewed and negative
Physical Exam
-
General: Well Developed, Well Nourished, No Apparent Distress and Comfortable
HEENT: Normocephalic, Atraumatic and Moist Mucous Membranes
Respiratory: Clear to Auscultation and Non Labored Respirations
Cardiac: Regular Rhythm, S1/S2 and Murmur; Negative Rub, JVD or Gallop
GI: Soft, Nontender, Nondistended and Normal Bowel Sounds
Musculoskeletal: No Clubbing, No Cyanosis and No Edema
Skin: Warm, Dry and Normal Turgor; Negative Rash
Neuro: AO x 3 and Nonfocal/Grossly Intact
Psych: Calm
Data Reviewed
-
Medical Tests (Nuc Med, Echo etc): Report Reviewed by me and Discussed with Physician ([employer]obile Body Customizer)
Labs: Labs Reviewed by me and Discussed with Patient
--- NOTE | 2024-07-03 14:55 | CM ---
CM following for DC planning needs.
Met w/ patient at bedside to complete initial assessment.
Pt. indicates that he resides in a [address]. home w/ spouse. He is functionally indep. w/ ADLs, mobility without the use of any assisted device.
Pt. has history of In[facility] Home thru [facility]; not current.
Reviewed estimated cost of medications: Entresto, Farxiga and Jardiance. Pt. is already paying approximately $100+/mo for Eliquis and adding another medication at this kenny point will be too cost prohibitive.
Pt. is anticipating the need for Tikosyn. We discussed that I will ensure stock at his pharmacy and we will give a x3 d supply upon DC.
Will cont. to follow.
Antic. home, no needs.
[2024-07-03] MEDS: ELIQUIS 5 MG PO (20:22)
--- NOTE | 2024-07-03 21:35 | PTCARENOTE ---
Received patient at change of shift. Patient sitting in bed, awake, alert and oriented. Right radial site clean, dry, and intact; soft, no hematoma or ecchymosis. Right brachial site clean, dry, and intact; soft, no hematoma, little ecchymosis. BP
125/78, NSR 80s, 96% on room air. Discussed plan for next Tikosyn dose and EKG to follow. Patient verbalized understanding. Call mora within reach.
[2024-07-03] MEDS: TOPROL XL 12.5 MG PO (21:57)
[2024-07-04] VITALS (7 sets, daily range): BP systolic 106–144; BP diastolic 63–89; BMI 27.5
--- NOTE | 2024-07-04 00:10 | PTCARENOTE ---
Second EKG performed. QTc 531. Discussed with YONATHAN Sharp PA. Magnesium lab and repeat EKG added for morning. Hold on morning Tikosyn dose to determine if needs to be lowered prior to next dose.
[2024-07-04 05:54] LABS: % Basophils 0.8 % (0-2); % Eosinophils 1.5 % (0-6); % Immature Granulocytes 0.3 % (0-0.5); % Lymphocytes 16.8 % (20.5-51.1); % Monocytes 14.8 % (1.7-9.3); % Neutrophils 65.8 % (42.2-75.2); Absolute Basophils 0.1 10^3/uL (0-0.2); Absolute Eosinophils 0.2 10^3/uL (0-0.7); Absolute Lymphocytes 1.8 10^3/uL (1.2-3.4); Absolute Monocytes 1.6 10^3/uL (0.1-0.6); Absolute Neutrophils 7.1 10^3/uL (1.4-6.5); Hematocrit 40.3 % (39.0-52.0); Hemoglobin 13.1 g/dL (13.0-18.0); Mean Corp Hgb Conc. 32.5 g/dL (33.0-37.0); Mean Corpuscular Hgb 30.3 pg (27.0-31.0); Mean Corpuscular Volume 93.3 fL (80.0-94.0); Mean Platelet Volume 9.9 fL (7.4-10.4); Nucleated Red Blood Cells % 0 % (-); Platelet Count 230 10^3/uL (130-400); Red Blood Cell Count 4.32 10^6/uL (4.70-6.10); Red Cell Dist. Width 12.3 % (11.5-14.5); White Blood Cell Count 10.8 10^3/uL (4.8-10.8)
[2024-07-04 06:14] LABS: Blood Urea Nitrogen 23 mg/dl (9-20); Calcium 8.8 mg/dl (8.4-10.2); Carbon Dioxide 29 mmol/L (22-30); Chloride 103 mmol/L (98-107); Estimated Creatinine Clearance 80 ml/min; Glucose 110 mg/dl (70-99); Magnesium 2.2 mg/dl (1.6-2.3); Potassium 4.2 mmol/L (3.5-5.1); Sodium 139 mmol/L (135-145); eGFR > 60.00
--- NOTE | 2024-07-04 07:50 | W.PN.CD ---
Today's Communication / Plan
-
decrease Tikosyn 250mg BID
continue eliquis
start farxiga and aldactone
d/c planning
Impression / Plan
-
64-year-old gentleman with a past medical history of endocarditis status post AVR and mitral valve repair in January 2024, Violetta syndrome, PAF presents with acute heart failure with newly reduced ejection fraction and persistent atrial fibrillation
HFrEF:
-newly declined EF to 30-35%, some regionality with worse function in the inferior wall
-diff dx: ischemic, Tachymyopathy, seems like an aggressive post op decline when MR was due to acute MR in the setting of endocarditis
-Dry at 93.2 kg on RHC.
-Will stop lasix today. Will start low dose farxiga and aldactone.
- hopefully eventually Entresto.
-CHF team consult
-Case management to assist in pricing of drugs
PAF:
-RVR in the setting of newly declined ef--> Back in Sinus
-would not use Diltiazem in a patient with newly depressed EF--stop
-Initial sinus ECG QTC is 422m/s. QTC now 499m/s on my manual measurement.
-Decrease Tikosyn to 250mcg BID and continue to monitor
-ultimately would pursue PVI
History of mitral valve repair: Stable gradients on recent echo
History of aortic valve repair: Normal function on recent echo
History of endocarditis
Subjective:
He is feeling very well, a lot better.
Cath: 07/04/24:
Weight (kg):93.2
AO (s/d/x mmHg): 85/59/71
LV (s/x mmHg): 97/10
PCWP (a/v/x mmHg): /15
PA (s/d/x mmHg): /
RV (s/x mmHg): 30/9
RA (a/v/x mmHg):
SVC SvO2 (%):60.8
IVC SvO2 (%):Not obtained.
RA SvO2 (%):Not obtained.
RV SvO2 (%):Not obtained.
PA SvO2 (%):62.8
SaO2 (%):87.1
Hbg (g/dL):13.9
-
PINKY
CO (L/min): 6.10
CI (L/min/m2): 2.83
-
TPG (mmHg): 5
PVR (Slater Units): 0.82
SVR (dynes*seconds*cm^-5): 813
AVO2 Diff (Volume %): 4.59
CONCLUSIONS:
1. Right dominant circulation with no coronary artery disease.
2. Status post bioprosthetic surgical aortic valve replacement with appropriate gradient (mean gradient = 7.2 mmHg, EVETTE = 2.63 cm�) and no evidence of insufficiency.
3. Status post mitral valve repair with appropriate gradient (mean gradient = 5.01 mmHg, MVA = 3.29 cm�) and no evidence of insufficiency.
4. Global hypokinesis with moderate reduction in systolic function. LV ejection fraction estimated at 35%.
5. Status post left atrial appendage occlusion.
6. Normal filling pressures (LVEDP = 10 mmHg, PCWP = 15 mmHg at 93.2 kg).
RECOMMENDATIONS:
1. Expectant management after cardiac catheterization via right radial/antecubital approach.
2. Limited weight bearing on the right wrist for one week.
3. Guideline directed medical therapy as hemodynamically tolerated.
4. The patient would likely benefit from jain of sinus rhythm.
TTE 07/02/23:
CONCLUSIONS
-LV ejection fraction is 30-35%. Septal dyskinesis and inferior wall severe
hypokinesis/akinesis.
-Normal right ventricular size and function.
-Mitral valve repair with peak/mean gradients of 11/5 mmHg.
-Bioprosthetic aortic valve replacement with peak/mean gradients of 16/8 mmHg.
-Mild to moderate tricuspid regurgitation. Estimated pulmonary artery pressure
of 30-35 mmHg.
Compared to previous echo on 03/06/2024, LVEF has declined (previously 50-55%).
TTE 03/06/24:
Normal left ventricular systolic function.
Left ventricular ejection fraction is 50-55%.
Abnormal (paradoxical) septal motion consistent with postoperative status.
S/p mitral valve repair. No stenosis or regurgitation.
Well-seated, normally functioning bioprosthetic aortic valve.
Left pleural effusion present.
Compared to the prior on 02/08/2024, left pleural effusion now seen.
CXR: IMPRESSION:
There is a small right and trace left pleural effusion with adjacent bibasilar opacities, likely atelectasis. These have decreased in size when compared with prior.
CTA 02/05/24:
CALCIUM SCORE: 30.99 (LM 0, LAD 30.99, LCX 0, RCA 0)
CORONARY ANATOMY:
Left Main (LM): No significant obstructive coronary artery disease seen.
Left Anterior Descending Artery (LAD): Proximal LAD calcified stenosis, suspect less than 50%; however, given image quality and motion artifact, this may be under represented.
Left Circumflex Artery (LCX): No significant coronary artery disease.
Right Coronary Artery (RCA): No significant coronary artery disease.
Dominance: Right.
IMPRESSION:
Proximal LAD calcified stenosis, suspect less than 50%; however, given image quality and motion artifact, this may be under represented.
Physical Exam
Vital Signs/Labs
Vital Signs
Temp Pulse Resp BP Pulse Ox
98 F 77 20 120/68 96
07/04/24 07:01 07/04/24 05:30 07/04/24 07:01 07/04/24 05:13 07/04/24 07:01
07/03/24 07/04/24 07/05/24
06:59 06:59 06:59
Actual Weight 93.2 kg
07/04/24 05:22
07/04/24 05:22
PT 15.3 Sec (11.4-14.6) H 07/02/24 20:27
INR 1.18 07/02/24 20:27
APTT 40.8 Sec (23.4-35.0) H 07/03/24 10:41
Magnesium 2.2 mg/dl (1.6-2.3) 07/04/24 05:22
Free T4 1.32 ng/dl (0.78-2.19) 07/03/24 04:05
07/02/24
20:28
Ilb-C-Enzuildqfts Pept 1270
LAB Results
07/02/24
20:28
Troponin I < 0.012
Physical Exam
Constitutional: No acute distress
Cardiovascular: Rhythm & rate is regular, Pedal edema is absent, JVD pressure is normal, Systolic murmur absent and Diastolic murmur absent
Respiratory: Respiratory effort normal, Lungs clear to auscul., Wheeze Absent, Crackles Absent and Rhonchi Absent
Neuro/Psych: AO x 3
Other: Cath Site (slight ooze to the right radial artery site, redressed--CDI)
Data Reviewed
-
Date of Service: July 04, 2024
Medical Decision Making: Test Interpretation (tele with nsr since 1:29 pm 07/03/24. now sinus with pvcs)
EKG: Tracing Personally Visualized and interpreted (sinus, qtc 499m/s)
[2024-07-04] MEDS: ELIQUIS 5 MG PO ×2 (08:48→20:02)
[2024-07-04] MEDS: FARXIGA 10 MG PO (08:48)
[2024-07-04] MEDS: TIKOSYN 250 MCG PO ×2 (08:48→20:02)
[2024-07-04] MEDS: ALDACTONE 12.5 MG PO (08:49)
[2024-07-04] MEDS: PROTONIX 40 MG PO (08:49)
--- NOTE | 2024-07-04 13:37 | W.PN.HOSP.TC ---
Today's Communication/Plan
-
Continue dofetilide, now 250 mcg
Monitor QTc
Possible discharge tomorrow evening
Assessment / Plan
Assessment / Plan
#Acute HFrEF
-Likely tachycardia induced cardiomyopathy; negative LHC yesterday
-History of HFpEF, TTE here showed LVEF 30% and possible new WMA
-Initially on diltiazem drip; discontinued as C/I with HFrEF; started on rhythm control for AF
-Started on GDMT with beta-kyra, SGLT2i, MRA; status post IV Lasix
-RHC without significant elevation in pressures, cardiac output adequate
-Continue to monitor volume status, may need oral Lasix as maintenance
#AF with RVR
-Home medications include metoprolol and Eliquis; metoprolol dose recently reduced
-Initially on diltiazem drip; has been discontinued and started on Tikosyn load by cardiology
-Remains tachycardic though heart rate seems improved since admission
-Has since spontaneously cardioverted back to NSR on dofetilide
-Most recent QTc <500, Tikosyn dose was reduced by cardiology
-Continue Tikosyn and monitor QTc, last dose of load evening 07/05
#S/p bioprosthetic AVR
#S/p MVR
#H/O MSSA endocarditis
-Hospitalized in January for endocarditis, required both valves replaced
-On exam valves seem to be functioning adequately
#H/O daily EtOH
DVT prophylaxis: Heparin drip
Diet: N.p.o. pending cath
CODE STATUS: Full code
Disposition: Home
Anticipated Discharge: Within 24 hours
Subjective/Interval History
-
Date of Service: July 04, 2024
Seen and examined while seated in the chair. No acute events reported overnight. AFVSS this morning, now in NSR
States he is feeling well, says that he could tell when he converted from atrial fibrillation to sinus rhythm
Denies any acute complaints
Objective Data
-
Labs:
Laboratory Results
07/04/24
05:22
WBC 10.8
Hgb 13.1
Hct 40.3
Plt Count 230
Sodium 139
Potassium 4.2
Chloride 103
Carbon Dioxide 29
BUN 23 H
Creatinine 1.0
Glucose 110 H
Calcium 8.8
Vital Signs:
Vital Signs
Temp Pulse Resp BP Pulse Ox
98.2 F 82 20 117/73 100
07/04/24 11:39 07/04/24 12:00 07/04/24 11:39 07/04/24 11:38 07/04/24 11:39
I&O
07/03/24 07/04/24 07/05/24
06:59 06:59 06:59
Intake Total 1220 / 1220 120 / 120
Output Total 300 / 300
Balance 920 / 920 120 / 120
Review of Systems
-
History Source: Patient
All other systems: Reviewed and negative
Physical Exam
-
General: Well Developed, Well Nourished, No Apparent Distress and Comfortable
HEENT: Normocephalic, Atraumatic, Moist Mucous Membranes and Anicteric
Respiratory: Clear to Auscultation and Non Labored Respirations
Cardiac: Regular Rhythm, S1/S2 and Murmur; Negative Rub, JVD or Gallop
GI: Soft, Nontender, Nondistended and Normal Bowel Sounds
Musculoskeletal: No Clubbing, No Cyanosis, No Edema and Normal Gait & Station
Skin: Warm, Dry and Normal Turgor; Negative Rash
Neuro: AO x 3 and Nonfocal/Grossly Intact
Psych: Calm
Data Reviewed
-
Labs: Labs Reviewed by me, Discussed with Physician (Furniture Arranger) and Discussed with Patient
--- NOTE | 2024-07-04 19:19 | PTCARENOTE ---
Pt denies any discomfort, able to work from his bedside. Telemetry shows sinus rhythm with borderline first degree AV block, frequent PVC's. Dose #3 of tikosyn given with acceptable QTc measurement.
[2024-07-04] MEDS: TOPROL XL 12.5 MG PO (22:13)
--- NOTE | 2024-07-04 23:52 | PTCARENOTE ---
Received patient at change of shift. Patient ambulating around room, oriented x3. BP 134/79, NSR w/ 1st degree and PVCs 90s-100s, 96% on room air. Patient showered. Discussed PVCs and why Tikyson loading is done in the hospital. Discussed plan of
care for evening. Patient verbalized understanding.
[2024-07-05] VITALS (8 sets, daily range): BP systolic 127–155; BP diastolic 71–90; BMI 27.8
[2024-07-05 06:06] LABS: Blood Urea Nitrogen 20 mg/dl (9-20); Calcium 8.9 mg/dl (8.4-10.2); Carbon Dioxide 27 mmol/L (22-30); Chloride 104 mmol/L (98-107); Estimated Creatinine Clearance 89 ml/min; Glucose 100 mg/dl (70-99); Magnesium 2.1 mg/dl (1.6-2.3); Potassium 4.6 mmol/L (3.5-5.1); Sodium 139 mmol/L (135-145); eGFR > 60.00
[2024-07-05] MEDS: ALDACTONE 12.5 MG PO (08:43)
[2024-07-05] MEDS: TIKOSYN 250 MCG PO ×2 (08:43→20:11)
[2024-07-05] MEDS: FARXIGA 10 MG PO (08:43)
[2024-07-05] MEDS: PROTONIX 40 MG PO (08:43)
[2024-07-05] MEDS: ELIQUIS 5 MG PO ×2 (08:44→20:11)
--- NOTE | 2024-07-05 08:51 | W.PN.CD ---
Today's Communication / Plan
-
Respiratory status appears stable. Patient appears euvolemic on exam
Will continue to optimize GDMT. Reviewing timing of Entresto or ARB with Dr. Serna
I will continue to monitor ECGs on Tikosyn 250 twice daily.
Possible discharge in 24 hours
Impression / Plan
-
64-year-old gentleman with a past medical history of endocarditis status post AVR and mitral valve repair in January 2024, Violetta syndrome, PAF presents with acute heart failure with newly reduced ejection fraction and persistent atrial fibrillation
HFrEF:
-newly declined EF to 30-35%, some regionality with worse function in the inferior wall
-diff dx: ischemic, Tachymyopathy, seems like an aggressive post op decline when MR was due to acute MR in the setting of endocarditis
-Dry at 93.2 kg on RHC.
-Lasix has been discontinued and patient is now on Farxiga and Aldactone
- hopefully eventually Entresto.
-CHF team consult
-Case management to assist in pricing of drugs
PAF:
-RVR in the setting of newly declined ef--> Back in Sinus
-would not use Diltiazem in a patient with newly depressed EF--stop
-Initial sinus ECG QTC is 422m/s. QTC now 499m/s on my manual measurement.
-Tikosyn dose was reduced to 250 mcg twice daily. Continue to monitor ECGs
-ultimately Dr. Serna's plan is to ursue PVI
History of mitral valve repair: Stable gradients on recent echo
History of aortic valve repair: Normal function on recent echo
History of endocarditis
Subjective:
He is feeling very well, a lot better.
Cath: 07/04/24:
Weight (kg):93.2
AO (s/d/x mmHg): 85/59/71
LV (s/x mmHg): 97/10
PCWP (a/v/x mmHg): /
PA (s/d/x mmHg):
RV (s/x mmHg): 25/03
RA (a/v/x mmHg):
SVC SvO2 (%):60.8
IVC SvO2 (%):Not obtained.
RA SvO2 (%):Not obtained.
RV SvO2 (%):Not obtained.
PA SvO2 (%):62.8
SaO2 (%):87.1
Hbg (g/dL):13.9
-
PINKY
CO (L/min): 6.10
CI (L/min/m2): 2.83
-
TPG (mmHg): 5
PVR (Slater Units): 0.82
SVR (dynes*seconds*cm^-5): 813
AVO2 Diff (Volume %): 4.59
CONCLUSIONS:
1. Right dominant circulation with no coronary artery disease.
2. Status post bioprosthetic surgical aortic valve replacement with appropriate gradient (mean gradient = 7.2 mmHg, EVETTE = 2.63 cm�) and no evidence of insufficiency.
3. Status post mitral valve repair with appropriate gradient (mean gradient = 5.01 mmHg, MVA = 3.29 cm�) and no evidence of insufficiency.
4. Global hypokinesis with moderate reduction in systolic function. LV ejection fraction estimated at 35%.
5. Status post left atrial appendage occlusion.
6. Normal filling pressures (LVEDP = 10 mmHg, PCWP = 15 mmHg at 93.2 kg).
RECOMMENDATIONS:
1. Expectant management after cardiac catheterization via right radial/antecubital approach.
2. Limited weight bearing on the right wrist for one week.
3. Guideline directed medical therapy as hemodynamically tolerated.
4. The patient would likely benefit from christianity of sinus rhythm.
TTE 07/02/23:
CONCLUSIONS
-LV ejection fraction is 30-35%. Septal dyskinesis and inferior wall severe
hypokinesis/akinesis.
-Normal right ventricular size and function.
-Mitral valve repair with peak/mean gradients of 11/5 mmHg.
-Bioprosthetic aortic valve replacement with peak/mean gradients of 16/8 mmHg.
-Mild to moderate tricuspid regurgitation. Estimated pulmonary artery pressure
of 30-35 mmHg.
Compared to previous echo on 03/06/2024, LVEF has declined (previously 50-55%).
TTE 03/06/24:
Normal left ventricular systolic function.
Left ventricular ejection fraction is 50-55%.
Abnormal (paradoxical) septal motion consistent with postoperative status.
S/p mitral valve repair. No stenosis or regurgitation.
Well-seated, normally functioning bioprosthetic aortic valve.
Left pleural effusion present.
Compared to the prior on 02/08/2024, left pleural effusion now seen.
CXR: IMPRESSION:
There is a small right and trace left pleural effusion with adjacent bibasilar opacities, likely atelectasis. These have decreased in size when compared with prior.
CTA 02/05/24:
CALCIUM SCORE: 30.99 (LM 0, LAD 30.99, LCX 0, RCA 0)
CORONARY ANATOMY:
Left Main (LM): No significant obstructive coronary artery disease seen.
Left Anterior Descending Artery (LAD): Proximal LAD calcified stenosis, suspect less than 50%; however, given image quality and motion artifact, this may be under represented.
Left Circumflex Artery (LCX): No significant coronary artery disease.
Right Coronary Artery (RCA): No significant coronary artery disease.
Dominance: Right.
IMPRESSION:
Proximal LAD calcified stenosis, suspect less than 50%; however, given image quality and motion artifact, this may be under represented.
Physical Exam
Vital Signs/Labs
Vital Signs
Temp Pulse Resp BP Pulse Ox
97.9 F 75 20 127/82 98
01/10/25 07:00 07/05/24 08:30 07/05/24 07:00 07/05/24 07:42 07/05/24 07:00
07/04/24 07/05/24 07/06/24
06:59 06:59 06:59
Actual Weight 92.9 kg
07/04/24 05:22
07/05/24 05:29
PT 15.3 Sec (11.4-14.6) H 07/02/24 20:27
INR 1.18 07/02/24 20:27
APTT 40.8 Sec (23.4-35.0) H 07/03/24 10:41
Magnesium 2.1 mg/dl (1.6-2.3) 07/05/24 05:29
Free T4 1.32 ng/dl (0.78-2.19) 07/03/24 04:05
07/02/24
20:28
Hfj-A-Mivulykeexn Pept 1270
LAB Results
07/02/24
20:28
Troponin I < 0.012
Physical Exam
Constitutional: No acute distress
Cardiovascular: Rhythm & rate is regular
Respiratory: Respiratory effort normal
GI: Soft
Neuro/Psych: Alert
Data Reviewed
-
Date of Service: July 05, 2024
Medical Decision Making: Reviewed Test Results
Echo: Report Reviewed by me
Medical Tests (PFT, Pathology etc): Report Reviewed by me
Labs: Labs Reviewed by me
--- NOTE | 2024-07-05 11:04 | W.PN.HOSP.TC ---
Today's Communication/Plan
-
Follow-up 10 PM ECG
Possible discharge after if patient desires
Assessment / Plan
Assessment / Plan
#Acute HFrEF
-Likely tachycardia induced cardiomyopathy; negative LHC yesterday
-History of HFpEF, TTE here showed LVEF 30% and possible new WMA
-Initially on diltiazem drip; discontinued as C/I with HFrEF; started on rhythm control for AF
-Started on GDMT with beta-kyra, SGLT2i, MRA; status post IV Lasix
-RHC without significant elevation in pressures, cardiac output adequate
-Remains euvolemic, volume status maintained on SGLT2 and MRA
-Will hold off on oral Lasix at DC, give direction to monitor home weights
#AF with RVR
-Home medications include metoprolol and Eliquis; metoprolol dose recently reduced
-Initially on diltiazem drip; has been discontinued and started on Tikosyn load by cardiology
-Remains tachycardic though heart rate seems improved since admission
-Has since spontaneously cardioverted back to NSR on dofetilide
-Most recent QTc <500, Tikosyn dose was reduced by cardiology to 250 mcg
-Continue Tikosyn and monitor QTc, last dose of load evening 07/05
#S/p bioprosthetic AVR
#S/p MVR
#H/O MSSA endocarditis
-Hospitalized in January for endocarditis, required both valves replaced
-On exam valves seem to be functioning adequately
#H/O daily EtOH
DVT prophylaxis: Eliquis
Diet: Regular
CODE STATUS: Full code
Disposition: Home
Anticipated Discharge: Within 24 hours
Subjective/Interval History
-
Date of Service: July 05, 2024
Seen and examined at bedside. No acute events reported overnight. AFVSS this morning, remains in NSR
Rhythm strip with occasional PVCs though otherwise normal rhythm.
Denies acute complaints today. States he may want to go after his 10 PM ECG if QTc remains within goal range, discharge order will be placed in the event that his ECG is stable and he has desire to go tonight
Objective Data
-
Labs:
Laboratory Results
07/05/24
05:29
Sodium 139
Potassium 4.6
Chloride 104
Carbon Dioxide 27
BUN 20
Creatinine 0.9
Glucose 100 H
Calcium 8.9
Vital Signs:
Vital Signs
Temp Pulse Resp BP Pulse Ox
97.9 F 75 20 127/82 96
07/05/24 07:00 07/05/24 08:30 07/05/24 07:00 07/05/24 07:42 07/05/24 08:48
I&O
07/04/24 07/05/24 07/06/24
06:59 06:59 06:59
Intake Total 1220 / 1220 120 / 120
Output Total 300 / 300
Balance 920 / 920 120 / 120
Review of Systems
-
History Source: Patient
All other systems: Reviewed and negative
Physical Exam
-
General: Well Developed, Well Nourished, No Apparent Distress and Comfortable
HEENT: Normocephalic, Atraumatic, Moist Mucous Membranes and Anicteric
Respiratory: Clear to Auscultation and Non Labored Respirations
Cardiac: Regular Rhythm, S1/S2 and Murmur; Negative Rub or Gallop
GI: Soft, Nontender, Nondistended and Normal Bowel Sounds
Musculoskeletal: No Clubbing, No Cyanosis and No Edema
Skin: Warm, Dry and Normal Turgor; Negative Rash
Neuro: AO x 3 and Nonfocal/Grossly Intact
Psych: Calm
Data Reviewed
-
Labs: Labs Reviewed by me and Discussed with Patient
--- NOTE | 2024-07-05 11:49 | CM ---
CM following for DC planning needs.
Met w/ patient at bedside. We reviewed that upon DC, he will be given a 3d supply of Tikosyn 250 mcg. Call to patient's pharmacy, they do have Dofetilide 250 mcg in stock.
I had previously priced Entresto, Jardiance and Farxiga. Pt. made aware of estimated co payment. He is agreeable to cost if medication is indicated; 'what choice do I have?' I have placed free 30 d coupons in patient's chart for use.
Plan is for home without needs.
Will remain avail.
[2024-07-05] MEDS: DIOVAN 40 MG PO ×2 (13:54→20:11)
--- NOTE | 2024-07-05 19:55 | PTCARENOTE ---
Pt denies any discomfort. Telemetry shows sinus rhythm with first degree AV block, PVC's >17/minute. Dose #5 of Tikosyn given, valsartan started.
[2024-07-05] MEDS: TOPROL XL 12.5 MG PO (22:14)
--- NOTE | 2024-07-06 00:03 | PTCARENOTE ---
Received patient at change of shift. Patient sitting in chair, A&O x3. Right radial site CARLOS ENRIQUE. Right brachial site CARLOS ENRIQUE-- 1cm tender and firm area around puncture. BP 136/78, NSR w/ first degree 80s-90s, 96% on room air. Discussed plan of care, new
medications. Patient verbalized understanding. Call mora within reach.
[2024-07-06 04:42] VITALS: BP 139/81
[2024-07-06 04:49] VITALS: BMI 27.8
[2024-07-06] MEDS: PROTONIX 40 MG PO (08:31)
[2024-07-06] MEDS: DIOVAN 40 MG PO (08:31)
[2024-07-06] MEDS: TIKOSYN 250 MCG PO (08:31)
[2024-07-06] MEDS: FARXIGA 10 MG PO (08:31)
[2024-07-06 08:33] VITALS: BP 138/82
[2024-07-06] MEDS: ALDACTONE 12.5 MG PO (08:34)
[2024-07-06] MEDS: ELIQUIS 5 MG PO (08:34)
--- NOTE | 2024-07-06 10:24 | W.PN.CD ---
Addendum entered and electronically signed by Roger Vargas MD 07/06/24 13:58:
I saw and examined the patient.
The KETTLE FIRER's note was reviewed and I agree with the note.
Comment: He is doing well enough to go home and f/u as planned.
Addendum entered and electronically signed by Viki Bundy NP 07/06/24 10:45:
Needs BMP in 1 week, 2 weeks as spironolactone and Entresto are new
Original Note:
Today's Communication / Plan
-
ok for d/c
3 day dofetilide script send down to pharmacy.
change valsartan to entresto
f/u as scheduled in the office.
Impression / Plan
-
64-year-old gentleman with a past medical history of endocarditis status post AVR and mitral valve repair in January 2024, Violetta syndrome, PAF presents with acute heart failure with newly reduced ejection fraction and persistent atrial fibrillation
HFrEF:
-newly declined EF to 30-35%, some regionality with worse function in the inferior wall
-diff dx: ischemic, Tachy myopathy, seems like an aggressive post op decline when MR was due to acute MR in the setting of endocarditis
-Dry at 93.2 kg on RHC.
-Lasix has been discontinued and patient is now on Farxiga and Aldactone
-will change valsartan to entresto
PAF:
-RVR in the setting of newly declined ef--> Back in Sinus
-would not use Diltiazem in a patient with newly depressed EF--stop
-Tikosyn dose was reduced to 250 mcg twice daily. Continue to monitor ECGs
-ultimately Dr. Serna's plan is to ursue PVI
History of mitral valve repair: Stable gradients on recent echo
History of aortic valve repair: Normal function on recent echo
History of endocarditis
Subjective:
He is feeling very well, a lot better. No CP, SOB. Edema is gone
Cath: 07/04/24:
Weight (kg):93.2
AO (s/d/x mmHg): 85/59/71
LV (s/x mmHg): 97/10
PCWP (a/v/x mmHg): /
PA (s/d/x mmHg):
RV (s/x mmHg): 30/9
RA (a/v/x mmHg):
SVC SvO2 (%):60.8
IVC SvO2 (%):Not obtained.
RA SvO2 (%):Not obtained.
RV SvO2 (%):Not obtained.
PA SvO2 (%):62.8
SaO2 (%):87.1
Hbg (g/dL):13.9
-
PINKY
CO (L/min): 6.10
CI (L/min/m2): 2.83
-
TPG (mmHg): 5
PVR (Slater Units): 0.82
SVR (dynes*seconds*cm^-5): 813
AVO2 Diff (Volume %): 4.59
CONCLUSIONS:
1. Right dominant circulation with no coronary artery disease.
2. Status post bioprosthetic surgical aortic valve replacement with appropriate gradient (mean gradient = 7.2 mmHg, EVETTE = 2.63 cm�) and no evidence of insufficiency.
3. Status post mitral valve repair with appropriate gradient (mean gradient = 5.01 mmHg, MVA = 3.29 cm�) and no evidence of insufficiency.
4. Global hypokinesis with moderate reduction in systolic function. LV ejection fraction estimated at 35%.
5. Status post left atrial appendage occlusion.
6. Normal filling pressures (LVEDP = 10 mmHg, PCWP = 15 mmHg at 93.2 kg).
RECOMMENDATIONS:
1. Expectant management after cardiac catheterization via right radial/antecubital approach.
2. Limited weight bearing on the right wrist for one week.
3. Guideline directed medical therapy as hemodynamically tolerated.
4. The patient would likely benefit from catholic of sinus rhythm.
TTE 07/02/23:
CONCLUSIONS
-LV ejection fraction is 30-35%. Septal dyskinesis and inferior wall severe
hypokinesis/akinesis.
-Normal right ventricular size and function.
-Mitral valve repair with peak/mean gradients of 11/5 mmHg.
-Bioprosthetic aortic valve replacement with peak/mean gradients of 16/8 mmHg.
-Mild to moderate tricuspid regurgitation. Estimated pulmonary artery pressure
of 30-35 mmHg.
Compared to previous echo on 03/06/2024, LVEF has declined (previously 50-55%).
TTE 03/06/24:
Normal left ventricular systolic function.
Left ventricular ejection fraction is 50-55%.
Abnormal (paradoxical) septal motion consistent with postoperative status.
S/p mitral valve repair. No stenosis or regurgitation.
Well-seated, normally functioning bioprosthetic aortic valve.
Left pleural effusion present.
Compared to the prior on 02/08/2024, left pleural effusion now seen.
CXR: IMPRESSION:
There is a small right and trace left pleural effusion with adjacent bibasilar opacities, likely atelectasis. These have decreased in size when compared with prior.
CTA 02/05/24:
CALCIUM SCORE: 30.99 (LM 0, LAD 30.99, LCX 0, RCA 0)
CORONARY ANATOMY:
Left Main (LM): No significant obstructive coronary artery disease seen.
Left Anterior Descending Artery (LAD): Proximal LAD calcified stenosis, suspect less than 50%; however, given image quality and motion artifact, this may be under represented.
Left Circumflex Artery (LCX): No significant coronary artery disease.
Right Coronary Artery (RCA): No significant coronary artery disease.
Dominance: Right.
IMPRESSION:
Proximal LAD calcified stenosis, suspect less than 50%; however, given image quality and motion artifact, this may be under represented.
Physical Exam
Vital Signs/Labs
Vital Signs
Temp Pulse Resp BP Pulse Ox
98.2 F 74 18 138/82 94
07/06/24 08:35 07/06/24 04:42 07/06/24 08:35 07/06/24 08:31 07/06/24 08:35
07/05/24 07/06/24 07/07/24
06:59 06:59 06:59
Actual Weight 92.9 kg 92.8 kg
07/04/24 05:22
PT 15.3 Sec (11.4-14.6) H 07/02/24 20:27
INR 1.18 07/02/24 20:27
APTT 40.8 Sec (23.4-35.0) H 07/03/24 10:41
Magnesium 2.1 mg/dl (1.6-2.3) 07/05/24 05:29
Free T4 1.32 ng/dl (0.78-2.19) 07/03/24 04:05
07/02/24
20:28
Ucy-F-Ejeanlmtoks Pept 1270
Physical Exam
Constitutional: No acute distress
Cardiovascular: Rhythm & rate is regular and Pedal edema is absent
Respiratory: Respiratory effort normal and Lungs clear to auscul.
Neuro/Psych: AO x 3
Data Reviewed
-
Date of Service: July 06, 2024
EKG: Tracing Personally Visualized and interpreted (07/05/24 22:11 NSR PVC 83 bpm, )
--- NOTE | 2024-07-06 11:26 | PTCARENOTE ---
07/06/2024 Received patient sitting in chair. Pt had no complaints of headache, dizziness, chest pain or palpitations. VSS, Pt on quality assurance monitor chassis NSR w/PVC's. Reviewed plan of care, new medications. Print out given to patient of new meds. Awaiting
orders for discharge. Tikosyn load completed.
--- NOTE | 2024-07-06 11:39 | W.PN.HOSP.TC ---
Today's Communication/Plan
-
Discharge home with BMP in 5-7 days
GDMT with beta-kyra, SGLT2, ARNI
Tikosyn 250 every 12
Cardiology follow-up
Assessment / Plan
Assessment / Plan
#Acute HFrEF
-Likely tachycardia induced cardiomyopathy; negative LHC yesterday
-History of HFpEF, TTE here showed LVEF 30% and possible new WMA
-Initially on diltiazem drip; discontinued as C/I with HFrEF; started on rhythm control for AF
-Started on GDMT with beta-kyra, SGLT2i, ARNI; status post IV Lasix
-RHC without significant elevation in pressures, cardiac output adequate
-Remains euvolemic, volume status maintained on SGLT2 and MRA
-Will hold off on oral Lasix at DC, give direction to monitor home weights
#AF with RVR
-Home medications include metoprolol and Eliquis; metoprolol dose recently reduced
-Initially on diltiazem drip; has been discontinued and started on Tikosyn load by cardiology
-Remains tachycardic though heart rate seems improved since admission
-Has since spontaneously cardioverted back to NSR on dofetilide
-Most recent QTc <500, Tikosyn dose was reduced by cardiology to 250 mcg
-Continue Tikosyn and monitor QTc, last dose of load evening 07/05
#S/p bioprosthetic AVR
#S/p MVR
#H/O MSSA endocarditis
#H/O Violetta's syndrome
-Hospitalized in January for endocarditis, required both valves replaced
-On exam valves seem to be functioning adequately
#H/O daily EtOH
DVT prophylaxis: Eliquis
Diet: Regular
CODE STATUS: Full code
Disposition: Home
Anticipated Discharge: Today
Subjective/Interval History
-
Date of Service: July 06, 2024
Seen and examined at the bedside. No acute events reported overnight. AFVSS this morning. Denies acute complaints. QTc stable
Objective Data
-
Labs:
Laboratory Results
07/06/24
06:00
Sodium Pending
Potassium Pending
Chloride Pending
Carbon Dioxide Pending
BUN Pending
Creatinine Pending
Glucose Pending
Calcium Pending
Vital Signs:
Vital Signs
Temp Pulse Resp BP Pulse Ox
98.2 F 74 18 138/82 94
07/06/24 08:35 07/06/24 04:42 07/06/24 08:35 07/06/24 08:31 07/06/24 08:35
I&O
07/05/24 07/06/24 07/07/24
06:59 06:59 06:59
Intake Total 120 / 120
Balance 120 / 120
Review of Systems
-
History Source: Patient
All other systems: Reviewed and negative
Physical Exam
-
General: Well Developed, Well Nourished, No Apparent Distress and Comfortable
HEENT: Normocephalic, Atraumatic and Moist Mucous Membranes
Respiratory: Clear to Auscultation and Non Labored Respirations
Cardiac: Regular Rhythm, S1/S2 and Murmur; Negative Rub or Gallop
GI: Soft, Nontender, Nondistended and Normal Bowel Sounds
Musculoskeletal: No Clubbing, No Cyanosis and No Edema
Skin: Warm, Dry and Normal Turgor; Negative Rash
Neuro: AO x 3 and Nonfocal/Grossly Intact
Psych: Calm
[2024-07-06 11:43] VITALS: BP 112/71
--- NOTE | 2024-07-06 16:35 | W.DCSUMMARY ---
Discharge Summary
Discharge Data
Date of Admission: 07/03/24
Date of Discharge: 07/06/24
-
Pending Results: No
Hospital Course
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 Found to be in
atrial fibrillation with RVR following recent dose reduction in metoprolol. Evaluated by cardiology, echocardiogram showed newly reduced EF of 30%. 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 Was transitioned to oral Tikosyn load for rhythm
control, NSR was obtained while in the hospital. Received short course of IV Lasix. Ultimately transition to GDMT for HFrEF, Including beta-kyra, ARNI, SGLT2. Renal function and hemodynamic stable. Was provided with BMP after discharge to
reassess kidney function. Will have outpatient follow-up with spring fitter and family doctor. Will need repeat TTE to assess for improved LVEF
Discharge Plan
-
Patient Disposition: Home (Routine Discharge)
Discharge Diagnosis/Procedures: Atrial fibrillation with RVR
Acute heart failure with reduced ejection fraction
Cardiac catheterization
Condition: Good
Diet: No added salt
Activity: As tolerated
Driving Restrictions: No driving for 24 hours
Bathing Restrictions: None
Blood Work: BMP in 1 week
Others Tests: None
Specialty Instructions: Weigh Daily- Call MD for wt gain/loss 3 lbs overnight/5 lbs in 1 week
Activity Restrictions/Additional Instructions:
After discharge schedule follow-up appointment with your family doctor, should be seen in office within 1 to 2 weeks of discharge
Follow-up with spring fitter on 07/12/2024 at 4:20 PM
Instructions: *CBC Heart Failure Instructions
Stand Alone Forms: DC Instructions- Cath/EP Lab
Referrals:
[facility] [Outside] - 08/20/24 11:00 am
(Cardiac Rehab Orientation appointment is on August 20 at 11am.
The Cardiac Rehab gym is located on the first floor of the [facility].)
Yina Schafer CRNP [Specified Professional Personl] - 07/12/24 4:20 pm (Heart failure and post cath followup appointment)
Brandan Balderrama MD [Family Provider] -
Additional Discharge Medication Instructions: Continue dapagliflozin 10 mg daily
Continue spironolactone 12.5 mg daily
Continue dofetilide 250 mcg every 12 hours
Continue Entresto 24-26 mg twice daily
Will speak to spring fitter as outpatient about starting medication called Entresto
Stop taking Lasix. Monitor your weight daily, if weight increases by 3 pounds within 24 hours then resume Lasix 40 mg daily and call your spring fitter
Prescriptions:
New
spironolactone 25 mg Tablet
12.5 mg PO DAILY 30 Days Qty: 15 0RF
dapagliflozin propanediol 10 mg Tablet
10 mg PO DAILY 30 Days Qty: 30 0RF
dofetilide 250 mcg Capsule
250 mcg PO Q12H 30 Days Qty: 60 0RF
sacubitril-valsartan [Entresto] 24-26 mg Tablet
1 tab PO BID 30 Days Qty: 60 0RF
Continued
Eliquis 5 mg Tablet
5 mg PO BID Qty: 60 1RF
therapeutic multivitamin Tablet
1 tab PO DAILY
acetaminophen [Tylenol Extra Strength] 500 mg Tablet
1,000 mg PO Q6HPRN PRN (Reason: mild pain)
omeprazole 20 mg Capsule,Delayed Release(Dr/Ec)
20 mg PO DAILY
metoprolol succinate 25 mg Tablet Extended Release 24 Hr
12.5 mg PO HS
Discontinued
furosemide [Lasix] 40 mg tablet
40 mg PO DAILY Qty: 7 0RF
Discharge Orders:
Discharge Patient (As Directed); Ordered 07/06/24
Ordered By: Jack Kilgore
Care Plan Goals
Care Plan Goals:
Problem: Readiness for enhanced knowledge related to diagnosis and treatment plan
Goal: Understand your diagnosis and treatment plan needs, including medications if applicable.
Instructions: Know your diagnosis, underlying causes and treatment plan options, including medications if applicable. Consult with your health care team to learn about your diagnosis and treatment plan, including medications if applicable.
Discharge Date and Time
Discharge Date/Time: 07/06/24 12:31
Print Language: MONGOLIAN
== END 2024-07-06 12:31 | disposition home or self-care (01) | DRG 287 ==
LOC: IVU 00:59
PROVIDERS: Emergency Medicine; Internal Medicine Cardiovascular Disease; Nurse Practitioner; ADMITTING PHYSICIAN Internal Medicine; ATTENDING PHYSICIAN Internal Medicine; CONSULT PHYSICIAN Internal Medicine Cardiovascular Disease; EMERGENCY PHYSICIAN Student in an Organized Health Care Education/Training Program; FAMILY PHYSICIAN Internal Medicine
PROC: B2151ZZ Fluoroscopy of Left Heart using Low Osmolar Contrast (ICD-10-PCS; 2024-07-03)
PROC: 4A023N8 Measurement of Cardiac Sampling and Pressure, Bilateral, Percutaneous Approach (ICD-10-PCS; 2024-07-03)
PROC: B2111ZZ Fluoroscopy of Multiple Coronary Arteries using Low Osmolar Contrast (ICD-10-PCS; 2024-07-03)
DX: I50.43 Acute on chronic combined systolic (congestive) and diastolic (congestive) heart failure (principal); I48.0 Paroxysmal atrial fibrillation; Z79.01 Long term (current) use of anticoagulants; I11.0 Hypertensive heart disease with heart failure
CPT/HCPCS: 36415; 71046; 80048; 80053; 80069; 83735; 83880; 84439; 84443; 84484; 85025; 85027; 85610; 85730; 93005; 93306; 93460; 99285; C1894; Q9967

== ENCOUNTER → 2024-07-11 14:49 | Outpatient (REF) | payer BC, SELFPAY ==
[2024-07-11 16:55] LABS: Blood Urea Nitrogen 21 mg/dl (9-20); Calcium 9.5 mg/dl (8.4-10.2); Carbon Dioxide 26 mmol/L (22-30); Chloride 101 mmol/L (98-107); Glucose 84 mg/dl (70-99); Potassium 4.3 mmol/L (3.5-5.1); Sodium 138 mmol/L (135-145); eGFR > 60.00
== END ==
LOC: REG 14:49
PROVIDERS: ATTENDING PHYSICIAN Nurse Practitioner
DX: I50.20 Unspecified systolic (congestive) heart failure (principal)
CPT/HCPCS: 36415; 80048

== ENCOUNTER → 2024-07-19 11:45 | Outpatient (REF) | payer BC, SELFPAY ==
[2024-07-19 13:04] LABS: Blood Urea Nitrogen 22 mg/dl (9-20); Calcium 9.9 mg/dl (8.4-10.2); Carbon Dioxide 21 mmol/L (22-30); Chloride 101 mmol/L (98-107); Potassium 4.5 mmol/L (3.5-5.1); Sodium 136 mmol/L (135-145); eGFR > 60.00
[2024-07-19 13:33] LABS: Glucose 73 mg/dl (70-99)
== END ==
LOC: REG 11:45
PROVIDERS: ATTENDING PHYSICIAN Nurse Practitioner
DX: I50.20 Unspecified systolic (congestive) heart failure (principal)
CPT/HCPCS: 36415; 80048

== ENCOUNTER → 2024-08-09 11:37 | Outpatient (REF) | payer BC, SELFPAY ==
[2024-08-09 16:18] LABS: Blood Urea Nitrogen 20 mg/dl (9-20); Calcium 9.6 mg/dl (8.4-10.2); Carbon Dioxide 27 mmol/L (22-30); Chloride 101 mmol/L (98-107); Glucose 117 mg/dl (70-99); Potassium 4.5 mmol/L (3.5-5.1); Sodium 137 mmol/L (135-145); eGFR > 60.00
== END ==
LOC: RAD 11:37
PROVIDERS: ATTENDING PHYSICIAN Nurse Practitioner; FAMILY PHYSICIAN Internal Medicine
DX: I48.91 Unspecified atrial fibrillation (principal)
CPT/HCPCS: 36415; 80048

== ENCOUNTER 2024-08-20 11:00 | Outpatient (RCR) | payer OTHER, SELFPAY | END 2024-08-20 23:59 | disposition home or self-care (01) | LOC: CRHB 11:00 | PROVIDERS: ATTENDING PHYSICIAN Internal Medicine Cardiovascular Disease; FAMILY PHYSICIAN Internal Medicine | DX: I50.22 Chronic systolic (congestive) heart failure (principal) | CPT/HCPCS: 93798 ==

== ENCOUNTER → 2024-09-04 10:28 | Outpatient (REF) | payer OTHER, SELFPAY | LOC: RCS 10:28 | PROVIDERS: ATTENDING PHYSICIAN Thoracic Surgery (Cardiothoracic Vascular Surgery); FAMILY PHYSICIAN Internal Medicine | DX: Z98.890 Other specified postprocedural states (principal) | CPT/HCPCS: 93306 ==

== ENCOUNTER 2024-09-10 10:30 | Day surgery (SDC) | payer OTHER, SELFPAY ==
[2024-09-03 09:00] VITALS: BMI 28.0
[2024-09-03 09:27] LABS: % Eosinophils 1.7 % (0-6); % Immature Granulocytes 0.4 % (0-0.5); % Monocytes 11.6 % (1.7-9.3); % Neutrophils 68.3 % (42.2-75.2); Absolute Basophils 0.1 10^3/uL (0-0.2); Absolute Eosinophils 0.1 10^3/uL (0-0.7); Absolute Lymphocytes 1.4 10^3/uL (1.2-3.4); Absolute Monocytes 0.9 10^3/uL (0.1-0.6); Absolute Neutrophils 5.5 10^3/uL (1.4-6.5); Hematocrit 45.5 % (39.0-52.0); Hemoglobin 15.6 g/dL (13.0-18.0); Mean Corp Hgb Conc. 34.3 g/dL (33.0-37.0); Mean Corpuscular Hgb 30.6 pg (27.0-31.0); Mean Corpuscular Volume 89.2 fL (80.0-94.0); Mean Platelet Volume 10.6 fL (7.4-10.4); Nucleated Red Blood Cells % 0 % (-); Platelet Count 238 10^3/uL (130-400); Red Cell Dist. Width 12.9 % (11.5-14.5); White Blood Cell Count 8.1 10^3/uL (4.8-10.8)
[2024-09-03 09:55] LABS: ALT (SGPT) 20 U/L (0-50); AST (SGOT) 18 U/L (17-59); Albumin 4.2 g/dl (3.5-5.0); Alkaline Phosphatase 56 U/L (38-126); Blood Urea Nitrogen 19 mg/dl (9-20); Calcium 9.8 mg/dl (8.4-10.2); Carbon Dioxide 26 mmol/L (22-30); Chloride 104 mmol/L (98-107); Estimated Creatinine Clearance 70 ml/min; Glucose 153 mg/dl (70-99); Potassium 4.5 mmol/L (3.5-5.1); Sodium 137 mmol/L (135-145); Total Bilirubin 1.2 mg/dl (0.2-1.3); Total Protein 6.4 g/dl (6.3-8.2); eGFR > 60.00
[2024-09-10] VITALS (19 sets, daily range): BP systolic 82–119; BP diastolic 42–68
--- NOTE | 2024-09-10 14:51 | ITS.CL.ABL ---
Ethnographer - Ablation
Ablation
Procedure Report:
AFIB ablation:
Mr. Diaz is a very pleasant 64 yr old gentleman with h/o paroxysmal AF and flutters s/p endocarditis of aortic and mitral valve s/p SAVR, and mitral valve repair and TONI atria clip has gone into atrial fibrillation and atypical atrial flutters and
failed Tikosyn and is recommended AF/FL ablation. Patient presented today to the EP lab for atrial fibrillation / flutter ablation.
Date of Procedure:
09/10/2024
Indications:
Recurrent atrial fibrillation / atrial flutter
Pre-Operative Diagnosis:
Persistent atrial fibrillation /Atrial flutter
Post-Operative Diagnosis:
Persistent atrial fibrillation /Atrial flutter
Procedure Performed:
Atrial fibrillation ablation with pulmonary vein isolation
Anterior wall substrate modification
Left atrial flutter � roof dependent ablation
Mitral isthmus ablation for wilbert-mitral flutter ablation
Performing Physician:
Elly Ferrara MD
Assistants:
EP staff
Anesthesia:
See anesthesia records
Detailed Description of the Procedure:
Written informed consent was obtained from the patient after a full explanation of the risks and benefits of the procedure including the risks of sedation and anesthesia.
The patient was brought to the electrophysiology laboratory in stable condition in fasting state. Continuous electrocardiographic and hemodynamic monitoring was initiated.
The initial rhythm was sinus.
Time out:
The procedure site was meticulously prepared with surgical scrub and allowed to dry with no pooling. Sterile draping was applied to cover the procedure site. The image intensifier was draped with sterile bag and positioned over the patient.
Prior to the start of the procedure a surgical pause was performed with in agreement from anesthesia, EP staff with double identifier and explanation of the procedure, plan and site of the procedure stated with allergies and medications and
pertinent labs reviewed.
After infusion of local anesthetic, vascular access was obtained under ultrasound guidance and sheaths were placed over guide wire as detailed below. The images were stored in patient chart.
Sheaths:
��������������� Agilis sheath in right femoral vein upgraded from 8Fr in right femoral vein
��������������� 9Fr in right femoral vein
���������������
Catheters:
��������������� The Affera Sphere 9 catheter -bidirectional D/F� - at locations of HRA, RV, LA and LV.
��������������� ICE catheter - at locations of RA, SVC, and RV.
���������������
A 7000 units of heparin was given
Intracardiac ECHO:
An 8-Greenlandic AcuNav intracardiac ECHO (ICE) probe was advanced through the 9-Greenlandic sheath in the right femoral vein into the right atrium under fluoroscopic and ICE ultrasound image guidance and a baseline ECHO study was performed. The left atrial
size was severely dilated. There was trace tricuspid regurgitation. There was mild mitral regurgitation. The surgical bioprosthetic aortic valve was normal. There was reduced left ventricular systolic function. There is no pericardial effusion. All
the four veins were identified and has good flow identified. No definite clot seen.�
During the procedure, ICE was used for monitoring of complications, guidance of trans-septal puncture, monitor the catheter position and tracking ablation lesions. No change in the pericardial space noted throughout the procedure.
Trans-septal Puncture:
Heparin was initiated and infused to maintain appropriate ACT. A J-tipped guidewire was advanced through into the superior vena cava under fluoroscopic and ICE guidance. The Agilis sheath was advanced into the superior vena cava over a guidewire. A
BRK needle with stylet was advanced inside the Agilis sheath. The apparatus was withdrawn until it was in contact with the fossa ovalis. The position was adjusted based on fluoroscopy and ultrasound images from ICE. Under fluoroscopic, hemodynamic
and ICE ultrasound guidance, left atrium was cannulated by advancing the needle. Once atrial septum was cannulated, the needle was pulled back and the guide wire was advanced through the needle into the left atrium. The guide wire was advanced into
the left superior pulmonary vein. Both the sheath and the dilator was advanced into the left atrium. The dilator with the needle was withdrawn. Blood was aspirated from the Agilis sheath and arterial blood confirmed. The sheath was flushed. Saline
injection noted into the left atrium on ICE. The waveform of the LA pressure was recorded. The mapping catheter was advanced in the Agilis sheath into the left pulmonary vein.
3D Electroanatomic Mapping:
Using the Sphere 9 Affera catheter advanced through Agilis sheath into the left atrium, an electroanatomic map (EAM) of the left atrium was created using Zeetla� mapping system with [employer] software. The map was used for localization of catheter
position and tacking of ablation lesions.
The EAM of the left atrium showed a total of 3 PVs with two left and a large right sided pulmonary trunk with 3 pulmonary veins. There was sporadic scarring noted in the LA. The posterior wall had scattered signals. There was a large areas of scar
noted on the anterior wall with severely fractionated signals on the anterior wall. The LA was dilated. �
Following the EAM, preparation were made for ablation.
Ablation:
Ablation # 1: Atrial fibrillation ablation - Pulmonary vein Isolation:
Pulsed field ablation was performed using an open irrigation, bidirectional, contact sensing, dual energy ablation catheter (Zeetla sphere -9) by completing the circumferential lesions around the left and right pulmonary veins achieving pulmonary
vein isolation.
All PVI were rechecked at the end of the case and remained isolated with dissociated and local capture with pacing. Entrance and exit block were demonstrated in all veins.
Ablation # 2: Roof line Formation:
There was a clear channel of electrical activity left in the posterior wall with multiple CFAE and AF areas on the roof and ablation in that area increased the risk of atrial flutter and decision was made to create a roof line to block a slow
conduction. A set of pulsed field ablations were placed on the roof line connecting the left superior pulmonary vein ablation lesions to the right superior pulmonary vein lesions rings.
The LA was mapped indicating the block in the roof with propagation of electric wave from floor to the roof in the posterior wall.
Ablation # 3: Anterior wall substrate modification:
There was a significant fractionation seen in the anterior wall and LA AF foci along with CFAE.
A set of Pulsed field ablations were placed on anterior wall adjacent to the TONI. Additional ablations were placed to remove any further fractionated signal areas.
Ablation # 4: Mitral isthmus ablation for wilbert-mitral flutter ablation
Mitral line was done for the mitral isthmus from the right anterior PV antrum to the anteior wall with ablation lesions and continued to the mitral annulus. The pulsed field ablations were placed at the isthmus and switched to radiofrequency once
close to the mitral annulus.
Confirmation of the PVI and bidirectional block:
Following achievement of entrance block at the pulmonary veins, pacing from the Sphere 9 affera catheter in each of the four veins at 20 milliamps for 4 milliseconds showed entrance and exit block.
The LA was mapped with The Affera� mapping system with [employer] software in sinus rhythm confirming the line of block at the ablation lesions lines.
�
The AV franchesca functions are deemed within normal range. The HV was normal.
All PVI were rechecked at the end of the case. Entrance and exit block were demonstrated.
Procedure End
ICE study was done again that showed no epicardial accumulation. No complications noted.
Following the completion of the EP study, catheters were removed. Protamine 30 mg was given at the end of the procedure and ACT was checked repeatedly. The sheaths were removed and hemostasis achieved with VASCADE and manual compression.
Left atrial Pressure:
Post-Procedure: Mean LA pressure was 12mmHg
Post-Procedure: Mean RA pressure was 9mmHg
Fluoro Time:
0.6min / 1.7mGy
Estimated Blood loss:
<10 cc
Specimens Removed:
None.
Implants / Devices:
None
Urine output:
None
Packs / Drains/ Tubes:
None
Instrument / Sponge Count Correct:
Yes
Complications of the Procedure:
None
Condition of Patient at Time of Transfer:
Hemodynamically stable with no neurological or vascular compromise.
Summary:
Successful atrial fibrillation ablation with pulmonary vein isolation, roof flutter ablation, anterior wall substrate modification, Mitral isthmus ablation for wilbert-mitral flutter ablation,
--- NOTE | 2024-09-10 15:25 | PTCARENOTE ---
Pt was hypotensive on arrival. Legs elevated and IVF's infusing. GAS APPLIANCE SERVICER HELPER administered phenylephedrine resulting in MAP improved MAP from low 50's to low 60's.
[2024-09-10] MEDS: TYLENOL 650 MG PO (15:34)
[2024-09-10] MEDS: TORADOL 30 MG IV (16:11)
[2024-09-10] MEDS: ANESTHETIC LOZENGE 1 LOZENGE PO (16:40)
--- NOTE | 2024-09-10 16:54 | W.PN.UPDATE ---
Update Note
Progress Note Update
64 yo WM s/p PVI (same day) He denies cp, sob, lele diet, R shoulder pain chronic, relief with toradol 30mg, EKG SR, R fem site VASCADE closure c/d/i no HT, soft. He will resume Eliquis at 9pm tonight. He will continue dofetilitde and metoprolol.
Activity restrictions reviewed. He will f/u SOFTWARE TEST MANAGER in 2-4 weeks. He is for d/c home after 545pm if groin stable.
Procedure Performed:
Atrial fibrillation ablation with pulmonary vein isolation
Anterior wall substrate modification
Left atrial flutter � roof dependent ablation
Mitral isthmus ablation for wilbert-mitral flutter ablation
[2024-09-13 08:33] LABS: ACT-LR - POC 377 Seconds (116-155)
[2024-09-13 08:33] LABS: ACT-LR - POC 385 Seconds (116-155)
[2024-09-13 08:33] LABS: ACT-LR - POC 356 Seconds (116-155)
== END 2024-09-10 17:55 | disposition home or self-care (01) ==
LOC: CATH 10:30
PROVIDERS: ATTENDING PHYSICIAN Internal Medicine Cardiovascular Disease; FAMILY PHYSICIAN Internal Medicine; OTHER PHYSICIAN Internal Medicine Cardiovascular Disease
DX: I48.19 Other persistent atrial fibrillation (principal); I48.4 Atypical atrial flutter; Z79.01 Long term (current) use of anticoagulants; I34.0 Nonrheumatic mitral (valve) insufficiency; I45.10 Unspecified right bundle-branch block; Z98.890 Other specified postprocedural states
CPT/HCPCS: C1769; C1766; C1892; C1759; C1733; 36415; 80053; 85025; 85347; 86850; 86900; 86901; 93005; 93655; 93656; 93657